=== PATIENT | male | born 1945 | race Caucasian/White ===

== ENCOUNTER → 2023-05-17 09:30 | Outpatient (REF) | payer OTHER, MEDICARE, SELFPAY ==
[2023-05-17 11:14] LABS: Hematocrit 27.9 % (39.0-52.0); Hemoglobin 9.4 g/dL (13.0-18.0); Mean Corp Hgb Conc. 33.7 g/dL (33.0-37.0); Mean Corpuscular Hgb 29.3 pg (27.0-31.0); Mean Corpuscular Volume 86.9 fL (80.0-94.0); Mean Platelet Volume 10.7 fL (7.4-10.4); Platelet Count 143 10^3/uL (130-400); Red Blood Cell Count 3.21 10^6/uL (4.70-6.10); Red Cell Dist. Width 13.5 % (11.5-14.5); White Blood Cell Count 4.1 10^3/uL (4.8-10.8)
[2023-05-17 12:24] LABS: ALT (SGPT) 19 U/L (0-50); AST (SGOT) 29 U/L (17-59); Albumin 3.9 g/dl (3.5-5.0); Alkaline Phosphatase 77 U/L (38-126); Blood Urea Nitrogen 19 mg/dl (9-20); Calcium 8.5 mg/dl (8.4-10.2); Carbon Dioxide 26 mmol/L (22-30); Chloride 101 mmol/L (98-107); Creatine Phosphokinase 63 U/L (55-170); Glomerular Filtration Rate > 60.0; Glucose 83 mg/dl (70-99); Potassium 3.8 mmol/L (3.5-5.1); Sodium 136 mmol/L (135-145); Total Bilirubin 0.6 mg/dl (0.2-1.3); Total Protein 5.8 g/dl (6.3-8.2)
== END ==
LOC: OLABWHC 09:30
PROVIDERS: ATTENDING PHYSICIAN Family Medicine
DX: D64.9 Anemia, unspecified (principal); B96.1 Klebsiella pneumoniae [K. pneumoniae] as the cause of diseases classified elsewhere; I10 Essential (primary) hypertension
CPT/HCPCS: 36415; 80053; 82550; 85027

== ENCOUNTER 2024-03-06 07:48 | Emergency (ER) | payer MEDICARE, OTHER, SELFPAY ==
[2024-03-06 07:51] VITALS: BP 182/107; BMI 24.5
[2024-03-06 07:53] VITALS: BP 182/107
[2024-03-06 08:00] VITALS: BP 169/106
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
[2024-03-06] MEDS: SUBUTEX 2 MG SL (08:37)
[2024-03-06 08:53] LABS: % Basophils 0.2 % (0-2); % Immature Granulocytes 0.4 % (0-0.5); % Lymphocytes 7.7 % (20.5-51.1); % Monocytes 6.2 % (1.7-9.3); % Neutrophils 84.5 % (42.2-75.2); Absolute Eosinophils 0.1 10^3/uL (0-0.7); Absolute Lymphocytes 0.4 10^3/uL (1.2-3.4); Absolute Monocytes 0.3 10^3/uL (0.1-0.6); Absolute Neutrophils 4.4 10^3/uL (1.4-6.5); Hematocrit 32.9 % (39.0-52.0); Hemoglobin 10.8 g/dL (13.0-18.0); Mean Corp Hgb Conc. 32.8 g/dL (33.0-37.0); Mean Corpuscular Hgb 28.6 pg (27.0-31.0); Nucleated Red Blood Cells % 0 % (-); Red Blood Cell Count 3.78 10^6/uL (4.70-6.10); Red Cell Dist. Width 15.9 % (11.5-14.5); White Blood Cell Count 5.2 10^3/uL (4.8-10.8)
[2024-03-06 08:55] LABS: Urine Albumin Negative (Neg - Trace); Urine Bilirubin Negative (Negative); Urine Character Clear (Clear); Urine Color Yellow; Urine Glucose Negative (Negative); Urine Ketone Negative (Negative); Urine Leukocyte Trace (Negative); Urine Nitrite Negative (Negative); Urine Occult Blood Trace (Negative); Urine Specific Gravity 1.015 (<1.030); Urine Urobilinogen Negative (Neg - 1+)
[2024-03-06 09:00] VITALS: BP 182/106
[2024-03-06 09:08] LABS: Urine Bacteria Moderate (Negative); Urine Urothelial Cell 0-2 /LPF (FEW)
[2024-03-06] MEDS: TORADOL 15 MG IV (09:10)
[2024-03-06 09:30] LABS: ALT (SGPT) 20 U/L (0-50); AST (SGOT) 32 U/L (17-59); Albumin 4.2 g/dl (3.5-5.0); Alkaline Phosphatase 74 U/L (38-126); Blood Urea Nitrogen 23 mg/dl (9-20); Carbon Dioxide 27 mmol/L (22-30); Chloride 100 mmol/L (98-107); Estimated Creatinine Clearance 72 ml/min; Glucose 105 mg/dl (70-99); Lipase 69 U/L (23-300); Potassium 4.2 mmol/L (3.5-5.1); Sodium 131 mmol/L (135-145); Total Bilirubin 1.6 mg/dl (0.2-1.3); Total Protein 6.6 g/dl (6.3-8.2); eGFR > 60.00
[2024-03-06 10:00] VITALS: BP 157/97
== END 2024-03-06 11:07 | disposition home or self-care (01) ==
LOC: EMR 07:48
PROVIDERS: EMERGENCY PHYSICIAN Emergency Medicine; FAMILY PHYSICIAN Family Medicine
DX: G89.29 Other chronic pain (principal); M54.9 Dorsalgia, unspecified; I48.91 Unspecified atrial fibrillation; I11.0 Hypertensive heart disease with heart failure; I50.9 Heart failure, unspecified; I25.10 Atherosclerotic heart disease of native coronary artery without angina pectoris; G47.30 Sleep apnea, unspecified; F41.8 Other specified anxiety disorders; E78.00 Pure hypercholesterolemia, unspecified; Z82.49 Family history of ischemic heart disease and other diseases of the circulatory system; Z87.440 Personal history of urinary (tract) infections; Z95.0 Presence of cardiac pacemaker; Z95.2 Presence of prosthetic heart valve; Z98.1 Arthrodesis status
CPT/HCPCS: 99284; 96374; 74176; 80053; 81003; 81015; 83690; 85025; 87077; 87086; 87186

== ENCOUNTER 2024-04-14 04:55 | Inpatient (IN) | payer MEDICARE, OTHER, SELFPAY ==
[2024-04-14] VITALS (13 sets, daily range): BP systolic 78–205; BP diastolic 50–123; BMI 23.7; BMI 22.5
[2024-04-14 00:56] LABS: % Basophils 0.1 % (0-2); % Immature Granulocytes 0.4 % (0-0.5); % Lymphocytes 8.6 % (20.5-51.1); % Monocytes 5.2 % (1.7-9.3); % Neutrophils 85.7 % (42.2-75.2); Absolute Lymphocytes 0.8 10^3/uL (1.2-3.4); Absolute Monocytes 0.5 10^3/uL (0.1-0.6); Absolute Neutrophils 7.9 10^3/uL (1.4-6.5); Hematocrit 35.3 % (39.0-52.0); Hemoglobin 12.5 g/dL (13.0-18.0); Mean Corp Hgb Conc. 35.4 g/dL (33.0-37.0); Mean Corpuscular Hgb 29.3 pg (27.0-31.0); Mean Corpuscular Volume 82.7 fL (80.0-94.0); Mean Platelet Volume 9.7 fL (7.4-10.4); Nucleated Red Blood Cells % 0 % (-); Platelet Count 116 10^3/uL (130-400); Red Blood Cell Count 4.27 10^6/uL (4.70-6.10); Red Cell Dist. Width 16.1 % (11.5-14.5); White Blood Cell Count 9.2 10^3/uL (4.8-10.8)
--- NOTE | 2024-04-14 01:06 | ED.GENMED ---
History of Present Illness
<THIEN Galvan - Last Filed: 04/14/24 05:05>
General
Chief Complaint: Chest Pain
Source: patient
Exam Limitations: none
Time Seen by Provider: 04/14/24 00:32
Travel History
Have you had any contact with someone who has COVID-19?: No
Do you have any symptoms of coronavirus? Fever > 100 degrees, chills, cough, shortness of breath, sore throat, loss of taste or smell, muscle aches, or headache?: No
History of Present Illness
History of Present Illness:
78 YO M with a PMH of two aortic valves replaced, HTN, and HLD presenting to the ED with complaints of left sided chest pain that started at 7 p.m. Pt reports he was lying in his bed when this occurred. He described the pain as sharp, lasting 10-15
seconds before subsiding. He states he was not doing any activities that may have caused this sudden chest pain to occur. Pt pointed to his pain as 2-3 inches below his left nipple. He rates his pain is now a 7-8/10. He states he has had ongoing
back and abdominal pain x 6 months. He was supposed to see a back doctor but his appointment got canceled. Pt mentions he was treated for a UTI about three weeks ago. He thinks the antibiotic used was Bactrim. Pt is still complaining of polyuria and
is not sure if he is experiencing burning with urination.
Denies calf pain, recent travel, or long drives
Denies SOB, N,V, and diarrhea
Denies tearing pain into his chest.
Denies hx of GERD. Denies spicy food this evening.
Past History
<THIEN Galvan - Last Filed: 04/14/24 05:05>
Past History
ED Past Medical History: Arrthythmia (Atrial flutter/fib), CAD, CHF, HTN, Hypercholesterolemia, Valvular disease, Psychiatric (Anxiety, Depression), Other (Rib fractures, Chronic back pain Anemia, Cellulitis, Left pleural effusion, osteomyelitis,
endocarditis, Sleep apnea, Parkinson, GI bleeding, UTI with retention, AAA, Montalvo) and Other (polyneuropathy, balance issues, Neuropathy, Sleep apnea, Gi bleeding. UTI with retention)
ED Past Surgical History: Cardiac (Aortic valve replaced (x 2), Pacemaker), Orthopedic (C spine fusion, Laminectomy) and Other (Hemorrhoidectomy)
Patient has exhibited threatening behavior?: No
PSI?: No
Social History
Tobacco: Non-smoker
Alcohol: None ( Beer)
Drug: None
Personal:
Living: assisted living ([facility])
Employment: Retired
Family History
Family History: Hypertension and CAD
Review of Systems
<Kaylin Elam [facility] - Last Filed: 04/14/24 05:05>
Review of Systems
Constitutional: Reports no symptoms
EENT: Reports no symptoms
Respiratory: Reports no symptoms
Cardiac: Reports chest pain (2-3 inches below Left Nipple)
ABD/GI: Reports abdominal pain
: Reports frequency
Musculoskeletal: Reports back pain
Skin: Reports no symptoms
Neurological: Reports no symptoms
Phy Exam
<Kaylin Elam [facility] - Last Filed: 04/14/24 05:05>
Physical Exam
Physical Exam:
Abdominal tenderness in RLQ and suprapubic area
Normal S1 and S2
Breath sounds are clear and equal B/L
No bruits heard on abdominal exam
General Physical Exam
General Presentation: mild distress
General age: appears stated age
General Habitus: normal
General Mental: alert
Cardiovascular Exam
Cardiovascular Exam: regular rate/rhythm
Pulmonary Exam
Pulmonary Exam: lungs clear and no respiratory distress
Neurological Exam
Neurological Exam: alert and oriented x3
Scores
<THIEN Galvan - Last Filed: 04/14/24 05:05>
Heart Score for Chest Pain Patients
STEMI patient?: Not applicable
Course
<THIEN Galvan - Last Filed: 04/14/24 05:05>
Orders/Labs/Results
Orders:
Orders
04/14/24 00:33
EKG [Electrocardiogram (*1)] Urgent
Reason for Study: Chest Pain
EKG- Treatment ONCE
04/14/24 00:35
CBC/With Diff [Complete Blood Count/With Diff] Urgent
CMP [Comprehensive Metabolic Panel] Urgent
Troponin I Urgent
04/14/24 01:26
Lorazepam [Ativan] 0.5 mg IV NOW STA
04/14/24 01:36
Urinalysis Reflex To Culture Urgent
Date Specimen was Collected: 04/14/24
Time Specimen was Collected: 01:23
04/14/24 01:41
CR Chest - 2 Views Urgent
Comment:
Reason For Exam: L cp
04/14/24 03:01
Troponin I Urgent
04/14/24 04:00
Metoprolol [Lopressor] 5 mg IV NOW STA
04/14/24 04:02
CT Chest Angio W/wo Iv Contras Urgent
Comment:
Reason For Exam: CP, widened mediastinum
04/14/24 04:38
Admit/Transfer Patient As Directed
Co-Sign Provider:
Level of Care: Inpatient admission
Assign to:: Telemetry
Physician / Group: htay
Diagnosis: CP, eleavted TPNI
Reason for Telemetry: Chest Pain syndromes
Date to Stop Telemetry: 04/16/24
Time to Stop Telemetry: 11:00
Reason for Hospitalization: CP, eleavted TPNI
Expected length of stay greater than two midnights?: Yes
ELOS- Estimated Length of Stay in days: 3
I certify the patient meets the requirements for IP care: Yes
04/14/24 04:41
Code Status As Directed
Resuscitation Status: Full Code
04/16/24 11:00
DC Protocol for Telemetry ONCE
Abnormal Lab Results
04/14/24 04/14/24
00:35 03:01
RBC 4.27 L 10^6/uL
(4.70-6.10)
Hgb 12.5 L g/dL
(13.0-18.0)
Hct 35.3 L %
(39.0-52.0)
RDW 16.1 H %
(11.5-14.5)
Plt Count 116 L 10^3/uL
(130-400)
Absolute Neuts (auto) 7.9 H 10^3/uL
(1.4-6.5)
Absolute Lymphs (auto) 0.8 L 10^3/uL
(1.2-3.4)
Neutrophils % 85.7 H %
(42.2-75.2)
Lymphocytes % 8.6 L %
(20.5-51.1)
Sodium 132 L mmol/L
(135-145)
Chloride 94 L mmol/L
(98-107)
Glucose 111 H mg/dl
(70-99)
Troponin I 0.038 H* ng/ml 0.050 H* D ng/ml
04/14/24 00:35
04/14/24 00:35
Vital Signs
Initial and Last Documented VS:
Initial Vital Signs
Temp Pulse Resp BP Pulse Ox
98.2 F 86 18 205/123 97
04/14/24 00:28 04/14/24 00:28 04/14/24 00:28 04/14/24 00:28 04/14/24 00:28
Last Documented Vital Signs
Temp Pulse Resp BP Pulse Ox
98.2 F 67 25 193/118 95
04/14/24 00:28 04/14/24 04:08 04/14/24 03:47 04/14/24 04:08 04/14/24 03:45
<Oh Butt, DO - Last Filed: 04/14/24 05:01>
Orders/Labs/Results
Orders:
Orders
04/14/24 00:33
EKG [Electrocardiogram (*1)] Urgent
Reason for Study: Chest Pain
EKG- Treatment ONCE
04/14/24 00:35
CBC/With Diff [Complete Blood Count/With Diff] Urgent
CMP [Comprehensive Metabolic Panel] Urgent
Troponin I Urgent
04/14/24 01:26
Lorazepam [Ativan] 0.5 mg IV NOW STA
04/14/24 01:36
Urinalysis Reflex To Culture Urgent
Date Specimen was Collected: 04/14/24
Time Specimen was Collected: 01:23
04/14/24 01:41
CR Chest - 2 Views Urgent
Comment:
Reason For Exam: L cp
04/14/24 03:01
Troponin I Urgent
04/14/24 04:00
Metoprolol [Lopressor] 5 mg IV NOW STA
04/14/24 04:02
CT Chest Angio W/wo Iv Contras Urgent
Comment:
Reason For Exam: CP, widened mediastinum
04/14/24 04:38
Admit/Transfer Patient As Directed
Co-Sign Provider:
Level of Care: Inpatient admission
Assign to:: Telemetry
Physician / Group: htay
Diagnosis: CP, eleavted TPNI
Reason for Telemetry: Chest Pain syndromes
Date to Stop Telemetry: 04/16/24
Time to Stop Telemetry: 11:00
Reason for Hospitalization: CP, eleavted TPNI
Expected length of stay greater than two midnights?: Yes
ELOS- Estimated Length of Stay in days: 3
I certify the patient meets the requirements for IP care: Yes
04/14/24 04:41
Code Status As Directed
Resuscitation Status: Full Code
04/16/24 11:00
DC Protocol for Telemetry ONCE
Abnormal Lab Results
04/14/24 04/14/24
00:35 03:01
RBC 4.27 L 10^6/uL
(4.70-6.10)
Hgb 12.5 L g/dL
(13.0-18.0)
Hct 35.3 L %
(39.0-52.0)
RDW 16.1 H %
(11.5-14.5)
Plt Count 116 L 10^3/uL
(130-400)
Absolute Neuts (auto) 7.9 H 10^3/uL
(1.4-6.5)
Absolute Lymphs (auto) 0.8 L 10^3/uL
(1.2-3.4)
Neutrophils % 85.7 H %
(42.2-75.2)
Lymphocytes % 8.6 L %
(20.5-51.1)
Sodium 132 L mmol/L
(135-145)
Chloride 94 L mmol/L
(98-107)
Glucose 111 H mg/dl
(70-99)
Troponin I 0.038 H* ng/ml 0.050 H* D ng/ml
04/14/24 00:35
04/14/24 00:35
Vital Signs
Initial and Last Documented VS:
Initial Vital Signs
Temp Pulse Resp BP Pulse Ox
98.2 F 86 18 205/123 97
04/14/24 00:28 04/14/24 00:28 04/14/24 00:28 04/14/24 00:28 04/14/24 00:28
Last Documented Vital Signs
Temp Pulse Resp BP Pulse Ox
98.2 F 67 25 193/118 95
04/14/24 00:28 04/14/24 04:08 04/14/24 03:47 04/14/24 04:08 04/14/24 03:45
<Kaylin Elam [facility] - Last Filed: 04/14/24 05:05>
MDM/Problems Addressed
Differential Diagnosis Includes:
Coronary artery disease: STEMI vs. NSTEMI, stable vs. unstable angina, UTI, pyelonephritis
MDM/Problems Addressed:
Left sided CP since 7 pm, ongoing abdominal pain x 6 months
Acute Exacerbation and/or Progression of Chronic Illness: HTN
<Oh Butt DO - Last Filed: 04/14/24 05:01>
MDM/Problems Addressed
MDM/Problems Addressed:
Acute chest pain, acute uncontrolled hypertension, elevated troponin, chronic back pain
<Kaylin Elam [facility] - Last Filed: 04/14/24 05:05>
*Critical Care Note
Total Time (30-74mins, 75-104mins- exclusive of procedures): Not Applicable
<Oh Butt DO - Last Filed: 04/14/24 05:01>
*Pulse Oximetry
Patient hypoxic: no
*EKG
Interpreted by ED Provider?: Yes
Interpretation: abnormal
Rhythm: av sequential
Ischemia: non-specific ST changes
*Brine Tank Operator Interpretation
Rate: normal
Interpretation: abnormal
Rhythm: av sequential
Data Reviewed
Review of Other/Old Records Reveals: Labs (Previous troponin results reviewed)
Source: patient
Prescriptions/Medications Considered But Not Given:
Consider nitroglycerin but symptoms have resolved
<Oh Butt DO - Last Filed: 04/14/24 05:01>
Patient Management
Discussion with other providers: Hospitalist
Escalation/DeEscalation of care consider admission/obs:
Brief somewhat atypical chest pain that has since resolved. However troponin did rise a bit. Is on Eliquis so do not suspect PE. Is a bit hypertensive. Treat with Lopressor and continue to monitor
ED Attending Note
<THIEN Galvan - Last Filed: 04/14/24 05:05>
-
Portions of this chart may have been created with voice recognition software.� Occasional wrong word or��sound alike� substitutions may have occurred due to the inherent limitations of voice recognition software.
<Oh Butt DO - Last Filed: 04/14/24 05:01>
ED Attending Note
Patient seen and examined by attending physician: Yes
I performed the substantive portion of visit, reviewed & personally made and approve the management plan that is documented in note by myself or BERNA.: Yes
ED Attending Note:
78-year-old male who presents with very brief episode of chest pain began around 7 AM. Pain is since resolved. He does report chronic back pain and lower abdominal discomfort that he is dealt with for some time. Patient states that his chest pain
has resolved. Patient is anticoagulated on Eliquis. He denies shortness of breath. The pain was sharp and was left lateral of his chest. Exam: Slight systolic murmur heard, no tenderness, no rash, lungs clear and equal bilaterally. Is
hypertensive. Assessment and plan: Check troponin, chest x-ray, trend vital signs
Discharge Plan
Departure
Patient Disposition: Admit
Date of Disposition: 04/14/24
Time of Disposition: 04:03
Admit to: Telemetry
Presentation/result/management discussed w/ accepting MD/DO: With Dr. Butt
Discharge Problem:
Chest pain, Elevated troponin, Uncontrolled hypertension, Ascending aortic aneurysm
Interventions
Interventions:
*Risk Screen - Suicide Last Done: 04/14/24 00:28
*General Assessment Last Done: 04/14/24 00:28
*Neglect/Abuse Screening Last Done: 04/14/24 00:28
ED- Fall Risk Assessment Last Done: 04/14/24 00:38
ED- Cardiac Assessment Last Done: 04/14/24 00:38
[2024-04-14 01:16] LABS: ALT (SGPT) 18 U/L (0-50); AST (SGOT) 26 U/L (17-59); Albumin 4.3 g/dl (3.5-5.0); Alkaline Phosphatase 90 U/L (38-126); Blood Urea Nitrogen 17 mg/dl (9-20); Calcium 9.2 mg/dl (8.4-10.2); Carbon Dioxide 30 mmol/L (22-30); Chloride 94 mmol/L (98-107); Estimated Creatinine Clearance 84 ml/min; Glucose 111 mg/dl (70-99); Sodium 132 mmol/L (135-145); Total Bilirubin 1.3 mg/dl (0.2-1.3); Total Protein 6.8 g/dl (6.3-8.2); eGFR > 60.00
--- NOTE | 2024-04-14 01:30 | EDRN ---
Patient asking for something to help calm him down, aware, all calles in reach will continue to monitor
[2024-04-14] MEDS: ATIVAN 0.5 MG IV (01:37)
[2024-04-14 01:39] LABS: Troponin I 0.038 ng/ml
[2024-04-14 01:44] LABS: Urine Albumin Negative (Neg - Trace); Urine Bilirubin Negative (Negative); Urine Character Clear (Clear); Urine Color Straw; Urine Glucose Negative (Negative); Urine Ketone Negative (Negative); Urine Leukocyte Negative (Negative); Urine Nitrite Negative (Negative); Urine Occult Blood Negative (Negative); Urine Urobilinogen Negative (Neg - 1+)
--- NOTE | 2024-04-14 02:32 | EDRN ---
Patient found standing next to bed urinating, reminded him to use call calles so he doesn't fall since we gave him Ativan, showed patient again how to use call calles
[2024-04-14] MEDS: LOPRESSOR 5 MG IV (04:08)
--- NOTE | 2024-04-14 04:32 | HPS.HSE ---
Family Physician
-
Family Physician: Black Artis
Chief Complaint
-
CP
History of Present Illness
HPI
78y M with PMH significant for chronic pain, hypertension, A-Fib and Chr HFpEF seen aER for evalaution of CP
Acute Lt sided CP [facility]
- onset around 7 pm last night while lying in bed
- sharp pain 01/13 on arrival to ER
- Received 4 baby ASA
Reports abdominal pain for last 3 days
PHx suggestive of chr abdominal pain
Recent Dx of UTI and treated with PO Bactrim
- POS polyuria
- uncertain about dysuria
ROS;
Denies SOB, N,V, and diarrhea
At ER
BP 205/123 --> 195/107 s/p IV Lopressor 5 mg , IV Ativan 0.5 mg
Medical History
Past Medical History
Past Medical History: Reports Other
Additional Past Medical History:
Paroxysmal atrial fibrillation and flutter
Chronic back pain, spinal stenosis, and degenerative disc disease with chronic opioid use with dependence
Essential hypertension
h/o Klebsiella pneumonia and coagulase-negative Staphylococcus infected hardware in L4-L5 (April 2023) treated with Chronic neuropathy
Gastroesophageal reflux disease
Chronic HFpEF
Benign prostatic hypertrophy
Hyperlipidemia
h/o permanent pacer
h/o aortic valve x 2
Obstructive sleep
Anxiety
Depression
HX C. difficile
Past Surgical History: Reports Other
Additional Past Surgical History:
History of pain pump infection with removal
Pacer and aortic valve replaced
Cervical spine fusion, laminectomy 2018, lumbar surgery 2022 with screws placed then removed 04/25/2023
Hemorrhoidectomy
Rhizotomy lower back
Cardiac cath 2006
Social History
Tobacco: Non-smoker
Alcohol: None
Drug: None
Living: With Family
Family History
Family History: CAD (mother and father )
Allergies / Home Medications
Allergies reflects when Allergies were last updated in [facility].
Home Medications with original date entered in [facility]
Allergy/Medication List:
Allergies
Allergy/AdvReac Type Severity Reaction Status Date / Time
amlodipine Allergy Swelling - Verified 04/14/24 00:32
1992
hydrochlorothiazide Allergy Hyponatremi Verified 04/14/24 00:32
a
tizanidine [From Zanaflex] Allergy took from Verified 04/14/24 00:32
patient
history
and
physical
from
surgeon
Home Medications
apixaban 5 mg tablet (Eliquis) 5 mg PO BID Blood clot prevention/tx 01/16/22
gabapentin 600 mg tablet 600 mg PO TID Neurological Condition 05/20/22
terazosin 2 mg capsule 2 mg PO HS BPH 05/20/22
carvedilol 6.25 mg tablet (Coreg) 6.25 mg PO BID Blood pressure 09/13/22
furosemide 20 mg tablet 10 mg PO DAILY Fluid retention/Swelling 09/13/22
trazodone 150 mg tablet 150 mg PO HS Depression 09/13/22
famotidine 20 mg tablet (Pepcid) 20 mg PO BID Gastrointestinal issue 02/17/23
pantoprazole 40 mg tablet,delayed release 40 mg PO DAILY Gastrointestinal issue 02/17/23
hydralazine 10 mg tablet 10 mg PO BID Blood Pressure 04/03/23
urea 15 gram oral powder packet 1 packet PO DAILY MEDICAL FOOD SIADH 04/03/23
vitamin B complex 1 cap PO QPM Supplement ##0 04/03/23
tamsulosin 0.4 mg capsule 0.4 mg PO BID #0 caps 04/07/23
acidophilus-sporogenes 35 million-25 million cell tablet (Acidophilus Ex Str (L. sporog)) 1 tab PO QPM Supplement 04/12/23
atorvastatin 20 mg tablet 20 mg PO HS High cholesterol 04/12/23
cholecalciferol (vitamin D3) 125 mcg (5,000 unit) tablet (Vitamin D3) 125 mcg PO DAILY Supplement 04/12/23
vitamin E 670 mg (1,000 unit) capsule 670 mg PO DAILY Supplement 04/12/23
buprenorphine 8 mg-naloxone 2 mg sublingual tablet 3 tab sublingual DAILY chronic pain syndrome/chronic opioid dependence 07/27/23
tizanidine 4 mg tablet 4 mg PO DAILY Muscle Spasms 07/27/23
acetaminophen 325 mg tablet 650 mg (2 x 325 mg) PO Q4HPRN PRN mild pain #0 tabs 07/29/23
tramadol 50 mg tablet 50 mg PO TID PRN Pain #21 tabs 08/01/23
levofloxacin 500 mg tablet 500 mg PO DAILY #5 tabs 03/09/24
Review of Systems
-
Constitutional: Reports No Symptoms
EENT: Reports No Symptoms
Respiratory: Reports No Symptoms
Cardiac: Reports Chest Pain; Denies Diaphoresis, Palpitations or Syncope
Abdomen/GI: Reports No Symptoms
: Reports No Symptoms
Musculoskeletal: Reports No Symptoms
Skin: Reports No Symptoms
Neurological: Reports No Symptoms
Endocrine: Reports No Symptoms
Hematologic/Lymphatic: Reports No Symptoms
Psych: Reports No Symptoms
Physical Exam
Vital Signs
Vital Signs
Temp Pulse Resp BP Pulse Ox
98.2 F 67 25 193/118 95
04/14/24 00:28 04/14/24 04:08 04/14/24 03:47 04/14/24 04:08 04/14/24 03:45
Physical Exam
General: Well Nourished, No Apparent Distress and Comfortable
HEENT: NormoCephalic, Anicteric and Moist mucous membranes
Respiratory: Clear; No Wheezes, Rales or Rhonchi
Cardiac: S1/S2 and Regular Rhythm; No JVD
Breast: Deferred by me
GI: Soft, Non Tender, Non Distended and Normal Bowel Sounds
Rectal: Deferred by Provider
Genito-urinary: Deferred by me
Musculoskeletal: No Edema
Skin: Warm and Dry
Neuro: AO x 3 and Nonfocal/grossly intact
Psych: Calm and Intact Judgment/Insight
Laboratory Results
-
04/14/24 00:35
04/14/24 00:35
Laboratory Results
Total Bilirubin 1.3 mg/dl (0.2-1.3) 04/14/24 00:35
AST 26 U/L (17-59) 04/14/24 00:35
ALT 18 U/L (0-50) 04/14/24 00:35
Alkaline Phosphatase 90 U/L (38-126) 04/14/24 00:35
Troponin I 0.050 ng/ml H* D 04/14/24 03:01
Data Reviewed
-
Medical Tests (Nuc Med, Echo, EKG etc): Report Reviewed by me
Lab Data: Labs Reviewed by me
Impression/Plan
-
Reviewed VS: afebrile BP 205/123 --> 195/107 RR 20s POx mid 90s on RA
Data
Hgb 12.5 - baseline mid 9s to hi 10s
Plt 116 - baseline low 100s
Na 132
Cl 94
Nl Cr eGFR > 60
TPNI: 0.038 --> 0.050
CXR pending
CTA chest w/wo contrast pending
EKG
AV dual-paced rhythm
ABNORMAL ECG
WHEN COMPARED WITH ECG OF 04-NOV-2023 16:21
VENT. RATE HAS DECREASED BY 16 BPM
01/05/23 TTE
LVEF 54
trace MR, marked LA dilatation
Redo #25 Inspiris bioprosthetic aortic valve with peak/mean gradient 17/10 mmHg, No AR
Last hospitalist admission: 07/28/23 - 07/29/23
P Dx: Right incarcerated inguinal hernia with intractable pain s/p open inguinal hernia repair 07/28/23
ASSESSMENT & PLAN
Pending Rx reconciliation
Acute Lt sided CP with trending up second TPNI : NIMI vs NSTEMI
HX HLD
- s/p 4 baby ASA
- Trend TPNI till peak and EKG
- on Eliquis
- cont. Carvedilol
- cont. Atorvastatin
- [facility] card consult
HTN urgency
HX essential HTN
- IV Hydralazine PRN
- escalde Coreg to 12.[address] of 6.25mg BID
- cont CORPORATE SECRETARY Meds (Pending Rx reconciliation)
HX Chr HFpEF
- cont. CORPORATE SECRETARY Coreg and Lasix
- daily wt.
Redo #25 Inspirit bioprosthetic aortic valve
- stable
HX A-fib/a flutter paroxysmal
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
- on Eliquis
- Patient follows with [facility]
Chronic thrombocytopenia ? related to AoV
- stable
Chronic back pain on chronic oral opiates/spinal stenosis, DDD
Chronic neuropathy
- cont. CORPORATE SECRETARY Gabapentin
Reports abdominal pain for last 3 days
PHx suggestive of chr abdominal pain
GERD/ HX GIB
- unremarkable LFTs
- cont Protonix
BPH
- cont terazosin 2 mg at bedtime, Flomax 0.4 mg twice daily
HX GILLES
Anxiety/depression
- on trazodone
Other PMH:
HX Klebsiella pneumonia and coagulase-negative staph aureus and infected hardware lumbar back L4-L5,April 2023 treated with removal of pain pump, daptomycin, Rocephin
HX C. difficile May 2023 treated with oral vancomycin
Frequent falls
COVID-19 infection
H emorrhoids
H. pylori
DVT Px: Eliquis
Code: Full
Obs TLM
--- NOTE | 2024-04-14 05:01 | EDRN ---
Patient stood to urinate, urinal emptied and back in bed resting.
--- NOTE | 2024-04-14 05:37 | EDRN ---
Patient stood to use urinal again then covered back up with blankets, waiting on bed at this time.
--- NOTE | 2024-04-14 06:09 | PTCARENOTE ---
Pt received from [facility] Pt oriented to room and call calles.
[2024-04-14 07:54] LABS: Troponin I 0.058 ng/ml
[2024-04-14] MEDS: NEURONTIN 600 MG PO ×3 (08:37→21:02)
[2024-04-14] MEDS: APRESOLINE 10 MG PO ×2 (08:37→20:21)
[2024-04-14] MEDS: COREG 12.5 MG PO ×2 (08:37→20:20)
[2024-04-14] MEDS: PROTONIX 40 MG PO (08:37)
[2024-04-14] MEDS: LASIX 10 MG PO (08:37)
[2024-04-14] MEDS: ZANAFLEX 4 MG PO (08:37)
[2024-04-14 09:54] LABS: Glycohemoglobin (HgbA1c) 5.5 % (4.0-5.6)
[2024-04-14 11:32] LABS: Hematocrit 35.3 % (39.0-52.0); Hemoglobin 12.6 g/dL (13.0-18.0); Mean Corp Hgb Conc. 35.7 g/dL (33.0-37.0); Mean Corpuscular Hgb 29.2 pg (27.0-31.0); Mean Corpuscular Volume 81.7 fL (80.0-94.0); Mean Platelet Volume 9.4 fL (7.4-10.4); Platelet Count 121 10^3/uL (130-400); Red Blood Cell Count 4.32 10^6/uL (4.70-6.10); Red Cell Dist. Width 16.3 % (11.5-14.5); White Blood Cell Count 7.2 10^3/uL (4.8-10.8)
[2024-04-14 11:43] LABS: APTT 32.7 Sec (23.4-35.0)
[2024-04-14 11:56] LABS: Troponin I 0.061 ng/ml
--- NOTE | 2024-04-14 12:36 | CON.CAR ---
Consultation
Consultation Request
Date/Time Consultation Requested: 04/14/24
Date/Time Consultation Performed: 04/14/24
Requesting Provider: David
Performing Provider: Lucinda
Reason for Consultation: chest pain
Medical History
-
Chief Complaint: chest pain
History of Present Illness:
78-year-old man with complex past medical history as below who presented to [facility] emergency department for evaluation of left-sided chest discomfort. It seems that he developed left-sided chest discomfort last evening which came on at rest and
prompted him to present to [facility] emergency department for further evaluation, was brought in by EMS. Also tells me he has had ongoing back and abdominal pain which seem like they are more chronic in nature. Of note his blood pressure was
significantly elevated on admission (205/123 mmHg). ECG showed paced rhythm. Initial troponin 0.038 and uptrending, most recently 0.061. With concern for aortic dissection he underwent CTA of the chest which showed a ascending thoracic aortic
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
At the time of my evaluation this morning he was resting in bed and chest pain-free however he was having significant back pain. It seems that this has been a chronic issue for him and has been on long-term opioids as well as had a prior pain pump
from what he tells me became infected in the past.
PAST MEDICAL HISTORY:
History of paroxysmal atrial fibrillation, now with persistent atrial flutter
Pacemaker implant with revision for presumed endocarditis in 09/2020
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
Non-obstructive CAD
Hypertension
Opioid dependence
Low back pain with lumbar laminectomy 08/2021
Cervical laminectomy 2018
Infected pain pump explanted in 2019
Chronic hyponatremia
Obstructive sleep apnea
Past Medical History
Past Medical History: Other (as above)
Past Surgical History: Other (as above)
Social History
Tobacco: Non-Smoker
Family History
Family History: Reviewed & Not Pertinent
Allergies / Home Medications
Allergy/AdvReac Type Severity Reaction Status Date / Time
amlodipine Allergy Swelling - Verified 04/14/24 00:32
1993
hydrochlorothiazide Allergy Hyponatremi Verified 04/14/24 00:32
a
tizanidine [From Zanaflex] Allergy took from Verified 04/14/24 00:32
patient
history
and
physical
from
surgeon
�Medication �Instructions �Recorded �Confirmed �Type
apixaban 5 mg tablet (Eliquis) 5 mg PO BID Blood clot 01/16/22 04/14/24 History
prevention/tx
gabapentin 600 mg tablet 600 mg PO TID Neurological 05/20/22 04/14/24 History
(Neurontin) Condition
terazosin 2 mg capsule 2 mg PO HS BPH 05/20/22 04/14/24 History
furosemide 20 mg tablet 10 mg PO DAILY Fluid 09/13/22 04/14/24 History
retention/Swelling
trazodone 150 mg tablet 150 mg PO HS Depression 09/13/22 04/14/24 History
famotidine 20 mg tablet (Pepcid) 20 mg PO BID Gastrointestinal issue 02/17/23 04/14/24 History
pantoprazole 40 mg tablet,delayed 40 mg PO DAILY Gastrointestinal 02/17/23 04/14/24 History
release (Protonix) issue
hydralazine 10 mg tablet 10 mg PO BID Blood Pressure 04/03/23 04/14/24 History
urea 15 gram oral powder packet 1 packet PO DAILY MEDICAL FOOD 04/03/23 04/14/24 History
SIADH
vitamin B complex 1 cap PO QPM Supplement ##0 04/03/23 04/14/24 History
atorvastatin 20 mg tablet (Lipitor) 20 mg PO HS High cholesterol 04/12/23 04/14/24 History
cholecalciferol (vitamin D3) 125 5,000 mcg PO DAILY Supplement 04/12/23 04/14/24 History
mcg (5,000 unit) tablet (Vitamin
D3)
buprenorphine 8 mg-naloxone 2 mg 3 tab sublingual DAILY chronic 07/27/23 04/14/24 History
sublingual tablet pain syndrome/chronic opioid
dependence
acetaminophen 325 mg tablet 650 mg PO Q4HPRN PRN mild pain 04/14/24 04/14/24 History
(Tylenol)
carvedilol 3.125 mg tablet (Coreg) 3.125 mg PO BID 04/14/24 04/14/24 History
polyethylene glycol 3350 17 17 g PO DAILY 04/14/24 04/14/24 History
gram/dose oral powder (Miralax)
tamsulosin 0.4 mg capsule 0.4 mg PO DAILY 04/14/24 04/14/24 History
vitamin E 400 unit tablet 400 unit PO HS 04/14/24 04/14/24 History
Review of Systems
-
History Source: Patient
All other systems: Negative unless noted
Physical Exam
Vital Signs
Temp Pulse Resp BP Pulse Ox
97.4 F 63 18 111/83 96
04/14/24 11:25 04/14/24 11:25 04/14/24 11:25 04/14/24 11:25 04/14/24 11:25
Lab Results
04/14/24 11:22
04/14/24 00:35
Troponin I 0.061 ng/ml H* 04/14/24 11:22
Physical Exam
General: Well Developed
HEENT: Normocephalic
Respiratory: Clear
Cardiac: S1/S2 and Regular Rhythm
GI: Soft
Musculoskeletal: No Edema
Skin: Warm and Dry
Neuro: Awake and Alert
Psych: Calm
Impression / Plan
-
Quality Control Engineering Technician: MARY Thomas
Assessment:
Chest pain
Troponin elevation
History of paroxysmal atrial fibrillation, now with persistent atrial flutter
Pacemaker implant with revision for presumed endocarditis in 09/2020
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
Non-obstructive CAD
Hypertension
Opioid dependence
Low back pain with lumbar laminectomy 08/2021
Cervical laminectomy 2018
Infected pain pump explanted in 2019
Chronic hyponatremia
Obstructive sleep apnea
Plan:
-Presenting following an episode of atypical chest discomfort
-Significantly hypertensive with systolic blood pressure over 200 and underwent CTA to rule out dissection
-ECG difficult to interpret given paced rhythm, but not overtly ischemic
-Low-level but uptrending troponin 0.038�0.050�0.058�0.061
-Suspect troponin elevation may be secondary to hypertensive urgency
-Monitor for recurrence of chest discomfort
-Continue to trend troponin to peak
-For now Eliquis on hold, maintain on heparin drip
-Treat with ASA, statin, BB
-Tentative plan for ischemic evaluation in a.m. If recurrence of chest pain or troponin continues to uptrend would favor invasive coronary angiography. However if troponin peaks I think that pharmacologic nuclear stress test would be reasonable to
further risk stratify him and in the absence of high risk stress test medical management could be continued.
Data Reviewed
-
EKG: Tracing Personally Visualized and interpreted
Radiology: Image Personally Visualized and interpreted
CT Scan: Report Reviewed by me
Medical Tests (Nuc Med, Echo etc): Report Reviewed by me
Labs: Labs Reviewed by me
Old Records: Reviewed
[2024-04-14] MEDS: HEPARIN 3900 UNITS IV (12:38)
[2024-04-14] MEDS: HEPARIN 25000 UNITS/250 ML IV (12:46)
--- NOTE | 2024-04-14 13:05 | PTCARENOTE ---
Patient sleeping most of day, patient states, ' I do not feel like eating. I have no appetite with all that is going on.' Patient is c/o back pain and he normally takes subutex TID for his chronic back pain. Patient has no c/o chest pain at present.
Physician made aware med list was updated. Pain meds given to patient. Call calles in reach, lunch order for patient in case he feels like eating.
--- NOTE | 2024-04-14 13:53 | W.PN.UPDATE ---
Update Note
Progress Note Update
Non-billable note (H&P entry at 4 30 AM)
resting comfortably
asking for his chronic Suboxone
Assessment:
Acute Lt sided CP with trending up second TPNI : NIMI vs NSTEMI
HX HLD
- s/p 4 baby ASA
- Trend TPNI till peak and follow EKG
- on Eliquis
- cont bb/statin
- [facility] card consulted; NPO p MN for stress vs cath pending troponin pattern
HTN urgency
HX essential HTN
- IV Hydralazine PRN
- increase Coreg to 12.5 mg BID
- cont CERTIFIED OPHTHALMIC ASSISTANT Meds (Pending Rx reconciliation)
HX Chr HFpEF
- cont. CERTIFIED OPHTHALMIC ASSISTANT Coreg and Lasix
- daily wt.
Redo #25 Inspirit bioprosthetic aortic valve
- stable
HX A-fib/a flutter paroxysmal
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
- on Eliquis; but now on IV Heparin pending ischemic eval
- Patient follows with [facility]
Chronic thrombocytopenia ? related to AoV
- stable
Chronic back pain on chronic oral opiates/spinal stenosis, DDD
Chronic neuropathy
- cont. CERTIFIED OPHTHALMIC ASSISTANT Gabapentin
Reports abdominal pain for last 3 days
PHx suggestive of chr abdominal pain
GERD/ HX GIB
- unremarkable LFTs
- cont Protonix/H2 aniceto
BPH
- cont terazosin 2 mg at bedtime, Flomax 0.4 mg twice daily
HX GILLES
Anxiety/depression
- on trazodone
Other PMH:
HX Klebsiella pneumonia and coagulase-negative staph aureus and infected hardware lumbar back L4-L5,April 2023 treated with removal of pain pump, daptomycin, Rocephin
HX C. difficile May 2023 treated with oral vancomycin
Frequent falls
COVID-19 infection
Hemorrhoids
H. pylori
DVT Px: Eliquis
Code: Full
--- NOTE | 2024-04-14 14:22 | CM ---
Patient seen bedside.
IA completed.
patient lives alone at [facility].
Independent prior to admission.
Has RW and cane/
Patient denies home care.
PCP: Dr Artis
Pharmacy: [facility]
Plan: home no needs anticipated.
[2024-04-14] MEDS: ASPIR LOW (ENTERIC COATED) 81 MG PO (14:52)
[2024-04-14] MEDS: SUBUTEX 2 MG SL ×2 (14:52→21:02)
[2024-04-14] MEDS: PEPCID 20 MG PO (20:15)
[2024-04-14] MEDS: LIPITOR 20 MG PO (21:03)
[2024-04-14] MEDS: DESYREL 150 MG PO (21:03)
[2024-04-14] MEDS: NSS 250 IV (23:37)
[2024-04-15] MEDS: MELATONIN 3 MG PO (00:58)
[2024-04-15 02:21] LABS: APTT 94.7 Sec (23.4-35.0)
--- NOTE | 2024-04-15 03:28 | PTCARENOTE ---
~2305 VS: BP 78/50, HR 69, O2 93% on RA, Resp Rate 14, Temp 97.7. Manual BP 74/62, HR 65, O2 95% on RA, Resp Rate 16. AAXO3. Pt denied SOB, difficulty breathing, and chest pain. Pt reported feeling 'a tad dizzy and slightly lightheaded.' HOB lowered
to the lowest position pt tolerated d/t hx of neck 'problems.' Notified PATRICIA Mancuso. New orders placed. Plan of care ongoing.
~00:20 Manual BP 112/78, HR 65, Resp Rate 16 and O2 94% on RA. AAXO3. Pt reports 'I'm feeling better.' Plan of care ongoing.
~0300 Pt reports dizziness and lightheadedness have resolved. Plan of care ongoing.
[2024-04-15 03:52] VITALS: BP 125/91
[2024-04-15 04:11] LABS: ALT (SGPT) 23 U/L (0-50); AST (SGOT) 31 U/L (17-59); Albumin 3.9 g/dl (3.5-5.0); Alkaline Phosphatase 68 U/L (38-126); Blood Urea Nitrogen 22 mg/dl (9-20); Calcium 8.6 mg/dl (8.4-10.2); Carbon Dioxide 29 mmol/L (22-30); Chloride 90 mmol/L (98-107); Estimated Creatinine Clearance 71 ml/min; Glucose 83 mg/dl (70-99); HDL Cholesterol 64 mg/dl; LDL Cholesterol, Calculated 39 mg/dl; Potassium 4.1 mmol/L (3.5-5.1); Sodium 126 mmol/L (135-145); Total Bilirubin 1.8 mg/dl (0.2-1.3); Total Cholesterol 114 mg/dl (50-199); Total Protein 6.2 g/dl (6.3-8.2); Triglyceride 57 mg/dl (10-149); Very Low Density Lipoprotein 11 mg/dl (0-30); eGFR > 60.00
[2024-04-15 04:21] LABS: Troponin I 0.031 ng/ml
[2024-04-15] MEDS: SUBUTEX 2 MG SL ×2 (05:27→14:33)
[2024-04-15 06:00] VITALS: BMI 22.5
[2024-04-15 07:00] VITALS: BP 119/82
[2024-04-15] MEDS: FLOMAX 0.400000000000000022 MG PO (08:41)
[2024-04-15] MEDS: PROTONIX 40 MG PO (08:41)
[2024-04-15] MEDS: ZANAFLEX 4 MG PO (08:41)
[2024-04-15] MEDS: NEURONTIN 600 MG PO ×2 (08:41→15:08)
[2024-04-15] MEDS: LASIX 10 MG PO (08:41)
[2024-04-15] MEDS: COREG 12.5 MG PO (08:41)
[2024-04-15] MEDS: ASPIR LOW (ENTERIC COATED) 81 MG PO (08:42)
[2024-04-15] MEDS: PEPCID 20 MG PO (08:42)
[2024-04-15] MEDS: APRESOLINE 10 MG PO (08:42)
[2024-04-15 08:54] LABS: Hematocrit 34.3 % (39.0-52.0); Mean Corpuscular Hgb 29.4 pg (27.0-31.0); Mean Corpuscular Volume 84.1 fL (80.0-94.0); Mean Platelet Volume 9.7 fL (7.4-10.4); Platelet Count 119 10^3/uL (130-400); Red Blood Cell Count 4.08 10^6/uL (4.70-6.10); White Blood Cell Count 5.6 10^3/uL (4.8-10.8)
[2024-04-15 08:58] LABS: APTT 98.3 Sec (23.4-35.0)
[2024-04-15] MEDS: LEXISCAN 0.400000000000000022 MG IV (12:08)
[2024-04-15] MEDS: AMINOPHYLLINE 75 MG IV (12:36)
[2024-04-15 14:42] VITALS: BMI 22.5
--- NOTE | 2024-04-15 14:58 | W.PN.HOSP.TC ---
Addendum entered and electronically signed by Cam Molina DO 04/15/24 16:21:
Repeat sodium noted, 128. Near his baseline. Resume urea 1 packet daily on discharge. Fluid restriction. BMP in 1 week.
Hypokalemia noted, oral replacement ordered.
Stable for discharge otherwise.
Original Note:
Today's Communication/Plan
-
BMP now
Possible discharge
Assessment / Plan
Assessment / Plan
Gen-AAOx3, NAD
HEENT-NC, AT, anicteric, clear oral mm
Neck-supple
CV-reg, no M, +S1/S2
Lungs-clear B/L
Abd-soft, NT, ND
Ext-no edema
Musculoskeletal-no cyanosis, clubbing
Skin-warm and dry
Neuro-grossly non-focal
Psych-calm, cooperative
Atypical chest pain -resolved. Stress test completed, no evidence of ischemia. Discussed with cardiology.
Acute nonischemic myocardial injury -possibly related to hypertensive urgency versus other causes. Troponin trended down.
Chronic pain syndrome/chronic opiate dependence -patient states all his pain has resolved with oral formulation of Suboxone. He takes Suboxone sublingual strips at home with little pain relief. Here in the hospital, he is on a similar dose but the
formulation is a tablet as opposed to a strip. He states his pain is much better controlled with tablets. Recommend outpatient follow-up with his pain specialist to change formulations.
Acute on chronic hyponatremia -fluid restriction advised. He is on chronic urea supplements at home. Baseline sodium usually runs 130, 126 this morning. Will check sodium now. Check labs.
Essential hypertension/hypertensive urgency -urgency resolved.
Hyperlipidemia -Lipitor.
Paroxysmal atrial fibrillation/flutter -Eliquis.
Chronic heart failure preserved EF
Chronic thrombocytopenia -counts are stable. Outpatient follow-up.
GERD
depression/anxiety
Full code
Dispo -anticipate discharge today if repeat sodium is improved. Outpatient follow-up. Discussed with patient's son on the phone.
-
Anticipated Discharge: Today
Subjective/Interval History
-
Date of Service: April 15, 2024
Patient seen and examined. No complaints. Pain is completely resolved.
Objective Data
-
Labs:
Laboratory Results
04/15/24 04/15/24 04/15/24
03:31 08:37 14:01
WBC 5.6
Hgb 12.0 L
Hct 34.3 L
Plt Count 119 L
APTT 98.3 H Cancelled
Sodium 126 L
Potassium 4.1
Chloride 90 L
Carbon Dioxide 29
BUN 22 H
Creatinine 0.8
Glucose 83
Calcium 8.6
Total Bilirubin 1.8 H
AST 31
ALT 23
Alkaline Phosphatase 68
04/15/24 04/15/24
14:40 14:54
WBC
Hgb
Hct
Plt Count
APTT Pending
Sodium Pending
Potassium Pending
Chloride Pending
Carbon Dioxide Pending
BUN Pending
Creatinine Pending
Glucose Pending
Calcium Pending
Total Bilirubin
AST
ALT
Alkaline Phosphatase
Vital Signs:
Vital Signs
Temp Pulse Resp BP Pulse Ox
98.3 F 64 16 119/82 97
04/15/24 07:00 04/15/24 08:42 04/15/24 07:00 04/15/24 08:42 04/15/24 07:00
I&O
04/14/24 04/15/24 04/16/24
06:59 06:59 06:59
Intake Total 480 / 480 0 / 0
Output Total 1600 / 1600 450 / 450 275 / 275
Balance -1600 / -1600 30 / 30 -275 / -275
Review of Systems
-
History Source: Patient
All other systems: Reviewed and negative
[2024-04-15 15:00] VITALS: BP 105/73
[2024-04-15 15:05] LABS: Urine Sodium 24 mmol/L (30-90)
[2024-04-15 15:16] LABS: Uric Acid 4.9 mg/dl (3.5-8.5)
--- NOTE | 2024-04-15 15:17 | CM ---
Addendum entered by TENZIN Cesar 04/15/24 17:24:
attempted to do IMM earlier but site where patient's IV had been was bleeding. WEnt back later and patient agreed to sign IMM but is staying to make sure he does not re bleed.
Addendum entered by TENZIN Cesar 04/15/24 16:55:
Per attending patient is being discharged home today.
Original Note:
Chart reviewed. Patient not stable for discharge. CM to follow to assist with needs at discharge.
[2024-04-15 15:20] LABS: Osmolality Urine 312 mOsm/kg (300-900)
[2024-04-15 15:26] LABS: APTT 76.7 Sec (23.4-35.0)
[2024-04-15 16:02] LABS: TSH 2.33 uIU/ml (0.47-4.68)
[2024-04-15 16:09] LABS: Blood Urea Nitrogen 24 mg/dl (9-20); Calcium 8.8 mg/dl (8.4-10.2); Carbon Dioxide 28 mmol/L (22-30); Chloride 89 mmol/L (98-107); Estimated Creatinine Clearance 63 ml/min; Glucose 111 mg/dl (70-99); Potassium 3.2 mmol/L (3.5-5.1); Sodium 128 mmol/L (135-145); eGFR > 60.00
--- NOTE | 2024-04-15 16:16 | W.PN.CARDCBS ---
Addendum entered and electronically signed by Yajaira Connolly DO 04/25/24 11:58:
Addendum to progress note. Patient with a history of paroxysmal atrial fibrillation and atrial flutter who is AV paced during hospitalization. Unable to categorize prior atrial flutter as typical or atypical.
Original Note:
Today's Communication / Plan
-
Stress test without definite evidence of scan ischemia. EF preserved.
Discontinue IV heparin drip and resume Eliquis anticoagulation
Outpatient cardiac follow-up to be arranged.
Impression / Plan
-
Lease Operator: MARY Thomas
Assessment:
Chest pain
Troponin elevation
History of paroxysmal atrial fibrillation, now with persistent atrial flutter
Pacemaker implant with revision for presumed endocarditis in 09/2020
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
Non-obstructive CAD
Hypertension
Opioid dependence
Low back pain with lumbar laminectomy 08/2021
Cervical laminectomy 2019
Infected pain pump explanted in 2019
Chronic hyponatremia
Obstructive sleep apnea
Plan:
-Presenting following an episode of atypical chest discomfort
-Significantly hypertensive with systolic blood pressure over 200 and underwent CTA to rule out dissection
-Low-level but uptrending troponin 0.038�0.050�0.058�0.061
-Suspect troponin elevation may be secondary to hypertensive urgency
-Lexiscan nuclear stress test without definite evidence of scan ischemia or scar complicated by inferior soft tissue attenuation. EF 56%.
-Would stop IV heparin drip and resume Eliquis
-Continue medical therapy for known coronary and vascular atherosclerosis
-LDL at goal on current therapy, 39 mg/dL
-TSH within normal limits.
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
-2D echocardiogram January 05, 2023 with moderate LVH and asymmetrical septal thickening with a EF 54%. Redo #25 Inspiris bioprosthetic aortic valve with peak/mean gradient 17/10 mmHg, no aortic regurgitation seen.
-Will repeat 2D echocardiogram as an outpatient
Persistent atrial flutter, asymptomatic
-Status post pacemaker
-Resume Eliquis anticoagulation
Chronic hyponatremia
-Monitor sodium on routine lab work
-Fluid restriction advised
-Consider outpatient nephrology consultation
Chronic thrombocytopenia with stable counts
-monitor closely on Eliquis
Chronic pain/chronic opiate dependence�management per hospitalist
Outpatient cardiac follow-up to be arranged
Progress Note - Lease Operator
Subjective
Date of Service: April 15, 2024
Patient seen and examined following stress test. Overall he is feeling well and denies any further chest pain or pressure. No shortness of breath.
Objective
Labs:
04/15/24 08:37
04/15/24 15:03
Labs
Hgb 12.0 g/dL (13.0-18.0) L 04/15/24 08:37
Hct 34.3 % (39.0-52.0) L 04/15/24 08:37
Plt Count 119 10^3/uL (130-400) L 04/15/24 08:37
APTT 76.7 Sec (23.4-35.0) H 04/15/24 15:03
Sodium 128 mmol/L (135-145) L 04/15/24 15:03
Potassium 3.2 mmol/L (3.5-5.1) L 04/15/24 15:03
BUN 24 mg/dl (9-20) H 04/15/24 15:03
Creatinine 0.9 mg/dL (0.7-1.3) 04/15/24 15:03
Glucose 111 mg/dl (70-99) H 04/15/24 15:03
Troponins
04/14/24 04/14/24 04/14/24
00:35 03:01 06:43
Troponin I 0.038 H* 0.050 H* D 0.058 H*
04/14/24 04/14/24 04/14/24
09:06 11:22 18:51
Troponin I Cancelled 0.061 H* 0.040 H* D
04/15/24
03:31
Troponin I 0.031
Vital Signs and I&O:
Vital Signs
Temp Pulse Resp BP Pulse Ox
97.8 F 67 16 105/73 98
04/15/24 15:00 04/15/24 15:00 04/15/24 15:00 04/15/24 15:00 04/15/24 15:00
Vital Signs
Temp Pulse Resp BP Pulse Ox
97.8 F 67 16 105/73 98
04/15/24 15:00 04/15/24 15:00 04/15/24 15:00 04/15/24 15:00 04/15/24 15:00
Intake & Output
04/13/24 04/14/24 04/15/24 04/16/24
06:59 06:59 06:59 06:59
Intake Total 480 / 480 0 / 0
Output Total 1600 / 1600 450 / 450 275 / 275
Balance -1600 / -1600 30 / 30 -275 / -275
Physical Exam
Physical Exam
General: No acute distress, AAOX3
Heart: Regular, positive S1/S2, 2/6 SM
Lungs: CTA b/l, negative wheezes/rales/rhonchi
Abd: Positive BS, NT/ND, neg rebound/rigidity/guarding
Ext: Negative cyanosis/clubbing/edema
Neuro: nonfocal
--- NOTE | 2024-04-15 16:20 | W.DS.TRANS ---
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
-
Discharge Instructions:
Discharge Diagnosis/Procedures Atypical chest pain, hyponatremia
Diet Low Cholesterol,Low Fat
Additional Diets 40 ounce fluid restriction daily
Activity As tolerated
Driving Restrictions As prior to admission
Bathing Restrictions None
Blood Work BMP in 1 week with your primary care doctor
Instructions:
Stand-Alone Forms:
Changes to Home Medications: Yes
Discharge Medications:
DC Medications w/original date entered in [facility]
apixaban 5 mg tablet (Eliquis) 5 mg PO BID Blood clot prevention/tx 01/16/22
gabapentin 600 mg tablet (Neurontin) 600 mg PO TID Neurological Condition 05/20/22
terazosin 2 mg capsule 2 mg PO HS BPH 05/20/22
furosemide 20 mg tablet 10 mg PO DAILY Fluid retention/Swelling 09/13/22
trazodone 150 mg tablet 150 mg PO HS Depression 09/13/22
famotidine 20 mg tablet (Pepcid) 20 mg PO BID Gastrointestinal issue 02/17/23
pantoprazole 40 mg tablet,delayed release (Protonix) 40 mg PO DAILY Gastrointestinal issue 02/17/23
hydralazine 10 mg tablet 10 mg PO BID Blood Pressure 04/03/23
urea 15 gram oral powder packet 1 packet PO DAILY MEDICAL FOOD SIADH 04/03/23
vitamin B complex 1 cap PO QPM Supplement ##0 04/03/23
atorvastatin 20 mg tablet (Lipitor) 20 mg PO HS High cholesterol 04/12/23
cholecalciferol (vitamin D3) 125 mcg (5,000 unit) tablet (Vitamin D3) 5,000 mcg PO DAILY Supplement 04/12/23
buprenorphine 8 mg-naloxone 2 mg sublingual tablet 1 tab sublingual TID chronic pain syndrome/chronic opioid dependence 07/27/23
acetaminophen 325 mg tablet (Tylenol) 650 mg PO Q4HPRN PRN mild pain 04/14/24
polyethylene glycol 3350 17 gram/dose oral powder (Miralax) 17 g PO DAILY 04/14/24
tamsulosin 0.4 mg capsule 0.4 mg PO DAILY 04/14/24
vitamin E 400 unit tablet 400 unit PO HS 04/14/24
carvedilol 12.5 mg tablet 12.5 mg PO BID #60 tabs 04/15/24
Home Medication Changes
Carvedilol dose increased to 12.5 mg twice daily.
Pending Results: No
--- NOTE | 2024-04-15 17:08 | VATNOTE ---
Addendum entered by Kirstin Horton RN 04/15/24 17:13:
clarification: site did eventually stop bleeding but then started to ooze slightly.
Original Note:
called at approx 1645 for advice on old IV site from 04/14 to stop from bleeding. Quik clot applied 2 separate times; along with ice and elevated arm. 25 min later now left AC site not bleeding; dean pressure bandage applied. Syd RN assisted.
blood oozing slightly. Pt wants to wait on discharge at this time. 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
[2024-04-15] MEDS: KCL 40 MEQ PO (17:13)
--- NOTE | 2024-04-16 10:58 | PN.CDI ---
CDI
- -
CDI:
Physician Documentation Request
Admit Date: 04/14/24 04:55
Dear Doctor Mohsen,
Please review the following and provide your response in the progress notes.
Clinical Indicators:
- 04/15 Cardiology 'Persistent atrial flutter, asymptomatic'
- 'Status post pacemaker'
- 04/14 EKG HR 60
- 04/15 EKG HR 61
If possible, please provide further specificity regarding atrial flutter, such as:
Typical Atrial Flutter - Type I: Classic or common atrial flutter, Rate is 240-340 beats/min. Usually responds to atrial pacing.
Atypical Atrial Flutter - Type II: Less common and more unstable. Rate is 340-440 beats/min. Less responsive to atrial pacing.
Other - please specify
Use of terms such as suspected, likely, concern for, or probable (associated with a specific diagnosis that is being evaluated, monitored, or treated as if it exists) are acceptable and can be coded in the inpatient setting, when documented at the
time of discharge.
Thank you,
Salomon Stanton RN
CDI Specialist
Please use your independent medical judgment in providing your response.
== END 2024-04-15 18:55 | disposition home or self-care (01) | DRG 305 ==
LOC: 4 WEST ACU 04:55
PROVIDERS: Internal Medicine; ADMITTING PHYSICIAN Internal Medicine; ATTENDING PHYSICIAN Hospitalist; CONSULT PHYSICIAN Internal Medicine Cardiovascular Disease; EMERGENCY PHYSICIAN Emergency Medicine; FAMILY PHYSICIAN Family Medicine
DX: I16.0 Hypertensive urgency (principal); I50.32 Chronic diastolic (congestive) heart failure; I5A Non-ischemic myocardial injury (non-traumatic); E87.1 Hypo-osmolality and hyponatremia; F11.20 Opioid dependence, uncomplicated; I71.21 Aneurysm of the ascending aorta, without rupture; Z95.3 Presence of xenogenic heart valve; F32.A Depression, unspecified; I11.0 Hypertensive heart disease with heart failure; G89.4 Chronic pain syndrome; G62.9 Polyneuropathy, unspecified; M48.00 Spinal stenosis, site unspecified; F41.9 Anxiety disorder, unspecified; G47.33 Obstructive sleep apnea (adult) (pediatric); E78.5 Hyperlipidemia, unspecified; N40.0 Benign prostatic hyperplasia without lower urinary tract symptoms; K21.9 Gastro-esophageal reflux disease without esophagitis; I25.10 Atherosclerotic heart disease of native coronary artery without angina pectoris; I48.0 Paroxysmal atrial fibrillation; I44.0 Atrioventricular block, first degree; R35.89 Other polyuria; R29.6 Repeated falls; Z79.01 Long term (current) use of anticoagulants; Z79.899 Other long term (current) drug therapy; Z86.16 Personal history of COVID-19; Z87.440 Personal history of urinary (tract) infections; Z87.39 Personal history of other diseases of the musculoskeletal system and connective tissue; Z87.19 Personal history of other diseases of the digestive system; Z86.79 Personal history of other diseases of the circulatory system; Z86.19 Personal history of other infectious and parasitic diseases; Z91.81 History of falling; Z95.0 Presence of cardiac pacemaker; Z98.1 Arthrodesis status; Z82.49 Family history of ischemic heart disease and other diseases of the circulatory system
CPT/HCPCS: 71046; 71275; 78452; 80048; 80053; 80061; 81003; 83036; 83935; 84300; 84443; 84484; 84550; 85025; 85027; 85730; 93005; 93017; 96374; 96375; 99285; A9500; J2785; Q9967

== ENCOUNTER 2024-04-17 07:30 | Emergency (ER) | payer MEDICARE, OTHER, SELFPAY ==
[2024-04-17 07:33] VITALS: BP 155/100
[2024-04-17 08:43] VITALS: BP 114/73
--- NOTE | 2024-04-17 08:48 | ED.MUSCINJ ---
HPI-Injury
General
Chief Complaint: Fall
Source: patient
Exam Limitations: none
Time Seen by Provider: 04/17/24 07:56
Nursing documentation reviewed up to this point in time: agreed with
Travel History
Have you had any contact with someone who has COVID-19?: No
Do you have any symptoms of coronavirus? Fever > 100 degrees, chills, cough, shortness of breath, sore throat, loss of taste or smell, muscle aches, or headache?: No
History of Present Illness-Injury
Initial Injury comments:
78-year-old male with extensive PMHX, on Eliquis, balance problems, history of chronic back pain under pain management with Dr. Nelsy Jane where he gets buprenorphine and typically takes buprenorphine and aspirin with good relief of his pain
presents stating 2 nights ago he fell in his bedroom striking his lower back on his bed frame and has had 'excruciating' pain in the low back since. He denies loss of control bowel or bladder. He denies numbness in the saddle area, he denies
weakness in his legs.
States he was up in middle of night, lost balance and fell, denies feeling dizzy, H/A, CP weakness prior to fall. He has hx chronic falls but hasn't fallen in 'a while.'
He states he saw a doctor at the [facility] and was ordered physical therapy, he had it for 1 day and it was too painful so he stopped. He states he rescheduled but he is not sure of the rescheduled date.
Past History
Past History
ED Past Medical History: Arrthythmia (Atrial flutter/fib), CAD, CHF, HTN, Hypercholesterolemia, Valvular disease, Psychiatric (Anxiety, Depression), Other (Rib fractures, Chronic back pain Anemia, Cellulitis, Left pleural effusion, osteomyelitis,
endocarditis, Sleep apnea, Parkinson, GI bleeding, UTI with retention, AAA, [place]), Other (polyneuropathy, balance issues, Neuropathy, Sleep apnea, Gi bleeding. UTI with retention) and Other (chronic back pain, pain management with Buprenorphine and
ASA)
ED Past Surgical History: Cardiac (Aortic valve replaced (x 2), Pacemaker), Orthopedic (C spine fusion, Laminectomy) and Other (Hemorrhoidectomy)
Patient has exhibited threatening behavior?: No
PSI?: No
Social History
Tobacco: Non-smoker
Alcohol: None ( Beer)
Drug: None
Personal:
Living: assisted living ([facility])
Employment: Retired
Family History
Family History: Hypertension and CAD
Review of Systems
Review of Systems
Allergies reviewed?: Yes
All Other Systems: ROS reviewed and negative except as documented in HPI and ROS
Constitutional: Denies fever
Respiratory: Denies trouble breathing
Cardiac: Denies chest pain or syncope
ABD/GI: Denies abdominal pain or nausea
: Denies dysuria, frequency, incontinence or difficulty voiding
Musculoskeletal: Reports back pain; Denies edema
Skin: Reports no symptoms
Neurological: Reports no symptoms
Phy Exam
Physical Exam
Physical Exam:
GENERAL: No acute distress. A&Ox3.
CONSTITUTIONAL: Afebrile.
EYES: Clear, conjunctivae normal
ENMT: moist mucus membranes, Pharynx nl
RESPIRATORY: Regular respirations, nonlabored, lungs clear.
CARDIOVASCULAR: Regular rate and rhythm, no murmurs, no rubs.
GI: Soft, nontender, non distended, no discoloration/ecchymosis, normal BS
MUSCULOSKELETAL: Tender to palpation lower T and L spine. No ecchymosis, swelling. Bilateral SLR to 45 degrees before too painful to go further. No edema. Well perfused.
SKIN: Warm, dry, pink
PSYCH: Depressed mood and affect. Well kept, interactive and appropriate
NEUROLOGIC: Awake, alert and oriented. No focal neurological deficits. Strength equal throughout.
Injury Course
Orders/Labs/Results
Orders:
Orders
04/17/24 08:18
CR Thoracic Spine 3 Views Urgent
Comment:
Reason For Exam: lower T spine pain after fall, hit on bedframe
04/17/24 08:19
Lumbar Spine Complete, 4 View [CR Lumbar Spine Comp Min 4 Vw*] Urgent
Comment:
Reason For Exam: pain after fall, hit on bedframe
04/17/24 10:39
Case Management Consult ONCE
Case Management Consult: Discharge Planning
Comment: New compression fx T2, will need rehab, lives at [facility] and he wonders if he can go there for rehab.
Morphine Sulfate 2 mg IV NOW STA
04/17/24 11:19
Complete Blood Count/With Diff Urgent
Comprehensive Metabolic Panel Urgent
04/17/24 12:05
0.9% Sodium Chloride 1000 ml [Nss] 1,000 ml IV BOLUS
Abnormal Lab Results
04/17/24
11:19
RBC 3.70 L 10^6/uL
(4.70-6.10)
Hgb 10.9 L g/dL
(13.0-18.0)
Hct 31.1 L %
(39.0-52.0)
RDW 16.3 H %
(11.5-14.5)
Plt Count 95 L D 10^3/uL
(130-400)
Absolute Lymphs (auto) 0.4 L 10^3/uL
(1.2-3.4)
Neutrophils % 85.4 H %
(42.2-75.2)
Lymphocytes % 6.9 L %
(20.5-51.1)
Sodium 128 L mmol/L
(135-145)
Chloride 92 L mmol/L
(98-107)
BUN 44 H mg/dl
(9-20)
Glucose 104 H mg/dl
(70-99)
Total Protein 6.0 L g/dl
(6.3-8.2)
04/17/24 11:19
04/17/24 11:19
MDM/Problems Addressed
Differential Diagnosis Includes:
Fracture/contusion T and L spine
Traumatic Bleeding on Eliquis
MDM/Problems Addressed:
78-year-old male with extensive PMHX, on Eliquis, balance problems, history of chronic back pain under pain management with Dr. Nelsy Jane where he gets buprenorphine and typically takes buprenorphine and aspirin with good relief of his pain
presents stating 2 nights ago he fell in his bedroom striking his lower back on his bed frame and has had 'excruciating' pain in the low back since. He denies loss of control bowel or bladder. He denies numbness in the saddle area, he denies
weakness in his legs.
States he was up in middle of night, lost balance and fell, denies feeling dizzy, H/A, CP weakness prior to fall. He has hx chronic falls but hasn't fallen in 'a while.'
He states he saw a doctor at the [facility] and was ordered physical therapy, he had it for 1 day and it was too painful so he stopped. He states he rescheduled but he is not sure of the rescheduled date.
No neurological deficits, no cauda equina
No indication of abdominal or spinal bleeding/hemorrhage
Radiology reported: Complicated examination with numbering of the spine. There is a transitional L1 vertebral body and transitional L5 vertebral body.
The right-sided pedicle screws and fusion in the lumbar spine is at L4-5.
There is new loss of height of the superior endplate of L2. Consistent with an acute nondisplaced fracture.
Chronic wedge compression of T7 and T8 similar to previous CT scan of the chest 3 days ago.
Plan: Pain medication, P/T consult, either back to [facility] for rehab or CM to place in rehab
12:00 P.M.
Started medical clearance in case needs placement but CM in and has spoken with [facility] staff and pt can get intensive out pt P/T O/T there. Rx written for P/T, O/T and sent with patient.
CBC: Hgb 10.9, consistent with his chronic anemia
CMP: Na 128 at his baseline, yesterday one of discharge diagnoses was acute on chronic hyponatremia and instructed to have BMP rechecked in one week. I will have him do that. Rx for BMP given. He states he can get the blood work at [facility]
He states he is supposed to take OTC UREA and that helps his sodium but he hasn't taken it in quite a while. He will start taking it.
BUN 44 IVFs ordered for dehydration.
1:10 p.m.
Pt OOB and ambulating well with his walker
Initially sent prescription for hydrocodone to his [facility] pharmacy, he requested that I send it to a pharmacy that is closer to him and I tried to do that but it would not go through. Patient given a written prescription for hydrocodone 5/325 #10
*Critical Care Note
Total Time (30-74mins, 75-104mins- exclusive of procedures): Not Applicable
ED Attending Note
-
Portions of this chart may have been created with voice recognition software.� Occasional wrong word or��sound alike� substitutions may have occurred due to the inherent limitations of voice recognition software.
Discharge Plan
Departure
Patient Disposition: Home (Routine Discharge)
Date of Disposition: 04/17/24
Time of Disposition: 13:15
Patient with high blood pressure during this ER visit?: No
Condition: Fair
Discharge Problem:
Closed wedge compression fracture of second thoracic vertebra, Hyponatremia, Acute dehydration
Instructions: Vertebral Compression Fracture (DC), Dehydration, Adult ED, Hyponatremia
Prescriptions:
New
hydrocodone-acetaminophen 5-325 mg tablet
1 tab PO Q8H PRN (Reason: Pain) Qty: 10 0RF
No Action
Eliquis 5 MG tablet
5 mg PO BID
Hold Instructions: Resume on 07/30/23. resume in the evening
gabapentin [Neurontin] 600 mg Tablet
600 mg PO TID
terazosin 2 mg Capsule
2 mg PO HS
trazodone 150 mg Tablet
150 mg PO HS
furosemide 20 mg tablet
10 mg PO DAILY
pantoprazole [Protonix] 40 MG tablet,delayed release (DR/EC)
40 mg PO DAILY
famotidine [Pepcid] 20 mg Tablet
20 mg PO BID
vitamin B complex Capsule
1 cap PO QPM Qty: 0
hydralazine 10 mg tablet
10 mg PO BID
urea 15 gram Powder In Packet
1 packet PO DAILY
cholecalciferol (vitamin D3) [Vitamin D3] 125 mcg (5,000 unit) Tablet
5,000 mcg PO DAILY
atorvastatin [Lipitor] 20 MG tablet
20 mg PO HS
buprenorphine-naloxone 8-2 mg tablet, sublingual
1 tab SUBLINGUAL TID
acetaminophen [Tylenol] 325 mg tablet
650 mg PO Q4HPRN PRN (Reason: mild pain)
tamsulosin 0.4 mg capsule
0.4 mg PO DAILY
vitamin E 400 unit Tablet
400 unit PO HS
polyethylene glycol 3350 [Miralax] 17 gram/dose Powder
17 g PO DAILY
carvedilol 12.5 mg Tablet
12.5 mg PO BID Qty: 60 0RF
Referrals:
Black Artis MD [Family Provider] - Follow up in 5-7 days
Activity Restrictions/Additional Instructions:
As we discussed, your sodium is low, have your blood work rechecked in 7 to 10 days. I gave you a prescription to get it done
Start taking your UREA again since it has helped your sodium in the past.
Tylenol 1000 mg up to 3 times a day for mild to moderate pain, I sent a prescription to [facility] for hydrocodone to use for worse pain
I gave you a prescription for Physical and Occupational Therapy, give it to [facility] staff.
Make appointment with your Spine and Pain doctor for sometime in the next 2-4 weeks
Interventions
Interventions:
*Risk Screen - Suicide Last Done: 04/17/24 07:39
*General Assessment Last Done: 04/17/24 08:55
*Neglect/Abuse Screening Last Done: 04/17/24 07:39
*ED COVID-19 Vaccine History Last Done: 04/17/24 07:35
*Nursing Disposition Last Done: 04/17/24 14:30
ED-Musculoskeletal Assessment Last Done: 04/17/24 08:57
ED- Neurological Assessment Last Done: 04/17/24 08:56
ED-Skin Assessment Last Done: 04/17/24 08:58
Discharge Date and Time
Discharge Date/Time: 04/17/24 14:33
Print Language: CYMRAES
[2024-04-17 08:55] VITALS: BMI 25.5
[2024-04-17 09:00] VITALS: BP 98/71
[2024-04-17 10:01] VITALS: BP 124/78
[2024-04-17 11:00] VITALS: BP 139/85
[2024-04-17] MEDS: MORPHINE SULFATE 2 MG IV (11:22)
[2024-04-17 11:28] LABS: % Basophils 0.2 % (0-2); % Eosinophils 0.5 % (0-6); % Immature Granulocytes 0.3 % (0-0.5); % Lymphocytes 6.9 % (20.5-51.1); % Monocytes 6.7 % (1.7-9.3); % Neutrophils 85.4 % (42.2-75.2); Absolute Lymphocytes 0.4 10^3/uL (1.2-3.4); Absolute Monocytes 0.4 10^3/uL (0.1-0.6); Absolute Neutrophils 5.3 10^3/uL (1.4-6.5); Hematocrit 31.1 % (39.0-52.0); Hemoglobin 10.9 g/dL (13.0-18.0); Mean Corpuscular Hgb 29.5 pg (27.0-31.0); Mean Corpuscular Volume 84.1 fL (80.0-94.0); Nucleated Red Blood Cells % 0 % (-); Red Cell Dist. Width 16.3 % (11.5-14.5); White Blood Cell Count 6.2 10^3/uL (4.8-10.8)
--- NOTE | 2024-04-17 11:30 | CM ---
CM following re: discharge planning.
CM consulted to assist pt with setting up PT and OT at home.
Reviewed pt's chart, met with pt.
Pt is a 78 year old male, arrived after he lost balance and fell, denies feeling dizzy, H/A, CP weakness prior to fall. He has hx chronic falls but hasn't fallen in 'a while.'
Pt reports he lives with spouse in an independent apartment at [facility], has 3 supportive sons. Pt was discharged home yesterday from and returned to ED today. Pt reports he ambulates with a walker at baseline, complains of pain and unable to
participate in therapy at a SNF. Pt was focused on getting pain medications and asked a few times to have them. RN and MD are aware of pt's request.
CM spoke to [facility] liaison Amanda and she offered outpatient PT/OT at their outpatient PT/OT department and pt just needs to have a script for outpatient PT/OT. MD is aware.
CM spoke to the pt about returning back to [facility] with outpatient PT/OT at [facility] outpatient PT/OT department, pt expressed his agreement. Pt stated he will call to [facility] transportation department to request w/c van to transport him back home.
D/C plan: [facility] at [facility] outpatient PT/OT department and family support. [facility] transportation department is working to transport pt home. Pt is arranging.
[2024-04-17 11:50] LABS: ALT (SGPT) 20 U/L (0-50); AST (SGOT) 25 U/L (17-59); Albumin 3.9 g/dl (3.5-5.0); Alkaline Phosphatase 79 U/L (38-126); Blood Urea Nitrogen 44 mg/dl (9-20); Calcium 8.7 mg/dl (8.4-10.2); Carbon Dioxide 30 mmol/L (22-30); Chloride 92 mmol/L (98-107); Estimated Creatinine Clearance 59 ml/min; Glucose 104 mg/dl (70-99); Potassium 4.7 mmol/L (3.5-5.1); Sodium 128 mmol/L (135-145); Total Bilirubin 1.2 mg/dl (0.2-1.3); eGFR > 60.00
[2024-04-17 12:01] LABS: Mean Platelet Volume 10.1 fL (7.4-10.4)
[2024-04-17 12:02] LABS: Platelet Count 95 10^3/uL (130-400)
[2024-04-17 14:03] VITALS: BP 165/66
== END 2024-04-17 14:33 | disposition home or self-care (01) ==
LOC: EMR 07:30
PROVIDERS: Registered Nurse; EMERGENCY PHYSICIAN Emergency Medicine; FAMILY PHYSICIAN Family Medicine
DX: S22.020A Wedge compression fracture of second thoracic vertebra, initial encounter for closed fracture (principal); E87.1 Hypo-osmolality and hyponatremia; E86.0 Dehydration; W22.03XA Walked into furniture, initial encounter; I48.91 Unspecified atrial fibrillation; I11.0 Hypertensive heart disease with heart failure; I50.9 Heart failure, unspecified; E78.00 Pure hypercholesterolemia, unspecified; I38 Endocarditis, valve unspecified; F41.8 Other specified anxiety disorders; J90 Pleural effusion, not elsewhere classified; D64.9 Anemia, unspecified; G47.30 Sleep apnea, unspecified; I25.10 Atherosclerotic heart disease of native coronary artery without angina pectoris; Z79.01 Long term (current) use of anticoagulants; Z82.49 Family history of ischemic heart disease and other diseases of the circulatory system; Z87.440 Personal history of urinary (tract) infections; Z95.0 Presence of cardiac pacemaker; Z95.2 Presence of prosthetic heart valve; Z98.1 Arthrodesis status
CPT/HCPCS: 99283; 96374; 96361; 72072; 72110; 80053; 85025

== ENCOUNTER 2024-06-16 19:38 | Emergency (ER) | payer MEDICARE, OTHER, SELFPAY ==
[2024-06-16 19:40] VITALS: BP 148/95
[2024-06-16 21:08] VITALS: BP 154/106; BMI 23.1
--- NOTE | 2024-06-16 21:22 | ED.GENMED ---
History of Present Illness
General
Chief Complaint: Back Pain
Source: patient
Exam Limitations: none
Time Seen by Provider: 06/16/24 20:59
History of Present Illness
History of Present Illness:
This is a 78 year old male that is brought in by ambulance with c/o back pain. States that he awoke today with increased pain. States that there has not been any falls or injury. States that he did not take anything for pain. States that he is no
longer on Subutex. States that he does have a headache. Denies any fever, chills, chest pain, abd pain, nausea, vomiting, diarrhea, dizziness, urinary burning.
Past History
Past History
ED Past Medical History: Arrthythmia (Atrial flutter/fib), CAD, CHF, HTN, Hypercholesterolemia, Valvular disease, Psychiatric (Anxiety, Depression), Other (Rib fractures, Chronic back pain, Anemia, Cellulitis, Left pleural effusion, osteomyelitis,
endocarditis, Sleep apnea, Parkinson, GI bleeding, UTI with retention, AAA, Montalvo), Other (polyneuropathy, balance issues, Neuropathy, tingling in arms and legs. ) and Other (chronic back pain, pain management with Buprenorphine and ASA)
ED Past Surgical History: Cardiac (Aortic valve replaced (x 2), Pacemaker), Orthopedic (C spine fusion, Laminectomy) and Other (Hemorrhoidectomy, cataracts)
Patient has exhibited threatening behavior?: No
PSI?: No
Social History
Tobacco: Non-smoker
Alcohol: Occasional ( Beer)
Drug: None
Personal:
Living: with family
Employment: Retired
Family History
Family History: Hypertension and CAD
Review of Systems
Review of Systems
All Other Systems: ROS reviewed and negative except as documented in HPI and ROS
Constitutional: Reports no symptoms; Denies fever or chills
EENT: Reports no symptoms
Respiratory: Reports no symptoms; Denies cough or trouble breathing
Cardiac: Reports no symptoms; Denies chest pain
ABD/GI: Reports no symptoms; Denies abdominal pain, nausea, vomiting or diarrhea
: Reports no symptoms; Denies dysuria, frequency or urgency
Musculoskeletal: Reports back pain
Skin: Reports no symptoms
Neurological: Reports headache; Denies dizzy
Psychiatric: Reports no symptoms
Phy Exam
General Physical Exam
General Presentation: mild distress
General age: appears stated age
General Skin: warm and dry
General Habitus: debilitated and elderly
General Mental: alert
General Hydration: appears well hydrated
ENT Exam
ENT Exam: TM's normal, pharynx normal and neck supple
Eye Exam
Eye Exam: EOMI
Cardiovascular Exam
Cardiovascular Exam: regular rate/rhythm, no edema and normal peripheral pulses
Pulmonary Exam
Pulmonary Exam: lungs clear, no respiratory distress, no rales, chest non tender, no crackles, no rhonchi, no wheezing and no cough
Gastrointestinal Exam
Gastrointestinal Exam: normal bowel sounds, non tender, soft, no organomegaly, no pulsatile mass and non distended
Musculoskeletal Exam
Musculoskeletal Exam: back pain (Low back pain, tender with palpation over spine and lateral to the spine. )
Skin Exam
Skin Exam: normal color, warm/dry, no rash and no petechia
Course
Orders/Labs/Results
Orders:
Orders
06/16/24 21:21
Acetaminophen 1000MG/100Ml [Ofirmev] 1,000 mg in 100 ml IV ONCE
Acetaminophen IV Indication:: ED Narcotic Naive Pt-ONCE
Ketorolac [Toradol] 30 mg IV NOW STA
06/16/24 21:24
Dexamethasone Sod Phosphate [Decadron] 20 mg IV NOW STA
06/16/24 22:04
Urinalysis Reflex To Culture Urgent
Date Specimen was Collected: 06/16/24
Time Specimen was Collected: 21:33
06/16/24 23:28
HYDROmorphone [Dilaudid] 1 mg .ROUTE .STK-MED ONE
06/16/24 23:31
HYDROmorphone [Dilaudid] 1 mg IV NOW STA
06/17/24 00:26
HYDROmorphone [Dilaudid] 1 mg IV NOW STA
Vital Signs
Initial and Last Documented VS:
Initial Vital Signs
Temp Pulse Resp BP Pulse Ox
97.7 F 62 18 148/95 97
06/16/24 19:40 06/16/24 19:40 06/16/24 19:40 06/16/24 19:40 06/16/24 19:40
Last Documented Vital Signs
Temp Pulse Resp BP Pulse Ox
97.7 F 60 16 164/104 95
06/16/24 19:40 06/17/24 00:00 06/17/24 00:00 06/17/24 00:00 06/17/24 00:00
MDM/Problems Addressed
Differential Diagnosis Includes:
Chronic back pain,
MDM/Problems Addressed:
This is a 78 year old male that comes in with c/o low back pain. States that his pain was bad this morning when he got up. States that he has not take anything for pain.
Will check urine and medicate for pain.
back into see patient. Patient states that he still is having pain. Explained to patient that this is a chronic problem and we are a narcotic responsible hospital. Patient needs to follow up with pain management or whoever was ordering him his
Subutex. Will give patient a prescription for Tramadol and discharge home.
Chronic conditions affecting care:
Chronic back pain
Acute Exacerbation and/or Progression of Chronic Illness:
Chronic back pain
*Pulse Oximetry
Patient hypoxic: no
*EKG
Interpreted by ED Provider?: NA
Rate: EKG- N/A
*Senior It Architect Interpretation
Rate: Senior It Architect- N/A
*Critical Care Note
Total Time (30-74mins, 75-104mins- exclusive of procedures): Not Applicable
ED Attending Note
-
Portions of this chart may have been created with voice recognition software.� Occasional wrong word or��sound alike� substitutions may have occurred due to the inherent limitations of voice recognition software.
Discharge Plan
Departure
Patient Disposition: Home (Routine Discharge)
Date of Disposition: 06/17/24
Time of Disposition: 00:29
Patient with high blood pressure during this ER visit?: Yes
Condition: Good
Covid-19: Not Applicable
Discharge Problem:
Chronic back pain
Instructions: Low Back Pain (DC), BLOOD PRESSURE
Prescriptions:
New
tramadol 50 mg tablet
50 mg PO Q8H PRN (Reason: Pain) Qty: 15 0RF
No Action
Eliquis 5 MG tablet
5 mg PO BID
gabapentin [Neurontin] 600 mg Tablet
600 mg PO TID
terazosin 2 mg Capsule
2 mg PO HS
trazodone 150 mg Tablet
150 mg PO HS
furosemide 20 mg tablet
10 mg PO DAILY
pantoprazole [Protonix] 40 MG tablet,delayed release (DR/EC)
40 mg PO DAILY
famotidine [Pepcid] 20 mg Tablet
20 mg PO BID
vitamin B complex Capsule
1 cap PO QPM Qty: 0
hydralazine 10 mg tablet
10 mg PO BID
urea 15 gram Powder In Packet
1 packet PO DAILY
cholecalciferol (vitamin D3) [Vitamin D3] 125 mcg (5,000 unit) Tablet
5,000 mcg PO DAILY
atorvastatin [Lipitor] 20 MG tablet
20 mg PO HS
buprenorphine-naloxone 8-2 mg tablet, sublingual
1 tab SUBLINGUAL TID
acetaminophen [Tylenol] 325 mg tablet
650 mg PO Q4HPRN PRN (Reason: mild pain)
tamsulosin 0.4 mg capsule
0.4 mg PO DAILY
vitamin E 400 unit Tablet
400 unit PO HS
polyethylene glycol 3350 [Miralax] 17 gram/dose Powder
17 g PO DAILY
carvedilol 12.5 mg Tablet
12.5 mg PO BID Qty: 60 0RF
hydrocodone-acetaminophen 5-325 mg tablet
1 tab PO Q8H PRN (Reason: Pain) Qty: 10 0RF
Referrals:
Black Artis MD [Family Provider] -
Activity Restrictions/Additional Instructions:
As discussed, your urine is negative for infection and this is our chronic back pain. Please follow up with Pain management and your family doctor. You have had a prescription for Tramadol sent to your pharmacy. You may use Lidoderm patches to the
low back which are over the counter. You have been given IV steroids here to help decrease any inflammation. IF YOU HAVE ANY OTHER CONCERNS PLEASE RETURN TO THE EMERGENCY ROOM.
Interventions
Interventions:
*Risk Screen - Suicide Last Done: 06/16/24 19:40
*General Assessment Last Done: 06/16/24 19:40
*Neglect/Abuse Screening Last Done: 06/16/24 19:40
ED- Fall Risk Assessment Last Done: 06/17/24 00:06
*ED COVID-19 Vaccine History Last Done: 06/16/24 21:09
ED-Musculoskeletal Assessment Last Done: 06/16/24 21:08
Discharge Date and Time
Print Language: [place]
[2024-06-16] MEDS: DECADRON 20 MG IV (21:49)
[2024-06-16] MEDS: TORADOL 30 MG IV (21:49)
[2024-06-16] MEDS: OFIRMEV 100 IV (21:50)
[2024-06-16 22:12] LABS: Urine Albumin Trace (Neg - Trace); Urine Bilirubin Negative (Negative); Urine Character Clear (Clear); Urine Color Yellow; Urine Glucose Negative (Negative); Urine Ketone Negative (Negative); Urine Leukocyte Negative (Negative); Urine Nitrite Negative (Negative); Urine Occult Blood Negative (Negative); Urine Urobilinogen 1+ (Neg - 1+)
[2024-06-16] MEDS: DILAUDID 1 MG IV (23:32)
[2024-06-17] VITALS: BP 164/104
[2024-06-17] MEDS: DILAUDID 1 MG IV (00:28)
[2024-06-17 01:04] VITALS: BP 144/90
== END 2024-06-17 01:05 | disposition home or self-care (01) ==
LOC: EMR 19:38
PROVIDERS: Clinical Nurse Specialist Family Health; EMERGENCY PHYSICIAN Emergency Medicine; FAMILY PHYSICIAN Family Medicine
DX: M54.50 Low back pain, unspecified (principal); R51.9 Headache, unspecified; G89.29 Other chronic pain; I25.10 Atherosclerotic heart disease of native coronary artery without angina pectoris; I11.0 Hypertensive heart disease with heart failure; I50.9 Heart failure, unspecified; E78.00 Pure hypercholesterolemia, unspecified; F32.A Depression, unspecified; F41.9 Anxiety disorder, unspecified; G47.30 Sleep apnea, unspecified; I48.91 Unspecified atrial fibrillation; I48.92 Unspecified atrial flutter; D64.9 Anemia, unspecified; I71.40 Abdominal aortic aneurysm, without rupture, unspecified; G62.9 Polyneuropathy, unspecified; Z95.2 Presence of prosthetic heart valve; Z95.0 Presence of cardiac pacemaker; M43.22 Fusion of spine, cervical region; Z87.440 Personal history of urinary (tract) infections; Z79.01 Long term (current) use of anticoagulants; Z88.8 Allergy status to other drugs, medicaments and biological substances
CPT/HCPCS: 99284; 96374; 96375 ×3; 96376; 51798; 81003

== ENCOUNTER 2024-06-19 14:38 | Inpatient (IN) | payer MEDICARE, OTHER, SELFPAY ==
[2024-06-19 09:36] VITALS: BP 138/90; BMI 22.1
--- NOTE | 2024-06-19 10:11 | ED.GENMED ---
History of Present Illness
General
Chief Complaint: Musculo-Skeletal Complaint
Source: patient and records
Time Seen by Provider: 06/19/24 09:55
History of Present Illness
History of Present Illness:
78yoM with a history of chronic back pain, atrial fibrillation, CHF, hypertension, hyperlipidemia presenting for evaluation of back pain. Patient reports having a fall 3-4 days ago and had x-rays done and was told that he fractured his coccyx. He
reports worsening pain over the past 2-3 days and was unable to sleep last night due to the pain. He is also having abdominal pain which he believes is radiating from his back. He has been taking Tylenol without improvement, last dose last night. He
denies any fevers, incontinence, difficulty urinating, saddle anesthesia.
Patient was seen in the ED on 06/16/24. At that time, there were no falls or trauma documented and no imaging was done. He was previously on Subutex but no longer takes this. PDMP reviewed. Last Subutex fill was for a 15 day supply on 05/13/24. He was
prescribed Tramadol at his last ED visit but has not filled the prescription. He was also referred to pain management but has not made an appointment because he 'did not have the time.'
Past History
Past History
ED Past Medical History: Arrthythmia (Atrial flutter/fib), CAD, CHF, HTN, Hypercholesterolemia, Valvular disease, Psychiatric (Anxiety, Depression), Other (Rib fractures, Chronic back pain, Anemia, Cellulitis, Left pleural effusion, osteomyelitis,
endocarditis, Sleep apnea, Parkinson, GI bleeding, UTI with retention, AAA, Montalvo), Other (polyneuropathy, balance issues, Neuropathy, tingling in arms and legs. ) and Other (chronic back pain, pain management with Buprenorphine and ASA)
ED Past Surgical History: Cardiac (Aortic valve replaced (x 2), Pacemaker), Orthopedic (C spine fusion, Laminectomy) and Other (Hemorrhoidectomy, cataracts)
Patient has exhibited threatening behavior?: No
PSI?: No
Social History
Tobacco: Non-smoker
Alcohol: Occasional ( Beer)
Drug: None
Personal:
Living: with family
Employment: Retired
Family History
Family History: Hypertension and CAD
Phy Exam
General Physical Exam
General Presentation: no apparent distress and other (Chronically ill appearing in no distress)
General Skin: warm and dry
General Habitus: elderly
General Mental: alert
Cardiovascular Exam
Cardiovascular Exam: regular rate/rhythm
Pulmonary Exam
Pulmonary Exam: lungs clear, no respiratory distress and no crackles
Gastrointestinal Exam
Gastrointestinal Exam: soft and non distended
Palpation: generalized: Mild tenderness
Stacy Coma Scale
Eye Opening: Spontaneous
Verbal Response: Oriented
Motor Response: Obeys Commands
GCS Total Score: 15
Musculoskeletal Exam
Musculoskeletal Exam: other (+Midline lumbar spine tenderness. No skin changes. )
Skin Exam
Skin Exam: normal color and warm/dry
Course
Orders/Labs/Results
Orders:
Orders
06/19/24 Breakfast
Cholesterol Lowering
At Your Request: Limited, [employer] Required
Does patient need a safe tray?: No
Fluid Restriction: 1200 mL/day (40 oz)
Cholesterol Lowering: Sodium, 2 Gram
06/19/24 10:09
Acetaminophen 1000MG/100Ml [Ofirmev] 1,000 mg in 100 ml IV ONCE
Acetaminophen IV Indication:: ED Narcotic History-ONCE
HYDROmorphone [Dilaudid] 1 mg IV NOW STA
06/19/24 10:10
CT Abd/pelvis W Iv Cont Urgent
Comment:
Reason For Exam: Generalized abd/back pain, recent coccyx fx
06/19/24 10:36
Complete Blood Count/With Diff Urgent
Comprehensive Metabolic Panel Urgent
Lipase Urgent
06/19/24 11:34
0.9% Sodium Chloride 500 ml [Nss] 500 ml IV BOLUS
Potassium Chloride [KCl] 20 meq PO NOW STA
06/19/24 12:30
Osmolality, Random Urine Urgent
Date Specimen was Collected: 06/19/24
Time Specimen was Collected: 12:25
Urine Sodium Urgent
Date Specimen was Collected: 06/19/24
Time Specimen was Collected: 12:25
06/19/24 14:05
Admit/Transfer Patient As Directed
Co-Sign Provider:
Level of Care: Inpatient admission
Assign to:: Telemetry
Physician / Group: jeanie
Diagnosis: hyponatremia
Reason for Telemetry: Arrhythmia
Date to Stop Telemetry: 06/22/24
Time to Stop Telemetry: 11:00
Reason for Hospitalization: hyponatremia
Expected length of stay greater than two midnights?: Yes
ELOS- Estimated Length of Stay in days: 3
I certify the patient meets the requirements for IP care: Yes
PRN Pain Medication Management As Directed
May give lesser potent ordered pain med per pt: Yes
preference::
Protocol:: Medication orders for pain may be administered in a
manner that supports deferring to patient preference
when the pt is:
- Requesting an ordered lesser potent pain medication.
Least to most potent pain medications are defined
as: acetaminophen < NSAID < tramadol < opioids
(morphine, oxycodone, hydromorphone).
- Requesting a lesser dose of the same medication IF
ORDERED.
- Requesting a less intrusive route of administration
if both routes are prescribed by the provider (PO <
IV).
06/19/24 14:07
Code Status As Directed
Resuscitation Status: Full Code
06/19/24 14:16
Acetaminophen [Tylenol] 1,000 mg PO NOW STA
06/19/24 14:16
EKG [Electrocardiogram (*1)] Stat
Reason for Study: Atrial Fibrillation
06/19/24 14:18
NEPHROLOGY CONSULT Routine
Consulting Provider: [place] V.
Was physician already notified: Yes
06/19/24 15:14
Bisacodyl [Dulcolax] 10 mg RECTAL [id number] PRN
Docusate W/Senna [Senokot-S] 1 tablet PO BIDPRN PRN
Lidocaine [Lidocaine 4% Patch] 1 patch TOPICAL DAILY
Apply Lidocaine patch(s) to:: mid lower back
Polyethylene Glycol Powder [Miralax] 17 grams PO DAILYPRN PRN
06/19/24 15:14
Activity As Directed
Activity Level: As Tolerated
Intake/ Output As Directed
Frequency: Per unit guidelines
Vital Signs As Directed
Frequency: Per unit guidelines
Weight As Directed
Frequency: Daily
06/19/24 16:00
Gabapentin [Neurontin] 100 mg PO TID
HydrALAZINE [Apresoline] 10 mg PO TID
06/19/24 18:00
Tamsulosin [Flomax] 0.4 mg PO QPM
06/19/24 20:00
Apixaban [Eliquis] 5 mg PO BID
Carvedilol [Coreg] 3.125 mg PO BID
Famotidine [Pepcid] 20 mg PO BID
06/19/24 22:00
Atorvastatin [Lipitor] 20 mg PO HS
Terazosin [Hytrin] 2 mg PO HS
Trazodone [Desyrel] 150 mg PO HS
06/20/24 06:00
Basic Metabolic Panel IN AM
Complete Blood Count/No Diff IN AM
Physical Therapy Consult [Pt Eval And Treat] IN AM
Activity Level: As Tolerated
06/20/24 08:00
Furosemide [Lasix] 10 mg PO DAILY
Ketorolac [Toradol] 10 mg PO DAILY
Polyethylene Glycol Powder [Miralax] 17 grams PO DAILY
Urea (Non-Form) [Ure-Na] 15 grams PO DAILY
06/21/24 06:00
Basic Metabolic Panel IN AM
Complete Blood Count/No Diff IN AM
06/22/24 06:00
Basic Metabolic Panel IN AM
Complete Blood Count/No Diff IN AM
06/22/24 11:00
DC Protocol for Telemetry ONCE
06/23/24 06:00
Basic Metabolic Panel IN AM
Complete Blood Count/No Diff IN AM
06/24/24 06:00
Basic Metabolic Panel IN AM
Complete Blood Count/No Diff IN AM
Abnormal Lab Results
06/19/24 06/19/24
10:36 12:30
RBC 4.22 L 10^6/uL
(4.70-6.10)
Hct 36.4 L %
(39.0-52.0)
MCH 32.0 H pg
(27.0-31.0)
MCHC 37.1 H g/dL
(33.0-37.0)
Abs Immat Gran (auto) 0.1 H 10^3/uL
(0-0.05)
Absolute Neuts (auto) 6.9 H 10^3/uL
(1.4-6.5)
Absolute Lymphs (auto) 0.4 L 10^3/uL
(1.2-3.4)
Immature Gran % 0.6 H %
(0-0.5)
Neutrophils % 86.4 H %
(42.2-75.2)
Lymphocytes % 5.5 L %
(20.5-51.1)
Sodium 123 L mmol/L
(135-145)
Potassium 3.3 L mmol/L
(3.5-5.1)
Chloride 88 L mmol/L
(98-107)
Creatinine 0.6 L mg/dL
(0.7-1.3)
Glucose 102 H mg/dl
(70-99)
Total Bilirubin 1.9 H mg/dl
(0.2-1.3)
Urine Osmolality 225 L mOsm/kg
(300-900)
06/19/24 10:36
06/19/24 10:36
Vital Signs
Initial and Last Documented VS:
Initial Vital Signs
Temp Pulse Resp BP Pulse Ox
97.8 F 62 16 138/90 96
06/19/24 09:36 06/19/24 09:36 06/19/24 09:36 06/19/24 09:36 06/19/24 09:36
Last Documented Vital Signs
Temp Pulse Resp BP Pulse Ox
97.6 F 75 18 139/99 100
06/19/24 15:18 06/19/24 15:18 06/19/24 15:18 06/19/24 16:01 06/19/24 15:18
MDM/Problems Addressed
Differential Diagnosis Includes:
78yoM here with acute on chronic low back pain. He reports having a fall a few days ago and was reportedly diagnosed with a coccyx fracture although there is no documentation of this in the chart. Also having generalized abd pain on exam. No red
flags including no fevers, saddle anesthesia, incontinence. He is afebrile and hemodynamically stable. Differential diagnosis includes but is not limited to: fracture, chronic back pain, intra-abdominal infection
Initial ED plan: Check abdominal labs and CT abdomen. Will give IV Dilaudid and Ofirmev for pain.
*Critical Care Note
Total Time (30-74mins, 75-104mins- exclusive of procedures): Not Applicable
Update Note
Update Note:
Labs reveal a sodium of 123. Per review of records, sodium tends to run around 128-131 on prior labs. Urine studies added as well as a 500 cc IV NS bolus. Potassium 3.[address] shows a mild partial L2 vertebral compression
fracture which is new since March. Given degree of hyponatremia, he was admitted for further management.
ED Attending Note
-
Portions of this chart may have been created with voice recognition software.� Occasional wrong word or��sound alike� substitutions may have occurred due to the inherent limitations of voice recognition software.
Discharge Plan
Departure
Patient Disposition: Admit
Date of Disposition: 06/19/24
Time of Disposition: 12:58
Presentation/result/management discussed w/ accepting MD/DO: Hospitalist
Discharge Problem:
Hyponatremia, Acute on chronic low back pain, Closed compression fracture of L2 vertebra
Interventions
Interventions:
*Risk Screen - Suicide Last Done: 06/19/24 09:36
*General Assessment Last Done: 06/19/24 09:36
*Neglect/Abuse Screening Last Done: 06/19/24 09:36
ED- Fall Risk Assessment Last Done: 06/19/24 09:36
*ED COVID-19 Vaccine History Last Done: 06/19/24 09:36
*Nursing Disposition Last Done: 06/19/24 15:04
ED-Musculoskeletal Assessment Last Done: 06/19/24 09:36
Discharge Date and Time
Discharge Date/Time: 06/19/24 15:05
[2024-06-19] MEDS: OFIRMEV 100 IV (10:37)
[2024-06-19] MEDS: DILAUDID 1 MG IV (10:37)
[2024-06-19 10:45] LABS: % Basophils 0.1 % (0-2); % Eosinophils 0.1 % (0-6); % Immature Granulocytes 0.6 % (0-0.5); % Lymphocytes 5.5 % (20.5-51.1); % Monocytes 7.3 % (1.7-9.3); % Neutrophils 86.4 % (42.2-75.2); Absolute Immature Granulocytes 0.1 10^3/uL (0-0.05); Absolute Lymphocytes 0.4 10^3/uL (1.2-3.4); Absolute Monocytes 0.6 10^3/uL (0.1-0.6); Absolute Neutrophils 6.9 10^3/uL (1.4-6.5); Hematocrit 36.4 % (39.0-52.0); Hemoglobin 13.5 g/dL (13.0-18.0); Mean Corp Hgb Conc. 37.1 g/dL (33.0-37.0); Mean Corpuscular Volume 86.3 fL (80.0-94.0); Mean Platelet Volume 8.8 fL (7.4-10.4); Nucleated Red Blood Cells % 0 % (-); Platelet Count 146 10^3/uL (130-400); Red Blood Cell Count 4.22 10^6/uL (4.70-6.10); Red Cell Dist. Width 14.1 % (11.5-14.5)
[2024-06-19 11:09] LABS: ALT (SGPT) 20 U/L (0-50); AST (SGOT) 29 U/L (17-59); Albumin 4.3 g/dl (3.5-5.0); Alkaline Phosphatase 81 U/L (38-126); Blood Urea Nitrogen 14 mg/dl (9-20); Calcium 8.9 mg/dl (8.4-10.2); Carbon Dioxide 27 mmol/L (22-30); Chloride 88 mmol/L (98-107); Estimated Creatinine Clearance 96 ml/min; Glucose 102 mg/dl (70-99); Lipase 119 U/L (23-300); Potassium 3.3 mmol/L (3.5-5.1); Sodium 123 mmol/L (135-145); Total Bilirubin 1.9 mg/dl (0.2-1.3); Total Protein 6.4 g/dl (6.3-8.2); eGFR > 60.00
[2024-06-19] MEDS: NSS 500 IV (11:57)
[2024-06-19] MEDS: KCL 20 MEQ PO (11:57)
[2024-06-19 12:00] VITALS: BP 132/78
--- NOTE | 2024-06-19 13:37 | HPS.HSE ---
Addendum entered and electronically signed by Maru Redd MD 06/19/24 14:33:
Pt seen and examined independently--Agree with MANAGER [employer]OTE[employer] note
GENERAL: chronically ill appearing male in no apparent distress (lying flat on his back on the stretcher)
HEENT: NC/AT--no O2
HEART: regular rate and rhythm, +S1, +S2
LUNGS : clear to auscultation bilaterally
ABDOM: soft, nontender, nondistended, + bowel sounds
EXT: no cyanosis, clubbing, or edema
NEUROLOGIC: grossly intact
Coccyx pain likely from recent fall/coccyx fracture--although cannot find x-rays to confirm that--History of chronic pain syndrome/chronic opioid dependence--On Subutex, never picked from pharmacy (he tells me he stopped taking it because it didn't
work)--CT shows mild partial L2 compression fracture (new from last CT BUT has had on lumbar spine x-ray from April 2024)--Received Dilaudid in ER, will not give further narcotics as this is not appropriate treatment for chronic pain)--continue
tyenol ATC, Lidocaine patch, gabapentin and Toradol--PT/OT consult
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
restriction, on urea--Received KCl 20 in ER--nephro consulted
Hyperlipidemia -Lipitor.
Paroxysmal atrial fibrillation/flutter -Eliquis, Coreg continued--obtain EKG
Chronic diastolic heart failure preserved EF--Furosemide 10 Mg continued--Fluid restriction continued--Strict I&O--Daily weight
Essential hypertension--Hydralazine continued with hold parameters
BPH--Flomax continue--Terazosin continued
GERD --PPI continued--depression/anxiety
Full code
Original Note:
Family Physician
-
Family Physician: Black Artis
Chief Complaint
-
lower back pain
History of Present Illness
78yoM with a history of chronic back pain, atrial fibrillation, CHF, hypertension, hyperlipidemia presenting for evaluation of back pain. Patient reports having a fall months ago, and he cracked his coccyx. He reports worsening pain over the past
2-3 days and was unable to sleep last night due to the pain. Patient stated his pain from mid lower back is radiating to his lower abdomen. Patient is taking Tylenol with no relief in his symptoms. Patient has not picked Subutex from his
pharmacy. Patient stated it does not help anyway. He denies any fevers, incontinence, difficulty urinating. Patient denied any chest pain or short of breath. Patient denied nausea vomiting diarrhea.
CT with mild partial L2 vertebral compression fracture. Patient was noted hyponatremic and hypokalemic in ER. Patient received normal saline and potassium in ER. Admitting for further management
Medical History
Past Medical History
Past Medical History: Reports Other
Additional Past Medical History:
paroxysmal atrial fibrillation and flutter
Chronic back pain, spinal stenosis, and degenerative disc disease with chronic opioid use with dependence
Essential hypertension
h/o Klebsiella pneumonia and coagulase-negative Staphylococcus infected hardware in L4-L5 (April 2023) treated with Chronic neuropathy
Gastroesophageal reflux disease
Chronic HFpEF
Benign prostatic hypertrophy
Hyperlipidemia
h/o permanent pacer
h/o aortic valve x 2
Obstructive sleep
Anxiety
Depression
HX C. difficile
Past Surgical History: Reports Other
Additional Past Surgical History:
History of pain pump infection with removal
Pacer and aortic valve replaced
Cervical spine fusion, laminectomy 2018, lumbar surgery 2022 with screws placed then removed 04/25/2023
Hemorrhoidectomy
Rhizotomy lower back
Cardiac cath 2006
Social History
Tobacco: Non-smoker
Alcohol: None
Drug: None
Personal:
Living: With Family
Family History
Family History: Not pertinent
Allergies / Home Medications
Allergies reflects when Allergies were last updated in [facility].
Home Medications with original date entered in [facility]
Allergy/Medication List:
Allergies
Allergy/AdvReac Type Severity Reaction Status Date / Time
amlodipine Allergy Swelling - Verified 04/17/24 07:38
1992
hydrochlorothiazide Allergy Hyponatremi Verified 04/17/24 07:38
a
tizanidine [From Zanaflex] Allergy took from Verified 04/17/24 07:38
patient
history
and
physical
from
surgeon
Home Medications
apixaban 5 mg tablet (Eliquis) 5 mg PO BID Blood clot prevention/tx 01/16/22
terazosin 2 mg capsule 2 mg PO HS BPH 05/20/22
furosemide 20 mg tablet 10 mg PO DAILY Fluid retention/Swelling 09/13/22
trazodone 150 mg tablet 150 mg PO HS Depression/sleep 09/13/22
famotidine 20 mg tablet (Pepcid) 20 mg PO BID Gastrointestinal issue 02/17/23
hydralazine 10 mg tablet 10 mg PO TID Blood Pressure 04/03/23
urea 15 gram oral powder packet 1 packet PO DAILY MEDICAL FOOD SIADH 04/03/23
vitamin B complex 1 cap PO QPM Supplement ##0 04/03/23
atorvastatin 20 mg tablet (Lipitor) 20 mg PO HS High cholesterol 04/12/23
cholecalciferol (vitamin D3) 125 mcg (5,000 unit) tablet (Vitamin D3) 5,000 mcg PO DAILY Supplement 04/12/23
polyethylene glycol 3350 17 gram/dose oral powder (Miralax) 17 g PO DAILY Constipation 04/14/24
tamsulosin 0.4 mg capsule 0.4 mg PO QPM Urinary Issue 04/14/24
carvedilol 12.5 mg tablet 3.125 mg PO BID 06/19/24
Review of Systems
-
Constitutional: Reports No Symptoms
EENT: Reports No Symptoms
Respiratory: Reports No Symptoms
Cardiac: Reports No Symptoms
Abdomen/GI: Reports Abdominal Pain
: Reports No Symptoms
Musculoskeletal: Reports Other (Back pain)
Skin: Reports No Symptoms
Neurological: Reports No Symptoms
Endocrine: Reports No Symptoms
Hematologic/Lymphatic: Reports No Symptoms
Psych: Reports No Symptoms
Physical Exam
Vital Signs
Vital Signs
Temp Pulse Resp BP Pulse Ox
97.8 F 62 16 138/90 96
06/19/24 09:36 06/19/24 09:36 06/19/24 09:36 06/19/24 09:36 06/19/24 09:36
Physical Exam
General: Well Developed, Well Nourished and No Apparent Distress
HEENT: NormoCephalic, Moist mucous membranes and Atraumatic
Respiratory: Clear
Cardiac: S1/S2 and Regular Rhythm; No Murmur or Rub
GI: Soft, Non Tender, Non Distended and Normal Bowel Sounds; No Organomegaly
Rectal: Deferred by Provider
Musculoskeletal: No Clubbing, No Cyanosis and No Edema
Skin: No Rash
Neuro: AO x 3 and Nonfocal/grossly intact
Psych: Calm
Laboratory Results
-
06/19/24 10:36
06/19/24 10:36
Laboratory Results
Total Bilirubin 1.9 mg/dl (0.2-1.3) H 06/19/24 10:36
AST 29 U/L (17-59) 06/19/24 10:36
ALT 20 U/L (0-50) 06/19/24 10:36
Alkaline Phosphatase 81 U/L (38-126) 06/19/24 10:36
Lipase 119 U/L (23-300) 06/19/24 10:36
Data Reviewed
-
CT Scan: Report Reviewed by me
Lab Data: Labs Reviewed by me
Impression/Plan
-
# Coccyx pain likely from recent fall/coccyx fracture
-History of chronic pain syndrome/chronic opioid dependence
-On Subutex, never picked from pharmacy
-CT shows mild partial L2 compression fracture
-Received Dilaudid in ER
-continue tyenol ATC, Lidocaine patch, gabapentin and Toradol
-PT/OT consult
# Acute on chronic hyponatremia/hypokalemia
-Sodium 128, K3.3
-Urine sodium and osmolality was sent from ER
-Received normal saline 5 mL in ER
-Fluid restriction, on urea
-Received KCl 20 in ER
-nephro consulted
#Hyperlipidemia -Lipitor.
#Paroxysmal atrial fibrillation/flutter -Eliquis, Coreg continued
-obtain EKG
#Chronic diastolic heart failure preserved EF
-Furosemide 10 Mg continued
-Fluid restriction continued
-Strict ONEYDA
-Daily weight
# Essential hypertension
-Hydralazine continued with hold parameters
# BPH
-Flomax continue
-Terazosin continued
#GERD
-PPI continued
depression/anxiety
Full code
[2024-06-19 14:00] VITALS: BP 134/74
[2024-06-19 14:05] LABS: Urine Sodium 35 mmol/L (30-90)
--- NOTE | 2024-06-19 14:37 | CM ---
Patient seen at bedside in ED. Patient being admitted to Dr. Redd service as INP. Patient states he lives at [place] [address] and that he does not have any VN services at this time. In the past per chart review he has had [facility]
and [facility], as well as wound vac and wound care clinic. Patient PCP is Dr. Artis and he uses the [facility] in [place]. Patient stated that he plans to return to his [place] [address]. CM will continue to follow for discharge
planning needs.
Plan; return to [facility] pending assessment/functional needs.
--- NOTE | 2024-06-19 14:46 | W.CON.NEPH ---
Consultation
-
Date/Time Consultation Requested: 06/19/2024 2:30 PM
Date/Time Consultation Performed: 06/19/2024 230
Requesting Provider: Dr. Redd
Performing Provider: Dr. Todd
Reason for Consultation: Hyponatremia
Medical History
-
Chief Complaint: Hyponatremia
History of Present Illness:
The patient is a 78-year-old male with a past medical history of hypertension maintained on hydralazine and carvedilol. He also has a history of chronic hyponatremia and is maintained on urea tablets as well as low-dose Lasix therapy. He does have
chronic opioid dependent back pain (on Subutex) and recently sustained a fall with a fractured coccyx which has precipitated extreme pain. On presentation to the emergency room with intractable back pain he was noted to have a mild partial L2
compression fracture. He was also noted to have acute on chronic hyponatremia with a sodium down to 123 off his baseline of 128. Nephrology was consulted for his hyponatremia.
Past Medical History
paroxysmal atrial fibrillation and flutter
Chronic back pain, spinal stenosis, and degenerative disc disease with chronic opioid use with dependence
Essential hypertension
h/o Klebsiella pneumonia and coagulase-negative Staphylococcus infected hardware in L4-L5 (April 2023) treated with Chronic neuropathy
Gastroesophageal reflux disease
Chronic HFpEF
Benign prostatic hypertrophy
Hyperlipidemia
h/o permanent pacer
h/o aortic valve x 2
Obstructive sleep
Anxiety
Depression
HX C. difficile
Chronic hyponatremia
Past Surgical History: Reports Other
Additional Past Surgical History:
History of pain pump infection with removal
Pacer and aortic valve replaced
Cervical spine fusion, laminectomy 2018, lumbar surgery 2022 with screws placed then removed 04/25/2023
Hemorrhoidectomy
Rhizotomy lower back
Cardiac cath 2006
Social History
Tobacco: Non-Smoker
Alcohol: None
Family History
no CKD
Allergies / Home Medications
Allergy/AdvReac Type Severity Reaction Status Date / Time
amlodipine Allergy Swelling - Verified 04/17/24 07:38
1992
hydrochlorothiazide Allergy Hyponatremi Verified 04/17/24 07:38
a
tizanidine [From Zanaflex] Allergy took from Verified 04/17/24 07:38
patient
history
and
physical
from
surgeon
�Medication �Instructions �Recorded �Confirmed �Type
apixaban 5 mg tablet (Eliquis) 5 mg PO BID Blood clot 01/16/22 06/19/24 History
prevention/tx
terazosin 2 mg capsule 2 mg PO HS BPH 05/20/22 06/19/24 History
furosemide 20 mg tablet 10 mg PO DAILY Fluid 09/13/22 06/19/24 History
retention/Swelling
trazodone 150 mg tablet 150 mg PO HS Depression/sleep 09/13/22 06/19/24 History
famotidine 20 mg tablet (Pepcid) 20 mg PO BID Gastrointestinal issue 02/17/23 06/19/24 History
hydralazine 10 mg tablet 10 mg PO TID Blood Pressure 04/03/23 06/19/24 History
urea 15 gram oral powder packet 1 packet PO DAILY MEDICAL FOOD 04/03/23 06/19/24 History
SIADH
vitamin B complex 1 cap PO QPM Supplement ##0 04/03/23 06/19/24 History
atorvastatin 20 mg tablet (Lipitor) 20 mg PO HS High cholesterol 04/12/23 06/19/24 History
cholecalciferol (vitamin D3) 125 5,000 mcg PO DAILY Supplement 04/12/23 06/19/24 History
mcg (5,000 unit) tablet (Vitamin
D3)
polyethylene glycol 3350 17 17 g PO DAILY Constipation 04/14/24 06/19/24 History
gram/dose oral powder (Miralax)
tamsulosin 0.4 mg capsule 0.4 mg PO QPM Urinary Issue 04/14/24 06/19/24 History
carvedilol 12.5 mg tablet 3.125 mg PO BID 06/19/24 06/19/24 History
Review of Systems
-
History Source: Patient
All other systems: Negative unless noted
Constitutional: Fatigue
EENT: No Symptoms
Respiratory: No Symptoms
Cardiac: No Symptoms
Abdomen/GI: No Symptoms
: Difficulty Voiding and Urgency
Musculoskeletal: Other (Severe lower back and sacral pain)
Skin: No Symptoms
Neurological: No Symptoms
Endocrine: No Symptoms
Hematologic/Lymphatic: No Symptoms
Physical Exam
Vital Signs
Vital Signs
Temp Pulse Resp BP Pulse Ox
97.8 F 65 16 134/74 96
06/19/24 09:36 06/19/24 14:00 06/19/24 14:00 06/19/24 14:00 06/19/24 14:00
Lab Results
06/19/24 10:36
06/19/24 10:36
WBC 8.0 10^3/uL (4.8-10.8) 06/19/24 10:36
RBC 4.22 10^6/uL (4.70-6.10) L 06/19/24 10:36
Hgb 13.5 g/dL (13.0-18.0) 06/19/24 10:36
Hct 36.4 % (39.0-52.0) L 06/19/24 10:36
Plt Count 146 10^3/uL (130-400) 06/19/24 10:36
Sodium 123 mmol/L (135-145) L 06/19/24 10:36
Potassium 3.3 mmol/L (3.5-5.1) L 06/19/24 10:36
Chloride 88 mmol/L (98-107) L 06/19/24 10:36
Carbon Dioxide 27 mmol/L (22-30) 06/19/24 10:36
BUN 14 mg/dl (9-20) 06/19/24 10:36
Creatinine 0.6 mg/dL (0.7-1.3) L 06/19/24 10:36
eGFR > 60.00 06/19/24 10:36
Glucose 102 mg/dl (70-99) H 06/19/24 10:36
Calcium 8.9 mg/dl (8.4-10.2) 06/19/24 10:36
Albumin 4.3 g/dl (3.5-5.0) 06/19/24 10:36
Physical Exam
General: AOx3, Nontoxic , NAD
HEENT: PERRL, EOMI, Anicteric, Conjunctivae Clear, Ear/Nose Intact, Hearing Normal, Oropharynx Clear/Moist, Dentition Intact, Facial Symmetry, Neck Supple, Neck: Trachea Midline, No JVD and No Thyromegaly, no Bruits
Respiratory: Clear to auscultation bilaterally with normal lung excursion
Cardiac: S1/S2 and Regular Rate/Rhythm
Breast: Deferred by me
Abdomen: Soft, Nontender, Nondistended, Normal Bowel Sounds and No Hepatosplenomegaly
Rectal: Deferred by Provider
Genito-urinary: No Costovertebral Tenderness, normal external genitalia
Extremities: No Clubbing, No Cyanosis and No Edema
Skin: No Rash or open lesions
Neuro: Nonfocal/Grossly Intact, CN II-XII (Intact) and Strength (Musculoskeletal exam 5 out of 5 both upper and lower extremities)
Hematologic/Lymphatic: No Cervical Lymphadenopathy, No Submandibular Lymphadenopathy and No Supraclavicular Lymphadenopathy
Psych: Mood/afflect pleasant, Insight/judgement good and Appropriate
Vascular: plus 1 pedal and radial pulses
Data Reviewed
-
CT Scan: Report Reviewed by me (no GI or urological obstructive processes)
Labs: Labs Reviewed by me (CBC BMP, urine osm)
Old Records: Reviewed (sodium 128 04/17/24)
Assessment/Plan
-
Impression:
Hyponatremia
History of diastolic congestive heart
History of chronic opioid dependent back pain
Status post fall with coccyx fracture/L2 compression fracture
Paroxysmal atrial fibrillation
Hypertension
GERD
Plan;
Hyponatremia
-Appears euvolemic despite history of diastolic congestive heart failure
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
-Would implement 40 ounce fluid restriction and maintain p.o. diuretic
-As patient does not appear to be hypervolemic I will provide 250 cc of hypertonic saline at 20cc/hr
-Will obtain urine osmolality
-If hyponatremia persist I will also consider implementing tolvaptan
[2024-06-19 15:18] VITALS: BP 139/99
[2024-06-19 15:33] LABS: Osmolality Urine 225 mOsm/kg (300-900)
[2024-06-19] MEDS: SODIUM CHLORIDE 3% 250 IV (15:56)
[2024-06-19] MEDS: LIDOCAINE 4% PATCH 1 PATCH TOPICAL (16:01)
[2024-06-19] MEDS: NEURONTIN 100 MG PO ×2 (16:01→21:40)
[2024-06-19] MEDS: APRESOLINE 10 MG PO (16:01)
[2024-06-19] MEDS: TYLENOL 1000 MG PO ×2 (16:01→21:42)
[2024-06-19] MEDS: FLOMAX 0.4 MG PO (17:14)
[2024-06-19 19:42] VITALS: BP 101/64
[2024-06-19] MEDS: DESYREL 150 MG PO (21:40)
[2024-06-19] MEDS: LIPITOR 20 MG PO (21:42)
[2024-06-19] MEDS: PEPCID 20 MG PO (21:45)
[2024-06-19] MEDS: ELIQUIS 5 MG PO (21:45)
[2024-06-19] MEDS: COREG 3.125 MG PO (21:46)
[2024-06-19] MEDS: HYTRIN 2 MG PO (23:12)
[2024-06-19 23:30] VITALS: BP 112/73
[2024-06-20] VITALS (7 sets, daily range): BP systolic 118–138; BP diastolic 80–90; BMI 22.3
[2024-06-20] MEDS: APRESOLINE PO (01:01)
[2024-06-20 06:27] LABS: Hemoglobin 12.7 g/dL (13.0-18.0); Mean Corp Hgb Conc. 36.3 g/dL (33.0-37.0); Mean Corpuscular Hgb 31.5 pg (27.0-31.0); Mean Corpuscular Volume 86.8 fL (80.0-94.0); Mean Platelet Volume 8.6 fL (7.4-10.4); Platelet Count 136 10^3/uL (130-400); Red Blood Cell Count 4.03 10^6/uL (4.70-6.10); Red Cell Dist. Width 14.4 % (11.5-14.5); White Blood Cell Count 4.3 10^3/uL (4.8-10.8)
[2024-06-20 07:17] LABS: Blood Urea Nitrogen 20 mg/dl (9-20); Carbon Dioxide 27 mmol/L (22-30); Chloride 92 mmol/L (98-107); Estimated Creatinine Clearance 72 ml/min; Glucose 88 mg/dl (70-99); Potassium 3.8 mmol/L (3.5-5.1); Sodium 125 mmol/L (135-145); eGFR > 60.00
[2024-06-20] MEDS: LIDOCAINE 4% PATCH 1 PATCH TOPICAL (08:01)
[2024-06-20] MEDS: MIRALAX 17 GRAMS PO (08:05)
[2024-06-20] MEDS: URE-NA 15 GRAMS PO (08:05)
[2024-06-20] MEDS: ELIQUIS 5 MG PO ×2 (08:06→20:18)
[2024-06-20] MEDS: LASIX 10 MG PO (08:06)
[2024-06-20] MEDS: TYLENOL 1000 MG PO (08:06)
[2024-06-20] MEDS: TORADOL 10 MG PO (08:06)
[2024-06-20] MEDS: COREG 3.125 MG PO ×2 (08:07→20:19)
[2024-06-20] MEDS: NEURONTIN 100 MG PO ×3 (08:08→22:56)
[2024-06-20] MEDS: PEPCID 20 MG PO ×2 (08:08→20:18)
[2024-06-20] MEDS: APRESOLINE 10 MG PO ×3 (08:56→22:56)
--- NOTE | 2024-06-20 11:00 | CM ---
Addendum entered by Flor Sanchez 06/20/24 13:52:
Per Maryana patient has a bed on monday at [facility]F at [facility] call report to [phone]/fax [phone]. CM will call to [facility] to confirm transfer.
Addendum entered by Flor Sanchez 06/20/24 13:41:
Spoke with patient son and confirmed plan is for [facility], per Maryana patient accepted awaiting confirmation about bed availability. Physician updated son via phone.
Addendum entered by Flor Sanchez 06/20/24 11:09:
VM left for patient son on cell phone requesting call back.
Original Note:
Patient seen at bedside with physician. Patient agreed to SNF referral at [facility] due to PT/OT assessment. Patient states that his son is caregiver for his while he is in the hospital. Per VN at [facility] patient is in hospital more than he is at
home and they have minimal involvement with him due to his frequent hospitalizations. CM updated admissions person covering for Maryana Patel at [phone] and will send referral via all [facility]. Maryana to confirm availability of bed. CM will call
to patient son Black and CM will continue to follow for discharge planning needs.
Plan; SNF
--- NOTE | 2024-06-20 11:24 | W.PN.HOSP.TC ---
Today's Communication/Plan
-
d/c Sat to SNF anticipated
Assessment / Plan
Assessment / Plan
pt is a 78 year old male
Coccyx pain likely from recent fall/coccyx fracture--although cannot find x-rays to confirm that--History of chronic pain syndrome/chronic opioid dependence--On Subutex, never picked from pharmacy (he tells me he stopped taking it because it didn't
work)--CT shows mild partial L2 compression fracture (new from last CT BUT has had on lumbar spine x-ray from April 2024)--Received Dilaudid in ER, will not give further narcotics as this is not appropriate treatment --continue tyenol ATC, Lidocaine
patch, gabapentin and Toradol--PT/OT consult rec SNF
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
restriction, on urea--Received KCl 20 in ER--apprec nephro, sodium 125
Hyperlipidemia -Lipitor.
Paroxysmal atrial fibrillation/flutter -Eliquis, Coreg continued--obtain EKG
Chronic diastolic heart failure preserved EF--Furosemide 10 Mg continued--Fluid restriction continued--Strict I&O--Daily weight
Essential hypertension--Hydralazine continued with hold parameters
BPH--Flomax continue--Terazosin continued
GERD --PPI continued--depression/anxiety
Full code
Anticipated Discharge: 24 - 48 hours
Subjective/Interval History
-
Date of Service: June 20, 2024
pt still c/o pain--not objecting to SNF
Objective Data
-
Labs:
Laboratory Results
06/20/24
06:11
WBC 4.3 L
Hgb 12.7 L
Hct 35.0 L
Plt Count 136
Sodium 125 L
Potassium 3.8
Chloride 92 L
Carbon Dioxide 27
BUN 20
Creatinine 0.8
Glucose 88
Calcium 9.0
Vital Signs:
max temp for 24 hours
06/20/24
03:21
Temp 97.5 F
Vital Signs
Temp Pulse Resp BP Pulse Ox
98.2 F 62 16 133/90 96
06/20/24 07:37 06/20/24 08:56 06/20/24 07:37 06/20/24 08:56 06/20/24 07:37
I&O
06/19/24 06/20/24 06/21/24
06:59 06:59 06:59
Intake Total 120 / 120
Balance 120 / 120
Review of Systems
-
All other systems: Reviewed and negative
Physical Exam
-
General: Well Developed, No Apparent Distress and Other (lost more weight than last time I remember him being)
HEENT: Normocephalic and Atraumatic
Respiratory: Clear to Auscultation; Negative Wheezes or Rhonchi
Cardiac: Regular Rhythm and S1/S2; Negative Murmur
GI: Soft, Nontender, Nondistended and Normal Bowel Sounds
Musculoskeletal: No Clubbing, No Cyanosis and No Edema
Neuro: Awake
[2024-06-20] MEDS: TYLENOL 650 MG PO ×3 (12:08→20:18)
--- NOTE | 2024-06-20 14:45 | W.PN.NEPH.PH ---
Today's Communication / Plan
-
Maintain fluid restriction
Maintain Lasix
Maintain urea
Will provide 7.5 mg Samsca x 1
Assessment/Plan
-
Impression:
Hyponatremia
History of diastolic congestive heart
History of chronic opioid dependent back pain
Status post fall with coccyx fracture/L2 compression fracture
Paroxysmal atrial fibrillation
Hypertension
GERD
Plan;
Hyponatremia
-Appears euvolemic despite history of diastolic congestive heart failure
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
-Would continue 40 ounce fluid restriction and maintain p.o. diuretic
-Status post 3% with sodium up to 125
-Will provide 7.5 mg of Samsca to promote free water loss in the setting of persistent hyponatremia
-
-
Date of Service: June 20, 2024
CC / HPI / ROS
-
Chief Complaint:
Hyponatremia
History of Present Illness:
Serum sodium rise from 1 23-1 following 3% administration
Hemodynamically stable
Review of Systems:
back pain
Nonoliguric no chest pain or shortness of breath
Labs
-
Labs:
WBC 4.3 10^3/uL (4.8-10.8) L 06/20/24 06:11
RBC 4.03 10^6/uL (4.70-6.10) L 06/20/24 06:11
Hgb 12.7 g/dL (13.0-18.0) L 06/20/24 06:11
Hct 35.0 % (39.0-52.0) L 06/20/24 06:11
Plt Count 136 10^3/uL (130-400) 06/20/24 06:11
Sodium 125 mmol/L (135-145) L 06/20/24 06:11
Potassium 3.8 mmol/L (3.5-5.1) 06/20/24 06:11
Chloride 92 mmol/L (98-107) L 06/20/24 06:11
Carbon Dioxide 27 mmol/L (22-30) 06/20/24 06:11
BUN 20 mg/dl (9-20) 06/20/24 06:11
Creatinine 0.8 mg/dL (0.7-1.3) 06/20/24 06:11
eGFR > 60.00 06/20/24 06:11
Glucose 88 mg/dl (70-99) 06/20/24 06:11
Calcium 9.0 mg/dl (8.4-10.2) 06/20/24 06:11
Albumin 4.3 g/dl (3.5-5.0) 06/19/24 10:36
Physical Exam
-
Vital Signs:
Vital Signs
Temp Pulse Resp BP Pulse Ox
98.1 F 71 16 138/84 96
06/20/24 11:29 06/20/24 11:29 06/20/24 11:29 06/20/24 11:29 06/20/24 11:29
Cardiovascular:: Regular rate and rhythm
Respiratory:: Bilateral: CTA
Lung Excursion:: Normal
Abdomen:: Nontender and Soft
Bowel Sounds:: Normal
Extremity Edema:: None: Bilateral:
Montalvo Catheter: No
[2024-06-20] MEDS: ULTRAM 25 MG PO (14:53)
[2024-06-20] MEDS: SAMSCA 7.5 MG PO (15:56)
[2024-06-20] MEDS: FLOMAX 0.4 MG PO (17:30)
[2024-06-20] MEDS: LIPITOR 20 MG PO (22:56)
[2024-06-20] MEDS: DESYREL 150 MG PO (22:56)
[2024-06-20] MEDS: HYTRIN 2 MG PO (22:56)
[2024-06-21] VITALS (7 sets, daily range): BP systolic 107–138; BP diastolic 67–92; BMI 22.6
[2024-06-21] MEDS: TYLENOL 650 MG PO ×5 (00:18→20:43)
[2024-06-21] MEDS: ULTRAM 25 MG PO ×3 (04:26→20:53)
[2024-06-21] MEDS: TYLENOL PO (05:18)
[2024-06-21 07:30] LABS: Hemoglobin 12.2 g/dL (13.0-18.0); Mean Corp Hgb Conc. 35.9 g/dL (33.0-37.0); Mean Corpuscular Hgb 31.4 pg (27.0-31.0); Mean Corpuscular Volume 87.4 fL (80.0-94.0); Mean Platelet Volume 9.1 fL (7.4-10.4); Platelet Count 164 10^3/uL (130-400); Red Blood Cell Count 3.89 10^6/uL (4.70-6.10); Red Cell Dist. Width 14.5 % (11.5-14.5); White Blood Cell Count 4.5 10^3/uL (4.8-10.8)
[2024-06-21 07:48] LABS: Blood Urea Nitrogen 33 mg/dl (9-20); Calcium 8.9 mg/dl (8.4-10.2); Carbon Dioxide 28 mmol/L (22-30); Chloride 92 mmol/L (98-107); Estimated Creatinine Clearance 57 ml/min; Glucose 98 mg/dl (70-99); Potassium 4.4 mmol/L (3.5-5.1); Sodium 125 mmol/L (135-145); eGFR > 60.00
[2024-06-21] MEDS: MIRALAX 17 GRAMS PO (08:41)
[2024-06-21] MEDS: LIDOCAINE 4% PATCH 1 PATCH TOPICAL (08:41)
[2024-06-21] MEDS: TORADOL 10 MG PO (08:41)
[2024-06-21] MEDS: URE-NA 15 GRAMS PO (08:41)
[2024-06-21] MEDS: PEPCID 20 MG PO ×2 (08:42→20:46)
[2024-06-21] MEDS: LASIX 10 MG PO (08:42)
[2024-06-21] MEDS: ELIQUIS 5 MG PO ×2 (08:42→20:45)
[2024-06-21] MEDS: COREG 3.125 MG PO ×2 (08:44→20:44)
[2024-06-21] MEDS: APRESOLINE 10 MG PO ×2 (08:44→16:03)
[2024-06-21] MEDS: NEURONTIN 100 MG PO ×3 (08:44→20:46)
--- NOTE | 2024-06-21 14:24 | W.PN.HOSP.TC ---
Today's Communication/Plan
-
anticipate d/c tomorrow to SNF
Assessment / Plan
Assessment / Plan
pt is a 78 year old male
Coccyx pain likely from recent fall/coccyx fracture--although cannot find x-rays to confirm that--History of chronic pain syndrome/chronic opioid dependence--On Subutex, never picked from pharmacy (he tells me he stopped taking it because it didn't
work)--CT shows mild partial L2 compression fracture (new from last CT BUT has had on lumbar spine x-ray from April 2024)--Received Dilaudid in ER, will not give further narcotics as this is not appropriate treatment --continue tyenol ATC, Lidocaine
patch, gabapentin and Toradol--PT/OT consult rec SNF
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
restriction, on urea--Received KCl 20 in ER--apprec nephro, sodium 125
Hyperlipidemia -Lipitor.
Paroxysmal atrial fibrillation/flutter -Eliquis, Coreg continued--obtain EKG
Chronic diastolic heart failure preserved EF--Furosemide 10 Mg continued--Fluid restriction continued--Strict I&O--Daily weight
Essential hypertension--Hydralazine continued with hold parameters
BPH--Flomax continue--Terazosin continued
GERD --PPI continued--depression/anxiety
Full code
Anticipated Discharge: Within 24 hours
Subjective/Interval History
-
Date of Service: June 21, 2024
pt without c/o
Objective Data
-
Labs:
Laboratory Results
06/21/24
06:52
WBC 4.5 L
Hgb 12.2 L
Hct 34.0 L
Plt Count 164 D
Sodium 125 L
Potassium 4.4
Chloride 92 L
Carbon Dioxide 28
BUN 33 H
Creatinine 1.0
Glucose 98
Calcium 8.9
Vital Signs:
max temp for 24 hours
06/20/24
23:20
Temp 98.2 F
Vital Signs
Temp Pulse Resp BP Pulse Ox
97.8 F 62 16 107/67 97
06/21/24 10:48 06/21/24 10:48 06/21/24 10:48 06/21/24 10:48 06/21/24 10:48
I&O
06/20/24 06/21/24 06/22/24
06:59 06:59 06:59
Intake Total 120 / 120 1140 / 1140
Output Total 300 / 300
Balance 120 / 120 840 / 840
Review of Systems
-
All other systems: Reviewed and negative
Physical Exam
-
General: Appears Chronically Ill
HEENT: Normocephalic and Atraumatic
Respiratory: Clear to Auscultation; Negative Wheezes or Rhonchi
Cardiac: Regular Rhythm and S1/S2; Negative Murmur
GI: Soft, Nontender, Nondistended and Normal Bowel Sounds
Musculoskeletal: No Clubbing, No Cyanosis and No Edema
--- NOTE | 2024-06-21 14:32 | CM ---
Patient seen at bedside with physician. Patient is for transfer tomorrow to [facility], accepted per Maryana;[phone]. Patient completed IMM and signed form is on the chart. Please call report to [phone]/fax [phone]. Ambulance transport
forms completed and on chart. CM will continue to follow for discharge planning needs.
Plan; transfer to [place] tomorrow
--- NOTE | 2024-06-21 14:50 | W.PN.NEPH.PH ---
Today's Communication / Plan
-
sasmca
Assessment/Plan
-
Impression:
Hyponatremia
History of diastolic congestive heart
History of chronic opioid dependent back pain
Status post fall with coccyx fracture/L2 compression fracture
Paroxysmal atrial fibrillation
Hypertension
GERD
Plan;
Hyponatremia
-Appears euvolemic despite history of diastolic congestive heart failure
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
-Would continue 40 ounce fluid restriction and maintain p.o. diuretic
Note he is on low dose NSAID chronically -reviewed to minimize the use
will increase sasmca dose today, resume urea at d/c
may need change lasix to 20mg daily at d/c
-
-
Date of Service: June 21, 2024
CC / HPI / ROS
-
Chief Complaint:
Hyponatremia
History of Present Illness:
Serum sodium not much change at 125 low dose sasmca 06/20
Hemodynamically stable
Review of Systems:
back pain
Nonoliguric no chest pain or shortness of breath
Labs
-
Labs:
WBC 4.5 10^3/uL (4.8-10.8) L 06/21/24 06:52
RBC 3.89 10^6/uL (4.70-6.10) L 06/21/24 06:52
Hgb 12.2 g/dL (13.0-18.0) L 06/21/24 06:52
Hct 34.0 % (39.0-52.0) L 06/21/24 06:52
Plt Count 164 10^3/uL (130-400) D 06/21/24 06:52
Sodium 125 mmol/L (135-145) L 06/21/24 06:52
Potassium 4.4 mmol/L (3.5-5.1) 06/21/24 06:52
Chloride 92 mmol/L (98-107) L 06/21/24 06:52
Carbon Dioxide 28 mmol/L (22-30) 06/21/24 06:52
BUN 33 mg/dl (9-20) H 06/21/24 06:52
Creatinine 1.0 mg/dL (0.7-1.3) 06/21/24 06:52
eGFR > 60.00 06/21/24 06:52
Glucose 98 mg/dl (70-99) 06/21/24 06:52
Calcium 8.9 mg/dl (8.4-10.2) 06/21/24 06:52
Albumin 4.3 g/dl (3.5-5.0) 06/19/24 10:36
Physical Exam
-
Vital Signs:
Vital Signs
Temp Pulse Resp BP Pulse Ox
97.8 F 62 16 107/67 97
06/21/24 10:48 06/21/24 10:48 06/21/24 10:48 06/21/24 10:48 06/21/24 10:48
Cardiovascular:: Regular rate and rhythm
Respiratory:: Bilateral: CTA
Lung Excursion:: Normal
Abdomen:: Nontender and Soft
Extremity Edema:: None: Bilateral:
Montalvo Catheter: No
[2024-06-21] MEDS: SAMSCA 30 MG PO (16:03)
[2024-06-21] MEDS: FLOMAX 0.4 MG PO (17:11)
[2024-06-21] MEDS: LIPITOR 20 MG PO (20:44)
[2024-06-21] MEDS: HYTRIN 2 MG PO (20:45)
[2024-06-21] MEDS: DESYREL 150 MG PO (20:46)
[2024-06-21] MEDS: APRESOLINE PO (23:00)
[2024-06-22] MEDS: TYLENOL PO (00:33)
[2024-06-22] MEDS: TYLENOL 650 MG PO ×4 (01:00→11:07)
[2024-06-22] MEDS: ULTRAM 25 MG PO ×2 (03:27→12:15)
[2024-06-22 03:30] VITALS: BP 140/77
[2024-06-22 06:00] VITALS: BMI 22.6
[2024-06-22 07:30] LABS: Hematocrit 34.5 % (39.0-52.0); Hemoglobin 11.9 g/dL (13.0-18.0); Mean Corp Hgb Conc. 34.5 g/dL (33.0-37.0); Mean Corpuscular Hgb 31.6 pg (27.0-31.0); Mean Corpuscular Volume 91.8 fL (80.0-94.0); Mean Platelet Volume 9.3 fL (7.4-10.4); Platelet Count 142 10^3/uL (130-400); Red Blood Cell Count 3.76 10^6/uL (4.70-6.10); Red Cell Dist. Width 14.4 % (11.5-14.5); White Blood Cell Count 5.5 10^3/uL (4.8-10.8)
[2024-06-22 07:32] VITALS: BP 134/91
[2024-06-22 07:54] LABS: Blood Urea Nitrogen 45 mg/dl (9-20); Carbon Dioxide 30 mmol/L (22-30); Chloride 90 mmol/L (98-107); Estimated Creatinine Clearance 48 ml/min; Glucose 83 mg/dl (70-99); Potassium 4.9 mmol/L (3.5-5.1); Sodium 128 mmol/L (135-145); eGFR > 60.00
[2024-06-22] MEDS: TORADOL 10 MG PO (08:11)
[2024-06-22] MEDS: APRESOLINE 10 MG PO (08:11)
[2024-06-22] MEDS: COREG 3.125 MG PO (08:12)
[2024-06-22] MEDS: NEURONTIN 100 MG PO (08:12)
[2024-06-22] MEDS: PEPCID 20 MG PO (08:12)
[2024-06-22] MEDS: LASIX 10 MG PO (08:13)
[2024-06-22] MEDS: ELIQUIS 5 MG PO (08:13)
[2024-06-22] MEDS: LIDOCAINE 4% PATCH 1 PATCH TOPICAL (08:14)
[2024-06-22] MEDS: MIRALAX 17 GRAMS PO (08:14)
[2024-06-22] MEDS: URE-NA 15 GRAMS PO (08:14)
--- NOTE | 2024-06-22 09:39 | W.PN.HOSP.TC ---
Today's Communication/Plan
-
d/c
Assessment / Plan
Assessment / Plan
pt is a 78 year old male
ok for d/c to SNF
Coccyx pain likely from recent fall/coccyx fracture--although cannot find x-rays to confirm that--History of chronic pain syndrome/chronic opioid dependence--On Subutex, never picked from pharmacy (he tells me he stopped taking it because it didn't
work)--CT shows mild partial L2 compression fracture (new from last CT BUT has had on lumbar spine x-ray from April 2024)--Received Dilaudid in ER, will not give further narcotics as this is not appropriate treatment --continue tyenol ATC, Lidocaine
patch, gabapentin and Toradol--PT/OT consult rec SNF
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
on urea--Received KCl 20 in ER--apprec nephro--s/p 3% NaCl and Samsca
Hyperlipidemia -Lipitor.
Paroxysmal atrial fibrillation/flutter -Eliquis, Coreg continued--obtain EKG
Chronic diastolic heart failure preserved EF--Furosemide 10 Mg continued--Fluid restriction continued--Strict I&O--Daily weight
Essential hypertension--Hydralazine continued with hold parameters
BPH--Flomax continue--Terazosin continued
GERD --PPI continued--depression/anxiety
Full code
Anticipated Discharge: Today
Subjective/Interval History
-
Date of Service: June 22, 2024
pt ok for d/c
Objective Data
-
Labs:
Laboratory Results
06/22/24
06:17
WBC 5.5
Hgb 11.9 L
Hct 34.5 L
Plt Count 142
Sodium 128 L
Potassium 4.9
Chloride 90 L
Carbon Dioxide 30
BUN 45 H
Creatinine 1.2
Glucose 83
Calcium 9.0
Vital Signs:
max temp for 24 hours
06/21/24
19:27
Temp 97.9 F
Vital Signs
Temp Pulse Resp BP Pulse Ox
97.5 F 61 16 134/91 97
06/22/24 07:32 06/22/24 08:13 06/22/24 07:32 06/22/24 08:13 06/22/24 08:25
I&O
06/21/24 06/22/24 06/23/24
06:59 06:59 06:59
Intake Total 1140 / 1140 1280 / 1280
Output Total 300 / 300 700 / 700
Balance 840 / 840 580 / 580
Review of Systems
-
All other systems: Reviewed and negative
Physical Exam
-
General: Appears Chronically Ill
HEENT: Normocephalic and Atraumatic
Respiratory: Clear to Auscultation; Negative Wheezes or Rhonchi
Cardiac: Regular Rhythm and S1/S2; Negative Murmur
GI: Soft, Nontender, Nondistended and Normal Bowel Sounds
Musculoskeletal: No Clubbing, No Cyanosis and No Edema
--- NOTE | 2024-06-22 09:43 | W.DCSUMMARY ---
Discharge Summary
Discharge Data
Date of Admission: 06/19/24
Date of Discharge: 06/22/24
-
Pending Results: No
Hospital Course
Primary care physician : Black Artis
Principal Discharge diagnosis : Exacerbation of chronic pain
Chronic Discharge diagnosis : Acute on chronic hyponatremia/hypokalemia, hyperlipidemia, paroxysmal atrial fibrillation/flutter, chronic diastolic congestive heart failure with preserved ejection fraction, essential hypertension, benign prostatic
hyperplasia, gastroesophageal reflux disease
Hospital Course : Patient is a 78-year-old male with a history of chronic back pain atrial fibrillation among other issues who reported having a fall months ago. He stated that he fractured his coccyx (I cannot find any x-rays to support this). He
reported worsening pain over the past 2 to 3 days and was unable to sleep due to the pain. Patient stated he has pain from his mid to lower back radiating to his lower abdomen and was taking Tylenol without relief. Patient was supposed to be on
Subutex from his pharmacy. He stated that he had not picked it up from his pharmacy because it does not help. CAT scan done in the emergency department showed a mild partial L2 vertebral compression fracture which was new since the March 2024 CAT
scan; however, looking back at lumbar x-rays done from April confirms the L2 compression fracture. Patient was also found to be hyponatremic more so than his baseline and was admitted.
Problem #1: Exacerbation chronic pain. Patient did not have any new findings of any new fractures. I spoke at length with the patient's son who stated that the patient has been addicted to pain medications for the better part of a decade and a
half. He has seen numerous pain specialists that have dismissed him from their practice due to the patient not cooperating with their guidance and recommendations. He does have a current painter and decorator (Dr. Beth Christensen). I did
attempt to call her but have not reached her for discussion. His son states that she has him on Subutex only. We have avoided narcotics during this hospitalization and placed him on [id number] Tylenol as well as a daily dose of Toradol,
lidocaine patches, gabapentin has been started, and Ultram has been provided. Patient did not do well with physical therapy and is being recommended for a short stay at the [facility] as he does live at [facility]. He is
agreeable and stable for discharge.
In addition, I did speak with the patient's son regarding the patient's confusion/mental decline. I believe he has the beginnings of dementia and should not be driving. His son states that any and all help that usually is set up for the patient
and his in their home setting that the patient usually cancels. Certainly, chronic narcotic medications do not help the situation. He may need formal neuropsychologic testing as an outpatient to confirm the diagnosis of suspected dementia.
Problem #2: All other medical issues. These include Acute on chronic hyponatremia/hypokalemia, hyperlipidemia, paroxysmal atrial fibrillation/flutter, chronic diastolic congestive heart failure with preserved ejection fraction, essential
hypertension, benign prostatic hyperplasia, gastroesophageal reflux disease. These medical issues were stable during his hospitalization. Medications were continued as able. In regards to the chronic hyponatremia, patient's baseline sodium is
128. He appeared here with 123. He was seen in consultation by nephrology. He was given 3% sodium chloride as well as Samsca. His sodium improved to 128 which was baseline. His hypokalemia was repleted.
Patient is stable for discharge to half-way facility at this time. If there are any questions regarding this dictation or her hospital stay, please do not hesitate to call. Our office number is [phone].
Discharge Plan
-
Patient Disposition: Retirement/SNF
Discharge Diagnosis/Procedures: Exacerbation of chronic pain, acute on chronic hyponatremia/hypokalemia, hyperlipidemia, paroxysmal atrial fibrillation/flutter, chronic diastolic congestive heart failure with preserved ejection fraction euvolemic,
essential hypertension, benign prostatic hyperplasia, gastroesophageal reflux disease, history of chronic narcotic dependence/abuse
Condition: Fair
Diet: As tolerated
Activity: As tolerated
Driving Restrictions: No driving
Bathing Restrictions: None
Referrals:
Black Artis MD [Family Provider] - in less than 1 week
Prescriptions:
New
acetaminophen 325 mg Tablet
650 mg PO Q4HWA Qty: 0 0RF
tramadol 50 mg Tablet
25 mg PO Q6HPRN PRN (Reason: severe pain) Qty: 7 0RF
gabapentin 100 mg Capsule
100 mg PO TID Qty: 0 0RF
lidocaine 4 % Adhesive Patch,Medicated
1 patch topical DAILY Qty: 0 0RF
Continued
Eliquis 5 MG tablet
5 mg PO BID
terazosin 2 mg Capsule
2 mg PO HS
trazodone 150 mg Tablet
150 mg PO HS
furosemide 20 mg tablet
10 mg PO DAILY
famotidine [Pepcid] 20 mg Tablet
20 mg PO BID
vitamin B complex Capsule
1 cap PO QPM Qty: 0
hydralazine 10 mg tablet
10 mg PO TID
urea 15 gram Powder In Packet
1 packet PO DAILY
cholecalciferol (vitamin D3) [Vitamin D3] 125 mcg (5,000 unit) Tablet
5,000 mcg PO DAILY
atorvastatin [Lipitor] 20 MG tablet
20 mg PO HS
tamsulosin 0.4 mg capsule
0.4 mg PO QPM
polyethylene glycol 3350 [Miralax] 17 gram/dose Powder
17 g PO DAILY
carvedilol 12.5 mg tablet
3.125 mg PO BID
Discharge Orders:
Discharge Patient (As Directed); Ordered 06/22/24
Ordered By: Maru Redd
Discharge Date and Time
Print Language: SAMOAN
--- NOTE | 2024-06-22 10:30 | CM ---
Addendum entered by Paulina Garsia 06/22/24 10:40:
Pt aware of transport time, 2PM to [facility]. Reports he will inform his of transport time.
Original Note:
Pt for discharge -today
Spoke with Maryana - [phone] - aware of transfer. Requesting med list be faxed to [phone]
Transport arranged for 2 PM
Facility aware of transport time
Plan - transfer to [facility]
R - [phone]
F - [phone]
[2024-06-22 11:21] VITALS: BP 108/76
[2024-06-22 14:12] VITALS: BP 120/78
== END 2024-06-22 15:26 | DRG 644 ==
LOC: 3 WEST ACU 14:38
PROVIDERS: Physician Assistant; Registered Nurse; ADMITTING PHYSICIAN Internal Medicine; CONSULT PHYSICIAN Specialist; EMERGENCY PHYSICIAN Emergency Medicine; FAMILY PHYSICIAN Family Medicine
DX: E22.2 Syndrome of inappropriate secretion of antidiuretic hormone (principal); F03.93 Unspecified dementia, unspecified severity, with mood disturbance; F11.20 Opioid dependence, uncomplicated; S32.020A Wedge compression fracture of second lumbar vertebra, initial encounter for closed fracture; I50.32 Chronic diastolic (congestive) heart failure; I48.92 Unspecified atrial flutter; S32.2XXA Fracture of coccyx, initial encounter for closed fracture; F03.94 Unspecified dementia, unspecified severity, with anxiety; I11.0 Hypertensive heart disease with heart failure; F32.A Depression, unspecified; I71.40 Abdominal aortic aneurysm, without rupture, unspecified; Z95.2 Presence of prosthetic heart valve; M53.3 Sacrococcygeal disorders, not elsewhere classified; E78.00 Pure hypercholesterolemia, unspecified; E87.6 Hypokalemia; G89.4 Chronic pain syndrome; G47.30 Sleep apnea, unspecified; G62.9 Polyneuropathy, unspecified; I48.0 Paroxysmal atrial fibrillation; I25.10 Atherosclerotic heart disease of native coronary artery without angina pectoris; K21.9 Gastro-esophageal reflux disease without esophagitis; N40.0 Benign prostatic hyperplasia without lower urinary tract symptoms; W19.XXXA Unspecified fall, initial encounter; Z79.01 Long term (current) use of anticoagulants; Z79.899 Other long term (current) drug therapy; Z87.19 Personal history of other diseases of the digestive system; Z86.79 Personal history of other diseases of the circulatory system; Z87.440 Personal history of urinary (tract) infections; Z87.01 Personal history of pneumonia (recurrent); Z98.1 Arthrodesis status
CPT/HCPCS: 74177; 80048; 80053; 81003; 83690; 83935; 84300; 85025; 85027; 96361; 96374; 96375; 97116; 97163; 99285; Q9967

== ENCOUNTER → 2024-06-24 11:13 | Outpatient (REF) | payer MEDICARE, OTHER, SELFPAY ==
[2024-06-24 11:56] LABS: % Basophils 0.2 % (0-2); % Eosinophils 1.9 % (0-6); % Immature Granulocytes 0.6 % (0-0.5); % Monocytes 7.6 % (1.7-9.3); % Neutrophils 70.7 % (42.2-75.2); Absolute Eosinophils 0.1 10^3/uL (0-0.7); Absolute Lymphocytes 0.9 10^3/uL (1.2-3.4); Absolute Monocytes 0.4 10^3/uL (0.1-0.6); Absolute Neutrophils 3.4 10^3/uL (1.4-6.5); Hematocrit 31.2 % (39.0-52.0); Hemoglobin 10.4 g/dL (13.0-18.0); Mean Corp Hgb Conc. 33.3 g/dL (33.0-37.0); Mean Corpuscular Hgb 30.8 pg (27.0-31.0); Mean Corpuscular Volume 92.3 fL (80.0-94.0); Mean Platelet Volume 9.2 fL (7.4-10.4); Nucleated Red Blood Cells % 0 % (-); Platelet Count 136 10^3/uL (130-400); Red Blood Cell Count 3.38 10^6/uL (4.70-6.10); Red Cell Dist. Width 14.9 % (11.5-14.5); White Blood Cell Count 4.9 10^3/uL (4.8-10.8)
[2024-06-24 12:12] LABS: ALT (SGPT) 14 U/L (0-50); AST (SGOT) 20 U/L (17-59); Albumin 3.4 g/dl (3.5-5.0); Alkaline Phosphatase 99 U/L (38-126); Blood Urea Nitrogen 37 mg/dl (9-20); Calcium 8.9 mg/dl (8.4-10.2); Carbon Dioxide 28 mmol/L (22-30); Chloride 96 mmol/L (98-107); Glucose 90 mg/dl (70-99); Potassium 4.9 mmol/L (3.5-5.1); Sodium 131 mmol/L (135-145); Total Bilirubin 0.7 mg/dl (0.2-1.3); Total Protein 5.2 g/dl (6.3-8.2); eGFR > 60.00
== END ==
LOC: OLABWHC 11:13
PROVIDERS: ATTENDING PHYSICIAN Family Medicine
DX: D64.9 Anemia, unspecified (principal); E87.6 Hypokalemia; E87.1 Hypo-osmolality and hyponatremia; N18.31 Chronic kidney disease, stage 3a
CPT/HCPCS: 80053; 85025

== ENCOUNTER → 2024-07-03 16:15 | Outpatient (REF) | payer MEDICARE, OTHER, SELFPAY ==
[2024-07-03 17:32] LABS: Hematocrit 32.3 % (39.0-52.0); Hemoglobin 11.1 g/dL (13.0-18.0); Mean Corp Hgb Conc. 34.4 g/dL (33.0-37.0); Mean Corpuscular Hgb 31.8 pg (27.0-31.0); Mean Corpuscular Volume 92.6 fL (80.0-94.0); Mean Platelet Volume 9.5 fL (7.4-10.4); Platelet Count 131 10^3/uL (130-400); Red Blood Cell Count 3.49 10^6/uL (4.70-6.10); Red Cell Dist. Width 15.6 % (11.5-14.5); White Blood Cell Count 4.4 10^3/uL (4.8-10.8)
[2024-07-03 17:40] LABS: Blood Urea Nitrogen 32 mg/dl (9-20); Carbon Dioxide 27 mmol/L (22-30); Chloride 100 mmol/L (98-107); Glucose 90 mg/dl (70-99); Potassium 4.2 mmol/L (3.5-5.1); Sodium 137 mmol/L (135-145); eGFR > 60.00
== END ==
LOC: OLABWHC 16:15
PROVIDERS: ATTENDING PHYSICIAN Family Medicine
DX: I50.32 Chronic diastolic (congestive) heart failure (principal); E87.1 Hypo-osmolality and hyponatremia
CPT/HCPCS: 36415; 80048; 85027

== ENCOUNTER → 2024-07-09 12:59 | Outpatient (REF) | payer OTHER, MEDICARE, SELFPAY ==
[2024-07-09 14:21] LABS: Blood Urea Nitrogen 25 mg/dl (9-20); Carbon Dioxide 28 mmol/L (22-30); Chloride 96 mmol/L (98-107); Glucose 87 mg/dl (70-99); Potassium 3.9 mmol/L (3.5-5.1); Sodium 132 mmol/L (135-145); eGFR > 60.00
== END ==
LOC: OLABWHC 12:59
PROVIDERS: ATTENDING PHYSICIAN Family Medicine
DX: E22.2 Syndrome of inappropriate secretion of antidiuretic hormone (principal); E87.1 Hypo-osmolality and hyponatremia; F11.20 Opioid dependence, uncomplicated
CPT/HCPCS: 36415; 80048

== ENCOUNTER → 2024-07-10 18:52 | Outpatient (REF) | payer OTHER, MEDICARE, SELFPAY ==
[2024-07-10 19:32] LABS: Urine Albumin Negative (Neg - Trace); Urine Bilirubin Negative (Negative); Urine Character Clear (Clear); Urine Color Yellow; Urine Glucose Negative (Negative); Urine Ketone Negative (Negative); Urine Leukocyte Negative (Negative); Urine Nitrite Negative (Negative); Urine Occult Blood Negative (Negative); Urine Specific Gravity 1.005 (<1.030); Urine Urobilinogen Negative (Neg - 1+)
== END ==
LOC: OLABWHC 18:52
PROVIDERS: ATTENDING PHYSICIAN Family Medicine
DX: N40.1 Benign prostatic hyperplasia with lower urinary tract symptoms (principal); R33.9 Retention of urine, unspecified
CPT/HCPCS: 81003; 87086

== ENCOUNTER → 2024-07-15 11:51 | Outpatient (REF) | payer OTHER, MEDICARE, SELFPAY ==
[2024-07-15 14:09] LABS: Blood Urea Nitrogen 27 mg/dl (9-20); Calcium 8.9 mg/dl (8.4-10.2); Carbon Dioxide 25 mmol/L (22-30); Chloride 94 mmol/L (98-107); Glucose 99 mg/dl (70-99); Potassium 4.4 mmol/L (3.5-5.1); Sodium 130 mmol/L (135-145); eGFR > 60.00
== END ==
LOC: OLABWHC 11:51
PROVIDERS: ATTENDING PHYSICIAN Family Medicine
DX: I50.32 Chronic diastolic (congestive) heart failure (principal); E87.1 Hypo-osmolality and hyponatremia
CPT/HCPCS: 36415; 80048

== ENCOUNTER → 2024-07-30 10:55 | Outpatient (REF) | payer OTHER, MEDICARE, SELFPAY ==
[2024-07-30 12:32] LABS: Hematocrit 28.9 % (39.0-52.0); Hemoglobin 9.9 g/dL (13.0-18.0); Mean Corp Hgb Conc. 34.3 g/dL (33.0-37.0); Mean Corpuscular Hgb 31.7 pg (27.0-31.0); Mean Corpuscular Volume 92.6 fL (80.0-94.0); Platelet Count 136 10^3/uL (130-400); Red Blood Cell Count 3.12 10^6/uL (4.70-6.10); Red Cell Dist. Width 13.6 % (11.5-14.5); White Blood Cell Count 5.5 10^3/uL (4.8-10.8)
[2024-07-30 13:42] LABS: Blood Urea Nitrogen 41 mg/dl (9-20); Calcium 8.6 mg/dl (8.4-10.2); Carbon Dioxide 30 mmol/L (22-30); Chloride 97 mmol/L (98-107); Glucose 89 mg/dl (70-99); Sodium 134 mmol/L (135-145); eGFR > 60.00
== END ==
LOC: OLABP 10:55
PROVIDERS: ATTENDING PHYSICIAN Family Medicine
DX: E87.1 Hypo-osmolality and hyponatremia (principal); I25.10 Atherosclerotic heart disease of native coronary artery without angina pectoris; E87.6 Hypokalemia; M47.816 Spondylosis without myelopathy or radiculopathy, lumbar region; I48.0 Paroxysmal atrial fibrillation; Z95.0 Presence of cardiac pacemaker; E78.5 Hyperlipidemia, unspecified; I10 Essential (primary) hypertension; I48.92 Unspecified atrial flutter; I13.0 Hypertensive heart and chronic kidney disease with heart failure and stage 1 through stage 4 chronic kidney disease, or unspecified chronic kidney disease; N18.31 Chronic kidney disease, stage 3a; I50.30 Unspecified diastolic (congestive) heart failure
CPT/HCPCS: 36415; 80048; 85027

== ENCOUNTER 2024-09-06 11:34 | Emergency (ER) | payer MEDICARE, OTHER, SELFPAY ==
[2024-09-06 11:40] VITALS: BP 108/78
--- NOTE | 2024-09-06 12:58 | ED.GENMED ---
History of Present Illness
General
Chief Complaint: Fall
Source: patient
Exam Limitations: none
Time Seen by Provider: 09/06/24 12:48
History of Present Illness
History of Present Illness:
See MDM
Past History
Past History
ED Past Medical History: Arrthythmia (Atrial flutter/fib), CAD, CHF, HTN, Hypercholesterolemia, Valvular disease, Psychiatric (Anxiety, Depression), Other (Rib fractures, Chronic back pain, Anemia, Cellulitis, Left pleural effusion, osteomyelitis,
endocarditis, Sleep apnea, Parkinson, GI bleeding, UTI with retention, AAA, Montalvo), Other (polyneuropathy, balance issues, Neuropathy, tingling in arms and legs. ) and Other (chronic back pain, pain management with Buprenorphine and ASA)
ED Past Surgical History: Cardiac (Aortic valve replaced (x 2), Pacemaker), Orthopedic (C spine fusion, Laminectomy) and Other (Hemorrhoidectomy, cataracts)
Patient has exhibited threatening behavior?: No
PSI?: No
Social History
Tobacco: Non-smoker
Alcohol: Occasional ( Beer)
Drug: None
Personal:
Living: with family
Employment: Retired
Family History
Family History: Hypertension and CAD
Phy Exam
Physical Exam
Physical Exam:
See MDM
Course
Orders/Labs/Results
Orders:
Orders
09/06/24 12:56
CT Head W/o Iv Contrast Urgent
Comment:
Reason For Exam: fall, head injury
Ketorolac [Toradol] 30 mg IM NOW STA
Shoulder, Left, Trauma CR [CR Shoulder, Trauma - Left] Urgent
Comment:
Reason For Exam: fall, left shoulder pain
Shoulder, Right, Trauma [CR Shoulder, Trauma - Right] Urgent
Comment:
Reason For Exam: fall, right shoulder pain
09/06/24 14:24
Elbow, 3 view, Left [CR Elbow - Left Min 3 Views ] Urgent
Comment:
Reason For Exam: fall, left elbow pain
09/06/24 14:37
Basic Metabolic Panel Urgent
Complete Blood Count/With Diff Urgent
09/06/24 15:16
0.9% Sodium Chloride 1000 ml [Nss] 1,000 ml IV BOLUS
Abnormal Lab Results
09/06/24
14:37
RBC 3.35 L 10^6/uL
(4.70-6.10)
Hgb 10.4 L g/dL
(13.0-18.0)
Hct 30.3 L %
(39.0-52.0)
Absolute Lymphs (auto) 1.1 L 10^3/uL
(1.2-3.4)
Absolute Monos (auto) 0.8 H 10^3/uL
(0.1-0.6)
Lymphocytes % 14.3 L %
(20.5-51.1)
Monocytes % 10.9 H %
(1.7-9.3)
Sodium 130 L mmol/L
(135-145)
Chloride 92 L mmol/L
(98-107)
BUN 28 H mg/dl
(9-20)
Creatinine 2.2 H mg/dL
(0.7-1.3)
09/06/24 14:37
09/06/24 14:37
Vital Signs
Initial and Last Documented VS:
Initial Vital Signs
Temp Pulse Resp BP Pulse Ox
98.2 F 75 16 108/78 95
09/06/24 11:40 09/06/24 11:40 09/06/24 11:40 09/06/24 11:40 09/06/24 11:40
Last Documented Vital Signs
Temp Pulse Resp BP Pulse Ox
98.2 F 75 16 108/78 95
09/06/24 11:40 09/06/24 11:40 09/06/24 11:40 09/06/24 11:40 09/06/24 11:40
MDM/Problems Addressed
Differential Diagnosis Includes:
HPI and MDM Narrative:
79-year-old male presenting for a slip and fall. Patient states he lost his balance yesterday and he fell backwards. He complains mostly of bilateral shoulder pain. He is unsure if he hit his head. He was recently started on Suboxone but he does
not believe this is a side effect of the medicine.
On exam, he is well-appearing nontoxic. He has old appearing abrasions to his face. Will obtain CT head. He has mild tenderness to palpation of bilateral anterior shoulders but he is moving both extremities without difficulty. They both are
neurovascularly intact. Will obtain bilateral shoulder x-ray
Physical exam
General: Well appearing and non-toxic
HEENT: protecting airway. Mild abrasion to face
Neck: supple
CV: No evidence of cyanosis
Resp: No accessory muscle use
Abd: Non-distended
Extremities: No deformities. Mild bilateral anterior shoulder without change in range of motion or muscle strength. Both extremities neurovascularly intact
Neuro: alert
Psych: Normal affect
Skin: Intact
Problems Addressed including Acute and Chronic Conditions affecting care:
1. Head injury
Acuity: acute
Prognosis: stable
Details: Will obtain CT head
2. Bilateral shoulder pain
Acuity: acute
Prognosis: stable
Details: Given the fall, will obtain x-rays.
3. Dehydration
Acuity: acute
Prognosis: stable
Details: Will give liter of IV fluids. Discussed having his creatinine rechecked next week by his PCP
4. [ ]
Acuity: acute
Prognosis: stable
Details:
5. [ ]
Acuity:
Prognosis:
Details:
Updates
We discussed elevated creatinine. Patient does appear dry and likely indicates prerenal. Will give IV fluids. Patient states he feels comfortable going home. Discussed having this rechecked by his PCP
Differential Diagnosis (but not limited to): Contusion, rotator cuff injury, fracture
Testing considered: CT neck but he denies neck pain
Drug therapy (if applicable): OTC meds, please see d/c instruction regarding Rx drugs
Amount and/or Complexity of Data Reviewed
Clinical info obtained from: Patient
External data reviewed: N/A
Labs I independently reviewed (but not limited to): Elevated creatinine
Radiology: The CT scan was personally and independently reviewed. In addition, official CT report reviewed.
X-ray independently reviewed: No fracture noted on bilateral shoulder x-rays
Pulse Ox: not hypoxic
EKG independently reviewed: N/A
Environmental Marketer: N/A
Critical Care: N/A
Risk of Complication:
Social Determinants of health: Good social support
Discussed with other providers: N/A
Escalation of Care includes Admit/Obs: After being observed in the Emergency Department, pt stable for discharge.
Occasional wrong word or 'sound a like' substitutions may have occurred due to the inherent limitations of voice recognition software. Read the chart carefully and recognize, using context, where substitutions have occurred.
*Critical Care Note
Total Time (30-74mins, 75-104mins- exclusive of procedures): Not Applicable
ED Attending Note
-
Portions of this chart may have been created with voice recognition software.� Occasional wrong word or��sound alike� substitutions may have occurred due to the inherent limitations of voice recognition software.
Discharge Plan
Departure
Patient Disposition: Home (Routine Discharge)
Date of Disposition: 09/06/24
Time of Disposition: 15:22
Patient with high blood pressure during this ER visit?: No
Discharge Problem:
Acute dehydration
Instructions: Dehydration, Adult ED
Prescriptions:
No Action
Eliquis 5 MG tablet
5 mg PO BID
terazosin 2 mg Capsule
2 mg PO HS
trazodone 150 mg Tablet
150 mg PO HS
furosemide 20 mg tablet
10 mg PO DAILY
famotidine [Pepcid] 20 mg Tablet
20 mg PO BID
vitamin B complex Capsule
1 cap PO QPM Qty: 0
hydralazine 10 mg tablet
10 mg PO TID
urea 15 gram Powder In Packet
1 packet PO DAILY
cholecalciferol (vitamin D3) [Vitamin D3] 125 mcg (5,000 unit) Tablet
5,000 mcg PO DAILY
atorvastatin [Lipitor] 20 MG tablet
20 mg PO HS
tamsulosin 0.4 mg capsule
0.4 mg PO QPM
polyethylene glycol 3350 [Miralax] 17 gram/dose Powder
17 g PO DAILY
carvedilol 12.5 mg tablet
3.125 mg PO BID
acetaminophen 325 mg Tablet
650 mg PO Q4HWA Qty: 0 0RF
tramadol 50 mg Tablet
25 mg PO Q6HPRN PRN (Reason: severe pain) Qty: 7 0RF
gabapentin 100 mg Capsule
100 mg PO TID Qty: 0 0RF
lidocaine 4 % Adhesive Patch,Medicated
1 patch topical DAILY Qty: 0 0RF
Referrals:
Black Artis MD [Family Provider] -
Activity Restrictions/Additional Instructions:
Please return for any worsening symptoms.
You may return at any time if you have further concerns.
Please follow up with your doctor at the first available appointment, preferably this week. Please have your kidney enzymes rechecked next week.
Thank you for choosing [facility].
Interventions
Interventions:
*Risk Screen - Suicide Last Done: 09/06/24 11:43
*Neglect/Abuse Screening Last Done: 09/06/24 11:43
*ED COVID-19 Vaccine History Last Done: 09/06/24 11:43
Discharge Date and Time
Print Language: CZECH
[2024-09-06] MEDS: TORADOL 30 MG IM (13:01)
[2024-09-06 14:51] LABS: % Basophils 0.4 % (0-2); % Eosinophils 1.7 % (0-6); % Immature Granulocytes 0.3 % (0-0.5); % Lymphocytes 14.3 % (20.5-51.1); % Monocytes 10.9 % (1.7-9.3); % Neutrophils 72.4 % (42.2-75.2); Absolute Eosinophils 0.1 10^3/uL (0-0.7); Absolute Lymphocytes 1.1 10^3/uL (1.2-3.4); Absolute Monocytes 0.8 10^3/uL (0.1-0.6); Absolute Neutrophils 5.5 10^3/uL (1.4-6.5); Hematocrit 30.3 % (39.0-52.0); Hemoglobin 10.4 g/dL (13.0-18.0); Mean Corp Hgb Conc. 34.3 g/dL (33.0-37.0); Mean Corpuscular Volume 90.4 fL (80.0-94.0); Mean Platelet Volume 9.6 fL (7.4-10.4); Nucleated Red Blood Cells % 0 % (-); Platelet Count 131 10^3/uL (130-400); Red Blood Cell Count 3.35 10^6/uL (4.70-6.10); Red Cell Dist. Width 13.5 % (11.5-14.5); White Blood Cell Count 7.5 10^3/uL (4.8-10.8)
[2024-09-06 15:12] LABS: Blood Urea Nitrogen 28 mg/dl (9-20); Calcium 8.8 mg/dl (8.4-10.2); Carbon Dioxide 27 mmol/L (22-30); Chloride 92 mmol/L (98-107); Glucose 94 mg/dl (70-99); Sodium 130 mmol/L (135-145); eGFR 29.91
[2024-09-06] MEDS: NSS 1000 IV (16:35)
[2024-09-06 17:29] VITALS: BP 110/68
== END 2024-09-06 18:30 | disposition home or self-care (01) ==
LOC: EMR 11:34
PROVIDERS: EMERGENCY PHYSICIAN Student in an Organized Health Care Education/Training Program; FAMILY PHYSICIAN Family Medicine
DX: S09.90XA Unspecified injury of head, initial encounter (principal); W19.XXXA Unspecified fall, initial encounter; E86.0 Dehydration; E78.00 Pure hypercholesterolemia, unspecified; I11.0 Hypertensive heart disease with heart failure; I50.9 Heart failure, unspecified; I25.10 Atherosclerotic heart disease of native coronary artery without angina pectoris; F41.8 Other specified anxiety disorders; G47.30 Sleep apnea, unspecified; I48.91 Unspecified atrial fibrillation; Z82.49 Family history of ischemic heart disease and other diseases of the circulatory system; Z87.440 Personal history of urinary (tract) infections; Z95.0 Presence of cardiac pacemaker; Z95.2 Presence of prosthetic heart valve; Z98.1 Arthrodesis status
CPT/HCPCS: 99284; 96372; 96360; 70450; 73030; 73080; 80048; 85025

== ENCOUNTER 2024-09-07 11:48 | Inpatient (IN) | payer MEDICARE, OTHER, SELFPAY ==
[2024-09-07] VITALS (28 sets, daily range): BP systolic 62–141; BP diastolic 39–94; BMI 26.7; BMI 27.2
--- NOTE | 2024-09-07 09:25 | ED.GENMED ---
History of Present Illness
General
Chief Complaint: Weakness
Source: patient, records and ambulance crew
Exam Limitations: none
Time Seen by Provider: 09/07/24 09:23
Nursing documentation reviewed up to this point in time: agreed with
History of Present Illness
History of Present Illness:
79-year-old male with a past medical history of hypertension, hyperlipidemia, atrial fibrillation on Eliquis, CHF, AAA, AF status post TAVR, BPH with urinary retention and Montalvo catheter who presents to the emergency room from [facility]
Living; presents for evaluation of generalized weakness. Patient was here yesterday after a slip and fall�he reports that for the past few days he has had generalized weakness yesterday culminated in slip and fall. He was seen in the ED and
evaluated after the fall, had CT head and basic labs diagnosed with dehydration was given fluids and discharged home. He says that this morning when he woke up he was too weak to even stand up and get out of bed, EMS called to bring him to the
hospital once again. He reports feeling generalized achiness. Denies any headache, neck pain. He has chronic low back pain no change. Denies any chest or abdominal pain. He reports mild shortness of breath and cough. Denies any significant
swelling in the legs. Denies any other complaints. He has been on antibiotic (cefuroxime) since 09/04 he says for possible UTI. Has been compliant without missed doses.
Past History
Past History
ED Past Medical History: Arrthythmia (Atrial flutter/fib), CAD, CHF, HTN, Hypercholesterolemia, Valvular disease, Psychiatric (Anxiety, Depression), Other (Rib fractures, Chronic back pain, Anemia, Cellulitis, Left pleural effusion, osteomyelitis,
endocarditis, Sleep apnea, Parkinson, GI bleeding, UTI with retention, AAA, Montalvo), Other (polyneuropathy, balance issues, Neuropathy, tingling in arms and legs. ) and Other (chronic back pain, pain management with Buprenorphine and ASA)
ED Past Surgical History: Cardiac (Aortic valve replaced (x 2), Pacemaker), Orthopedic (C spine fusion, Laminectomy) and Other (Hemorrhoidectomy, cataracts)
Patient has exhibited threatening behavior?: No
PSI?: No
Social History
Tobacco: Non-smoker
Alcohol: Occasional ( Beer)
Drug: None
Personal:
Living: with family
Employment: Retired
Family History
Family History: Hypertension and CAD
Review of Systems
Review of Systems
All Other Systems: ROS reviewed and negative except as documented in HPI and ROS
Constitutional: Reports fatigue; Denies fever or chills
EENT: Denies sore throat
Respiratory: Reports cough and trouble breathing
Cardiac: Denies chest pain or palpitations
ABD/GI: Denies abdominal pain, nausea, vomiting or diarrhea
: Denies flank pain
Musculoskeletal: Reports back pain (Chronic unchanged); Denies edema or neck pain
Neurological: Reports weakness (Generalized); Denies dizzy, headache or numbness
Phy Exam
Physical Exam
Physical Exam:
General: Awake, alert, oriented x3; no acute distress
Head: Normocephalic, old appearing facial abrasion
Eyes: Conjunctiva normal, sclera anicteric
Throat: Airway intact, handling secretions
Neck: Trachea midline, no cervical spine tenderness, dorsal scar from prior surgery
Lungs: Clear to auscultation bilaterally, no wheezing, rales, rhonchi; low normal pulse ox on room air, no tachypnea
Heart: Regular rate and rhythm, systolic murmur
Abd: Soft, non distended, nontender
Neuro: Generally weak but no focal deficits
Skin: Scattered old appearing abrasions and bruising on the extremities but no signs of acute trauma
Extremities: Trace edema on the ankles, no tenderness in the extremities, allows for passive range of motion in all large joints of the upper and lower extremities without pain, extremities warm and well-perfused
Scores
Heart Failure Risk
Heart Failure Risk Score: Not Applicable
Heart Score for Chest Pain Patients
STEMI patient?: Not applicable
Withdrawal Assessment of Alcohol
Withdrawal Assessment Completed?: Not applicable
Course
Orders/Labs/Results
Orders:
Orders
09/07/24 09:24
Electrocardiogram (*1) Urgent
Reason for Study: Fatigue / Weakness
EKG- Treatment ONCE
CR Chest Portable - 1 View Urgent
Comment:
Reason For Exam: weakness
Reason Study Needs to be Portable: Unable to Transport
09/07/24 09:25
Interrogate Pacemaker- Treatment ONCE
09/07/24 09:41
COVID-19 Antigen Urgent
Source: Nasal Swab
Complete Blood Count/With Diff Urgent
Comprehensive Metabolic Panel Urgent
Free T4 Urgent
NT-proBNP Urgent
TSH Reflex To Free T4 Urgent
Urinalysis Reflex To Culture Urgent
Date Specimen was Collected: 09/07/24
Time Specimen was Collected: 09:37
Comment: Montalvo Catheter
Urine Microscopic Reflex Cult Urgent
Influenza A+B Rapid Molecular Urgent
TAMIKO Source: Nasal Swab
Specimen Description:
Urine Culture Urgent
TAMIKO Source: U
Specimen Description:
Date Specimen was Collected: 09/07/24
Time Specimen was Collected: 09:37
09/07/24 10:17
Azithromycin 500 mg/250 ml [Zithromax Infusion] 500 mg in 250 ml IV NOW
CefTRIAXone [Rocephin] 1,000 mg IV NOW STA
09/07/24 10:25
0.9% Sodium Chloride 500 ml [Nss] 500 ml IV BOLUS
09/07/24 11:24
Admit/Transfer Patient As Directed
Co-Sign Provider:
Level of Care: Inpatient admission
Assign to:: Telemetry
Physician / Group: Jj Terry/Hospitalist
Diagnosis: Left lower lobe pna/uti, weakness
Reason for Telemetry: Pacer lead- non dependent
Date to Stop Telemetry: 09/09/24
Time to Stop Telemetry: 11:00
Reason for Hospitalization: Left lower lobe pna/uti, weakness
Expected length of stay greater than two midnights?: Yes
ELOS- Estimated Length of Stay in days: 3
I certify the patient meets the requirements for IP care: Yes
0.9% Sodium Chloride 1000 ml [Nss] 1,000 ml IV BOLUS
PRN Pain Medication Management As Directed
May give lesser potent ordered pain med per pt: Yes
preference::
Protocol:: Medication orders for pain may be administered in a
manner that supports deferring to patient preference
when the pt is:
- Requesting an ordered lesser potent pain medication.
Least to most potent pain medications are defined
as: acetaminophen < NSAID < tramadol < opioids
(morphine, oxycodone, hydromorphone).
- Requesting a lesser dose of the same medication IF
ORDERED.
- Requesting a less intrusive route of administration
if both routes are prescribed by the provider (PO <
IV).
09/07/24 11:27
Code Status As Directed
Resuscitation Status: Full Code
09/07/24 11:40
Lactate Level [Lactic Acid] Urgent
Blood Culture Q30M
TAMIKO Source: Blood/Venous
Specimen Description:
Blood Culture Q30M
TAMIKO Source: Blood/Venous
Specimen Description:
09/09/24 11:00
DC Protocol for Telemetry ONCE
Abnormal Lab Results
09/07/24 09/07/24
09:41 11:40
RBC 3.22 L 10^6/uL
(4.70-6.10)
Hgb 10.1 L g/dL
(13.0-18.0)
Hct 28.9 L %
(39.0-52.0)
MCH 31.4 H pg
(27.0-31.0)
Plt Count 113 L 10^3/uL
(130-400)
Absolute Lymphs (auto) 0.5 L 10^3/uL
(1.2-3.4)
Neutrophils % 79.0 H %
(42.2-75.2)
Lymphocytes % 9.3 L %
(20.5-51.1)
Sodium 130 L mmol/L
(135-145)
Chloride 94 L mmol/L
(98-107)
BUN 27 H mg/dl
(9-20)
Creatinine 1.6 H mg/dL
(0.7-1.3)
Glucose 102 H mg/dl
(70-99)
Lactic Acid < 0.5 L mmol/L
(0.7-2.0)
Total Bilirubin 2.2 H mg/dl
(0.2-1.3)
Total Protein 6.1 L g/dl
(6.3-8.2)
TSH (Reflex) 0.25 L uIU/ml
(0.47-4.68)
Ur Occult Blood Reflex 2+ A
(Negative)
Leukocyte Esterase Rfl 2+ A
(Negative)
Urine RBC 3-6 A /HPF
(0-2)
Urine WBC (Reflex) 60-70 A /HPF
(0-5)
Urine Bacteria (Reflex) Few A
(Negative)
09/07/24 09:41
09/07/24 09:41
Vital Signs
Initial and Last Documented VS:
Initial Vital Signs
Pulse Resp
74 23
09/07/24 09:21 09/07/24 09:21
Last Documented Vital Signs
Temp Pulse Resp BP Pulse Ox
36.9 C 60 14 98/62 99
09/07/24 12:00 09/07/24 12:30 09/07/24 12:30 09/07/24 12:30 09/07/24 12:30
MDM/Problems Addressed
Differential Diagnosis Includes:
Differential diagnosis for generalized weakness is wide and includes but is not limited to: Dehydration, deconditioning, infection including UTI/pneumonia/viral syndrome, polypharmacy, CHF, dysrhythmia, symptomatic anemia, electrolyte derangement,
thyroid dysfunction
MDM/Problems Addressed:
79-year-old male presents to the emergency room for evaluation of generalized weakness ongoing for the past few days. Thought to potentially be related to dehydration yesterday but after receiving IV fluids and returning home patient still feeling
very weak and so he returns today. Vitals and exam as above. Will place an IV check labs including a CBC and a CMP. Check thyroid studies. Check urinalysis, viral swabs. Will check chest x-ray. Check an EKG and interrogate device. Will send
proBNP. Will monitor very closely reassess after the above.
Spoke with [employer] rep after device interrogation: Last interrogated 04/15/2024. Battery and leads within expected parameters. Has had 39 episodes of atrial tachycardia since [facility] most recent 09/05/2024. 1 episode of NSVT 07/08/2024.
Labs reviewed: CBC shows stable anemia and mild thrombocytopenia, CMP shows HEVER with a creatinine of 1.6 it has improved since yesterday but still not at baseline. Mild hyponatremia with normal glucose. Chest x-ray reviewed by me shows left lower
lung haziness, concerning for pneumonia based on full picture. Will cover with antibiotics for community-acquired pneumonia. UA was also abnormal, will be covered for UTI as well as this could potentially be contributing. Very weak and difficulty
ambulating making him higher risk for outpatient treatment, low normal pulse ox here; CURB 65 score 2. Plan for admission for continued treatment. Case discussed with hospitalist.
UPDATE
After initial admission prior to transport upstairs patient become hypotensive as low as 60s over 30s. Heart rate normal. Patient lethargic but wakes to voice and oriented. Additional IV placed, added on lactate and blood cultures (unfortunately,
these will be drawn after his initial dose of antibiotics--initially normotensive with no SIRS criteria to suggest sepsis). Patient ordered for 30/kg bolus. After 1.5 L of IV fluid blood pressure improving to 90s over 60s, continue with full 30/kg
fluid bolus. Hospitalist updated.
Chronic conditions affecting care:
BPH with Montalvo catheter; A-fib on Eliquis
*Radiology
Radiology exam reviewed: preliminary read by ED provider and radiology read reviewed
*Pulse Oximetry
Patient hypoxic: no
*EKG
Interpreted by ED Provider?: Yes
Heart Rate: 61
Rate: normal
Rhythm: av sequential
*Critical Care Note
Total Time (30-74mins, 75-104mins- exclusive of procedures): Not Applicable
Data Reviewed
Review of Other/Old Records Reveals: Labs and Records
Source: patient, records and ambulance crew
Patient Management
Social determinants of health affecting care: Living situation (Lives independently)
Discussion with other providers: Hospitalist (Discussed with hospitalist)
Escalation/DeEscalation of care consider admission/obs:
Admission indicated
ED Attending Note
-
Portions of this chart may have been created with voice recognition software.� Occasional wrong word or��sound alike� substitutions may have occurred due to the inherent limitations of voice recognition software.
Discharge Plan
Departure
Patient Disposition: Admit
Date of Disposition: 09/07/24
Time of Disposition: 10:43
Admit to doctor: Jesse
Presentation/result/management discussed w/ accepting MD/DO: Hospitalist
Discharge Problem:
Pneumonia, HEVER (acute kidney injury), Generalized weakness, Thrombocytopenia
Interventions
Interventions:
*Risk Screen - Suicide Last Done: 09/07/24 09:33
*General Assessment Last Done: 09/07/24 09:37
*Neglect/Abuse Screening Last Done: 09/07/24 09:33
ED- Fall Risk Assessment Last Done: 09/07/24 09:33
*ED COVID-19 Vaccine History Last Done: 09/07/24 09:33
ED- Cardiac Assessment Last Done: 09/07/24 09:59
ED- Neurological Assessment Last Done: 09/07/24 09:59
ED- Pulmonary Assessment Last Done: 09/07/24 09:59
[2024-09-07 09:54] LABS: % Basophils 0.4 % (0-2); % Eosinophils 2.8 % (0-6); % Immature Granulocytes 0.4 % (0-0.5); % Lymphocytes 9.3 % (20.5-51.1); % Monocytes 8.1 % (1.7-9.3); Absolute Eosinophils 0.2 10^3/uL (0-0.7); Absolute Lymphocytes 0.5 10^3/uL (1.2-3.4); Absolute Monocytes 0.5 10^3/uL (0.1-0.6); Absolute Neutrophils 4.5 10^3/uL (1.4-6.5); Hematocrit 28.9 % (39.0-52.0); Hemoglobin 10.1 g/dL (13.0-18.0); Mean Corp Hgb Conc. 34.9 g/dL (33.0-37.0); Mean Corpuscular Hgb 31.4 pg (27.0-31.0); Mean Corpuscular Volume 89.8 fL (80.0-94.0); Mean Platelet Volume 8.9 fL (7.4-10.4); Nucleated Red Blood Cells % 0 % (-); Platelet Count 113 10^3/uL (130-400); Red Blood Cell Count 3.22 10^6/uL (4.70-6.10); Red Cell Dist. Width 13.2 % (11.5-14.5); White Blood Cell Count 5.7 10^3/uL (4.8-10.8)
[2024-09-07 10:07] LABS: ALT (SGPT) 21 U/L (0-50); AST (SGOT) 47 U/L (17-59); Albumin 4.1 g/dl (3.5-5.0); Alkaline Phosphatase 59 U/L (38-126); Blood Urea Nitrogen 27 mg/dl (9-20); Calcium 8.5 mg/dl (8.4-10.2); Carbon Dioxide 27 mmol/L (22-30); Chloride 94 mmol/L (98-107); Estimated Creatinine Clearance 36 ml/min; Glucose 102 mg/dl (70-99); Potassium 3.9 mmol/L (3.5-5.1); Sodium 130 mmol/L (135-145); Total Bilirubin 2.2 mg/dl (0.2-1.3); Total Protein 6.1 g/dl (6.3-8.2); eGFR 43.83
[2024-09-07 10:15] LABS: NT-proBNP 1020 pg/ml
[2024-09-07 10:16] LABS: Urine Albumin Trace (Neg - Trace); Urine Bilirubin Negative (Negative); Urine Character Clear (Clear); Urine Color Yellow; Urine Glucose Negative (Negative); Urine Ketone Negative (Negative); Urine Leukocyte 2+ (Negative); Urine Nitrite Negative (Negative); Urine Occult Blood 2+ (Negative); Urine Urobilinogen Negative (Neg - 1+)
[2024-09-07 10:28] LABS: COVID-19 Antigen Negative (Negative)
[2024-09-07] MEDS: NSS 500 IV (10:28)
[2024-09-07] MEDS: ROCEPHIN 1000 MG IV (10:28)
[2024-09-07] MEDS: ZITHROMAX INFUSION 250 IV (10:28)
[2024-09-07 10:47] LABS: Urine Bacteria Few (Negative); Urine Squamous Cell 0-2 /LPF (Few); Urine White Cell 60-70 /HPF (0-5)
[2024-09-07 10:49] LABS: TSH Reflex To Free T4 0.25 uIU/ml (0.47-4.68)
--- NOTE | 2024-09-07 11:15 | EDRN ---
Pt's Tele alarming. Pt's BP running 70/50's. Pt's A&O x 3. Pt denies pain. MD made aware. 1 Liter NSS started. BP changed to every 15 minutes. 2nd IV started in Left AC with liter infusing. Call calles within reach. Will continue to monitor.
[2024-09-07 11:19] LABS: Free T4 0.97 ng/dl (0.78-2.19)
[2024-09-07] MEDS: NSS 1000 IV ×2 (11:25→12:01)
--- NOTE | 2024-09-07 11:31 | HPS.HSE ---
Family Physician
-
Family Physician: Black Artis
Chief Complaint
-
weakness, fall
History of Present Illness
Patient is a 79-year-old male with past medical history of hypertension, paroxysmal A-fib on anticoagulation, GILLES not tolerant to CPAP, chronic pain, BPH, history of pacemaker placement, chronic diastolic congestive heart failure, thoracic aortic
aneurysm, history of bioprosthetic aortic valve replacement came to ER from [place] after patient was having problem ambulating/weakness. Patient was in the ER yesterday after falling backward. After trauma workup being negative patient was really
discharged back. Patient in the morning again felt too weak and was unable to get out of bed and called EMS. Patient was noted to be hypoxic in ER requiring oxygen support through nasal cannula.
During my visit patient is somnolent and not able to provide any detailed information although denied of having any ongoing shortness of breath/productive cough/chest pain/abdomen pain/nausea/vomiting/dysuria.
Medical History
Past Medical History
Past Medical History: Reports Other
Additional Past Medical History:
hypertension, paroxysmal A-fib on anticoagulation, GILLES not tolerant to CPAP, chronic pain, BPH, history of pacemaker placement, chronic diastolic congestive heart failure, thoracic aortic aneurysm, history of bioprosthetic aortic valve replacement
Past Surgical History: Reports Other
Social History
Tobacco: Non-smoker
Alcohol: None
Living: Other
Family History
Family History: Not pertinent
Allergies / Home Medications
Allergies reflects when Allergies were last updated in [facility].
Home Medications with original date entered in [facility]
Allergy/Medication List:
Allergies
Allergy/AdvReac Type Severity Reaction Status Date / Time
amlodipine Allergy Swelling - Verified 09/07/24 09:32
1993
hydrochlorothiazide Allergy Hyponatremi Verified 09/07/24 09:32
a
tizanidine [From Zanaflex] Allergy took from Verified 09/07/24 09:32
patient
history
and
physical
from
surgeon
Home Medications
apixaban 5 mg tablet (Eliquis) 5 mg PO BID Blood clot prevention/tx 01/16/22
furosemide 20 mg tablet 20 mg PO DAILY Fluid retention/Swelling 09/13/22
trazodone 150 mg tablet 150 mg PO HS Depression/sleep 09/13/22
famotidine 20 mg tablet (Pepcid) 20 mg PO BID Gastrointestinal issue 02/17/23
hydralazine 10 mg tablet 10 mg PO BID Blood Pressure 04/03/23
vitamin B complex 1 cap PO QPM Supplement ##0 04/03/23
atorvastatin 20 mg tablet (Lipitor) 20 mg PO HS High cholesterol 04/12/23
cholecalciferol (vitamin D3) 125 mcg (5,000 unit) tablet (Vitamin D3) 5,000 mcg PO DAILY Supplement 04/12/23
polyethylene glycol 3350 17 gram/dose oral powder (Miralax) 17 g PO DAILY Constipation 04/14/24
tamsulosin 0.4 mg capsule 0.4 mg PO HS Urinary Issue 04/14/24
acetaminophen 500 mg tablet 1,000 mg PO TID 09/07/24
buprenorphine 2 mg-naloxone 0.5 mg sublingual film (Suboxone) 1 film buccal TID 09/07/24
carvedilol 3.125 mg tablet (Coreg) 3.125 mg PO BID 09/07/24
cefuroxime axetil 250 mg tablet 250 mg PO BID 09/07/24
gabapentin 600 mg tablet 900 mg PO TID 09/07/24
lidocaine 4 %-menthol 1 % topical patch (Icy Hot Patch (lidocaine-menthol)) 1 patch topical DAILY 09/07/24
losartan 25 mg tablet 25 mg PO DAILY 09/07/24
magnesium hydroxide 400 mg/5 mL oral suspension (Milk of Magnesia) 400 mg PO DAILYPRN PRN if no bm on 4th day 09/07/24
oxycodone-acetaminophen 5 mg-325 mg tablet 1 tab PO Q4HPRN PRN severe pain 09/07/24
pantoprazole 40 mg tablet,delayed release (Protonix) 40 mg PO DAILY 09/07/24
tizanidine 2 mg tablet 2 mg PO Q8HPRN PRN muscle spasms 09/07/24
vitamin E 268 mg (400 unit) capsule 268 mg PO DAILY 09/07/24
Review of Systems
-
A 12 point ROS was completed and negative except as noted: Yes
Physical Exam
Vital Signs
Vital Signs
Temp Pulse Resp BP Pulse Ox
98.5 F 75 11 69/42 96
09/07/24 09:34 09/07/24 11:27 09/07/24 11:27 09/07/24 11:27 09/07/24 11:27
Physical Exam
General: No Apparent Distress
HEENT: Atraumatic and Oxygen (NC 2L)
Respiratory: Clear
Cardiac: S1/S2 and Regular Rhythm; No Murmur or Rub
GI: Soft, Non Tender, Non Distended and Normal Bowel Sounds; No Organomegaly
Musculoskeletal: No Cyanosis
Skin: No Rash
Neuro: Awake (somnolent and answer questions episodically) and Nonfocal/grossly intact
Laboratory Results
-
09/07/24 09:41
09/07/24 09:41
Laboratory Results
Total Bilirubin 2.2 mg/dl (0.2-1.3) H 09/07/24 09:41
AST 47 U/L (17-59) 09/07/24 09:41
ALT 21 U/L (0-50) 09/07/24 09:41
Alkaline Phosphatase 59 U/L (38-126) 09/07/24 09:41
Impression/Plan
-
1. UTI
SIRS - hypotension
-Patient came in for generalized weakness and having repeated falls
-Chest x-ray relatively clear and did not show any consolidation
-COVID-negative
-UA showing some pyuria and bacteriuria, urine culture collected in ER
-Patient hypotensive in ER requiring IV fluid boluses, starting on midodrine
-Maintain patient on empiric Rocephin and doxycycline
2. HEVER
h/o BPH
-Patient have volume depletion with creatinine elevated to 2.2
-trending down with IVF
-Avoid any nephrotoxic medication
-Bladder scan/straight cath protocol ordered
-Continue Flomax/finasteride
3. Essential HTN
-In light of hypotension in ER, hold all BP meds, will resume once appropriate
4. Generalized weakness
-Patient having recurrent falls last few days
-PT OT evaluation in the morning
-Patient somnolent, CT head without contrast to rule out any subdural hematoma, patient on eliquis and have increased bleed risk
5. Paroxysmal A-fib on anticoagulation
-Monitor on telemetry
-Beta-aniceto needs to be held due to hypotension
-Continue Eliquis therapy
6. Acute toxic metabolic encephalopathy
-Presumed, baseline unknown
-Check CT head as above
-Avoid sedating medication, will hold tizanidine/lower gabapentin dose. Continue trazodone at nighttime.
-already being treated for UTI
-check VBG once
GILLES not tolerant to CPAP
chronic pain
history of pacemaker placement
chronic diastolic congestive heart failure
thoracic aortic aneurysm
history of bioprosthetic aortic valve replacement
Full code
Eliquis
Total time spent : 79 mins
I personally saw and examined the patient.
I have reviewed all diagnostic interpretations and treatment plans as written.
Time includes patient management by me, time spent at the patients bedside, time to review lab and imaging results, discussing patient care, documentation in the medical record, and time spent with the family or caregiver and discussing care plan
with RN/Consultants.
[2024-09-07 12:08] LABS: Lactic Acid < 0.5 mmol/L (0.7-2.0)
[2024-09-07] MEDS: ProAmatine 10 MG PO ×2 (13:58→17:35)
--- NOTE | 2024-09-07 15:34 | PTCARENOTE ---
Received patient from ED via stretcher. Pt AAOX3. Pox: 97% 2L NC. A/V Paced on monitor and storage bin tender. Bed alarm on. Call calles within reach. Plan of care ongoing.
[2024-09-07] MEDS: FLOMAX 0.4 MG PO (17:35)
[2024-09-07] MEDS: NEURONTIN 300 MG PO (20:36)
[2024-09-07] MEDS: ELIQUIS 5 MG PO (20:36)
[2024-09-07] MEDS: LIPITOR 20 MG PO (20:38)
[2024-09-07] MEDS: DESYREL 150 MG PO (20:38)
[2024-09-07] MEDS: PERCOCET 5/325 1 TABLET PO (20:44)
[2024-09-08 02:55] VITALS: BP 137/78
[2024-09-08 05:36] VITALS: BMI 27.2
[2024-09-08 06:57] LABS: Hemoglobin 9.6 g/dL (13.0-18.0); Mean Corp Hgb Conc. 34.3 g/dL (33.0-37.0); Mean Corpuscular Hgb 31.1 pg (27.0-31.0); Mean Corpuscular Volume 90.6 fL (80.0-94.0); Platelet Count 110 10^3/uL (130-400); Red Blood Cell Count 3.09 10^6/uL (4.70-6.10); Red Cell Dist. Width 13.2 % (11.5-14.5); White Blood Cell Count 4.5 10^3/uL (4.8-10.8)
[2024-09-08] MEDS: PERCOCET 5/325 1 TABLET PO (07:12)
[2024-09-08 07:20] LABS: Blood Urea Nitrogen 15 mg/dl (9-20); Calcium 8.6 mg/dl (8.4-10.2); Carbon Dioxide 22 mmol/L (22-30); Chloride 105 mmol/L (98-107); Estimated Creatinine Clearance 63 ml/min; Glucose 99 mg/dl (70-99); Potassium 4.5 mmol/L (3.5-5.1); Sodium 136 mmol/L (135-145); eGFR > 60.00
[2024-09-08] MEDS: ELIQUIS 5 MG PO ×2 (07:40→19:53)
[2024-09-08] MEDS: VIBRAMYCIN 100 MG PO (07:40)
[2024-09-08] MEDS: PROTONIX 40 MG PO (07:40)
[2024-09-08] MEDS: NEURONTIN 300 MG PO ×2 (07:40→19:53)
[2024-09-08] MEDS: ProAmatine PO (07:50)
[2024-09-08 08:00] VITALS: BP 146/82
[2024-09-08] MEDS: TYLENOL 1000 MG PO ×2 (10:14→17:38)
[2024-09-08] MEDS: ROXICODONE 10 MG PO ×2 (10:14→15:39)
[2024-09-08] MEDS: ROCEPHIN 1000 MG IV (10:15)
[2024-09-08] MEDS: STERILE WATER FOR INJECTION 10 ML IV (10:15)
[2024-09-08] MEDS: COREG 3.125 MG PO ×2 (10:18→19:58)
[2024-09-08] MEDS: APRESOLINE 10 MG PO ×2 (10:18→19:53)
[2024-09-08 11:21] VITALS: BP 164/85; BP 169/93; PULSE 61; PULSE 63; O2SAT 96
--- NOTE | 2024-09-08 14:40 | W.PN.HOSP.TC ---
Today's Communication/Plan
-
see note
Assessment / Plan
Assessment / Plan
1. UTI
Hypotension - better
-Patient came in for generalized weakness and having repeated falls
-Chest x-ray relatively clear and did not show any consolidation
-COVID-negative
-UA showing some pyuria and bacteriuria, urine culture and blood cs report pending.
-Hypotension resolved with IVF/midodrine. Hold at this point.
-Maintain patient on empiric Rocephin and doxycycline
2. HEVER -resolved
h/o BPH
Chronic indwelling bautista catheter
-Patient have volume depletion with creatinine elevated to 2.2
-Creatinine normalized with IV fluid
-Avoid any nephrotoxic medication
-Maintain indwelling Bautista catheter
3. Essential HTN
-Resume Coreg and hydralazine
4. Generalized weakness
-Patient having recurrent falls last few days
-PT OT evaluation
5. Paroxysmal A-fib on anticoagulation
-Monitor on telemetry
-Continue Eliquis therapy
-resumed coreg today
6. Acute toxic metabolic encephalopathy - Improved
-Presumed, baseline unknown
-Patient somnolent in ER, CT head neg for any subdural bleed, at increased risk as on eliquis
-Avoid sedating medication, will hold tizanidine/lower gabapentin dose. Continue trazodone at nighttime.
-already being treated for UTI
7. Chronic back pain
-PDMP reviewed and patient was provided Percocet 5 mg and Suboxone patch
-Providing oxycodone 10 mg for moderate and 50 mg for severe pain. Quadramet evaluate for breakthrough pain
-have MRI L spine done in [facility]? records requested.
GILLES not tolerant to CPAP
chronic pain
history of pacemaker placement
chronic diastolic congestive heart failure
thoracic aortic aneurysm
history of bioprosthetic aortic valve replacement
Full code
Eliquis
PT evaluation and will require SNF rehab
Total time spent : 52 mins
Anticipated Discharge: > 48 hours
Subjective/Interval History
-
Date of Service: September 08, 2024
Remains on oxygen through nasal cannula
Afebrile
having significant back pain
Objective Data
-
Labs:
Laboratory Results
09/08/24
05:55
WBC 4.5 L
Hgb 9.6 L
Hct 28.0 L
Plt Count 110 L
Sodium 136
Potassium 4.5
Chloride 105
Carbon Dioxide 22
BUN 15
Creatinine 0.9
Glucose 99
Calcium 8.6
Vital Signs:
Vital Signs
Temp Pulse Resp BP Pulse Ox
98.1 F 76 16 138/76 96
09/08/24 08:00 09/08/24 10:18 09/08/24 08:00 09/08/24 10:18 09/08/24 13:00
I&O
09/07/24 09/08/24 09/09/24
07:59 06:59 06:59
Intake Total
Output Total
Balance
Review of Systems
-
Respiratory: Reports No Symptoms
Cardiac: Reports No Symptoms
Abdomen/GI: Reports No Symptoms
Physical Exam
-
General: Appears Chronically Ill
HEENT: Normocephalic and Atraumatic
Respiratory: Clear to Auscultation; Negative Wheezes or Rhonchi
Cardiac: Regular Rhythm and S1/S2; Negative Murmur
GI: Soft, Nontender, Nondistended and Normal Bowel Sounds
Musculoskeletal: No Edema
Neuro: Awake, Alert, Oriented and No Motor Deficits
[2024-09-08 15:30] VITALS: BP 171/94
--- NOTE | 2024-09-08 15:51 | CM ---
Addendum entered by Crys Hough 09/08/24 15:59:
Met with patient at bedside; initial assessment completed
Pharmacy verified: [facility] @ [id number], [place]
PLOF: independent with personal care; ambulated with [employer]; Drives
Explained that PT recommended SNF; patient was agreeable
Original Note:
Had difficulty ambulating, weakness, and inability to get out of bed; lives w/ spouse who has dementia @ [facility]
PT recommends SNF; referral sent to [facility] via [facility]
Chart reviewed: repeated falls; UTI; Hypotension; A-Fib; Anticipated Discharge: > 48 hours
Plan: Discharge to SNF pending bed availability
[2024-09-08 16:44] VITALS: BP 138/85
[2024-09-08] MEDS: FLOMAX 0.4 MG PO (17:38)
[2024-09-08] MEDS: DESYREL 150 MG PO (19:52)
[2024-09-08] MEDS: LIPITOR 20 MG PO (19:52)
[2024-09-08 23:35] VITALS: BP 136/74
[2024-09-09] MEDS: TYLENOL PO (03:19)
[2024-09-09 05:03] VITALS: BMI 26.6
[2024-09-09 07:00] VITALS: BP 180/94
[2024-09-09] MEDS: APRESOLINE 10 MG PO ×2 (07:52→19:50)
[2024-09-09] MEDS: ROXICODONE 10 MG PO ×3 (07:53→23:20)
[2024-09-09] MEDS: PROTONIX 40 MG PO (07:53)
[2024-09-09] MEDS: ELIQUIS 5 MG PO ×2 (07:53→19:50)
[2024-09-09] MEDS: NEURONTIN 300 MG PO ×2 (07:53→19:50)
[2024-09-09] MEDS: COREG 3.125 MG PO ×2 (07:53→19:49)
[2024-09-09] MEDS: LASIX 20 MG PO (07:53)
[2024-09-09 08:33] LABS: Hematocrit 29.9 % (39.0-52.0); Hemoglobin 10.1 g/dL (13.0-18.0); Mean Corp Hgb Conc. 33.8 g/dL (33.0-37.0); Mean Corpuscular Hgb 31.7 pg (27.0-31.0); Mean Corpuscular Volume 93.7 fL (80.0-94.0); Platelet Count 117 10^3/uL (130-400); Red Blood Cell Count 3.19 10^6/uL (4.70-6.10); Red Cell Dist. Width 13.2 % (11.5-14.5); White Blood Cell Count 5.1 10^3/uL (4.8-10.8)
--- NOTE | 2024-09-09 08:52 | W.PN.HOSP.TC ---
Addendum entered and electronically signed by Levi Wong MD 09/09/24 15:38:
Yes, UTI is related to/associated with/due to chronic indwelling Bautista catheter.
Hyponatremia
Thrombocytopenia
Original Note:
Today's Communication/Plan
-
IV antibiotics. X-ray lumbar spine.
Assessment / Plan
Assessment / Plan
Physical exam:
General: Acutely ill
HEENT: Normocephalic, Atraumatic and Moist Mucous Membranes
Respiratory: Clear to Auscultation; Negative Wheezes, Rales or Rhonchi
Cardiac: Regular Rhythm and S1/S2
GI: Soft, Nontender and Nondistended
Musculoskeletal: Tenderness in the lower back and decreased range of motion. No Clubbing, No Cyanosis and No Edema
Neuro: Awake, Alert and Oriented
Psych: Calm
A/P:
1. UTI
Enterococcus
Change antibiotics (Rocephin Doxy) to IV ampicillin
Blood cultures no growth
2. HEVER -resolved.
h/o BPH
Chronic indwelling bautista catheter
-Patient have volume depletion with creatinine elevated to 2.2
-Creatinine normalized with IV fluid
-Avoid any nephrotoxic medication
-Maintain indwelling Bautista catheter
3. Primary HTN, uncontrolled
-Resumed Coreg and hydralazine--> might need further adjustments will monitor over the next 24 hours
-Add IV hydralazine as needed
4. Generalized weakness.
-Patient having recurrent falls last few days
-PT OT evaluation
5. Paroxysmal A-fib on anticoagulation
-Monitor on telemetry
-Continue Eliquis therapy
-resumed coreg
6. Acute toxic metabolic encephalopathy - Improving but still somewhat off
-Presumed, baseline unknown
-CT head neg for any bleed
-Avoid sedating medication, will hold tizanidine/lower gabapentin dose. Continue trazodone at nighttime.
7. Chronic back pain
-PDMP reviewed and patient was provided Percocet 5 mg and Suboxone patch
-Providing oxycodone 10 mg for moderate and 50 mg for severe pain. Quadramet evaluate for breakthrough pain
-have MRI L spine done in [facility]? records requested.
-Add Lidoderm patch. X-ray of the lumbar spine today in the meantime.
8. Hypotension
Resolved
GILLES not tolerant to CPAP
chronic pain
history of pacemaker placement
chronic diastolic congestive heart failure
thoracic aortic aneurysm
history of bioprosthetic aortic valve replacement
Full code
Eliquis
Total time spent on today's encounter was 52 minutes which included time spent in counseling the patient/family regarding diagnosis and treatment plan as listed above, goals of care, and symptom management. Case was discussed with nursing staff,
specialists, and care coordinators/case management. All labs and imaging personally reviewed by me. Remainder the time spent in detailed review of previous records, lab data, imaging, and other medical provider documentation.
Anticipated Discharge: 24 - 48 hours
Subjective/Interval History
-
Date of Service: September 09, 2024
Patient complains of back pain, alert but mild confusion on and off. Afebrile
Objective Data
-
Labs:
Laboratory Results
09/09/24
06:11
WBC 5.1
Hgb 10.1 L
Hct 29.9 L
Plt Count 117 L
Sodium Pending
Potassium Pending
Chloride Pending
Carbon Dioxide Pending
BUN Pending
Creatinine Pending
Glucose Pending
Calcium Pending
Vital Signs:
Vital Signs
Temp Pulse Resp BP Pulse Ox
98.4 F 62 18 180/94 98
09/09/24 07:00 09/09/24 07:00 09/09/24 07:00 09/09/24 07:00 09/09/24 07:00
I&O
09/08/24 09/09/24 09/10/24
06:59 06:59 06:59
Intake Total 0 / 0
Output Total 1100 / 1100
Balance -1100 / -1100
[2024-09-09 08:54] LABS: Blood Urea Nitrogen 12 mg/dl (9-20); Calcium 8.9 mg/dl (8.4-10.2); Carbon Dioxide 28 mmol/L (22-30); Chloride 101 mmol/L (98-107); Estimated Creatinine Clearance 71 ml/min; Glucose 95 mg/dl (70-99); Potassium 4.2 mmol/L (3.5-5.1); Sodium 139 mmol/L (135-145); eGFR > 60.00
[2024-09-09] MEDS: DILAUDID 0.25 MG IV (09:22)
[2024-09-09] MEDS: STERILE WATER FOR INJECTION 10 ML IV (09:24)
[2024-09-09] MEDS: ROCEPHIN 1000 MG IV (09:24)
[2024-09-09] MEDS: TYLENOL 1000 MG PO ×2 (09:24→17:19)
[2024-09-09] MEDS: LIDOCAINE 4% PATCH 1 PATCH TOPICAL (11:55)
[2024-09-09] MEDS: AMPICILLIN 108 MG IV ×2 (11:56→17:19)
--- NOTE | 2024-09-09 14:41 | PN.CDI ---
CDI
- -
CDI:
Physician Documentation Request
Admit Date: 09/07/24 11:48
Dear Doctor Marvin,
Patient admitted with UTI.
09/09 PN, 'UTI.... Chronic indwelling Montalvo catheter.'
Please clarify the likely relationship between these conditions:
Yes, UTI is related to/associated with/due to chronic indwelling Montalvo catheter.
No, UTI is not related to/associated with/due to chronic indwelling Montalvo catheter but it is due to ___. (Please specify)
Unable to determine
Use of terms such as suspected, likely, concern for, or probable (associated with a specific diagnosis that is being evaluated, monitored, or treated as if it exists) are acceptable and can be coded in the inpatient setting, when documented at the
time of discharge.
Thank you,
Summer PASTRANA,RN,CCDS
CDI Specialist
Available via tiger text
Please use your independent medical judgment in providing your response.
[2024-09-09 14:53] VITALS: BP 171/95
--- NOTE | 2024-09-09 15:06 | CM ---
Pt seen bedside
Pt made aware that SNF is being recommended. Pt agreeable
Referral to [facility] was prev. submitted. Per [facility], she isn't sure if a bed will be available tomorrow
CM discussed w/ pt additional SNF options. Pt agreeable to [facility] as second option
SNF referral to [facility] completed in [facility], awaiting determination
Plan: SNF pending bed availability
--- NOTE | 2024-09-09 15:19 | PN.CDI ---
CDI
- -
CDI:
Physician Documentation Request
Admit Date: 09/07/24 11:48
Dear Doctor Marvin,
Patient admitted with UTI.
09/07 Na 130.
Patient received IV NSS boluses x 3.
Based on the above, please clarify in the progress notes, the appropriate diagnosis, if significant, that supports the above abnormalities and additional evaluation, monitoring and/or treatment rendered:
Hyponatremia
Insignificant abnormal lab finding
Other
Use of terms such as suspected, likely, concern for, or probable (associated with a specific diagnosis that is being evaluated, monitored, or treated as if it exists) are acceptable and can be coded in the inpatient setting, when documented at the
time of discharge.
Thank you,
Summer PASTRANA,RN,CCDS
CDI Specialist
Available via [place] text
Please use your independent medical judgment in providing your response.
--- NOTE | 2024-09-09 15:25 | PN.CDI ---
CDI
- -
CDI:
Physician Documentation Request
Admit Date: 09/07/24 11:48
Dear Doctor Marvin,
Patient admitted with UTI.
Platelet counts documented below:
Laboratory Tests
09/07/24 09/08/24 09/09/24
09:41 05:55 06:11
Plt Count 113 L 110 L 117 L
Based on the above, please clarify in the progress notes, the appropriate diagnosis, if significant, that supports the above abnormalities and additional evaluation, monitoring and/or treatment rendered:
Thrombocytopenia
Insignificant abnormal lab finding
Other
Use of terms such as suspected, likely, concern for, or probable (associated with a specific diagnosis that is being evaluated, monitored, or treated as if it exists) are acceptable and can be coded in the inpatient setting, when documented at the
time of discharge.
Thank you,
Summer PASTRANA,RN,CCDS
CDI Specialist
Available via [place] text
Please use your independent medical judgment in providing your response.
[2024-09-09] MEDS: FLOMAX 0.4 MG PO (17:19)
[2024-09-09 19:30] VITALS: BP 157/89
[2024-09-09] MEDS: DESYREL 150 MG PO (21:05)
[2024-09-09] MEDS: LIPITOR 20 MG PO (21:05)
[2024-09-09 23:43] VITALS: BP 152/92
[2024-09-10] MEDS: AMPICILLIN 108 MG IV ×4 (00:06→17:13)
[2024-09-10] MEDS: ROXICODONE 15 MG PO ×2 (00:08→19:50)
[2024-09-10] MEDS: TYLENOL 1000 MG PO ×3 (02:32→16:55)
[2024-09-10 03:31] VITALS: BP 165/93; BP 167/93; PULSE 61; PULSE 62
[2024-09-10 06:00] VITALS: BMI 25.9
[2024-09-10 07:43] VITALS: BP 173/98; BP 179/103; BP 181/104; PULSE 63; PULSE 68; PULSE 69
[2024-09-10 08:31] LABS: Hematocrit 28.2 % (39.0-52.0); Hemoglobin 9.8 g/dL (13.0-18.0); Mean Corp Hgb Conc. 34.8 g/dL (33.0-37.0); Mean Corpuscular Volume 92.2 fL (80.0-94.0); Mean Platelet Volume 9.9 fL (7.4-10.4); Platelet Count 118 10^3/uL (130-400); Red Blood Cell Count 3.06 10^6/uL (4.70-6.10); Red Cell Dist. Width 13.3 % (11.5-14.5)
[2024-09-10] MEDS: ROXICODONE 10 MG PO ×2 (08:31→17:35)
[2024-09-10] MEDS: COREG 3.125 MG PO ×2 (08:32→19:37)
[2024-09-10] MEDS: NEURONTIN 300 MG PO ×2 (08:32→19:38)
[2024-09-10] MEDS: LASIX 20 MG PO (08:32)
[2024-09-10] MEDS: PROTONIX 40 MG PO (08:32)
[2024-09-10] MEDS: APRESOLINE 10 MG PO ×2 (08:32→19:38)
[2024-09-10] MEDS: LIDOCAINE 4% PATCH 1 PATCH TOPICAL (08:33)
[2024-09-10] MEDS: ELIQUIS 5 MG PO ×2 (08:33→19:38)
--- NOTE | 2024-09-10 08:38 | W.PN.HOSP.TC ---
Today's Communication/Plan
-
IV antibiotics. Continue pain regimen.
Assessment / Plan
Assessment / Plan
Physical exam:
General: Acutely ill
HEENT: Normocephalic, Atraumatic and Moist Mucous Membranes
Respiratory: Clear to Auscultation; Negative Wheezes, Rales or Rhonchi
Cardiac: Regular Rhythm and S1/S2
GI: Soft, Nontender and Nondistended
Musculoskeletal: Tenderness in the lower back and decreased range of motion. No Clubbing, No Cyanosis and No Edema
Neuro: Awake, Alert and Oriented
Psych: Calm
A/P:
1. UTI
Enterococcus
Change antibiotics (Rocephin Doxy) to IV ampicillin since 09/09. Will switch to oral in a.m.
Blood cultures no growth
2. HEVER -resolved.
h/o BPH
Chronic indwelling bautista catheter
UTI is related to/associated with/due to chronic indwelling Bautista catheter.
-Patient have volume depletion with creatinine elevated to 2.2
-Creatinine normalized with IV fluid
-Avoid any nephrotoxic medication
-Maintain indwelling Bautista catheter
-PT OT eval--> plan to go to rehab
3. Primary HTN, uncontrolled
-Resumed Coreg and hydralazine--> might need further adjustments will monitor over the next 24 hours
-Add IV hydralazine as needed
4. Generalized weakness.
-Patient having recurrent falls last few days
-PT OT evaluation
5. Paroxysmal A-fib on anticoagulation
-Monitor on telemetry
-Continue Eliquis therapy
-resumed coreg
6. Acute toxic metabolic encephalopathy - Improving but still somewhat off
-Presumed, baseline unknown
-CT head neg for any bleed
-Avoid sedating medication, will hold tizanidine/lower gabapentin dose. Continue trazodone at nighttime.
7. Chronic back pain
-PDMP reviewed and patient was provided Percocet 5 mg and Suboxone patch
-Providing oxycodone 10 mg for moderate and 15 mg for severe pain. Quadramet evaluate for breakthrough pain
-have MRI L spine done in [facility]? records requested.
-Add Lidoderm patch. X-ray of the lumbar spine showed chronic compression fracture L1 and potential acute or subacute and chronic fractures of L2 L4.
-Continue pain regimen and discussed with patient if not improvement can consider kyphoplasty over the next couple of weeks as outpatient. Plan to go to rehab
8. Hypotension
Resolved
9. Hyponatremia
10. Thrombocytopenia
GILLES not tolerant to CPAP
chronic pain
history of pacemaker placement
chronic diastolic congestive heart failure
thoracic aortic aneurysm
history of bioprosthetic aortic valve replacement
Full code
Eliquis
Anticipated Discharge: Within 24 hours
Subjective/Interval History
-
Date of Service: September 10, 2024
Patient denies abdominal pain nausea or vomiting. Still complains of back pain.
Objective Data
-
Labs:
Laboratory Results
09/10/24
06:18
WBC 5.0
Hgb 9.8 L
Hct 28.2 L
Plt Count 118 L
Sodium Pending
Potassium Pending
Chloride Pending
Carbon Dioxide Pending
BUN Pending
Creatinine Pending
Glucose Pending
Calcium Pending
Vital Signs:
Vital Signs
Temp Pulse Resp BP Pulse Ox
98.1 F 63 17 173/98 95
09/10/24 07:43 09/10/24 07:43 09/10/24 07:43 09/10/24 07:43 09/10/24 07:43
I&O
09/09/24 09/10/24 09/11/24
06:59 06:59 06:59
Intake Total 0 / 0 2123
Output Total 1100 / 1100 950 / 950
Balance -1100 / -1100 1174 / 1174
[2024-09-10 09:05] LABS: Blood Urea Nitrogen 9 mg/dl (9-20); Calcium 8.6 mg/dl (8.4-10.2); Carbon Dioxide 28 mmol/L (22-30); Chloride 97 mmol/L (98-107); Estimated Creatinine Clearance 71 ml/min; Glucose 84 mg/dl (70-99); Potassium 3.6 mmol/L (3.5-5.1); Sodium 138 mmol/L (135-145); eGFR > 60.00
[2024-09-10 11:26] VITALS: BP 163/85
[2024-09-10 11:50] VITALS: BP 137/81; PULSE 60; O2SAT 97
[2024-09-10 15:17] VITALS: BP 162/99
--- NOTE | 2024-09-10 15:58 | CM ---
PT/OT cont. to recommend skilled rehab. ADC: 24-48 hours
Per [facility], no bed at this time
Per [facility], they may be able to offer pt bed tomorrow, however pt prev did not want facility due to distance from [facility]. If pt is agreeable to [facility], a bed can be offered.
CM to follow up w/ pt to ensure he is agreeable if [facility] can offer bed
[facility]
Report: [phone]

Plan: [facility]
[2024-09-10] MEDS: FLOMAX 0.4 MG PO (16:55)
[2024-09-10] MEDS: LIPITOR 20 MG PO (21:07)
[2024-09-10] MEDS: DESYREL 150 MG PO (21:07)
[2024-09-10 23:08] VITALS: BP 141/87; BP 142/84; BP 144/83; PULSE 61; PULSE 69; PULSE 72
[2024-09-11] MEDS: AMPICILLIN 108 MG IV ×2 (00:14→05:33)
[2024-09-11] MEDS: ROXICODONE 15 MG PO ×3 (00:25→15:17)
[2024-09-11] MEDS: TYLENOL 1000 MG PO ×3 (01:28→17:06)
[2024-09-11] MEDS: ROXICODONE 10 MG PO ×2 (03:32→20:10)
[2024-09-11 06:00] VITALS: BMI 25.7
[2024-09-11 06:51] LABS: % Basophils 0.4 % (0-2); % Eosinophils 2.9 % (0-6); % Immature Granulocytes 0.2 % (0-0.5); % Lymphocytes 21.1 % (20.5-51.1); % Monocytes 15.5 % (1.7-9.3); % Neutrophils 59.9 % (42.2-75.2); Absolute Eosinophils 0.1 10^3/uL (0-0.7); Absolute Monocytes 0.8 10^3/uL (0.1-0.6); Absolute Neutrophils 2.9 10^3/uL (1.4-6.5); Hematocrit 29.5 % (39.0-52.0); Hemoglobin 10.2 g/dL (13.0-18.0); Mean Corp Hgb Conc. 34.6 g/dL (33.0-37.0); Mean Corpuscular Hgb 31.8 pg (27.0-31.0); Mean Corpuscular Volume 91.9 fL (80.0-94.0); Mean Platelet Volume 9.6 fL (7.4-10.4); Nucleated Red Blood Cells % 0 % (-); Platelet Count 120 10^3/uL (130-400); Red Blood Cell Count 3.21 10^6/uL (4.70-6.10); Red Cell Dist. Width 13.2 % (11.5-14.5); White Blood Cell Count 4.8 10^3/uL (4.8-10.8)
[2024-09-11 07:21] LABS: Blood Urea Nitrogen 9 mg/dl (9-20); Calcium 8.6 mg/dl (8.4-10.2); Carbon Dioxide 31 mmol/L (22-30); Chloride 94 mmol/L (98-107); Estimated Creatinine Clearance 71 ml/min; Glucose 88 mg/dl (70-99); Potassium 3.5 mmol/L (3.5-5.1); Sodium 137 mmol/L (135-145); eGFR > 60.00
[2024-09-11 07:27] VITALS: BP 151/88
[2024-09-11] MEDS: NEURONTIN 300 MG PO ×2 (08:06→20:11)
[2024-09-11] MEDS: APRESOLINE 10 MG PO ×2 (08:06→20:10)
[2024-09-11] MEDS: PROTONIX 40 MG PO (08:06)
[2024-09-11] MEDS: LASIX 20 MG PO (08:06)
[2024-09-11] MEDS: LIDOCAINE 4% PATCH 1 PATCH TOPICAL (08:07)
[2024-09-11] MEDS: ELIQUIS 5 MG PO ×2 (08:07→20:10)
[2024-09-11] MEDS: COREG 3.125 MG PO ×2 (08:07→20:11)
--- NOTE | 2024-09-11 08:42 | W.PN.HOSP.TC ---
Today's Communication/Plan
-
Oral antibiotics. Pain control.
Assessment / Plan
Assessment / Plan
Physical exam:
General: Acutely ill
HEENT: Normocephalic, Atraumatic and Moist Mucous Membranes
Respiratory: Clear to Auscultation; Negative Wheezes, Rales or Rhonchi
Cardiac: Regular Rhythm and S1/S2
GI: Soft, Nontender and Nondistended
Musculoskeletal: Tenderness in the lower back and decreased range of motion. No Clubbing, No Cyanosis and No Edema
Neuro: Awake, Alert and Oriented
Psych: Calm
A/P:
1. UTI
Enterococcus
Change antibiotics (Rocephin Doxy) to IV ampicillin since 09/09. Will switch to oral today.
Blood cultures no growth
Plan to discharge to rehab in a.m.
2. HEVER -resolved.
h/o BPH
Chronic indwelling bautista catheter
UTI is related to/associated with/due to chronic indwelling Bautista catheter.
-Patient have volume depletion with creatinine elevated to 2.2
-Creatinine normalized with IV fluid
-Avoid any nephrotoxic medication
-Maintain indwelling Bautista catheter
-PT OT eval--> plan to go to rehab
3. Primary HTN, uncontrolled
-Resumed Coreg and hydralazine--> might need further adjustments will monitor over the next 24 hours
-Add IV hydralazine as needed
4. Generalized weakness.
-Patient having recurrent falls last few days
-PT OT evaluation
5. Paroxysmal A-fib on anticoagulation
-Monitor on telemetry
-Continue Eliquis therapy
-resumed coreg
6. Acute toxic metabolic encephalopathy - Improving but still somewhat off
-Presumed, baseline unknown
-CT head neg for any bleed
-Avoid sedating medication, will hold tizanidine/lower gabapentin dose. Continue trazodone at nighttime.
7. Chronic back pain
-PDMP reviewed and patient was provided Percocet 5 mg and Suboxone patch
-Providing oxycodone 10 mg for moderate and 15 mg for severe pain. Quadramet evaluate for breakthrough pain
-have MRI L spine done in [facility]? records requested.
-Add Lidoderm patch. X-ray of the lumbar spine showed chronic compression fracture L1 and potential acute or subacute and chronic fractures of L2 L4.
-Continue pain regimen and discussed with patient if not improvement can consider kyphoplasty over the next couple of weeks as outpatient. Plan to go to rehab
-Asked interventional radiology to comment if he would be a candidate for kyphoplasty and they will get back to me.
8. Hypotension
Resolved
9. Hyponatremia
10. Thrombocytopenia
GILLES not tolerant to CPAP
chronic pain
history of pacemaker placement
chronic diastolic congestive heart failure
thoracic aortic aneurysm
history of bioprosthetic aortic valve replacement
Full code
Eliquis
Anticipated Discharge: Within 24 hours
Subjective/Interval History
-
Date of Service: September 11, 2024
Patient back pain is improving. No fever
Objective Data
-
Labs:
Laboratory Results
09/11/24
06:22
WBC 4.8
Hgb 10.2 L
Hct 29.5 L
Plt Count 120 L
Sodium 137
Potassium 3.5
Chloride 94 L
Carbon Dioxide 31 H
BUN 9
Creatinine 0.8
Glucose 88
Calcium 8.6
Vital Signs:
Vital Signs
Temp Pulse Resp BP Pulse Ox
98.1 F 60 17 151/88 95
09/11/24 07:27 09/11/24 07:27 09/11/24 07:27 09/11/24 07:27 09/11/24 07:27
I&O
09/10/24 09/11/2424
06:59 06:59 06:59
Intake Total 2124 / 2124 936 / 936
Output Total 950 / 950 3350 / 3350
Balance 1174 / 1174 -2414 / -2414
[2024-09-11] MEDS: ZOFRAN 4 MG IV (09:27)
[2024-09-11] MEDS: AMOXIL 500 MG PO ×3 (11:11→23:18)
[2024-09-11 13:03] VITALS: BP 141/87; BP 142/84; BP 144/83; PULSE 61; PULSE 69; PULSE 72
[2024-09-11 13:21] VITALS: BP 120/84
--- NOTE | 2024-09-11 14:07 | CM ---
Pt seen bedside. OT rec. short time skilled rehab, though he has improved per PT.
Per pt he would prefer [facility] as he lives at the facility. He stated [facility] is too far for him and his family.
Per [facility], they will have a bed tomorrow. Prefer 12pm transport time if possible
Hospitalist agreeable to d/c tomorrow
CM spoke w/ pt son, Angel re plan for d/c to SNF tomorrow. CM discussed transport as pt does not qualify for ambulance transport. Per Angel, plan for WC van, agreeable to the out of pocket cost. Angel will text his brother to see if he will be able to
transport as he, himself, is currently in [place] but to still plan for WC van.
[facility]
Report:[phone]

Plan: [facility] via WC van if family unable to transport
[2024-09-11 15:05] VITALS: BP 106/62
[2024-09-11] MEDS: FLOMAX 0.4 MG PO (17:06)
[2024-09-11] MEDS: DESYREL 150 MG PO (21:29)
[2024-09-11] MEDS: LIPITOR 20 MG PO (21:30)
[2024-09-11 23:45] VITALS: BP 111/64; BP 111/68; BP 127/61; PULSE 61; PULSE 66
[2024-09-12] MEDS: TYLENOL PO (03:03)
[2024-09-12 05:41] VITALS: BMI 25.9
[2024-09-12 07:19] VITALS: BP 106/61
[2024-09-12] MEDS: TYLENOL 1000 MG PO (07:43)
[2024-09-12] MEDS: LIDOCAINE 4% PATCH 1 PATCH TOPICAL (07:44)
[2024-09-12] MEDS: NEURONTIN 300 MG PO (07:45)
[2024-09-12] MEDS: PROTONIX 40 MG PO (07:46)
[2024-09-12] MEDS: APRESOLINE PO (07:46)
[2024-09-12] MEDS: ELIQUIS 5 MG PO (07:46)
[2024-09-12] MEDS: LASIX 20 MG PO (07:46)
[2024-09-12] MEDS: AMOXIL 500 MG PO ×2 (07:46→15:31)
[2024-09-12] MEDS: COREG 3.125 MG PO (07:46)
--- NOTE | 2024-09-12 08:31 | W.PN.UPDATE ---
Update Note
Progress Note Update
- IR asked to comment regarding potential vertebral augmentation/kyphoplasty
- Lumbar spine xrays from 09/09/24 shows diffuse demineralization with multiple mild age indeterminate compression fractures. There are fractures of L1, L2, and L4. L1 fracture does appear to be new compared to prior study from 06/19/24.
- Patient has had a prior outside lumbar MRI? If this imaging cannot be made available, would recommend repeat MRI if possible to assess for acuity of these fractures and if any intervention would be of benefit.
--- NOTE | 2024-09-12 09:37 | W.PN.HOSP.TC ---
Today's Communication/Plan
-
Discharge planning
Assessment / Plan
Assessment / Plan
Physical exam:
General: Acutely ill
HEENT: Normocephalic, Atraumatic and Moist Mucous Membranes
Respiratory: Clear to Auscultation; Negative Wheezes, Rales or Rhonchi
Cardiac: Regular Rhythm and S1/S2
GI: Soft, Nontender and Nondistended
Musculoskeletal: Tenderness in the lower back and decreased range of motion. No Clubbing, No Cyanosis and No Edema
Neuro: Awake, Alert and Oriented
Psych: Calm
A/P:
1. UTI
Enterococcus
Change antibiotics (Rocephin Doxy) to IV ampicillin since 09/09. Will switch to oral today.
Blood cultures no growth
Plan to discharge today
Discussed about the possibility of MRI of the lumbar spine for identification if need kyphoplasty but patient had an MRI and he said they were not able to define if acute or not and also he thinks that the pain medications are working this time.
Will defer lumbar MRI for outpatient or if he worsens over the next few weeks. He is comfortable going to rehab at this point
2. HEVER -resolved.
h/o BPH
Chronic indwelling bautista catheter
UTI is related to/associated with/due to chronic indwelling Bautista catheter.
-Patient have volume depletion with creatinine elevated to 2.2
-Creatinine normalized with IV fluid
-Avoid any nephrotoxic medication
-Maintain indwelling Bautista catheter
-PT OT eval--> plan to go to rehab
3. Primary HTN, uncontrolled
-Resumed Coreg and hydralazine--> might need further adjustments will monitor over the next 24 hours
-Add IV hydralazine as needed
4. Generalized weakness.
-Patient having recurrent falls last few days
-PT OT evaluation
5. Paroxysmal A-fib on anticoagulation
-Monitor on telemetry
-Continue Eliquis therapy
-resumed coreg
6. Acute toxic metabolic encephalopathy - Improving but still somewhat off
-Presumed, baseline unknown
-CT head neg for any bleed
-Avoid sedating medication, will hold tizanidine/lower gabapentin dose. Continue trazodone at nighttime.
7. Chronic back pain
-PDMP reviewed and patient was provided Percocet 5 mg and Suboxone patch
-Providing oxycodone 10 mg for moderate and 15 mg for severe pain. Quadramet evaluate for breakthrough pain
-have MRI L spine done in [facility]? records requested.
-Add Lidoderm patch. X-ray of the lumbar spine showed chronic compression fracture L1 and potential acute or subacute and chronic fractures of L2 L4.
-Continue pain regimen and discussed with patient if not improvement can consider kyphoplasty over the next couple of weeks as outpatient. Plan to go to rehab
-Asked interventional radiology to comment if he would be a candidate for kyphoplasty and they will get back to me.
8. Hypotension
Resolved
9. Hyponatremia
10. Thrombocytopenia
GILLES not tolerant to CPAP
chronic pain
history of pacemaker placement
chronic diastolic congestive heart failure
thoracic aortic aneurysm
history of bioprosthetic aortic valve replacement
Full code
Eliquis
Anticipated Discharge: Today
Subjective/Interval History
-
Date of Service: September 12, 2024
No new complaint
Objective Data
-
Vital Signs:
Vital Signs
Temp Pulse Resp BP Pulse Ox
98.3 F 61 17 106/61 97
09/12/24 07:19 09/12/24 07:19 09/12/24 07:19 09/12/24 07:19 09/12/24 07:19
I&O
09/11/24 09/12/24 09/13/24
06:59 06:59 06:59
Intake Total 936 / 936 740 / 740
Output Total 3350 / 3350 1650 / 1650
Balance -2414 / -2414 -910 / -910
--- NOTE | 2024-09-12 11:32 | W.DCSUMMARY ---
Discharge Summary
Discharge Data
Date of Admission: 09/07/24
Date of Discharge: 09/12/24
-
Pending Results: No
Hospital Course
Patient 79 years old male history of hypertension, paroxysmal A-fib, BPH, CHF, bioprosthetic aortic valve, came into the hospital with presentation of UTI. He was given IV antibiotics and IV fluids. Urine culture positive for Enterococcus. He was
treated appropriately with IV and then subsequently switched to oral antibiotics. Patient renal function improved with IV fluids. Patient back pain was able to be controlled with pain medications. We discussed with IR for the possibility of
kyphoplasty but then they would need to see a repeat MRI of the lumbar spine and at the moment patient pain appears to be stable and no need to repeat MRI. There is still possibility that this could be reevaluated as outpatient if he fails to
improve on current pain regimen and rehab. Otherwise, patient is hemodynamically stable and afebrile. He is going to be discharged to skilled facility today.
Discharge duration: 36 minutes
Discharge Plan
-
Patient Disposition: Senior Living/SNF
Discharge Diagnosis/Procedures: Urinary tract infection. Back pain.
Diet: Low Cholesterol
Activity: As tolerated
Blood Work: Please PCP to order CBC, BMP within 1 week
Referrals:
Black Artis MD [Family Provider] - in less than 1 week
Prescriptions:
New
amoxicillin 500 mg Capsule
500 mg PO Q8H 5 Days Qty: 15 0RF
oxycodone 15 mg Tablet
15 mg PO Q4HPRN PRN (Reason: sev pain) Qty: 2 0RF
oxycodone 10 mg Tablet
10 mg PO Q4HPRN PRN (Reason: mod pain) Qty: 2 0RF
Continued
Eliquis 5 MG tablet
5 mg PO BID
trazodone 150 mg Tablet
150 mg PO HS
furosemide 20 mg tablet
20 mg PO DAILY
famotidine [Pepcid] 20 mg Tablet
20 mg PO BID
vitamin B complex Capsule
1 cap PO QPM Qty: 0
hydralazine 10 mg tablet
10 mg PO BID
cholecalciferol (vitamin D3) [Vitamin D3] 125 mcg (5,000 unit) Tablet
5,000 mcg PO DAILY
atorvastatin [Lipitor] 20 MG tablet
20 mg PO HS
tamsulosin 0.4 mg capsule
0.4 mg PO HS
polyethylene glycol 3350 [Miralax] 17 gram/dose Powder
17 g PO DAILY
gabapentin 600 mg Tablet
900 mg PO TID
acetaminophen 500 mg Tablet
1,000 mg PO TID
magnesium hydroxide [Milk of Magnesia] 400 mg/5 mL Suspension
400 mg PO DAILYPRN PRN (Reason: if no bm on 4th day)
pantoprazole [Protonix] 40 mg Tablet,Delayed Release (Dr/Ec)
40 mg PO DAILY
losartan 25 mg Tablet
25 mg PO DAILY
lidocaine-menthol [Icy Hot Patch (lido-menthol)] 4-1 % Adhesive Patch,Medicated
1 patch TOPICAL DAILY
Rx Instructions:
Lower Back
tizanidine 2 mg Tablet
2 mg PO Q8HPRN PRN (Reason: muscle spasms)
carvedilol [Coreg] 3.125 mg Tablet
3.125 mg PO BID
vitamin E 268 mg (400 unit) Capsule
268 mg PO DAILY
Discontinued
cefuroxime axetil 250 mg Tablet
250 mg PO BID
Rx Instructions:
Current UTI take from 09/04/24-09/13/24
oxycodone-acetaminophen 5-325 mg Tablet
1 tab PO Q4HPRN PRN (Reason: severe pain)
buprenorphine-naloxone [Suboxone] 2-0.5 mg Film
1 film BUCCAL TID
Discharge Orders:
Discharge Patient (As Directed); Ordered 09/12/24
Ordered By: Levi Wong
Discharge Date and Time
Discharge Date/Time: 09/12/24 16:39
Print Language: VINCENTIAN
[2024-09-12] MEDS: ROXICODONE 10 MG PO (12:23)
--- NOTE | 2024-09-12 13:21 | CM ---
D/c today to [facility]. [facility] confirmed bed available today
Hospitalist agreeable to d/c today
CM spoke w/ pt son confirming transport method. Son agreeable to WC van and out of pocket cost. Acute Care number provided
section crews activities clerk arranged WC van w/ 4 pm transport time.
Pt and son updated
IMM reviewed, pt given copy. Copy placed into chart
[facility]
Report:[phone]

Plan: [facility] via WC van
[2024-09-12 15:29] VITALS: BP 124/76
[2024-09-12 15:30] VITALS: BP 124/76; BP 143/81; BP 143/82; PULSE 69; PULSE 73
== END 2024-09-12 16:39 | DRG 698 ==
LOC: 4 WEST ACU 11:48
PROVIDERS: ADMITTING PHYSICIAN Hospitalist; ATTENDING PHYSICIAN Hospitalist; EMERGENCY PHYSICIAN Emergency Medicine; FAMILY PHYSICIAN Family Medicine
DX: T83.518A Infection and inflammatory reaction due to other urinary catheter, initial encounter (principal); G92.8 Other toxic encephalopathy; N17.9 Acute kidney failure, unspecified; N39.0 Urinary tract infection, site not specified; I50.32 Chronic diastolic (congestive) heart failure; M48.56XA Collapsed vertebra, not elsewhere classified, lumbar region, initial encounter for fracture; I11.0 Hypertensive heart disease with heart failure; I48.0 Paroxysmal atrial fibrillation; G47.33 Obstructive sleep apnea (adult) (pediatric); G89.29 Other chronic pain; R29.6 Repeated falls; B95.2 Enterococcus as the cause of diseases classified elsewhere; I95.9 Hypotension, unspecified; D69.6 Thrombocytopenia, unspecified; D64.9 Anemia, unspecified; E78.00 Pure hypercholesterolemia, unspecified; F32.A Depression, unspecified; F41.9 Anxiety disorder, unspecified; I25.10 Atherosclerotic heart disease of native coronary artery without angina pectoris; I71.20 Thoracic aortic aneurysm, without rupture, unspecified; N40.1 Benign prostatic hyperplasia with lower urinary tract symptoms; R33.8 Other retention of urine; Y73.2 Prosthetic and other implants, materials and accessory gastroenterology and urology devices associated with adverse incidents; Z11.52 Encounter for screening for COVID-19; Z98.1 Arthrodesis status; Z95.3 Presence of xenogenic heart valve; Z95.0 Presence of cardiac pacemaker; Z79.01 Long term (current) use of anticoagulants; Z88.8 Allergy status to other drugs, medicaments and biological substances; R09.02 Hypoxemia
CPT/HCPCS: 70450; 71045; 72110; 73030; 73080; 80048; 80053; 81003; 81015; 83605; 83880; 84439; 84443; 85025; 85027; 87040; 87070; 87077; 87086; 87186; 87502; 87811; 93005; 93288; 96361; 96365; 96375; 97116; 97163; 97167; 97535; 99285

== ENCOUNTER → 2024-09-16 09:34 | Outpatient (REF) | payer OTHER, SELFPAY ==
[2024-09-16 12:32] LABS: Hematocrit 32.5 % (39.0-52.0); Hemoglobin 10.7 g/dL (13.0-18.0); Mean Corp Hgb Conc. 32.9 g/dL (33.0-37.0); Mean Corpuscular Hgb 31.1 pg (27.0-31.0); Mean Corpuscular Volume 94.5 fL (80.0-94.0); Mean Platelet Volume 9.7 fL (7.4-10.4); Platelet Count 167 10^3/uL (130-400); Red Blood Cell Count 3.44 10^6/uL (4.70-6.10); Red Cell Dist. Width 13.6 % (11.5-14.5); White Blood Cell Count 4.7 10^3/uL (4.8-10.8)
[2024-09-16 12:35] LABS: ALT (SGPT) 19 U/L (0-50); AST (SGOT) 33 U/L (17-59); Albumin 4.8 g/dl (3.5-5.0); Alkaline Phosphatase 88 U/L (38-126); Blood Urea Nitrogen 14 mg/dl (9-20); Calcium 9.6 mg/dl (8.4-10.2); Carbon Dioxide 29 mmol/L (22-30); Chloride 94 mmol/L (98-107); Glucose 99 mg/dl (70-99); Potassium 4.3 mmol/L (3.5-5.1); Sodium 136 mmol/L (135-145); Total Bilirubin 1.3 mg/dl (0.2-1.3); Total Protein 6.9 g/dl (6.3-8.2); eGFR > 60.00
== END ==
LOC: OLABWHC 09:34
PROVIDERS: ATTENDING PHYSICIAN Internal Medicine
DX: I50.32 Chronic diastolic (congestive) heart failure (principal); N39.0 Urinary tract infection, site not specified; J18.9 Pneumonia, unspecified organism
CPT/HCPCS: 36415; 80053; 83735; 85027

== ENCOUNTER → 2024-10-08 09:00 | Outpatient (REF) | payer MEDICARE, OTHER, SELFPAY ==
[2024-10-09 15:14] LABS: Urine Albumin Trace (Neg - Trace); Urine Bilirubin Negative (Negative); Urine Character Clear (Clear); Urine Color Yellow; Urine Glucose Negative (Negative); Urine Ketone Negative (Negative); Urine Leukocyte 1+ (Negative); Urine Nitrite Negative (Negative); Urine Occult Blood 1+ (Negative); Urine Urobilinogen Negative (Neg - 1+)
[2024-10-09 15:25] LABS: Urine Bacteria Many (Negative); Urine Red Blood Cell 16-20 /HPF (0-2)
== END ==
LOC: OLABWPC 09:00
DX: R30.0 Dysuria (principal); I50.32 Chronic diastolic (congestive) heart failure; I10 Essential (primary) hypertension
CPT/HCPCS: 81003; 81015; 87086

== ENCOUNTER → 2024-10-09 10:50 | Outpatient (REF) | payer MEDICARE, OTHER, SELFPAY ==
[2024-10-09 12:29] LABS: % Basophils 0.4 % (0-2); % Eosinophils 3.6 % (0-6); % Immature Granulocytes 0.2 % (0-0.5); % Lymphocytes 19.5 % (20.5-51.1); % Monocytes 11.6 % (1.7-9.3); % Neutrophils 64.7 % (42.2-75.2); Absolute Eosinophils 0.2 10^3/uL (0-0.7); Absolute Lymphocytes 0.9 10^3/uL (1.2-3.4); Absolute Monocytes 0.6 10^3/uL (0.1-0.6); Absolute Neutrophils 3.1 10^3/uL (1.4-6.5); Hematocrit 32.3 % (39.0-52.0); Hemoglobin 10.4 g/dL (13.0-18.0); Mean Corp Hgb Conc. 32.2 g/dL (33.0-37.0); Mean Corpuscular Hgb 31.4 pg (27.0-31.0); Mean Corpuscular Volume 97.6 fL (80.0-94.0); Mean Platelet Volume 10.2 fL (7.4-10.4); Nucleated Red Blood Cells % 0 % (-); Platelet Count 124 10^3/uL (130-400); Red Blood Cell Count 3.31 10^6/uL (4.70-6.10); Red Cell Dist. Width 13.2 % (11.5-14.5); White Blood Cell Count 4.7 10^3/uL (4.8-10.8)
[2024-10-09 12:42] LABS: Blood Urea Nitrogen 26 mg/dl (9-20); Carbon Dioxide 32 mmol/L (22-30); Chloride 96 mmol/L (98-107); Glucose 94 mg/dl (70-99); Potassium 4.7 mmol/L (3.5-5.1); Sodium 138 mmol/L (135-145); eGFR > 60.00
== END ==
LOC: OLABWPC 10:50
DX: R30.0 Dysuria (principal); I50.32 Chronic diastolic (congestive) heart failure; I10 Essential (primary) hypertension
CPT/HCPCS: 36415; 80048; 85025

== ENCOUNTER → 2024-11-08 12:27 | Outpatient (REF) | payer MEDICARE, OTHER, SELFPAY | LOC: OLABWPC 12:27 | PROVIDERS: ATTENDING PHYSICIAN Family Medicine | DX: N18.31 Chronic kidney disease, stage 3a (principal); D64.9 Anemia, unspecified | CPT/HCPCS: 36415 ==

== ENCOUNTER → 2024-11-11 12:29 | Outpatient (REF) | payer MEDICARE, OTHER, SELFPAY ==
[2024-11-11 13:00] LABS: Blood Urea Nitrogen 14 mg/dl (9-20); Carbon Dioxide 28 mmol/L (22-30); Chloride 93 mmol/L (98-107); Glucose 91 mg/dl (70-99); Sodium 129 mmol/L (135-145); eGFR > 60.00
== END ==
LOC: OLABWPC 12:29
DX: I10 Essential (primary) hypertension (principal); N18.30 Chronic kidney disease, stage 3 unspecified
CPT/HCPCS: 36415; 80048

== ENCOUNTER 2024-11-29 12:57 | Emergency (ER) | payer MEDICARE, OTHER, SELFPAY ==
[2024-11-29 13:04] VITALS: BP 168/102
[2024-11-29 13:45] LABS: % Basophils 0.5 % (0-2); % Eosinophils 2.1 % (0-6); % Immature Granulocytes 0.3 % (0-0.5); % Lymphocytes 18.7 % (20.5-51.1); % Monocytes 9.7 % (1.7-9.3); % Neutrophils 68.7 % (42.2-75.2); Absolute Eosinophils 0.1 10^3/uL (0-0.7); Absolute Lymphocytes 0.7 10^3/uL (1.2-3.4); Absolute Monocytes 0.4 10^3/uL (0.1-0.6); Absolute Neutrophils 2.6 10^3/uL (1.4-6.5); Hemoglobin 11.3 g/dL (13.0-18.0); Mean Corp Hgb Conc. 33.2 g/dL (33.0-37.0); Mean Corpuscular Hgb 30.1 pg (27.0-31.0); Mean Corpuscular Volume 90.4 fL (80.0-94.0); Mean Platelet Volume 9.5 fL (7.4-10.4); Nucleated Red Blood Cells % 0 % (-); Platelet Count 120 10^3/uL (130-400); Red Blood Cell Count 3.76 10^6/uL (4.70-6.10); Red Cell Dist. Width 13.7 % (11.5-14.5); White Blood Cell Count 3.8 10^3/uL (4.8-10.8)
[2024-11-29 14:01] LABS: ALT (SGPT) 16 U/L (0-50); AST (SGOT) 27 U/L (17-59); Alkaline Phosphatase 69 U/L (38-126); Blood Urea Nitrogen 11 mg/dl (9-20); Calcium 9.2 mg/dl (8.4-10.2); Carbon Dioxide 32 mmol/L (22-30); Chloride 93 mmol/L (98-107); Glucose 119 mg/dl (70-99); Lipase 202 U/L (23-300); Potassium 4.3 mmol/L (3.5-5.1); Sodium 133 mmol/L (135-145); Total Bilirubin 1.5 mg/dl (0.2-1.3); Total Protein 7.2 g/dl (6.3-8.2); eGFR > 60.00
--- NOTE | 2024-11-29 16:06 | ED.GENMED ---
History of Present Illness
General
Chief Complaint: Abdominal Pain
Time Seen by Provider: 11/29/24 16:09
History of Present Illness
History of Present Illness:
79-year-old male with chronic back pain on chronic opioids, hypertension, CKD, hyperlipidemia, A-fib on anticoagulation presenting for lower abdominal discomfort. Patient reports symptoms for the past 2 weeks. Notes that his urine has been very
dark in color. He saw the urologist 2 days ago, urine was tested, however was told that he did not have a urine infection. Denies any changes in stool. Denies any vomiting. Denies fever. Denies chest pain or difficulty breathing. Notes that
his pain has been controlled with his, which she takes at home. Denies burning with urination or difficulty passing his urine. Denies additional acute medical complaint
Past History
Past History
ED Past Medical History: Arrthythmia (Atrial flutter/fib), CAD, CHF, HTN, Hypercholesterolemia, Valvular disease, Psychiatric (Anxiety, Depression), Other (Rib fractures, Chronic back pain, Anemia, Cellulitis, Left pleural effusion, osteomyelitis,
endocarditis, Sleep apnea, Parkinson, GI bleeding, UTI with retention, AAA, [place]), Other (polyneuropathy, balance issues, Neuropathy, tingling in arms and legs. ) and Other (chronic back pain, pain management with Buprenorphine and ASA)
ED Past Surgical History: Cardiac (Aortic valve replaced (x 2), Pacemaker), Orthopedic (C spine fusion, Laminectomy) and Other (Hemorrhoidectomy, cataracts)
Patient has exhibited threatening behavior?: No
PSI?: No
Social History
Tobacco: Non-smoker
Alcohol: Occasional ( Beer)
Drug: None
Personal:
Living: with family
Employment: Retired
Family History
Family History: Hypertension and CAD
Phy Exam
Physical Exam
Physical Exam:
General: Well-appearing, no clinical signs of dehydration, nontoxic and in no acute distress
HEENT: protecting airway
Neck: appears supple
CV: Normal heart rate, regular rhythm
Resp: No accessory muscle use, no increased work of breathing, lungs clear to auscultation bilaterally
Abd: Soft and non-distended, tenderness overlying the suprapubic region of the abdomen, left and right lower quadrant without rebound or guarding.
Extremities: No deformities, no swelling
Neuro: alert, no focal neurologic deficit
: deferred
Rectal: deferred
Psych: Normal affect
Skin: Intact
Course
Orders/Labs/Results
Orders:
Orders
11/29/24 13:30
Complete Blood Count/With Diff Urgent
Comprehensive Metabolic Panel Urgent
Lipase Urgent
11/29/24 16:51
CT Abd/pelvis W Iv Cont Urgent
Comment:
Reason For Exam: lower abdominal pain x 2 weeks, dark urine
11/29/24 17:18
Urinalysis Reflex To Culture Urgent
Date Specimen was Collected: 11/29/24
Time Specimen was Collected: 13:07
Urine Microscopic Reflex Cult Urgent
Urine Culture Urgent
TAMIKO Source: U
Specimen Description:
Date Specimen was Collected: 11/29/24
Time Specimen was Collected: 13:07
11/29/24 18:10
Morphine Sulfate 4 mg IV NOW STA
11/29/24 20:04
HYDROmorphone [Dilaudid] 1 mg IV NOW STA
Nitrofurantoin Monohydrate [Macrobid] 100 mg PO NOW ONE
11/29/24 20:05
Nitrofurantoin Monohydrate [Macrobid] 100 mg PO NOW STA
Abnormal Lab Results
11/29/24 11/29/24
13:30 17:18
WBC 3.8 L 10^3/uL
(4.8-10.8)
RBC 3.76 L 10^6/uL
(4.70-6.10)
Hgb 11.3 L g/dL
(13.0-18.0)
Hct 34.0 L %
(39.0-52.0)
Plt Count 120 L 10^3/uL
(130-400)
Absolute Lymphs (auto) 0.7 L 10^3/uL
(1.2-3.4)
Lymphocytes % 18.7 L %
(20.5-51.1)
Monocytes % 9.7 H %
(1.7-9.3)
Sodium 133 L mmol/L
(135-145)
Chloride 93 L mmol/L
(98-107)
Carbon Dioxide 32 H mmol/L
(22-30)
Glucose 119 H mg/dl
(70-99)
Total Bilirubin 1.5 H mg/dl
(0.2-1.3)
Urine Nitrite (Reflex) Positive A
(Negative)
Urine Bilirubin 1+ A
(Negative)
Urine RBC 7-10 A /HPF
(0-2)
Urine Bacteria (Reflex) Few A
(Negative)
11/29/24 13:30
11/29/24 13:30
Vital Signs
Initial and Last Documented VS:
Initial Vital Signs
Temp Pulse Resp BP Pulse Ox
98.1 F 89 18 168/102 93
11/29/24 13:04 11/29/24 13:04 11/29/24 13:04 11/29/24 13:04 11/29/24 13:04
Last Documented Vital Signs
Temp Pulse Resp BP Pulse Ox
98.1 F 89 18 165/98 95
11/29/24 13:04 11/29/24 13:04 11/29/24 13:04 11/29/24 17:14 11/29/24 19:49
MDM/Problems Addressed
MDM/Problems Addressed:
79-year-old male with history of A-fib on anticoagulation, hypertension, chronic pain on opioids, CKD presenting to the emergency department for lower abdominal pain and dark urine. Vital signs on arrival are significant for hypertension.
On exam patient is resting comfortably, no acute distress or discomfort. Patient with generalized tenderness to lower abdomen. Urine is at bedside, very dark in color. Given location of pain and appearance of urine, suspected cystitis. Will plan
for laboratory analysis, urinalysis, CT imaging.
20:00 -urine does show elements of infection with positive nitrates. CT shows thickened bladder wall. At this time again feel patient symptoms are consistent with cystitis. On review of prior urine cultures, sensitive to Macrobid, otherwise IV
antibiotics. For this reason we will start patient on Macrobid. Urine culture sent. Patient otherwise remains hemodynamically stable,, however is due for his blood pressure medications. Feel stable for discharge with trial of outpatient therapy,
however explained that if symptoms are worsening or increased pain with fever, he should return to the hospital. Patient verbalized understanding
*Critical Care Note
Total Time (30-74mins, 75-104mins- exclusive of procedures): Not Applicable
ED Attending Note
-
Portions of this chart may have been created with voice recognition software.� Occasional wrong word or��sound alike� substitutions may have occurred due to the inherent limitations of voice recognition software.
Discharge Plan
Departure
Prescriptions:
No Action
Eliquis 5 MG tablet
5 mg PO BID
trazodone 150 mg Tablet
150 mg PO HS
furosemide 20 mg tablet
20 mg PO DAILY
famotidine [Pepcid] 20 mg Tablet
20 mg PO BID
vitamin B complex Capsule
1 cap PO QPM Qty: 0
hydralazine 10 mg tablet
10 mg PO BID
cholecalciferol (vitamin D3) [Vitamin D3] 125 mcg (5,000 unit) Tablet
5,000 mcg PO DAILY
atorvastatin [Lipitor] 20 MG tablet
20 mg PO HS
tamsulosin 0.4 mg capsule
0.4 mg PO HS
polyethylene glycol 3350 [Miralax] 17 gram/dose Powder
17 g PO DAILY
gabapentin 600 mg Tablet
900 mg PO TID
acetaminophen 500 mg Tablet
1,000 mg PO TID
magnesium hydroxide [Milk of Magnesia] 400 mg/5 mL Suspension
400 mg PO DAILYPRN PRN (Reason: if no bm on 4th day)
pantoprazole [Protonix] 40 mg Tablet,Delayed Release (Dr/Ec)
40 mg PO DAILY
losartan 25 mg Tablet
25 mg PO DAILY
lidocaine-menthol [Icy Hot Patch (lido-menthol)] 4-1 % Adhesive Patch,Medicated
1 patch TOPICAL DAILY
Rx Instructions:
Lower Back
tizanidine 2 mg Tablet
2 mg PO Q8HPRN PRN (Reason: muscle spasms)
carvedilol [Coreg] 3.125 mg Tablet
3.125 mg PO BID
vitamin E 268 mg (400 unit) Capsule
268 mg PO DAILY
amoxicillin 500 mg Capsule
500 mg PO Q8H 5 Days Qty: 15 0RF
oxycodone 15 mg Tablet
15 mg PO Q4HPRN PRN (Reason: sev pain) Qty: 2 0RF
oxycodone 10 mg Tablet
10 mg PO Q4HPRN PRN (Reason: mod pain) Qty: 2 0RF
Referrals:
Black Artis MD [Family Provider] -
Interventions
Interventions:
*Risk Screen - Suicide Last Done: 11/29/24 13:04
*General Assessment Last Done: 11/29/24 13:04
*Neglect/Abuse Screening Last Done: 11/29/24 13:04
ED- Fall Risk Assessment Last Done: 11/29/24 19:49
*ED COVID-19 Vaccine History Last Done: 11/29/24 17:16
ED-Rxxwjt-Juwesmhtwa Assessment Last Done: 11/29/24 19:49
Discharge Date and Time
Print Language: ROMANSH
[2024-11-29 17:14] VITALS: BP 165/98
[2024-11-29 17:16] VITALS: BMI 25.9
[2024-11-29 17:32] LABS: Urine Albumin Trace (Neg - Trace); Urine Bilirubin 1+ (Negative); Urine Character Clear (Clear); Urine Color Yellow; Urine Glucose Negative (Negative); Urine Ketone Negative (Negative); Urine Leukocyte Negative (Negative); Urine Nitrite Positive (Negative); Urine Occult Blood Negative (Negative); Urine Urobilinogen 1+ (Neg - 1+)
[2024-11-29 17:40] LABS: Urine Squamous Cell 0-2 /LPF (Few)
[2024-11-29 17:41] LABS: Urine Bacteria Few (Negative); Urine White Cell 0-2 /HPF (0-5)
[2024-11-29] MEDS: MORPHINE SULFATE 4 MG IV (18:30)
[2024-11-29 19:45] VITALS: BP 199/127
[2024-11-29 20:00] VITALS: BP 177/101
[2024-11-29] MEDS: MACROBID 100 MG PO ×2 (20:14→20:15)
== END 2024-11-29 20:46 | disposition home or self-care (01) ==
LOC: EMR 12:57
PROVIDERS: Emergency Medicine; EMERGENCY PHYSICIAN Student in an Organized Health Care Education/Training Program; FAMILY PHYSICIAN Family Medicine
DX: R10.30 Lower abdominal pain, unspecified (principal); I13.0 Hypertensive heart and chronic kidney disease with heart failure and stage 1 through stage 4 chronic kidney disease, or unspecified chronic kidney disease; I50.9 Heart failure, unspecified; N18.9 Chronic kidney disease, unspecified; E78.00 Pure hypercholesterolemia, unspecified; I48.91 Unspecified atrial fibrillation; I25.10 Atherosclerotic heart disease of native coronary artery without angina pectoris; G47.30 Sleep apnea, unspecified; F41.8 Other specified anxiety disorders; Z79.01 Long term (current) use of anticoagulants; Z79.891 Long term (current) use of opiate analgesic; Z82.49 Family history of ischemic heart disease and other diseases of the circulatory system; Z87.440 Personal history of urinary (tract) infections; Z95.0 Presence of cardiac pacemaker; Z95.2 Presence of prosthetic heart valve; Z98.1 Arthrodesis status
CPT/HCPCS: 99284; 96374; 74177; 80053; 81003; 81015; 83690; 85025; 87086; Q9967

== ENCOUNTER 2024-12-25 22:39 | Inpatient (IN) | payer MEDICARE, OTHER, SELFPAY ==
[2024-12-25] VITALS (14 sets, daily range): BP systolic 159–211; BP diastolic 95–116; BMI 28.1; BMI 25.4
[2024-12-25 13:20] LABS: % Basophils 0.5 % (0-2); % Eosinophils 2.4 % (0-6); % Immature Granulocytes 0.3 % (0-0.5); % Lymphocytes 15.9 % (20.5-51.1); % Monocytes 10.5 % (1.7-9.3); % Neutrophils 70.4 % (42.2-75.2); Absolute Eosinophils 0.1 10^3/uL (0-0.7); Absolute Lymphocytes 0.6 10^3/uL (1.2-3.4); Absolute Monocytes 0.4 10^3/uL (0.1-0.6); Absolute Neutrophils 2.6 10^3/uL (1.4-6.5); Hematocrit 34.4 % (39.0-52.0); Hemoglobin 11.4 g/dL (13.0-18.0); Mean Corp Hgb Conc. 33.1 g/dL (33.0-37.0); Mean Corpuscular Hgb 30.5 pg (27.0-31.0); Mean Platelet Volume 9.1 fL (7.4-10.4); Nucleated Red Blood Cells % 0 % (-); Platelet Count 107 10^3/uL (130-400); Red Blood Cell Count 3.74 10^6/uL (4.70-6.10); Red Cell Dist. Width 14.5 % (11.5-14.5); White Blood Cell Count 3.7 10^3/uL (4.8-10.8)
[2024-12-25 13:36] LABS: ALT (SGPT) 15 U/L (0-50); AST (SGOT) 23 U/L (17-59); Albumin 4.6 g/dl (3.5-5.0); Alkaline Phosphatase 78 U/L (38-126); Blood Urea Nitrogen 12 mg/dl (9-20); Calcium 8.9 mg/dl (8.4-10.2); Carbon Dioxide 30 mmol/L (22-30); Chloride 92 mmol/L (98-107); Glucose 129 mg/dl (70-99); Potassium 4.2 mmol/L (3.5-5.1); Sodium 130 mmol/L (135-145); Total Bilirubin 1.6 mg/dl (0.2-1.3); eGFR > 60.00
--- NOTE | 2024-12-25 15:19 | ED.GENMED ---
History of Present Illness
General
Chief Complaint: Blood Pressure Problem
Source: patient
Exam Limitations: none
Time Seen by Provider: 12/25/24 15:06
Nursing documentation reviewed up to this point in time: agreed with
History of Present Illness
History of Present Illness:
Patient presents to ED secondary to persistent dull left-sided headache along with elevated blood pressure (systolic blood pressure greater than 220) over the past 4 days. Denies blurred vision. Denies dizziness. Denies nausea or vomiting.
Denies loss of sensation or weakness. Denies chest pain. Denies shortness of breath. Denies difficulty with ambulation. Patient unsure of what he takes for blood pressure, as he has not seen his primary care physician for quite some time.
Denies recent illness. Denies recent change in medications or diet.
Past History
Past History
ED Past Medical History: Arrthythmia (Atrial flutter/fib), CAD, CHF, HTN, Hypercholesterolemia, Valvular disease, Psychiatric (Anxiety, Depression), Other (Rib fractures, Chronic back pain, Anemia, Cellulitis, Left pleural effusion, osteomyelitis,
endocarditis, Sleep apnea, Parkinson, GI bleeding, UTI with retention, AAA, [place]), Other (polyneuropathy, balance issues, Neuropathy, tingling in arms and legs. ) and Other (chronic back pain, pain management with Buprenorphine and ASA)
ED Past Surgical History: Cardiac (Aortic valve replaced (x 2), Pacemaker), Orthopedic (C spine fusion, Laminectomy) and Other (Hemorrhoidectomy, cataracts)
Patient has exhibited threatening behavior?: No
PSI?: No
Social History
Tobacco: Non-smoker
Alcohol: Occasional ( Beer)
Drug: None
Personal:
Living: with family
Employment: Retired
Family History
Family History: Hypertension and CAD
Review of Systems
Review of Systems
Allergies reviewed?: Yes
All Other Systems: ROS reviewed and negative except as documented in HPI and ROS
Constitutional: Reports no symptoms; Denies fever
EENT: Reports no symptoms
Respiratory: Reports no symptoms; Denies trouble breathing
Cardiac: Reports no symptoms; Denies chest pain
ABD/GI: Reports no symptoms
Musculoskeletal: Reports no symptoms
Skin: Reports no symptoms
Neurological: Reports headache; Denies dizzy or weakness
Phy Exam
Physical Exam
Physical Exam:
Physical Exam
General: no apparent distress, not acutely ill. afebrile.
Head: nc/at. eomi
Neck: supple. normal range of motion.
Heart: s1/s2 regular rate and rhythm, systolic ejection murmur
Lungs: no acute respiratory distress. clear bilaterally
Abdomen: normal bowel sounds. not tender.
Neuro: alert and oriented x 3. no focal neurological deficits. normal speech. steady gait
Skin: no rash
Psychiatric: well kept. interactive and cooperative
Extremities: no edema. no calf tenderness.
Course
Orders/Labs/Results
Orders:
Orders
12/25/24 13:06
CMP [Comprehensive Metabolic Panel] Urgent
Complete Blood Count/With Diff Urgent
12/25/24 Dinner
Cholesterol Lowering
At Your Request: Full Participation
Fluid Restriction: 1500 mL/day (50 oz)
Cholesterol Lowering: Sodium, 2 Gram
12/25/24 15:17
Acetaminophen [Tylenol] 650 mg PO NOW STA
12/25/24 15:18
CT Head W/o Iv Contrast Urgent
Comment:
Reason For Exam: headache with hypertension
12/25/24 17:37
Clonidine [Catapres] 0.2 mg PO NOW STA
12/25/24 17:39
0.9% Sodium Chloride 500 ml [Nss] 500 ml IV BOLUS
Diphenhydramine [Benadryl] 12.5 mg IV NOW STA
Ketorolac [Toradol] 15 mg IV NOW STA
Metoclopramide [Reglan] 10 mg IV NOW STA
12/25/24 19:02
HydrALAZINE [Apresoline] 10 mg IV NOW STA
12/25/24 20:21
Influenza A+B Rapid Molecular Urgent
TAMIKO Source: Nasal Swab
Specimen Description:
12/25/24 20:56
Morphine Sulfate 2 mg IV NOW STA
12/25/24 21:53
Diphenhydramine [Benadryl] 12.5 mg IV NOW STA
Ketorolac [Toradol] 15 mg IV NOW STA
Metoclopramide [Reglan] 10 mg IV NOW STA
12/25/24 21:54
COVID-19 Antigen Routine
Source: Nasal Swab
12/25/24 22:03
Admit/Transfer Patient As Directed
Co-Sign Provider:
Level of Care: Inpatient admission
Assign to:: Telemetry
Physician / Group: Gabriel Hernandez
Diagnosis: uncontrolled hypertension, intractable headache
Reason for Telemetry: Arrhythmia
Date to Stop Telemetry: 12/28/24
Time to Stop Telemetry: 11:00
Reason for Hospitalization: uncontrolled hypertension, intractable headache
Expected length of stay greater than two midnights?: Yes
ELOS- Estimated Length of Stay in days: 3
I certify the patient meets the requirements for IP care: Yes
PRN Pain Medication Management As Directed
May give lesser potent ordered pain med per pt: Yes
preference::
Protocol:: Medication orders for pain may be administered in a
manner that supports deferring to patient preference
when the pt is:
- Requesting an ordered lesser potent pain medication.
Least to most potent pain medications are defined
as: acetaminophen < NSAID < tramadol < opioids
(morphine, oxycodone, hydromorphone).
- Requesting a lesser dose of the same medication IF
ORDERED.
- Requesting a less intrusive route of administration
if both routes are prescribed by the provider (PO <
IV).
12/25/24 22:07
Code Status As Directed
Resuscitation Status: Full Code
12/25/24 23:40
Acetaminophen [Tylenol] 650 mg PO Q4HPRN PRN
Labetalol HCl [Trandate] 10 mg IV Q6HPRN PRN
Ondansetron HCl [Zofran] 4 mg PO Q8HPRN PRN
Oxycodone/Acetaminophen [Percocet 5/325] 3 tablet PO Q6HPRN PRN
12/25/24 23:40
Consult Notification Routine
Specialty to Notify: Neurology
Date consulting provider notified: 12/26/24
Time consulting provider notified: 07:45
Notified:: Provider
Comment: GUILLE MORAES
NEUROLOGY CONSULT Routine
Consulting Provider: Guille Moraes
Was physician already notified: No
Reason for consult: intractable headache
Activity As Directed
Activity Level: Out of Bed-Early Mobility
Vital Signs As Directed
Frequency: Per unit guidelines
Weight As Directed
Frequency: Once
12/26/24 05:45
Basic Metabolic Panel IN AM
Complete Blood Count/No Diff IN AM
12/26/24 08:00
Apixaban [Eliquis] 5 mg PO BID
Carvedilol [Coreg] 3.125 mg PO BID
Cholecalciferol (Vitamin D3) [VITAMIN D3 (cholecalciferol)] 125 mcg PO DAILY
Duloxetine Delayed Release [Cymbalta Delayed Release] 30 mg PO DAILY
Famotidine [Pepcid] 20 mg PO BID
Ferrous Sulfate [Feosol] 325 mg PO DAILY
Furosemide [Lasix] 20 mg PO DAILY
Gabapentin [Neurontin] 600 mg PO TID
Losartan [Cozaar] 25 mg PO DAILY
Pantoprazole [Protonix] 40 mg PO DAILY
Polyethylene Glycol Powder [Miralax] 17 grams PO DAILY
Vitamin B Complex with C [B COMPLEX w/VITAMIN C] 1 caplet PO DAILY
Vitamin E 400 units PO DAILY
12/26/24 22:00
Atorvastatin [Lipitor] 20 mg PO HS
Tamsulosin [Flomax] 0.4 mg PO HS
Terazosin [Hytrin] 2 mg PO HS
Trazodone [Desyrel] 150 mg PO HS
12/28/24 11:00
DC Protocol for Telemetry ONCE
Abnormal Lab Results
12/25/24
13:06
WBC 3.7 L 10^3/uL
(4.8-10.8)
RBC 3.74 L 10^6/uL
(4.70-6.10)
Hgb 11.4 L g/dL
(13.0-18.0)
Hct 34.4 L %
(39.0-52.0)
Plt Count 107 L 10^3/uL
(130-400)
Absolute Lymphs (auto) 0.6 L 10^3/uL
(1.2-3.4)
Lymphocytes % 15.9 L %
(20.5-51.1)
Monocytes % 10.5 H %
(1.7-9.3)
Sodium 130 L mmol/L
(135-145)
Chloride 92 L mmol/L
(98-107)
Glucose 129 H mg/dl
(70-99)
Total Bilirubin 1.6 H mg/dl
(0.2-1.3)
12/25/24 13:06
12/25/24 13:06
Vital Signs
Initial and Last Documented VS:
Initial Vital Signs
Pulse Resp BP Pulse Ox
79 18 159/101 94
12/25/24 12:57 12/25/24 12:57 12/25/24 12:57 12/25/24 12:57
Last Documented Vital Signs
Temp Pulse Resp BP Pulse Ox
97.4 F 96 16 136/88 95
12/30/24 15:08 12/30/24 15:08 12/30/24 15:08 12/30/24 15:08 12/30/24 15:08
MDM/Problems Addressed
MDM/Problems Addressed:
CT head: NAD.
Unfortunately, patient with continual headache despite treatment, along with elevated blood pressure, which may be contributory. As such, patient will be admitted for further evaluation and treatment.
*Critical Care Note
Total Time (30-74mins, 75-104mins- exclusive of procedures): Not Applicable
ED Attending Note
-
Portions of this chart may have been created with voice recognition software.� Occasional wrong word or��sound alike� substitutions may have occurred due to the inherent limitations of voice recognition software.
Discharge Plan
Departure
Patient Disposition: Admit
Date of Disposition: 12/25/24
Time of Disposition: 20:29
Admit to: Telemetry
Presentation/result/management discussed w/ accepting MD/DO: Hospitalist
Patient with high blood pressure during this ER visit?: Yes
Condition: Good
Discharge Problem:
Hypertension, Intractable headache
Interventions
Interventions:
*Risk Screen - Suicide Last Done: 12/25/24 12:57
*General Assessment Last Done: 12/25/24 15:24
*Neglect/Abuse Screening Last Done: 12/25/24 15:24
*ED COVID-19 Vaccine History Last Done: 12/25/24 15:24
*Nursing Disposition Last Done: 12/25/24 23:30
ED- Cardiac Assessment Last Done: 12/25/24 15:37
ED- Neurological Assessment Last Done: 12/25/24 15:36
ED- Pulmonary Assessment Last Done: 12/25/24 15:36
Discharge Date and Time
Discharge Date/Time: 12/25/24 23:30
[2024-12-25] MEDS: TYLENOL 650 MG PO (15:27)
[2024-12-25] MEDS: NSS 500 IV (17:51)
[2024-12-25] MEDS: BENADRYL 12.5 MG IV ×2 (17:53→22:19)
[2024-12-25] MEDS: REGLAN 10 MG IV ×2 (17:54→22:22)
[2024-12-25] MEDS: TORADOL 15 MG IV ×2 (17:55→22:24)
[2024-12-25] MEDS: APRESOLINE 10 MG IV (19:12)
[2024-12-25] MEDS: MORPHINE SULFATE 2 MG IV (21:12)
--- NOTE | 2024-12-25 21:22 | HPS.HSE ---
Family Physician
-
Family Physician: Black Artis
Chief Complaint
-
headache/uncontrolled hypertension
History of Present Illness
Patient is a 79-year-old male with past medical history significant for paroxysmal atrial fibrillation and flutter, Chronic back pain, spinal stenosis, and degenerative disc disease with chronic opioid use with dependence, essential hypertension,
gastroesophageal reflux disease, chronic HFpEF, benign prostatic hypertrophy, hyperlipidemia, obstructive sleep, anxiety and depression who presented to [facility] for evaluation of headache and uncontrolled hypertension. Patient reports
that approximately 3-4 days ago he started with elevated blood pressure and headache around the same time, unsure which came first. Patient denies any vision changes, dizziness, shortness of breath, or chest pain. Patient reports that his blood
pressure has been 'all over the place' for years but is generally controlled most of the time on current regimen.
Medical History
Past Medical History
Past Medical History: Reports Other
Additional Past Medical History:
paroxysmal atrial fibrillation and flutter
Chronic back pain, spinal stenosis, and degenerative disc disease with chronic opioid use with dependence
Essential hypertension
h/o Klebsiella pneumonia and coagulase-negative Staphylococcus infected hardware in L4-L5 (April 2023) treated with Chronic neuropathy
Gastroesophageal reflux disease
Chronic HFpEF
Benign prostatic hypertrophy
Hyperlipidemia
h/o permanent pacer
h/o aortic valve x 2
Obstructive sleep
Anxiety
Depression
HX C. difficile
Past Surgical History: Reports Other
Additional Past Surgical History:
History of pain pump infection with removal
Pacer and aortic valve replaced
Cervical spine fusion, laminectomy 2018, lumbar surgery 2022 with screws placed then removed 04/25/2023
Hemorrhoidectomy
Rhizotomy lower back
Cardiac cath 2006
Social History
Tobacco: Non-smoker
Alcohol: Occasional
Drug: None
Personal:
Living: With Family
Employment: Retired
Family History
Family History: Not pertinent
Allergies / Home Medications
Allergies reflects when Allergies were last updated in [facility].
Home Medications with original date entered in [facility]
Allergy/Medication List:
Allergies
Allergy/AdvReac Type Severity Reaction Status Date / Time
amiodarone Allergy Unknown Verified 12/25/24 13:02
amlodipine Allergy Swelling - Verified 12/25/24 13:02
1993
benzyl alcohol Allergy Unknown Verified 12/25/24 13:02
clindamycin Allergy Unknown Verified 12/25/24 13:02
hydrochlorothiazide Allergy Hyponatremi Verified 12/25/24 13:02
a
meloxicam Allergy Unknown Verified 12/25/24 13:02
polysorbate 80 Allergy Unknown Verified 12/25/24 13:02
sulfamethoxazole Allergy Unknown Verified 12/25/24 13:02
[From Bactrim]
tizanidine [From Zanaflex] Allergy took from Verified 12/25/24 13:02
patient
history
and
physical
from
surgeon
trimethoprim [From Bactrim] Allergy Unknown Verified 12/25/24 13:02
Home Medications
apixaban 5 mg tablet (Eliquis) 5 mg PO BID Blood clot prevention/tx 01/16/22
furosemide 20 mg tablet 20 mg PO DAILY Fluid retention/Swelling 09/13/22
trazodone 150 mg tablet 150 mg PO HS Depression/sleep 09/13/22
famotidine 20 mg tablet (Pepcid) 20 mg PO BID Gastrointestinal issue 02/17/23
hydralazine 10 mg tablet 10 mg PO TID Blood Pressure 04/03/23
vitamin B complex 1 cap PO DAILY Supplement ##0 04/03/23
atorvastatin 20 mg tablet (Lipitor) 20 mg PO HS High cholesterol 04/12/23
cholecalciferol (vitamin D3) 125 mcg (5,000 unit) tablet (Vitamin D3) 125 mcg PO DAILY Supplement 04/12/23
polyethylene glycol 3350 17 gram/dose oral powder (Miralax) 17 g PO DAILY Constipation 04/14/24
tamsulosin 0.4 mg capsule 0.4 mg PO HS Urinary Issue 04/14/24
acetaminophen 500 mg tablet 1,000 mg PO [id number] PRN fever 09/07/24
carvedilol 3.125 mg tablet (Coreg) 3.125 mg PO BID Blood Pressure 09/07/24
gabapentin 600 mg tablet 600 mg PO TID Pain 09/07/24
losartan 25 mg tablet 25 mg PO DAILY Blood Pressure 09/07/24
pantoprazole 40 mg tablet,delayed release (Protonix) 40 mg PO DAILY GERD 09/07/24
vitamin E 268 mg (400 unit) capsule 268 mg PO DAILY Supplement 09/07/24
bismuth subsalicylate 262 mg/15 mL oral suspension (Kaopectate (bismuth subsalicylate)) 524 mg PO DAILYPRN PRN diarrhea 12/25/24
duloxetine 30 mg capsule,delayed release (Cymbalta) 30 mg PO DAILY 12/25/24
ferrous sulfate 325 mg (65 mg iron) tablet 325 mg PO DAILY 12/25/24
ondansetron HCl 4 mg tablet 4 mg PO Q8HPRN PRN nausea 12/25/24
oxycodone-acetaminophen 5 mg-325 mg tablet 3 tab PO Q6HPRN PRN severe pain 12/25/24
terazosin 2 mg capsule 2 mg PO HS 12/25/24
Review of Systems
-
History Source: Patient
Constitutional: Reports No Symptoms
EENT: Reports No Symptoms
Respiratory: Reports No Symptoms
Cardiac: Reports No Symptoms
Abdomen/GI: Reports No Symptoms
: Reports No Symptoms
Musculoskeletal: Reports No Symptoms
Skin: Reports No Symptoms
Neurological: Reports Headache
Endocrine: Reports No Symptoms
Hematologic/Lymphatic: Reports No Symptoms
Psych: Reports No Symptoms
Physical Exam
Vital Signs
Vital Signs
Pulse Resp BP Pulse Ox
61 9 185/98 97
12/25/24 19:30 12/25/24 19:30 12/25/24 20:18 12/25/24 20:30
Physical Exam
General: Well Developed, Well Nourished, No Apparent Distress, Conversant and Pain (headache 7/10)
HEENT: NormoCephalic, Moist mucous membranes, Atraumatic, [place] Conjunctivae, Nose Appears Normal and Ears Appear Normal
Respiratory: Clear and Non Labored Respirations
Cardiac: S1/S2 and Regular Rhythm; No Murmur, Rub or Gallop
Breast: Deferred by me
GI: Soft, Non Tender, Non Distended and Normal Bowel Sounds; No Organomegaly
Rectal: Deferred by Provider
Genito-urinary: Deferred by me
Musculoskeletal: No Clubbing, No Cyanosis and No Edema
Skin: Warm and IV/Catheter Site; No Rash
Neuro: Awake, Alert, AO x 3, Nonfocal/grossly intact and No Sensory Deficits
Psych: Calm and Intact Judgment/Insight
Laboratory Results
-
12/25/24 13:06
12/25/24 13:06
Laboratory Results
Total Bilirubin 1.6 mg/dl (0.2-1.3) H 12/25/24 13:06
AST 23 U/L (17-59) 12/25/24 13:06
ALT 15 U/L (0-50) 12/25/24 13:06
Alkaline Phosphatase 78 U/L (38-126) 12/25/24 13:06
Data Reviewed
-
CT Scan: Report Reviewed by me (Head: No evidence of acute intracranial abnormality.)
Lab Data: Labs Reviewed by me
Impression/Plan
-
IMPRESSION/PLAN:
#headache
#hypertension urgency
Head CT: No evidence of acute intracranial abnormality
HT urgency is due to MANSFIELD rather than other way around
- admit to telemetry
- Consult Neurology
- PRN labetalol
- supportive care
#paroxysmal atrial fibrillation and flutter
s/p permanent pacer
- continue Eliquis and carvedilol
#Essential hypertension
- continue carvedilol, hydralazine, losartan
#Gastroesophageal reflux disease
- continue famotidine and omeprazole
#Chronic HFpEF
- continue carvedilol, and furosemide
- daily weights
#Benign prostatic hypertrophy
- continue tamsulosin and terazosin
#Hyperlipidemia
- continue atorvastatin
#Anxiety
#Depression
- continue Cymbalta and trazodone
#Chronic back pain, spinal stenosis, and degenerative disc disease with chronic opioid use with dependence
- continue gabapentin, PRN Percocet
#Obstructive sleep
#h/o Klebsiella pneumonia and coagulase-negative Staphylococcus infected hardware in L4-L5 (April 2023) treated with Chronic neuropathy
#HX C. difficile
Code status: full code
DVT prophylaxis: Eliquis
--- NOTE | 2024-12-25 21:59 | W.PN.UPDATE ---
Update Note
Progress Note Update
This note serves as an addendum to the H&P by foreign food specialty cook BERNA Melanie Miranda
HPI
79 years old male history of hypertension, Prx AF, BPH, CHF, bioprosthetic aortic valve seen a ER
- pw persistent dull left-sided headache along
- uncontrol BP with elevated BP (systolic blood pressure greater than 220) over the past 4 days.
- Patient unsure of what he takes for blood pressure, as he has not seen his primary care physician for quite some time.
ROS
Denies blurred vision. Denies dizziness. Denies nausea or vomiting. Denies loss of sensation or weakness.
Denies chest pain. Denies shortness of breath.
Denies difficulty with ambulation.
Denies recent illness.
Denies recent change in medications or diet.
At ER
Received Clonidine 0.2mg, IV Hydralazine 10mg, IV Toradol 15, IV Reglan 10, IV Benadryl 12.5
PHX: see above
Vital Signs
Pulse Resp BP Pulse Ox
61 9 185/112 98
12/25/24 19:30 12/25/24 19:30 12/25/24 21:16 12/25/24 20:32
PE
Very pleasant man
Gen: non toxic
HEENT:anicteric
Neck:supple
Lungs: CTA
Cor:RRR S1 S2
Abdomen: soft benign
NUTRITION EDUCATOR:NFND
MS: no edema
Psych:appropriate
Laboratory Tests
11/29/24 12/25/24
13:30 13:06
WBC 3.8 L 3.7 L
Hgb 11.3 L 11.4 L
Plt Count 120 L 107 L
Sodium 133 L 130 L
Carbon Dioxide 32 H 30
Creatinine 0.7
eGFR > 60.00 > 60.00
HCT
No evidence of acute intracranial abnormality.
Last hospitalist admission:
Date of Admission: 09/07/24 - Date of Discharge: 09/12/24
Discharge Diagnosis/Procedures: Urinary tract infection. Back pain.
ASSESSMENT & PLAN
Intractable MANSFIELD
- NEG HCT
- s/p Clonidine 0.2mg, IV Hydralazine 10mg,
- repeat IV Toradol 15, IV Reglan 10, IV Benadryl 12.5
- Neurologist consult
Uncontrol HTN / HT urgency is due to MANSFIELD rather than other way around
- cont. SENIOR QUALITY ANALYST Anti HTN Meds ( Losartan, Frusemide , Carvedilol )
- Hold PO Hydralazine for now
- add IV Labetalol PRN for q6h
HX Prx AF
- cont. SENIOR QUALITY ANALYST Eliquis
- cont. Carvedilol
HLD
- cont. Atorvastatin
Depression
- Stable
- Cymbalta, Trazodone
HX Chr back paqin
- Gabapentin
BPH
- cont. Tamulosin
DVT Px: SENIOR QUALITY ANALYST Eliquis
Full code
IP TLM
[2024-12-25 22:26] LABS: COVID-19 Antigen Negative (Negative)
[2024-12-26] VITALS (8 sets, daily range): BP systolic 98–180; BP diastolic 57–111; BMI 25.4; BMI 25.2
[2024-12-26] MEDS: TYLENOL 650 MG PO (00:30)
[2024-12-26] MEDS: TRANDATE 10 MG IV ×4 (00:31→19:48)
[2024-12-26] MEDS: ROXICODONE 15 MG PO ×4 (01:40→22:27)
--- NOTE | 2024-12-26 02:45 | PTCARENOTE ---
Pt admitted to [facility] from ED. Pt AAOx3. Placed on spooler. Pt afebrile. Hypertensive. PRN labetalol given. Lungs clear, pt on room air. Standby assist x 1 with rolling walker. Pt oriented to room. Call calles within reach and pt
ringing appropriately. Bed in lowest position.
[2024-12-26 06:41] LABS: Hematocrit 36.6 % (39.0-52.0); Mean Corp Hgb Conc. 32.8 g/dL (33.0-37.0); Mean Corpuscular Hgb 30.2 pg (27.0-31.0); Mean Platelet Volume 9.3 fL (7.4-10.4); Platelet Count 119 10^3/uL (130-400); Red Blood Cell Count 3.98 10^6/uL (4.70-6.10); Red Cell Dist. Width 14.1 % (11.5-14.5)
[2024-12-26 06:47] LABS: Blood Urea Nitrogen 12 mg/dl (9-20); Calcium 9.2 mg/dl (8.4-10.2); Carbon Dioxide 26 mmol/L (22-30); Chloride 96 mmol/L (98-107); Estimated Creatinine Clearance 81 ml/min; Glucose 100 mg/dl (70-99); Sodium 132 mmol/L (135-145); eGFR > 60.00
--- NOTE | 2024-12-26 07:40 | CON.NEURO ---
Consultation
Order
Date of Consultation: 12/26/24
Requesting Provider: Melanie Miranda CRNP
Reason for Consult: Intractable headache
Neurology Consultation Note.
HPI: This is an 72-year-old man who presented to [facility] on 12/25/2024 with headache. Neurology consultation was requested for evaluation and management of headache. According to the patient he developed gradual in onset left
frontal headache that started 4 days ago. The headache intensified on the second day, reaching its peak intensity and lasting for 3 days. The patient describes it as a pounding sensation, rating it initially as severe but now improved to a 4/10. He
denies associated fever, head trauma, photophobia, phonophobia, or changes in vision, strength or sensation, sick contacts. The patient's blood pressure was noted to be elevated during this episode. He denies any recent changes in medication
regimen.
ER VS: 159/101-211/116, 80, afebrile
EKG: Pending
PDMP:Oxycodone-Acetaminophen 5-325 90 tablets filled in on 11/20/2024, 11/29/2024, 72 tablets filled in on 12/11/2024, 6 tablets filled in on 12/19/2024, 60 tablets filled in on 12/20/2024
Labs: Glucose�129, sodium�130, T. bili�1.6, WBCs�3.7, absolute lymphocyte count�0.6, platelets�107, influenza A/B, SARS-CoV-2�negative
CT head wo contrast�moderate leukomalacia, minimal patchy mucosal thickening of the ethmoid sinuses. There is a 1 cm polyp or mucous retention cyst within the left posterior sphenoid sinuses.
MAR: Clonidine 0.2mg, IV Hydralazine 10mg, IV Toradol 15, IV Reglan 10, IV Benadryl 12.5
PMH: PA A-fib, chronic pain syndrome, chronic wedge compression of T8 and T7, h/o cervical;/lumbar spinal stenosis, HTN, DLP, HFpEF, BPH, GILLES, GERD, JONAS,
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
FH: not contributory
All: Amiodarone, amlodipine, penicillin, benzyl alcohol, clindamycin, HCTZ, meloxicam, sulfas, tizanidine,
ROS: Constitutional: Negative. Negative for chills, fever and unexpected weight change.
HENT: Negative for ear pain, hearing loss, tinnitus and trouble swallowing.
Eyes: Negative. Negative for photophobia, pain and visual disturbance.
Respiratory: Negative for cough, choking and shortness of breath.
Cardiovascular: Negative for chest pain, palpitations and leg swelling.
Gastrointestinal: Negative for abdominal pain and vomiting.
Endocrine: Negative. Negative for cold intolerance.
Genitourinary: Negative for dysuria, flank pain and urgency.
Musculoskeletal: Positive for chronic back pain
Skin: Negative for rash.
Allergic/Immunologic: Negative. Negative for immunocompromised state.
Neurological: Positive for headache
Psychiatric/Behavioral: Negative for behavioral problems, confusion and hallucinations.
General: Well developed. In no acute distress.
Cardio: Regular rate and rhythm without murmur. Extremities are without cyanosis or edema.
Neuro:
Mental Status: Alert, oriented to person, place, and date. Normal attention and recall. Good fund of knowledge. Follows complex requests across the midline. Comprehension, naming, and repetition intact.
Cranial Nerves: Pupils are equally round and reactive to light. EOMs full. Visual biggs full to confrontation. No ptosis. No nystagmus. V1-V3 intact to light touch and pinprick bilaterally, symmetric. Face symmetric. Mildly impaired hearing
AU. The palate elevated well. SCMs and traps 5/5. Tongue midline. No dysarthria.
Motor: Normal bulk and tone. No pronator or arm drift. Strength 5/5 throughout. No clonus.
Reflexes: 2+ throughout the upper extremities and trace knees. Plantar responses flexor bilaterally.
Sensory: normal vibration at the ankles
Coordination: No dysmetria or tremor.
Gait: deferred
Assessment and Plan:
I. New onset of left frontal headache
II. Chronic pain syndrome
III. Ambulatory dysfunction
-Fall precautions
-Please check ESR, CRP, HIV, urine tox
-CTA head/neck-to rule out dissection/thrombosis
-Continue gabapentin 600 mg PO TID and Duloxetine 30 mg capsule
-Will follow
I personally reviewed all radiology and labs along with past medical records pertinent to current medical problems. Total time spent in patient care is 60 minutes.
Thank you for allowing us to participate in the care of this patient. We will continue to follow. Please do not hesitate to contact us with any questions or concerns.
Subjective/Objective
Subjective Data
Date of Service: December 26, 2024
Objective Data
Vital Signs
Temp Pulse Resp BP Pulse Ox
36.5 C 64 16 180/99 95
12/26/24 07:39 12/26/24 07:39 12/26/24 07:39 12/26/24 07:39 12/26/24 07:39
Lab Results
12/26/24 05:45
12/26/24 05:45
Sodium 132 mmol/L (135-145) L 12/26/24 05:45
Potassium 4.0 mmol/L (3.5-5.1) 12/26/24 05:45
BUN 12 mg/dl (9-20) 12/26/24 05:45
Glucose 100 mg/dl (70-99) H 12/26/24 05:45
Calcium 9.2 mg/dl (8.4-10.2) 12/26/24 05:45
Patient Allergies
amiodarone Allergy (Verified 12/25/24 13:02)
Unknown
amlodipine Allergy (Verified 12/25/24 13:02)
Swelling - 1993
benzyl alcohol Allergy (Verified 12/25/24 13:02)
Unknown
clindamycin Allergy (Verified 12/25/24 13:02)
Unknown
hydrochlorothiazide Allergy (Verified 12/25/24 13:02)
Hyponatremia
meloxicam Allergy (Verified 12/25/24 13:02)
Unknown
polysorbate 80 Allergy (Verified 12/25/24 13:02)
Unknown
sulfamethoxazole [From Bactrim] Allergy (Verified 12/25/24 13:02)
Unknown
tizanidine [From Zanaflex] Allergy (Verified 12/25/24 13:02)
took from patient history and physical from surgeon
trimethoprim [From Bactrim] Allergy (Verified 12/25/24 13:02)
Unknown
Medications
-
Active Medications
Generic Name Dose Route Start Last Admin
Trade Name Freq PRN Reason Stop Dose Admin
Acetaminophen 650 mg 12/25/24 23:40 12/26/24 00:30
Acetaminophen 325 Mg Tablet PO 01/22/25 23:39 650 mg
Q4HPRN PRN Administration
mild pain/MANSFIELD/temp> 100.4F
Apixaban 5 mg 12/26/24 08:00
Apixaban (Eliquis) 5 Mg Tablet PO 01/23/25 07:59
BID LORNA
Atorvastatin Calcium 20 mg 12/26/24 22:00
Atorvastatin (Lipitor) 20 Mg Tablet PO 01/23/25 21:59
HS LORNA
Carvedilol 3.125 mg 12/26/24 08:00
Carvedilol 3.125 Mg Tablet PO 01/23/25 07:59
BID LORNA
Cholecalciferol 125 mcg 12/26/24 08:00
Cholecalciferol (Vitamin D3) 125 Mcg Tablet (5,000 Units) PO 01/23/25 07:59
DAILY LORNA
Duloxetine HCl 30 mg 12/26/24 08:00
Duloxetine Delayed Release 30 Mg Capsule PO 01/23/25 07:59
DAILY LORNA
Famotidine 20 mg 12/26/24 08:00
Famotidine 20 Mg Tablet PO 01/23/25 07:59
BID LORNA
Ferrous Sulfate 325 mg 12/26/24 08:00
Ferrous Sulfate 325 Mg Tablet PO 01/23/25 07:59
DAILY LORNA
Furosemide 20 mg 12/26/24 08:00
Furosemide 20 Mg Tablet PO 01/23/25 07:59
DAILY LORNA
Gabapentin 600 mg 12/26/24 08:00
Gabapentin 300 Mg Capsule PO 01/23/25 07:59
TID LORNA
Labetalol HCl 10 mg 12/26/24 00:30 12/26/24 06:28
Labetalol Hcl 5 Mg/1 Ml (20 Mg/4 Ml) Injection IV 01/22/25 23:39 10 mg
Q6HPRN PRN Administration
SBP>160 and/or DBP>100
Losartan Potassium 25 mg 12/26/24 08:00
Losartan 25 Mg Tablet PO 01/23/25 07:59
DAILY LORNA
Ondansetron HCl 4 mg 12/25/24 23:40
Ondansetron 4 Mg Tablet PO 01/22/25 23:39
Q8HPRN PRN
nausea
Oxycodone HCl 15 mg 12/26/24 00:58 12/26/24 01:40
Oxycodone 15 Mg Regular Release Tablet PO 01/09/25 00:57 15 mg
Q6HPRN PRN Administration
severe pain
Pantoprazole Sodium 40 mg 12/26/24 08:00
Pantoprazole 40 Mg Delayed Release Tablet PO 01/23/25 07:59
DAILY LORNA
Polyethylene Glycol 17 grams 12/26/24 08:00
Polyethylene Glycol Powder 17 Grams Packet PO 01/23/25 07:59
DAILY LORNA
Sodium Chloride 0 flush 12/25/24 23:00
Sodium Chloride 0.9% (Flush) Syringe IV 01/22/25 22:59
PER PROTOCOL LORNA
Tamsulosin HCl 0.4 mg 12/26/24 22:00
Tamsulosin 0.4 Mg Capsule PO 01/23/25 21:59
HS LORNA
Terazosin HCl 2 mg 12/26/24 22:00
Terazosin 1 Mg Capsule PO 01/23/25 21:59
HS LORNA
Trazodone HCl 150 mg 12/26/24 22:00
Trazodone 150 Mg Tablet PO 01/23/25 21:59
HS LORNA
Vitamin B Complex/Vitamin C 1 caplet 12/26/24 08:00
Vitamin B Complex With Vitamin C Caplet PO 01/23/25 07:59
DAILY LORNA
Vitamin E 400 units 12/26/24 08:00
Vitamin E 400 International Units Capsule (180 Mg) PO 01/23/25 07:59
DAILY LORNA
Home Medications
�Medication �Instructions �Recorded
apixaban 5 mg tablet (Eliquis) 5 mg PO BID Blood clot 01/16/22
prevention/tx
furosemide 20 mg tablet 20 mg PO DAILY Fluid 09/13/22
retention/Swelling
trazodone 150 mg tablet 150 mg PO HS Depression/sleep 09/13/22
famotidine 20 mg tablet (Pepcid) 20 mg PO BID Gastrointestinal issue 02/17/23
hydralazine 10 mg tablet 10 mg PO TID Blood Pressure 04/03/23
vitamin B complex 1 cap PO DAILY Supplement ##0 04/03/23
atorvastatin 20 mg tablet (Lipitor) 20 mg PO HS High cholesterol 04/12/23
cholecalciferol (vitamin D3) 125 125 mcg PO DAILY Supplement 04/12/23
mcg (5,000 unit) tablet (Vitamin
D3)
polyethylene glycol 3350 17 17 g PO DAILY Constipation 04/14/24
gram/dose oral powder (Miralax)
tamsulosin 0.4 mg capsule 0.4 mg PO HS Urinary Issue 04/14/24
acetaminophen 500 mg tablet 1,000 mg PO [id number] PRN fever 09/07/24
carvedilol 3.125 mg tablet (Coreg) 3.125 mg PO BID Blood Pressure 09/07/24
gabapentin 600 mg tablet 600 mg PO TID Pain 09/07/24
losartan 25 mg tablet 25 mg PO DAILY Blood Pressure 09/07/24
pantoprazole 40 mg tablet,delayed 40 mg PO DAILY GERD 09/07/24
release (Protonix)
vitamin E 268 mg (400 unit) capsule 268 mg PO DAILY Supplement 09/07/24
bismuth subsalicylate 262 mg/15 mL 524 mg PO DAILYPRN PRN diarrhea 12/25/24
oral suspension (Kaopectate
(bismuth subsalicylate))
duloxetine 30 mg capsule,delayed 30 mg PO DAILY 12/25/24
release (Cymbalta)
ferrous sulfate 325 mg (65 mg 325 mg PO DAILY 12/25/24
iron) tablet
ondansetron HCl 4 mg tablet 4 mg PO Q8HPRN PRN nausea 12/25/24
oxycodone-acetaminophen 5 mg-325 3 tab PO Q6HPRN PRN severe pain 12/25/24
mg tablet
terazosin 2 mg capsule 2 mg PO HS 12/25/24
Vital Signs and Labs
-
Vital Signs and Labs:
Vital Signs
Temp Pulse Resp BP Pulse Ox
36.5 C 64 16 180/99 95
12/26/24 07:39 12/26/24 07:52 12/26/24 07:39 12/26/24 07:52 12/26/24 07:39
Lab Results
12/26/24 05:45
12/26/24 05:45
Sodium 132 mmol/L (135-145) L 12/26/24 05:45
Potassium 4.0 mmol/L (3.5-5.1) 12/26/24 05:45
BUN 12 mg/dl (9-20) 12/26/24 05:45
Glucose 100 mg/dl (70-99) H 12/26/24 05:45
Calcium 9.2 mg/dl (8.4-10.2) 12/26/24 05:45
Medications
-
Medications:
Generic Name Dose Route Start Last Admin
Trade Name Freq PRN Reason Stop Dose Admin
Acetaminophen 650 mg 12/25/24 23:40 12/26/24 00:30
Acetaminophen 325 Mg Tablet PO 01/22/25 23:39 650 mg
Q4HPRN PRN Administration
mild pain/MANSFIELD/temp> 100.4F
Apixaban 5 mg 12/26/24 08:00 12/26/24 07:51
Apixaban (Eliquis) 5 Mg Tablet PO 01/23/25 07:59 5 mg
BID LORNA Administration
Atorvastatin Calcium 20 mg 12/26/24 22:00
Atorvastatin (Lipitor) 20 Mg Tablet PO 01/23/25 21:59
HS LORNA
Carvedilol 3.125 mg 12/26/24 08:00 12/26/24 07:52
Carvedilol 3.125 Mg Tablet PO 01/23/25 07:59 3.125 mg
BID LORNA Administration
Cholecalciferol 125 mcg 12/26/24 08:00 12/26/24 07:52
Cholecalciferol (Vitamin D3) 125 Mcg Tablet (5,000 Units) PO 01/23/25 07:59 125 mcg
DAILY LORNA Administration
Duloxetine HCl 30 mg 12/26/24 08:00 12/26/24 07:51
Duloxetine Delayed Release 30 Mg Capsule PO 01/23/25 07:59 30 mg
DAILY LORNA Administration
Famotidine 20 mg 12/26/24 08:00 12/26/24 07:52
Famotidine 20 Mg Tablet PO 01/23/25 07:59 20 mg
BID LORNA Administration
Ferrous Sulfate 325 mg 12/26/24 08:00 12/26/24 07:52
Ferrous Sulfate 325 Mg Tablet PO 01/23/25 07:59 325 mg
DAILY LORNA Administration
Furosemide 20 mg 12/26/24 08:00 12/26/24 07:52
Furosemide 20 Mg Tablet PO 01/23/25 07:59 20 mg
DAILY LORNA Administration
Gabapentin 600 mg 12/26/24 08:00 12/26/24 07:51
Gabapentin 300 Mg Capsule PO 01/23/25 07:59 600 mg
TID LORNA Administration
Labetalol HCl 10 mg 12/26/24 00:30 12/26/24 06:28
Labetalol Hcl 5 Mg/1 Ml (20 Mg/4 Ml) Injection IV 01/22/25 23:39 10 mg
Q6HPRN PRN Administration
SBP>160 and/or DBP>100
Losartan Potassium 25 mg 12/26/24 08:00 12/26/24 07:52
Losartan 25 Mg Tablet PO 01/23/25 07:59 25 mg
DAILY LORNA Administration
Ondansetron HCl 4 mg 12/25/24 23:40
Ondansetron 4 Mg Tablet PO 01/22/25 23:39
Q8HPRN PRN
nausea
Oxycodone HCl 15 mg 12/26/24 00:58 12/26/24 07:53
Oxycodone 15 Mg Regular Release Tablet PO 01/09/25 00:57 15 mg
Q6HPRN PRN Administration
severe pain
Pantoprazole Sodium 40 mg 12/26/24 08:00 12/26/24 07:51
Pantoprazole 40 Mg Delayed Release Tablet PO 01/23/25 07:59 40 mg
DAILY LORNA Administration
Polyethylene Glycol 17 grams 12/26/24 08:00 12/26/24 07:53
Polyethylene Glycol Powder 17 Grams Packet PO 01/23/25 07:59 17 grams
DAILY LORNA Administration
Sodium Chloride 0 flush 12/25/24 23:00
Sodium Chloride 0.9% (Flush) Syringe IV 01/22/25 22:59
PER PROTOCOL LORNA
Tamsulosin HCl 0.4 mg 12/26/24 22:00
Tamsulosin 0.4 Mg Capsule PO 01/23/25 21:59
HS LORNA
Terazosin HCl 2 mg 12/26/24 22:00
Terazosin 1 Mg Capsule PO 01/23/25 21:59
HS LORNA
Trazodone HCl 150 mg 12/26/24 22:00
Trazodone 150 Mg Tablet PO 01/23/25 21:59
HS LORNA
Vitamin B Complex/Vitamin C 1 caplet 12/26/24 08:00 12/26/24 07:52
Vitamin B Complex With Vitamin C Caplet PO 01/23/25 07:59 1 caplet
DAILY LORNA Administration
Vitamin E 400 units 12/26/24 08:00 12/26/24 07:52
Vitamin E 400 International Units Capsule (180 Mg) PO 01/23/25 07:59 400 units
DAILY LORNA Administration
Home Medications
-
Home Medications
apixaban 5 mg tablet (Eliquis) 5 mg PO BID Blood clot prevention/tx 01/16/22
furosemide 20 mg tablet 20 mg PO DAILY Fluid retention/Swelling 09/13/22
trazodone 150 mg tablet 150 mg PO HS Depression/sleep 09/13/22
famotidine 20 mg tablet (Pepcid) 20 mg PO BID Gastrointestinal issue 02/17/23
hydralazine 10 mg tablet 10 mg PO TID Blood Pressure 04/03/23
vitamin B complex 1 cap PO DAILY Supplement ##0 04/03/23
atorvastatin 20 mg tablet (Lipitor) 20 mg PO HS High cholesterol 04/12/23
cholecalciferol (vitamin D3) 125 mcg (5,000 unit) tablet (Vitamin D3) 125 mcg PO DAILY Supplement 06/07/23
polyethylene glycol 3350 17 gram/dose oral powder (Miralax) 17 g PO DAILY Constipation 04/14/24
tamsulosin 0.4 mg capsule 0.4 mg PO HS Urinary Issue 04/14/24
acetaminophen 500 mg tablet 1,000 mg PO [id number] PRN fever 09/07/24
carvedilol 3.125 mg tablet (Coreg) 3.125 mg PO BID Blood Pressure 09/07/24
gabapentin 600 mg tablet 600 mg PO TID Pain 09/07/24
losartan 25 mg tablet 25 mg PO DAILY Blood Pressure 09/07/24
pantoprazole 40 mg tablet,delayed release (Protonix) 40 mg PO DAILY GERD 09/07/24
vitamin E 268 mg (400 unit) capsule 268 mg PO DAILY Supplement 09/07/24
bismuth subsalicylate 262 mg/15 mL oral suspension (Kaopectate (bismuth subsalicylate)) 524 mg PO DAILYPRN PRN diarrhea 12/25/24
duloxetine 30 mg capsule,delayed release (Cymbalta) 30 mg PO DAILY 12/25/24
ferrous sulfate 325 mg (65 mg iron) tablet 325 mg PO DAILY 12/25/24
ondansetron HCl 4 mg tablet 4 mg PO Q8HPRN PRN nausea 12/25/24
oxycodone-acetaminophen 5 mg-325 mg tablet 3 tab PO Q6HPRN PRN severe pain 12/25/24
terazosin 2 mg capsule 2 mg PO HS 12/25/24
[2024-12-26] MEDS: PROTONIX 40 MG PO (07:51)
[2024-12-26] MEDS: ELIQUIS 5 MG PO ×2 (07:51→19:47)
[2024-12-26] MEDS: CYMBALTA DELAYED RELEASE 30 MG PO (07:51)
[2024-12-26] MEDS: NEURONTIN 600 MG PO ×3 (07:51→22:27)
[2024-12-26] MEDS: COREG 3.125 MG PO ×2 (07:52→19:47)
[2024-12-26] MEDS: VITAMIN D3 (cholecalciferol) 125 MCG PO (07:52)
[2024-12-26] MEDS: FEOSOL 325 MG PO (07:52)
[2024-12-26] MEDS: COZAAR 25 MG PO ×2 (07:52→14:55)
[2024-12-26] MEDS: B COMPLEX w/VITAMIN C 1 CAPLET PO (07:52)
[2024-12-26] MEDS: VITAMIN E 400 UNITS PO (07:52)
[2024-12-26] MEDS: LASIX 20 MG PO (07:52)
[2024-12-26] MEDS: PEPCID 20 MG PO ×2 (07:52→19:47)
[2024-12-26] MEDS: MIRALAX 17 GRAMS PO (07:53)
[2024-12-26 08:55] LABS: Erythrocyte Sed Rate 3 mm/hour (0-20)
[2024-12-26 10:16] LABS: C-Reactive Protein < 5.00 mg/L (0.0-10.00)
[2024-12-26 10:46] LABS: TSH Reflex To Free T4 0.64 uIU/ml (0.47-4.68)
[2024-12-26 10:48] LABS: Amphetamines Negative (Negative); Barbiturates Negative (Negative); Benzodiazepines Negative (Negative); Buprenorphine Negative (Negative); Cocaine Negative (Negative); Marijuana Negative (Negative); Methadone Negative (Negative); Methamphetamines Negative (Negative); Opiates Positive (Negative); Phencyclidine Negative (Negative); Tricyclic Antidepressants Negative (Negative)
[2024-12-26 11:21] LABS: Fentanyl, Urine Negative (Negative)
--- NOTE | 2024-12-26 14:12 | W.PN.HOSP.TC ---
Today's Communication/Plan
-
Increase the dose of losartan.
Follow CTA report
Continue with symptomatic treatments for headache.
DC planning
Assessment / Plan
Assessment / Plan
#headache
Primary versus hypertension related
CT of the head shows no evidence of acute stroke or bleeding.
Appreciate neurology input-they are requesting a CTA head and neck to rule out any thrombosis or dissection.
Improved headache so far.
#hypertension urgency
#Essential hypertension
Head CT: No evidence of acute intracranial abnormality
No evidence of congestive failure. Creatinine is 0.7.
He is on Coreg, Lasix, low-dose hydralazine, low-dose losartan
DC Coreg and Lasix in the setting of heart failure. Unclear why he is at a low dose of losartan with normal kidney function. Do not know why he is on hydralazine as there is no compelling indication for its use. Increase the dose of losartan.
#paroxysmal atrial fibrillation and flutter
s/p permanent pacer
- continue Eliquis and carvedilol
#Gastroesophageal reflux disease
- continue famotidine and omeprazole
#Chronic HFpEF
-Compensated
- continue carvedilol, and furosemide
- daily weights
#Benign prostatic hypertrophy
- continue tamsulosin and terazosin
#Hyperlipidemia
- continue atorvastatin
#Anxiety
#Depression
- continue Cymbalta and trazodone
#Chronic back pain, spinal stenosis, and degenerative disc disease with chronic opioid use with dependence
- continue gabapentin, PRN Percocet
#Obstructive sleep
#h/o Klebsiella pneumonia and coagulase-negative Staphylococcus infected hardware in L4-L5 (April 2023) treated with Chronic neuropathy
#HX C. difficile
Code status: full code
DVT prophylaxis: Eliquis
Anticipated Discharge: Within 24 hours
Subjective/Interval History
-
Date of Service: December 26, 2024
Feeling improved with a headache now 2 out of 10 compared to 10 out of 10. It is in the left frontal area.
No associated photophobia or phonophobia. No nausea vomiting.
No new symptoms.
Objective Data
-
Labs:
Laboratory Results
12/26/24
05:45
WBC 4.0 L
Hgb 12.0 L
Hct 36.6 L
Plt Count 119 L
Sodium 132 L
Potassium 4.0
Chloride 96 L
Carbon Dioxide 26
BUN 12
Creatinine 0.7
Glucose 100 H
Calcium 9.2
Vital Signs:
Vital Signs
Temp Pulse Resp BP Pulse Ox
98 F 75 16 152/95 93
12/26/24 11:21 12/26/24 13:42 12/26/24 11:21 12/26/24 13:42 12/26/24 11:21
I&O
12/25/24 12/26/24 12/27/24
06:59 06:59 06:59
Intake Total 240 / 240
Balance 240 / 240
Review of Systems
-
Constitutional: Denies Fever
Respiratory: Denies Trouble Breathing
Cardiac: Denies Chest Pain
Abdomen/GI: Denies Abdominal Pain, Nausea or Vomiting
Neuro: Denies Dizzy
Physical Exam
-
General: No Apparent Distress
HEENT: Moist Mucous Membranes
Respiratory: Clear to Auscultation
Cardiac: Regular Rhythm and S1/S2; Negative JVD
Musculoskeletal: No Edema
Neuro: AO x 3 and No Motor Deficits
Psych: Calm; Negative Confused
Data Reviewed
-
Labs: Labs Reviewed by me
[2024-12-26 16:26] LABS: Lyme Antibody Screen, EIA Negative (Negative)
[2024-12-26] MEDS: HYTRIN 2 MG PO (22:27)
[2024-12-26] MEDS: LIPITOR 20 MG PO (22:28)
[2024-12-26] MEDS: DESYREL 150 MG PO (22:28)
[2024-12-26] MEDS: FLOMAX 0.4 MG PO (22:28)
[2024-12-27] VITALS (8 sets, daily range): BP systolic 87–161; BP diastolic 53–94; PULSE 75–79; BMI 25.2
--- NOTE | 2024-12-27 08:00 | W.PN.NEURO.1 ---
Today's Communication / Plan
-
.
Subjective/Objective
Subjective Data
Date of Service: December 27, 2024
Neurology follow-up note
24-hour events. Fever 38.8C
Mr. Carpio endorses 3 episodes of diarrhea. His headache has resolved. No change in vision, strength and sensation.
Labs: WBCs�4.0, sodium�132, glucose�100, Lyme-neg, CRP, ESR, TSH�normal
CTA head and neck�no evidence of dissection or thrombosis.
PMH: PA A-fib, chronic pain syndrome, chronic wedge compression of T8 and T7, h/o cervical;/lumbar spinal stenosis, HTN, DLP, HFpEF, BPH, GILLES, GERD, JONAS,
PSH: intrathecal pain pump(removed), C4-C6, L4-5 fusion, bioprosthetic AVR, PPM (MRI compatible), hemorrhoidectomy, [employer]
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
FH: not contributory
All: Amiodarone, amlodipine, penicillin, benzyl alcohol, clindamycin, HCTZ, meloxicam, sulfas, tizanidine,
ROS: Constitutional: Negative. Negative for chills, fever and unexpected weight change.
HENT: Negative for ear pain, hearing loss, tinnitus and trouble swallowing.
Eyes: Negative. Negative for photophobia, pain and visual disturbance.
Respiratory: Negative for cough, choking and shortness of breath.
Cardiovascular: Negative for chest pain, palpitations and leg swelling.
Gastrointestinal: Negative for abdominal pain and vomiting.
Endocrine: Negative. Negative for cold intolerance.
Genitourinary: Negative for dysuria, flank pain and urgency.
Musculoskeletal: Positive for chronic back pain
Skin: Negative for rash.
Allergic/Immunologic: Negative. Negative for immunocompromised state.
Neurological: Positive for headache
Psychiatric/Behavioral: Negative for behavioral problems, confusion and hallucinations.
General: Well developed. In no acute distress.
Cardio: Regular rate and rhythm without murmur. Extremities are without cyanosis or edema.
Neuro:
Mental Status: Alert, oriented to person, place, and date. Good fund of knowledge. Follows complex requests across the midline. Comprehension, naming, and repetition intact.
Cranial Nerves: Pupils are equally round and reactive to light. EOMs full. Visual biggs full to confrontation. No ptosis. No nystagmus. V1-V3 intact to light touch and pinprick bilaterally, symmetric. Face symmetric. Mildly impaired hearing
AU. The palate elevated well. SCMs and traps 5/5. Tongue midline. No dysarthria.
Motor: Normal bulk and tone. No pronator or arm drift. Strength 5/5 throughout. No clonus.
Reflexes: 2+ throughout the upper extremities and trace knees. Plantar responses flexor bilaterally.
Sensory: normal vibration at the ankles
Coordination: No dysmetria or tremor.
Gait: deferred
Assessment and Plan:
I. Transient headache in settings of fever/diarrhea. No evidence of cranial nerve dysfunction, encephalopathy.
II. Chronic pain syndrome
III. Ambulatory dysfunction
-Continue clinical monitoring
-Continue gabapentin 600 mg PO TID and Duloxetine 30 mg capsule
-Please recall neurology services any questions or concerns
I personally reviewed all radiology and labs along with past medical records pertinent to current medical problems. Total time spent in patient care is 36 minutes.
Thank you for allowing us to participate in the care of this patient. Please do not hesitate to contact us with any questions or concerns.
Objective Data
Vital Signs
Temp Pulse Resp BP Pulse Ox
38.8 C H 90 16 147/79 93
12/27/24 07:43 12/27/24 07:43 12/27/24 07:43 12/27/24 07:43 12/27/24 07:43
Lab Results
12/26/24 05:45
12/26/24 05:45
Sodium 132 mmol/L (135-145) L 12/26/24 05:45
Potassium 4.0 mmol/L (3.5-5.1) 12/26/24 05:45
BUN 12 mg/dl (9-20) 12/26/24 05:45
Glucose 100 mg/dl (70-99) H 12/26/24 05:45
Calcium 9.2 mg/dl (8.4-10.2) 12/26/24 05:45
Ur Buprenorphine Negative (Negative) 12/26/24 10:27
Patient Allergies
amiodarone Allergy (Verified 12/25/24 13:02)
Unknown
amlodipine Allergy (Verified 12/25/24 13:02)
Swelling - 1993
benzyl alcohol Allergy (Verified 12/25/24 13:02)
Unknown
clindamycin Allergy (Verified 12/25/24 13:02)
Unknown
hydrochlorothiazide Allergy (Verified 12/25/24 13:02)
Hyponatremia
meloxicam Allergy (Verified 12/25/24 13:02)
Unknown
polysorbate 80 Allergy (Verified 12/25/24 13:02)
Unknown
sulfamethoxazole [From Bactrim] Allergy (Verified 12/25/24 13:02)
Unknown
tizanidine [From Zanaflex] Allergy (Verified 12/25/24 13:02)
took from patient history and physical from surgeon
trimethoprim [From Bactrim] Allergy (Verified 12/25/24 13:02)
Unknown
Vital Signs and Labs
-
Vital Signs and Labs:
Vital Signs
Temp Pulse Resp BP Pulse Ox
38.8 C H 90 16 147/79 93
12/27/24 07:43 12/27/24 07:43 12/27/24 07:43 12/27/24 07:43 12/27/24 07:43
Lab Results
12/26/24 05:45
12/26/24 05:45
Sodium 132 mmol/L (135-145) L 12/26/24 05:45
Potassium 4.0 mmol/L (3.5-5.1) 12/26/24 05:45
BUN 12 mg/dl (9-20) 12/26/24 05:45
Glucose 100 mg/dl (70-99) H 12/26/24 05:45
Calcium 9.2 mg/dl (8.4-10.2) 12/26/24 05:45
Ur Buprenorphine Negative (Negative) 12/26/24 10:27
Medications
-
Medications:
Generic Name Dose Route Start Last Admin
Trade Name Freq PRN Reason Stop Dose Admin
Acetaminophen 650 mg 12/25/24 23:40 12/26/24 00:30
Acetaminophen 325 Mg Tablet PO 01/22/25 23:39 650 mg
Q4HPRN PRN Administration
mild pain/[place]/temp> 100.4F
Apixaban 5 mg 12/26/24 08:00 12/26/24 19:47
Apixaban (Eliquis) 5 Mg Tablet PO 01/23/25 07:59 5 mg
BID LORNA Administration
Atorvastatin Calcium 20 mg 12/26/24 22:00 12/26/24 22:28
Atorvastatin (Lipitor) 20 Mg Tablet PO 01/23/25 21:59 20 mg
HS LORNA Administration
Carvedilol 3.125 mg 12/26/24 08:00 12/26/24 19:47
Carvedilol 3.125 Mg Tablet PO 01/23/25 07:59 3.125 mg
BID LORNA Administration
Cholecalciferol 125 mcg 12/26/24 08:00 12/26/24 07:52
Cholecalciferol (Vitamin D3) 125 Mcg Tablet (5,000 Units) PO 01/23/25 07:59 125 mcg
DAILY LORNA Administration
Duloxetine HCl 30 mg 12/26/24 08:00 12/26/24 07:51
Duloxetine Delayed Release 30 Mg Capsule PO 01/23/25 07:59 30 mg
DAILY LORNA Administration
Famotidine 20 mg 12/26/24 08:00 12/26/24 19:47
Famotidine 20 Mg Tablet PO 01/23/25 07:59 20 mg
BID LORNA Administration
Ferrous Sulfate 325 mg 12/26/24 08:00 12/26/24 07:52
Ferrous Sulfate 325 Mg Tablet PO 01/23/25 07:59 325 mg
DAILY LORNA Administration
Furosemide 20 mg 12/26/24 08:00 12/26/24 07:52
Furosemide 20 Mg Tablet PO 01/23/25 07:59 20 mg
DAILY LORNA Administration
Gabapentin 600 mg 12/26/24 08:00 12/26/24 22:27
Gabapentin 300 Mg Capsule PO 01/23/25 07:59 600 mg
TID LORNA Administration
Labetalol HCl 10 mg 12/26/24 00:30 12/26/24 19:48
Labetalol Hcl 5 Mg/1 Ml (20 Mg/4 Ml) Injection IV 01/22/25 23:39 10 mg
Q6HPRN PRN Administration
SBP>160 and/or DBP>100
Losartan Potassium 50 mg 12/27/24 08:00
Losartan 50 Mg Tablet PO 01/24/25 07:59
DAILY LORNA
Ondansetron HCl 4 mg 12/25/24 23:40
Ondansetron 4 Mg Tablet PO 01/22/25 23:39
Q8HPRN PRN
nausea
Oxycodone HCl 15 mg 12/26/24 00:58 12/26/24 22:27
Oxycodone 15 Mg Regular Release Tablet PO 01/09/25 00:57 15 mg
Q6HPRN PRN Administration
severe pain
Pantoprazole Sodium 40 mg 12/26/24 08:00 12/26/24 07:51
Pantoprazole 40 Mg Delayed Release Tablet PO 01/23/25 07:59 40 mg
DAILY LORNA Administration
Polyethylene Glycol 17 grams 12/26/24 08:00 12/26/24 07:53
Polyethylene Glycol Powder 17 Grams Packet PO 01/23/25 07:59 17 grams
DAILY LORNA Administration
Sodium Chloride 0 flush 12/25/24 23:00
Sodium Chloride 0.9% (Flush) Syringe IV 01/22/25 22:59
PER PROTOCOL LORNA
Tamsulosin HCl 0.4 mg 12/26/24 22:00 12/26/24 22:28
Tamsulosin 0.4 Mg Capsule PO 01/23/25 21:59 0.4 mg
HS LORNA Administration
Terazosin HCl 2 mg 12/26/24 22:00 12/26/24 22:27
Terazosin 1 Mg Capsule PO 01/23/25 21:59 2 mg
HS LORNA Administration
Trazodone HCl 150 mg 12/26/24 22:00 12/26/24 22:28
Trazodone 150 Mg Tablet PO 01/23/25 21:59 150 mg
HS LORNA Administration
Vitamin B Complex/Vitamin C 1 caplet 12/26/24 08:00 12/26/24 07:52
Vitamin B Complex With Vitamin C Caplet PO 01/23/25 07:59 1 caplet
DAILY LORNA Administration
Vitamin E 400 units 12/26/24 08:00 12/26/24 07:52
Vitamin E 400 International Units Capsule (180 Mg) PO 01/23/25 07:59 400 units
DAILY LORNA Administration
Home Medications
-
Home Medications
apixaban 5 mg tablet (Eliquis) 5 mg PO BID Blood clot prevention/tx 01/16/22
furosemide 20 mg tablet 20 mg PO DAILY Fluid retention/Swelling 09/13/22
trazodone 150 mg tablet 150 mg PO HS Depression/sleep 09/13/22
famotidine 20 mg tablet (Pepcid) 20 mg PO BID Gastrointestinal issue 02/17/23
hydralazine 10 mg tablet 10 mg PO TID Blood Pressure 04/03/23
vitamin B complex 1 cap PO DAILY Supplement ##0 04/03/23
atorvastatin 20 mg tablet (Lipitor) 20 mg PO HS High cholesterol 04/12/23
cholecalciferol (vitamin D3) 125 mcg (5,000 unit) tablet (Vitamin D3) 125 mcg PO DAILY Supplement 04/12/23
polyethylene glycol 3350 17 gram/dose oral powder (Miralax) 17 g PO DAILY Constipation 04/14/24
tamsulosin 0.4 mg capsule 0.4 mg PO HS Urinary Issue 04/14/24
acetaminophen 500 mg tablet 1,000 mg PO [id number] PRN fever 09/07/24
carvedilol 3.125 mg tablet (Coreg) 3.125 mg PO BID Blood Pressure 09/07/24
gabapentin 600 mg tablet 600 mg PO TID Pain 09/07/24
losartan 25 mg tablet 25 mg PO DAILY Blood Pressure 09/07/24
pantoprazole 40 mg tablet,delayed release (Protonix) 40 mg PO DAILY GERD 09/07/24
vitamin E 268 mg (400 unit) capsule 268 mg PO DAILY Supplement 09/07/24
bismuth subsalicylate 262 mg/15 mL oral suspension (Kaopectate (bismuth subsalicylate)) 524 mg PO DAILYPRN PRN diarrhea 12/25/24
duloxetine 30 mg capsule,delayed release (Cymbalta) 30 mg PO DAILY 12/25/24
ferrous sulfate 325 mg (65 mg iron) tablet 325 mg PO DAILY 12/25/24
ondansetron HCl 4 mg tablet 4 mg PO Q8HPRN PRN nausea 12/25/24
oxycodone-acetaminophen 5 mg-325 mg tablet 3 tab PO Q6HPRN PRN severe pain 12/25/24
terazosin 2 mg capsule 2 mg PO HS 12/25/24
--- NOTE | 2024-12-27 08:28 | CM ---
Late note. Patient seen 12/26/24. Patient lives in independent apartment at [place]. Patient PCP is Dr. Artis and he uses the [facility] on [address], [place]. Patient has a walker and a cane at home. Patient sons help and Patient
was uncertain about personal care/assisted living services. CM will call to [facility] to confirm status and supports available. CM will continue to follow for discharge planning needs.
Plan; home with VN vs personal care at [place] vs SNF pending medical treatment plan
[2024-12-27 08:44] LABS: Magnesium 2.1 mg/dl (1.6-2.3)
[2024-12-27] MEDS: ELIQUIS 5 MG PO ×2 (09:22→19:58)
[2024-12-27] MEDS: TYLENOL 650 MG PO ×2 (09:22→23:29)
[2024-12-27] MEDS: NEURONTIN 600 MG PO ×3 (09:22→22:10)
[2024-12-27] MEDS: PEPCID 20 MG PO ×2 (09:23→19:58)
[2024-12-27] MEDS: PROTONIX 40 MG PO (09:23)
[2024-12-27] MEDS: B COMPLEX w/VITAMIN C 1 CAPLET PO (09:23)
[2024-12-27] MEDS: CYMBALTA DELAYED RELEASE 30 MG PO (09:23)
[2024-12-27] MEDS: FEOSOL 325 MG PO (09:23)
[2024-12-27] MEDS: VITAMIN E 400 UNITS PO (09:23)
[2024-12-27] MEDS: VITAMIN D3 (cholecalciferol) 125 MCG PO (09:23)
[2024-12-27] MEDS: COREG 3.125 MG PO ×2 (09:24→19:57)
[2024-12-27] MEDS: COZAAR 50 MG PO (09:24)
[2024-12-27] MEDS: LASIX 20 MG PO (09:24)
[2024-12-27] MEDS: MIRALAX PO (09:24)
[2024-12-27] MEDS: ROXICODONE 15 MG PO (09:25)
--- NOTE | 2024-12-27 10:19 | PN.CDI ---
CDI
- -
CDI:
Physician Documentation Request
Admit Date: 12/25/24 22:39
Dear Doctor Zeeshan,
Please review the following and provide your response in the progress notes.
Clinical Indicators:
Pt admitted with headache and hypertensive urgency.
Laboratory Tests
12/25/24 12/26/24
13:06 05:45
Sodium 130 L 132 L
Based on the above, could you clarify in the progress notes, the appropriate diagnosis, if significant, that supports the above lab abnormalities and additional evaluation, monitoring and/or treatment rendered:
Hyponatremia
Insignificant abnormal lab results
Other
Use of terms such as suspected, likely, concern for, or probable (associated with a specific diagnosis that is being evaluated, monitored, or treated as if it exists) are acceptable and can be coded in the inpatient setting, when documented at the
time of discharge.
Thank you,
Elida Mark RN, BSN
CDI Specialist
[place] text
Please use your independent medical judgment in providing your response.
--- NOTE | 2024-12-27 10:29 | PN.CDI ---
CDI
- -
CDI:
Physician Documentation Request
Admit Date: 12/25/24 22:39
Dear Doctor Zeeshan,
Please review the following and provide your response in the progress notes.
Clinical Indicators:
Pt admitted with headache and hypertensive urgency.
Laboratory Tests
12/25/24 12/26/24
13:06 05:45
WBC 3.7 L 4.0 L
Hgb 11.4 L 12.0 L
Plt Count 107 L 119 L
Based on the above, could you clarify in the progress notes, the appropriate diagnosis, if significant, that supports the above lab abnormalities and additional evaluation, monitoring and/or treatment rendered.
Pancytopenia
Insignificant abnormal lab values
Other
Use of terms such as suspected, likely, concern for, or probable (associated with a specific diagnosis that is being evaluated, monitored, or treated as if it exists) are acceptable and can be coded in the inpatient setting, when documented at the
time of discharge.
Thank you,
lEida Mark RN, BSN
CDI Specialist
[place] Text
Please use your independent medical judgment in providing your response.
[2024-12-27 14:01] LABS: HIV Combo Negative (Negative)
--- NOTE | 2024-12-27 14:11 | CM ---
Patient seen at bedside. Patient states that he lives in personal care. CM called to [facility] and left for Liaison at [facility] to confirm prior level of care. Per physician not medically appropriate today for discharge. CM will continue to follow for
discharge planning needs.
Plan; home with VN to personal care vs SNF; watch for PT/OT assessment needs.
--- NOTE | 2024-12-27 14:22 | W.PN.HOSP.TC ---
Today's Communication/Plan
-
See above
Assessment / Plan
Assessment / Plan
#headache
Primary versus hypertension related
CT of the head shows no evidence of acute stroke or bleeding.
Appreciate neurology input-they are requesting a CTA head and neck no dissection or significant stenosis
Resolved
#hypertension urgency
#Essential hypertension
Head CT: No evidence of acute intracranial abnormality
No evidence of congestive failure. Creatinine is 0.7.
He is on Coreg, Lasix, low-dose hydralazine, low-dose losartan
cw Coreg and Lasix in the setting of heart failure. Unclear why he is at a low dose of losartan with normal kidney function. Do not know why he is on hydralazine as there is no compelling indication for its use. Increased the dose of losartan.
Blood pressure much under control with Coreg, Lasix and losartan. Not requiring hydralazine. Unclear poor control while on 4 medication but requiring only 3 medication here.
Patient states he lives in an assisted living facility and his medications are premade and they are administered by the nursing staff at this facility.
#Febrile illness with diarrhea and abdo pain
He is on Miralax -hold
Check c diff and wbc in stool
Check CT A/P due to tenderness
Check Flu and Covid
#paroxysmal atrial fibrillation and flutter
s/p permanent pacer
- continue Eliquis and carvedilol
#Gastroesophageal reflux disease
- continue famotidine and omeprazole
#Chronic HFpEF
-Compensated
- continue carvedilol, and furosemide
- daily weights
#Benign prostatic hypertrophy
- continue tamsulosin and terazosin
#Hyperlipidemia
- continue atorvastatin
#Anxiety
#Depression
- continue Cymbalta and trazodone
#Chronic back pain, spinal stenosis, and degenerative disc disease with chronic opioid use with dependence
- continue gabapentin, PRN Percocet
#Obstructive sleep
#h/o Klebsiella pneumonia and coagulase-negative Staphylococcus infected hardware in L4-L5 (April 2023) treated with Chronic neuropathy
#HX C. difficile
Code status: full code
DVT prophylaxis: Eliquis
Anticipated Discharge: 24 - 48 hours
Subjective/Interval History
-
Date of Service: December 27, 2024
Headache is resolved.
Patient now complains of loose stools. He had 4 loose stool so far. And he was incontinent of them. Nonspecific discomfort in abdomen. Feels bit nauseous but no vomiting.
He is now starting to have fever. Denies any chronic inflammatory bowel disease or chronic diarrhea.
Denies use of any antibiotics.
Objective Data
-
Vital Signs:
Vital Signs
Temp Pulse Resp BP Pulse Ox
98.5 F 75 16 99/60 93
12/27/24 11:16 12/27/24 11:16 12/27/24 11:16 12/27/24 11:16 12/27/24 11:16
I&O
12/26/24 12/27/24 12/28/24
06:59 06:59 06:59
Intake Total 240 / 240 1200 / 1200
Balance 240 / 240 1200 / 1200
Review of Systems
-
Constitutional: Reports Fever; Denies Chills
EENT: Denies Sore Throat
Respiratory: Denies Cough or Trouble Breathing
Cardiac: Denies Chest Pain
Neuro: Denies Dizzy or Headache
Physical Exam
-
General: No Apparent Distress
HEENT: Moist Mucous Membranes
Respiratory: Clear to Auscultation
Cardiac: Regular Rhythm and S1/S2
GI: Soft, Nondistended, Normal Bowel Sounds and Tender (Left side of abdomen and epigastric area . No rebound or guarding)
Neuro: AO x 3
Psych: Calm
Data Reviewed
-
Labs: Labs Reviewed by me
[2024-12-27] MEDS: OMNIPAQUE 50 ML PO (14:53)
[2024-12-27 15:31] LABS: Hematocrit 36.1 % (39.0-52.0); Hemoglobin 12.1 g/dL (13.0-18.0); Mean Corp Hgb Conc. 33.5 g/dL (33.0-37.0); Mean Corpuscular Hgb 30.7 pg (27.0-31.0); Mean Corpuscular Volume 91.6 fL (80.0-94.0); Mean Platelet Volume 9.5 fL (7.4-10.4); Platelet Count 140 10^3/uL (130-400); Red Blood Cell Count 3.94 10^6/uL (4.70-6.10); Red Cell Dist. Width 14.6 % (11.5-14.5); White Blood Cell Count 12.3 10^3/uL (4.8-10.8)
[2024-12-27 15:40] LABS: COVID-19 Antigen Negative (Negative)
[2024-12-27] MEDS: FLOMAX 0.4 MG PO (22:10)
[2024-12-27] MEDS: LIPITOR 20 MG PO (22:10)
[2024-12-27] MEDS: HYTRIN 2 MG PO (22:10)
[2024-12-27] MEDS: DESYREL 150 MG PO (22:10)
--- NOTE | 2024-12-27 23:09 | W.PN.UPDATE ---
Update Note
Progress Note Update
Received a TT from Dr Byers. He reviewed Ct abd from today, which showed : SEVERE ACUTE INFECTIOUS PANCOLITIS (greatest in the ascending colon) which appears new from 11/29/2024.
Asked to start pt on ceftriaxone 1gm iv and flagyl 500mg iv tid
obtain stool studies
[2024-12-27] MEDS: ROCEPHIN 1000 MG IV (23:29)
[2024-12-27] MEDS: STERILE WATER FOR INJECTION 10 ML IV (23:29)
[2024-12-27] MEDS: FLAGYL 500 MG 100 IV (23:29)
[2024-12-28 03:41] VITALS: BP 92/56
[2024-12-28 06:00] VITALS: BMI 25.3
[2024-12-28] MEDS: ROXICODONE 15 MG PO ×2 (06:31→12:23)
[2024-12-28 07:00] VITALS: BP 109/63
[2024-12-28 08:15] LABS: Blood Urea Nitrogen 27 mg/dl (9-20); Calcium 8.7 mg/dl (8.4-10.2); Carbon Dioxide 24 mmol/L (22-30); Chloride 92 mmol/L (98-107); Estimated Creatinine Clearance 41 ml/min; Glucose 93 mg/dl (70-99); Potassium 3.2 mmol/L (3.5-5.1); Sodium 128 mmol/L (135-145); eGFR 51.45
[2024-12-28] MEDS: PROTONIX 40 MG PO (08:23)
[2024-12-28] MEDS: FLAGYL 500 MG 100 IV (08:23)
[2024-12-28] MEDS: ELIQUIS 5 MG PO ×2 (08:24→21:06)
[2024-12-28] MEDS: COZAAR 50 MG PO (08:24)
[2024-12-28] MEDS: LASIX 20 MG PO (08:24)
[2024-12-28] MEDS: B COMPLEX w/VITAMIN C 1 CAPLET PO (08:24)
[2024-12-28] MEDS: VITAMIN E 400 UNITS PO (08:24)
[2024-12-28] MEDS: VITAMIN D3 (cholecalciferol) 125 MCG PO (08:24)
[2024-12-28] MEDS: FEOSOL 325 MG PO (08:24)
[2024-12-28] MEDS: PEPCID 20 MG PO (08:24)
[2024-12-28] MEDS: NEURONTIN 600 MG PO (08:24)
[2024-12-28] MEDS: CYMBALTA DELAYED RELEASE 30 MG PO (08:24)
[2024-12-28] MEDS: COREG 3.125 MG PO ×2 (08:24→21:06)
[2024-12-28] MEDS: MIRALAX PO (08:25)
[2024-12-28 11:00] VITALS: BP 108/71
[2024-12-28] MEDS: FIRVANQ 250 MG PO ×3 (13:09→23:26)
[2024-12-28 15:00] VITALS: BP 118/57
[2024-12-28] MEDS: D5/0.45%NSS with KCL 10 MEQ 1000 IV (15:29)
[2024-12-28] MEDS: NEURONTIN 300 MG PO ×2 (15:30→21:05)
[2024-12-28] MEDS: KCL 40 MEQ PO (15:30)
--- NOTE | 2024-12-28 15:53 | W.PN.HOSP.TC ---
Today's Communication/Plan
-
see plan above
Assessment / Plan
Assessment / Plan
#headache
Primary versus hypertension related
CT of the head shows no evidence of acute stroke or bleeding.
Appreciate neurology input-they are requesting a CTA head and neck no dissection or significant stenosis
Resolved
#hypertension urgency
#Essential hypertension
Head CT: No evidence of acute intracranial abnormality
No evidence of congestive failure. Creatinine is 0.7.
He is on Coreg, Lasix, low-dose hydralazine, low-dose losartan
cw Coreg and Lasix in the setting of heart failure. Unclear why he is at a low dose of losartan with normal kidney function. Do not know why he is on hydralazine as there is no compelling indication for its use. Increased the dose of losartan.
Blood pressure much under control with Coreg, Lasix and losartan. Not requiring hydralazine. Unclear poor control while on 4 medication but requiring only 3 medication here.
Patient states he lives in an assisted living facility and his medications are premade and they are administered by the nursing staff at this facility.
#Febrile illness with diarrhea and abdo pain
#Pancolitis
#C. difficile positivity
Clinical scenario is concerning for C. difficile acute infection. He had a prior history of that. He was recently on antibiotics during hospital stay.
He is on Miralax -hold
Start on vancomycin.
#Acute kidney injury
Suspicion is prerenal with GI losses. Hold ARB and Lasix. Start on IV fluids. Follow creatinine closely.
#paroxysmal atrial fibrillation and flutter
s/p permanent pacer
- continue Eliquis and carvedilol
#Gastroesophageal reflux disease
- continue famotidine and omeprazole
#Chronic HFpEF
-Compensated
- continue carvedilol, and furosemide
- daily weights
#Benign prostatic hypertrophy
- continue tamsulosin and terazosin
#Hyperlipidemia
- continue atorvastatin
#Anxiety
#Depression
- continue Cymbalta and trazodone
#Chronic back pain, spinal stenosis, and degenerative disc disease with chronic opioid use with dependence
- continue gabapentin, PRN Percocet
#Obstructive sleep
#h/o Klebsiella pneumonia and coagulase-negative Staphylococcus infected hardware in L4-L5 (April 2023) treated with Chronic neuropathy
#HX C. difficile
Code status: full code
DVT prophylaxis: Eliquis
Left a msg to son on his voice mail
Total time spent on today's encounter was 52 minutes which included time spent in counseling the patient/family regarding diagnosis and treatment plan as listed above, goals of care, and symptom management. Case was discussed with nursing staff,
specialists, and care coordinators/case management. All labs and imaging personally reviewed by me. Remainder the time spent in detailed review of previous records, lab data, imaging, and other medical provider documentation.
Anticipated Discharge: > 48 hours
Subjective/Interval History
-
Date of Service: December 28, 2024
Had 2 loose stool. Still having abdominal pain mild to moderate. No nausea vomiting. No fever chills.
Remembers having a C. difficile infection in the past and not sure when.
He says [address] at [facility] had some abdominal issue had antibiotics. He is not sure on details.
Resolved headache.
Objective Data
-
Labs:
Laboratory Results
12/28/24
06:37
Sodium 128 L
Potassium 3.2 L
Chloride 92 L
Carbon Dioxide 24
BUN 27 H
Creatinine 1.4 H
Glucose 93
Calcium 8.7
Vital Signs:
Vital Signs
Temp Pulse Resp BP Pulse Ox
97.6 F 79 17 108/71 97
12/28/24 11:00 12/28/24 11:00 12/28/24 11:00 12/28/24 11:00 12/28/24 11:00
I&O
12/27/24 12/28/24 12/29/24
06:59 06:59 06:59
Intake Total 1200 / 1200 1300 / 1300
Balance 1200 / 1200 1300 / 1300
Physical Exam
-
General: Comfortable
Respiratory: Non Labored Respirations; Negative Accessory Resp Muscle Use
Cardiac: Regular Rhythm and S1/S2
GI: Soft, Nondistended, Normal Bowel Sounds and Tender (In all 4 quadrants but no rebound guarding rigidity)
Neuro: AO x 3
Data Reviewed
-
CT Scan: Report Reviewed by me (CT of the abdomen pelvis)
Labs: Labs Reviewed by me
[2024-12-28 21:04] VITALS: BP 110/60
[2024-12-28] MEDS: FLOMAX 0.4 MG PO (21:05)
[2024-12-28] MEDS: LIPITOR 20 MG PO (21:06)
[2024-12-28] MEDS: DESYREL 150 MG PO (21:07)
[2024-12-28] MEDS: HYTRIN 2 MG PO (21:09)
[2024-12-29] MEDS: STERILE WATER FOR INJECTION IV
[2024-12-29] MEDS: D5/0.45%NSS with KCL 10 MEQ 1000 IV (04:15)
[2024-12-29] MEDS: FIRVANQ 250 MG PO ×4 (05:00→23:53)
[2024-12-29 05:24] LABS: Hematocrit 32.5 % (39.0-52.0); Hemoglobin 11.4 g/dL (13.0-18.0); Mean Corp Hgb Conc. 35.1 g/dL (33.0-37.0); Mean Corpuscular Volume 88.3 fL (80.0-94.0); Mean Platelet Volume 10.1 fL (7.4-10.4); Platelet Count 113 10^3/uL (130-400); Red Blood Cell Count 3.68 10^6/uL (4.70-6.10); Red Cell Dist. Width 14.1 % (11.5-14.5); White Blood Cell Count 10.7 10^3/uL (4.8-10.8)
[2024-12-29 05:51] LABS: Blood Urea Nitrogen 34 mg/dl (9-20); Calcium 8.3 mg/dl (8.4-10.2); Carbon Dioxide 22 mmol/L (22-30); Chloride 93 mmol/L (98-107); Estimated Creatinine Clearance 24 ml/min; Glucose 115 mg/dl (70-99); Potassium 4.2 mmol/L (3.5-5.1); Sodium 126 mmol/L (135-145); eGFR 26.94
[2024-12-29 07:00] VITALS: BP 131/78
[2024-12-29] MEDS: VITAMIN D3 (cholecalciferol) 125 MCG PO (08:37)
[2024-12-29] MEDS: FEOSOL 325 MG PO (08:37)
[2024-12-29] MEDS: COREG 3.125 MG PO ×2 (08:38→20:50)
[2024-12-29] MEDS: B COMPLEX w/VITAMIN C 1 CAPLET PO (08:38)
[2024-12-29] MEDS: PROTONIX 40 MG PO (08:38)
[2024-12-29] MEDS: VITAMIN E 400 UNITS PO (08:38)
[2024-12-29] MEDS: ELIQUIS 5 MG PO ×2 (08:38→20:50)
[2024-12-29] MEDS: NEURONTIN 300 MG PO ×3 (08:38→21:42)
[2024-12-29] MEDS: MIRALAX PO (08:38)
[2024-12-29] MEDS: CYMBALTA DELAYED RELEASE 30 MG PO (08:38)
[2024-12-29] MEDS: PEPCID 20 MG PO (08:38)
[2024-12-29] MEDS: ROXICODONE 15 MG PO ×2 (08:45→18:08)
[2024-12-29] MEDS: NSS 1000 IV ×2 (13:31→23:04)
[2024-12-29 13:44] LABS: Osmolality Urine 304 mOsm/kg (300-900)
--- NOTE | 2024-12-29 13:55 | W.CON.NEPH ---
Consultation
-
Date/Time Consultation Requested: 12/29/2024 12 PM
Date/Time Consultation Performed: 12/29/2024 2 PM
Requesting Provider: Dr. Byers
Performing Provider: Dr. Leyva
Reason for Consultation: HEVER
Medical History
-
Chief Complaint: Hyponatremia
History of Present Illness:
This is a 79-year-old gentleman who has significant hypertension on a multidrug regimen who follows with Dr. More in the office on an as needed basis. Typically his blood pressures have been well-controlled. He currently resides in assisted
living. He does have chronic hyponatremia and is treated with Lasix therapy. He had previously been on urea tablets as well though seems that this has been discontinued. He was sent to the emergency room because of significant left-sided headache
and was found to be significantly hypertensive. His hypertensive urgency was treated with antihypertensive medications with improvement. His headache has since resolved. However, he then developed abdominal pain and imaging study disclosed
pancolitis and he is C. difficile positive. He is creatinine, at baseline of 0.9 at the time of admission has now risen up to 2.4 representing acute kidney injury. His chronic hyponatremia has worsened as well.
Past Medical History
paroxysmal atrial fibrillation and flutter
Chronic back pain, spinal stenosis, and degenerative disc disease with chronic opioid use with dependence
Essential hypertension
h/o Klebsiella pneumonia and coagulase-negative Staphylococcus infected hardware in L4-L5 (April 2023) treated with Chronic neuropathy
Gastroesophageal reflux disease
Chronic HFpEF
Benign prostatic hypertrophy
Hyperlipidemia
h/o permanent pacer
h/o aortic valve x 2
Obstructive sleep
Anxiety
Depression
HX C. difficile
Chronic hyponatremia
History of pain pump infection with removal
Pacer and aortic valve replaced
Cervical spine fusion, laminectomy 2018, lumbar surgery 2022 with screws placed then removed 04/25/2023
Hemorrhoidectomy
Rhizotomy lower back
Cardiac cath 2006
Social History
Tobacco: Non-Smoker
Alcohol: None
Family History
no CKD
Allergies / Home Medications
Allergy/AdvReac Type Severity Reaction Status Date / Time
amiodarone Allergy Unknown Verified 12/25/24 13:02
amlodipine Allergy Swelling - Verified 12/25/24 13:02
1993
benzyl alcohol Allergy Unknown Verified 12/25/24 13:02
clindamycin Allergy Unknown Verified 12/25/24 13:02
hydrochlorothiazide Allergy Hyponatremi Verified 12/25/24 13:02
a
meloxicam Allergy Unknown Verified 12/25/24 13:02
polysorbate 80 Allergy Unknown Verified 12/25/24 13:02
sulfamethoxazole Allergy Unknown Verified 12/25/24 13:02
[From Bactrim]
tizanidine [From Zanaflex] Allergy took from Verified 12/25/24 13:02
patient
history
and
physical
from
surgeon
trimethoprim [From Bactrim] Allergy Unknown Verified 12/25/24 13:02
�Medication �Instructions �Recorded �Confirmed �Type
apixaban 5 mg tablet (Eliquis) 5 mg PO BID Blood clot 01/16/22 12/25/24 History
prevention/tx
furosemide 20 mg tablet 20 mg PO DAILY Fluid 09/13/22 12/25/24 History
retention/Swelling
trazodone 150 mg tablet 150 mg PO HS Depression/sleep 09/13/22 12/25/24 History
famotidine 20 mg tablet (Pepcid) 20 mg PO BID Gastrointestinal issue 02/17/23 12/25/24 History
hydralazine 10 mg tablet 10 mg PO TID Blood Pressure 04/03/23 12/25/24 History
vitamin B complex 1 cap PO DAILY Supplement ##0 04/03/23 12/25/24 History
atorvastatin 20 mg tablet (Lipitor) 20 mg PO HS High cholesterol 04/12/23 12/25/24 History
cholecalciferol (vitamin D3) 125 125 mcg PO DAILY Supplement 04/12/23 12/25/24 History
mcg (5,000 unit) tablet (Vitamin
D3)
polyethylene glycol 3350 17 17 g PO DAILY Constipation 04/14/24 12/25/24 History
gram/dose oral powder (Miralax)
tamsulosin 0.4 mg capsule 0.4 mg PO HS Urinary Issue 04/14/24 12/25/24 History
acetaminophen 500 mg tablet 1,000 mg PO [id number] PRN fever 09/07/24 12/25/24 History
carvedilol 3.125 mg tablet (Coreg) 3.125 mg PO BID Blood Pressure 09/07/24 12/25/24 History
gabapentin 600 mg tablet 600 mg PO TID Pain 09/07/24 12/25/24 History
losartan 25 mg tablet 25 mg PO DAILY Blood Pressure 09/07/24 12/25/24 History
pantoprazole 40 mg tablet,delayed 40 mg PO DAILY GERD 09/07/24 12/25/24 History
release (Protonix)
vitamin E 268 mg (400 unit) capsule 268 mg PO DAILY Supplement 09/07/24 12/25/24 History
bismuth subsalicylate 262 mg/15 mL 524 mg PO DAILYPRN PRN diarrhea 12/25/24 12/25/24 History
oral suspension (Kaopectate
(bismuth subsalicylate))
duloxetine 30 mg capsule,delayed 30 mg PO DAILY Mental 12/25/24 12/25/24 History
release (Cymbalta) Health/Anxiety
ferrous sulfate 325 mg (65 mg 325 mg PO DAILY Supplement 12/25/24 12/25/24 History
iron) tablet
ondansetron HCl 4 mg tablet 4 mg PO Q8HPRN PRN nausea 12/25/24 12/25/24 History
oxycodone-acetaminophen 5 mg-325 3 tab PO Q6HPRN PRN severe pain 12/25/24 12/25/24 History
mg tablet
terazosin 2 mg capsule 2 mg PO HS 12/25/24 12/25/24 History
Review of Systems
-
No shortness of breath. No chest pain. No headache.
Previously he had intermittent catheterized his bladder though he says that he was able to stop this 2 weeks ago.
All other systems: Negative unless noted
Physical Exam
Vital Signs
Vital Signs
Temp Pulse Resp BP Pulse Ox
98.3 F 63 17 131/78 96
12/29/24 07:00 12/29/24 07:00 12/29/24 07:00 12/29/24 07:00 12/29/24 07:00
Lab Results
WBC 10.7 10^3/uL (4.8-10.8) 12/29/24 04:38
RBC 3.68 10^6/uL (4.70-6.10) L 12/29/24 04:38
Hgb 11.4 g/dL (13.0-18.0) L 12/29/24 04:38
Hct 32.5 % (39.0-52.0) L 12/29/24 04:38
Plt Count 113 10^3/uL (130-400) L 12/29/24 04:38
Sodium 126 mmol/L (135-145) L 12/29/24 04:38
Potassium 4.2 mmol/L (3.5-5.1) D 12/29/24 04:38
Chloride 93 mmol/L (98-107) L 12/29/24 04:38
Carbon Dioxide 22 mmol/L (22-30) 12/29/24 04:38
BUN 34 mg/dl (9-20) H 12/29/24 04:38
Creatinine 2.4 mg/dL (0.7-1.3) H 12/29/24 04:38
eGFR 26.94 12/29/24 04:38
Glucose 115 mg/dl (70-99) H 12/29/24 04:38
Calcium 8.3 mg/dl (8.4-10.2) L 12/29/24 04:38
Albumin 4.6 g/dl (3.5-5.0) 12/25/24 13:06
Laboratory Tests
11/29/24
13:30
Sodium 133 L
Carbon Dioxide [address] 0[address] abdomen pelvis on 12/27/2024
IMPRESSION:
1. SEVERE ACUTE INFECTIOUS PANCOLITIS (greatest in the ascending colon) which appears new from 11/29/2024.
2. Cholelithiasis.
3. Mild intrahepatic biliary dilatation.
4. Fusiform infrarenal abdominal aortic aneurysm (2.4 cm diameter).
5. Previous TURP.
6. Chronic multilevel vertebral body endplate insufficiency fractures in the lumbar spine.
7. Previous right posterior instrumentation at L4/L5.
CTA neck 12/26/2024
IMPRESSION:
No acute intracranial hemorrhage. Stable appearing chronic microvascular white matter ischemic change. No mass effect.
Cervical carotid calcified plaque formation, as described, right greater than left. Right ICA proximal estimated luminal diameter reduction of 50%. No hemodynamically significant stenosis on the left. No cervical carotid dissection or occlusion,
bilaterally.
No right vertebral artery luminal enhancement, consistent with occlusion. There appears to be reconstitution of the right distal cervical vertebral artery approximately 1.5 cm proximal to the intradural segment..
Scattered mild to moderate stenoses are demonstrated involving the right intradural vertebral artery.
No [place] of [place] region aneurysm or stenosis.
No cerebral artery significant plaque, stenosis, thrombus, or occlusion.
Physical Exam
Patient is awake alert oriented and in no distress. Mood and affect were pleasant, insight and judgment were good. Pupils are equal round and reactive to light, extraocular movements are intact, sclera were anicteric. Hearing was normal, ears and
nose are intact. Oropharynx was clear. Neck was supple with trachea midline and no thyromegaly. Heart was regular rate and rhythm without rubs. Lower extremities without edema. Lungs were clear to auscultation bilaterally and with normal
excursion. Abdomen was soft, nontender, with normal active bowel sounds, and no hepatosplenomegaly. Skin was without rash and with normal turgor.
Data Reviewed
-
CT Scan: Report Reviewed by me
Labs: Labs Reviewed by me
Old Records: Reviewed
Assessment/Plan
-
Impression:
Hyponatremia acute on chronic
diastolic congestive heart compensated
History of chronic opioid dependent back pain
Paroxysmal atrial fibrillation
Hypertension urgency
GERD
HEVER
C. difficile pancolitis
Plan;
HEVER is likely in the setting of pancolitis with hypertensive urgency as well as contrast exposure and ARB usage. ARB's will be discontinued currently
IV fluids will continue with increased rate given the pancolitis
Check urine studies, follow BMP
Hypertonic saline may be used if needed for hyponatremia
I discussed with the patient his acute kidney injury in the potential for dialysis
Holding Lasix
[2024-12-29 14:02] LABS: Urine Sodium < 5 mmol/L (30-90)
[2024-12-29 15:00] VITALS: BP 93/54
--- NOTE | 2024-12-29 15:01 | W.PN.HOSP.TC ---
Addendum entered and electronically signed by Romaine Byers MD 01/08/25 16:37:
Mild pancytopenia noted -was improving ;intermittent low cell counts number noted in past as well.
Original Note:
Today's Communication/Plan
-
Continue p.o. vancomycin
Continue with IV fluid support
Check bladder scan.
Continue to hold ARB and Lasix
Follow creatinine closely
Assessment / Plan
Assessment / Plan
#headache
Primary versus hypertension related
CT of the head shows no evidence of acute stroke or bleeding.
Appreciate neurology input-they are requesting a CTA head and neck no dissection or significant stenosis
Resolved
#hypertension urgency
#Essential hypertension
Head CT: No evidence of acute intracranial abnormality
No evidence of congestive failure. Creatinine was 0.7.
He is on Coreg, Lasix, low-dose hydralazine, low-dose losartan
cw Coreg and Lasix in the setting of heart failure. Unclear why he is at a low dose of losartan with normal kidney function. Do not know why he is on hydralazine as there is no compelling indication for its use. Increased the dose of losartan.
Blood pressure much under control with Coreg, Lasix and losartan. Not requiring hydralazine. Unclear poor control while on 4 medication but requiring only 3 medication here.
Patient states he lives in an assisted living facility and his medications are premade and they are administered by the nursing staff at this facility.
With HEVER now , ARB and Lasix kept on hold. CW BB with parameters
#Febrile illness with diarrhea and abdo pain
#Pancolitis
#C. difficile positivity
Clinical scenario is concerning for C. difficile acute infection. He had a prior history of that. He was recently on antibiotics during hospital stay.
He is on Miralax -hold
cw vancomycin.
#Acute kidney injury
Woresning Cr.
Suspect now possibly combination of GI losses, IV contrast, medication. Continue with IV fluids. Consult nephrology. Check bladder scan to rule out any asymptomatic retention.
Urine sodium less than 5 suggestive of more prerenal state. Continue with IV fluids
#paroxysmal atrial fibrillation and flutter
s/p permanent pacer
- continue Eliquis and carvedilol
#Gastroesophageal reflux disease
- continue famotidine and omeprazole
#Chronic HFpEF
-Compensated
- continue carvedilol; hold furosemide
- daily weights
#Benign prostatic hypertrophy
- continue tamsulosin and terazosin
#Hyperlipidemia
- continue atorvastatin
#Anxiety
#Depression
- continue Cymbalta and trazodone
#Chronic back pain, spinal stenosis, and degenerative disc disease with chronic opioid use with dependence
- continue gabapentin, PRN Percocet
#Obstructive sleep
#h/o Klebsiella pneumonia and coagulase-negative Staphylococcus infected hardware in L4-L5 (April 2023) treated with Chronic neuropathy
#HX C. difficile
Code status: full code
DVT prophylaxis: Eliquis
Left a msg to son on his voice mail 12/28
DW Renal
Total time spent on today's encounter was 52 minutes which included time spent in counseling the patient/family regarding diagnosis and treatment plan as listed above, goals of care, and symptom management. Case was discussed with nursing staff,
specialists, and care coordinators/case management. All labs and imaging personally reviewed by me. Remainder the time spent in detailed review of previous records, lab data, imaging, and other medical provider documentation.
Anticipated Discharge: > 48 hours
Subjective/Interval History
-
Date of Service: December 29, 2024
Patient tolerating diet without nausea or vomiting. Still with some abdominal discomfort. He thinks he had 1 bowel movement today. No fever chills.
Denying any urinary retention symptoms.
Objective Data
-
Labs:
Laboratory Results
12/29/24
04:38
WBC 10.7
Hgb 11.4 L
Hct 32.5 L
Plt Count 113 L
Sodium 126 L
Potassium 4.2 D
Chloride 93 L
Carbon Dioxide 22
BUN 34 H
Creatinine 2.4 H
Glucose 115 H
Calcium 8.3 L
Vital Signs:
Vital Signs
Temp Pulse Resp BP Pulse Ox
98.3 F 63 17 131/78 96
12/29/24 07:00 12/29/24 07:00 12/29/24 07:00 12/29/24 07:00 12/29/24 07:00
I&O
12/28/24 12/29/24 12/30/24
06:59 06:59 06:59
Intake Total 1300 / 1300 1500 / 1500
Balance 1300 / 1300 1500 / 1500
Review of Systems
-
Respiratory: Denies Trouble Breathing
Cardiac: Denies Chest Pain
Neuro: Denies Dizzy
Physical Exam
-
General: No Apparent Distress
Respiratory: Non Labored Respirations; Negative Accessory Resp Muscle Use
Cardiac: Regular Rhythm and S1/S2; Negative Tachycardic
GI: Soft, Nondistended, Normal Bowel Sounds and Tender (in all quadrants but no rebound or guarding.)
Neuro: AO x 3
Psych: Calm
Data Reviewed
-
Labs: Labs Reviewed by me
[2024-12-29 19:45] VITALS: BP 125/79
[2024-12-29 19:48] LABS: Glucose - Point of Care 99 mg/dl (70-99)
--- NOTE | 2024-12-29 19:51 | PTCARENOTE ---
At approx 1930, PCT heard crash by patient's room and patient found on floor (on soiled utility bin). Fall was unwitnessed. Pt denied hitting head and denied pain. Pt states he was ambulating with IV pole to go to the bathroom and pole moved
unexpectedly, causing fall. Pt assisted to toilet and back in bed with bed alarm in place. Pt re-oriented to use of call calles and ringing for assistance with ambulation to and from bathroom. Pt verbalizes understanding. SMOKEHOUSE WORKER made aware. Blood
sugar 99, BP 125/79 HR 84. Per report from previous RN, pt steady on feet and ambulating without issues to/from bathroom. Pt reported to also be using call calles appropriately and ringing/alerting staff when he is OOB and ambulating back to bed
from bathroom. Pt did not use call calles prior to fall.
--- NOTE | 2024-12-29 20:37 | PTCARENOTE ---
Pt used call calles appropriately and remained in bed until staff in room. Pt reported he had to urinate. Pt reminded that he was just recently in the bathroom. He replied by saying 'I don't know.' Pt does remember recent fall. Pt assisted to
bathroom with use of walker. Pt with difficulty urinating. Pt assisted back to bed. Bladder scan > 429. Pt was straight cath with 500 mL urine out.
[2024-12-29] MEDS: LIPITOR 20 MG PO (21:42)
[2024-12-29] MEDS: DESYREL 150 MG PO (21:42)
[2024-12-29] MEDS: FLOMAX 0.4 MG PO (21:42)
[2024-12-29] MEDS: HYTRIN 2 MG PO (21:42)
[2024-12-29 23:50] VITALS: BP 108/66
[2024-12-30] MEDS: STERILE WATER FOR INJECTION IV (00:21)
[2024-12-30 02:25] LABS: Glucose - Point of Care 104 mg/dl (70-99)
[2024-12-30 02:29] VITALS: BP 117/75
--- NOTE | 2024-12-30 02:47 | W.PN.UPDATE ---
Update Note
Progress Note Update
Patient noted with 2 falls tonight while attempting to ambulate to bathroom (which he had done previously without a problem) First time he was ambulating with Iv pole which was new for him so there is the possibility he tripped on it. Denied hitting
head and returned to bed at 1930. The second fall occurred after bed alarm went off as he was climbing oob but was tangled in blankets falling to his left side. abrasion noted on left knee and left side of head. He is taking Eliquis so will send for
CT head. Nursing reports he appears weaker now than few days ago and is making no attempts to use call calles for assist.
[2024-12-30 03:44] LABS: Urine Albumin 1+ (Neg - Trace); Urine Bilirubin Negative (Negative); Urine Character Clear (Clear); Urine Color Yellow; Urine Glucose Negative (Negative); Urine Ketone Negative (Negative); Urine Leukocyte Negative (Negative); Urine Nitrite Negative (Negative); Urine Occult Blood Negative (Negative); Urine Urobilinogen Negative (Neg - 1+)
--- NOTE | 2024-12-30 03:44 | FALL ---
Description of Fall: Pt rolled off bed. Appeared to have been tangled on blanket while attempting to sit up.
Injuries Noted: Left head abrasion. L knee abrasion.
Action Taken: VS (temp 97.3, HR 74, RR 18, BP 117/75, Sa02 95% on room air). Accucheck 104. PROJECT DESIGNER made aware. 4 side rails, non-violent restraint order. Bed alarm remains in place. Stat Head CT. Urine culture collected via straight cath. L knee
abrasion cleaned with saline and foam in place.
Name of Provider Notified: PATRICIA Ureña
At approx 0220, bed alarm activated and PCT immediately in room. Pt remained in bed but was attempting to get OOB to use bathroom. While PCT was deactivating bed alarm, pt appeared to have been tangled in blanket and rolled off bed onto left side.
Pt did report hitting head at this time on floor/base of IV pole. PCT and this RN assisted patient off floor and onto bed. Pt at that time remained oriented but weak. Pt reporting pain to L side of head. Abrasion noted to L side of head where
pain is reported. Abrasion noted to L knee (cleaned with saline and foam in place at this time). PROJECT DESIGNER Beth Mancuso made aware and immediately at bedside to assess patient. Stat head CT order due to patient hitting head and pt currently on eliquis.
Pt transported to and from CT scan, x2 Assist, via bed without issues. 4 side rail, non-violent restraint order in place. Bed alarm in place. Call calles within reach and pt re-educated to high fall risk and use of call calles. Pt verbalized
understanding. Overhead light remain on at this time. Pt also noted to have difficulty with urinating. Had previously bladder scan and straight cath patient at 8pm. Pt again requiring bladder scan and straight cath at 0240. Urine sent.
[2024-12-30 04:14] LABS: Urine Bacteria Few (Negative); Urine Red Blood Cell 0-2 /HPF (0-2)
[2024-12-30 06:00] VITALS: BMI 26.3
[2024-12-30] MEDS: FIRVANQ 250 MG PO ×3 (06:07→18:14)
[2024-12-30 06:30] LABS: Hemoglobin 10.3 g/dL (13.0-18.0); Mean Corp Hgb Conc. 34.3 g/dL (33.0-37.0); Mean Corpuscular Hgb 30.6 pg (27.0-31.0); Mean Platelet Volume 9.8 fL (7.4-10.4); Platelet Count 110 10^3/uL (130-400); Red Blood Cell Count 3.37 10^6/uL (4.70-6.10)
[2024-12-30 06:47] LABS: Blood Urea Nitrogen 26 mg/dl (9-20); Calcium 8.5 mg/dl (8.4-10.2); Carbon Dioxide 21 mmol/L (22-30); Chloride 99 mmol/L (98-107); Estimated Creatinine Clearance 27 ml/min; Glucose 96 mg/dl (70-99); Potassium 3.4 mmol/L (3.5-5.1); Sodium 128 mmol/L (135-145); eGFR 31.63
[2024-12-30] MEDS: PROTONIX 40 MG PO (08:01)
[2024-12-30] MEDS: CYMBALTA DELAYED RELEASE 30 MG PO (08:02)
[2024-12-30] MEDS: FEOSOL 325 MG PO (08:02)
[2024-12-30] MEDS: ELIQUIS 5 MG PO ×2 (08:02→20:18)
[2024-12-30] MEDS: ROXICODONE 15 MG PO ×2 (08:02→16:13)
[2024-12-30] MEDS: VITAMIN D3 (cholecalciferol) 125 MCG PO (08:02)
[2024-12-30] MEDS: VITAMIN E 400 UNITS PO (08:02)
[2024-12-30] MEDS: PEPCID 20 MG PO (08:02)
[2024-12-30] MEDS: B COMPLEX w/VITAMIN C 1 CAPLET PO (08:02)
[2024-12-30] MEDS: COREG 3.125 MG PO ×2 (08:02→20:17)
[2024-12-30] MEDS: NEURONTIN 300 MG PO ×3 (08:02→21:01)
[2024-12-30] MEDS: MIRALAX PO (08:03)
[2024-12-30] MEDS: DESENEX/MITRAZOL/ZEASORB 1 APPLIC TOPICAL ×2 (08:04→20:18)
[2024-12-30 08:06] VITALS: BP 118/71
[2024-12-30] MEDS: NSS 1000 IV ×2 (09:05→18:14)
--- NOTE | 2024-12-30 10:49 | W.PN.NEPH.PH ---
Today's Communication / Plan
-
IVFS
Assessment/Plan
-
Impression:
Hyponatremia acute on chronic
diastolic congestive heart compensated
History of chronic opioid dependent back pain
Paroxysmal atrial fibrillation
Hypertension urgency
GERD
HEVER
C. difficile pancolitis
Plan;
HEVER is likely in the setting of pancolitis with hypertensive urgency as well as contrast exposure and ARB usage. ARB's will be discontinued currently
Creatinine down to 2.1
IV fluids will continue with increased rate given the pancolitis
Checked urine studies, follow BMP
Hyponatremia improving with serum sodium up to 128
Previously discussed with the patient his acute kidney injury in the potential for dialysis
Holding Lasix
-
-
Date of Service: December 30, 2024
CC / HPI / ROS
-
Chief Complaint:
Hypertension urgency
Acute kidney injury
Hyponatremia
History of Present Illness:
Hemodynamically low side
Multiple falls last evening
Creatinine improved to 2.1
Sodium improved to 128
Review of Systems:
resting comfortably
no fevers
Labs
-
Labs:
WBC 8.0 10^3/uL (4.8-10.8) 12/30/24 05:49
RBC 3.37 10^6/uL (4.70-6.10) L 12/30/24 05:49
Hgb 10.3 g/dL (13.0-18.0) L 12/30/24 05:49
Hct 30.0 % (39.0-52.0) L 12/30/24 05:49
Plt Count 110 10^3/uL (130-400) L 12/30/24 05:49
Sodium 128 mmol/L (135-145) L 12/30/24 05:49
Potassium 3.4 mmol/L (3.5-5.1) L 12/30/24 05:49
Chloride 99 mmol/L (98-107) 12/30/24 05:49
Carbon Dioxide 21 mmol/L (22-30) L 12/30/24 05:49
BUN 26 mg/dl (9-20) H 12/30/24 05:49
Creatinine 2.1 mg/dL (0.7-1.3) H 12/30/24 05:49
eGFR 31.63 12/30/24 05:49
Glucose 96 mg/dl (70-99) 12/30/24 05:49
Calcium 8.5 mg/dl (8.4-10.2) 12/30/24 05:49
Albumin 4.6 g/dl (3.5-5.0) 12/25/24 13:06
Physical Exam
-
Vital Signs:
Vital Signs
Temp Pulse Resp BP Pulse Ox
98.5 F 60 18 118/71 97
12/30/24 08:06 12/30/24 08:06 12/30/24 08:06 12/30/24 08:06 12/30/24 08:06
Cardiovascular:: Regular rate and rhythm
Respiratory:: Bilateral: CTA
Lung Excursion:: Normal
Abdomen:: Nontender and Soft
Extremity Edema:: None: Bilateral:
Montalvo Catheter: No
--- NOTE | 2024-12-30 13:29 | W.PN.HOSP.TC ---
Today's Communication/Plan
-
IV fluids.
Monitor sodium level.
Replete potassium
Oral vancomycin
Assessment / Plan
Assessment / Plan
Impression:
Acute on chronic hyponatremia.
Acute kidney injury
C. difficile colitis.
Hypertensive urgency
Other conditions:
Paroxysmal atrial fibrillation.
GERD
Chronic pain/back pain with opiate dependency
Plan:
Acute on chronic hyponatremia
Acute kidney injury secondary to dehydration in the settings of C. difficile colitis as well as exposure to ARB
Urine sodium overall consistent with prerenal causes
Continue IV fluids and follow sodium level.
Hypokalemia, replete
Hold ARB
#headache
Primary versus hypertension related
CT of the head shows no evidence of acute stroke or bleeding.
Appreciate neurology input-they are requesting a CTA head and neck no dissection or significant stenosis
Resolved
#hypertension urgency
#Essential hypertension
Head CT: No evidence of acute intracranial abnormality
No evidence of congestive failure.
Continue Coreg,
Continue Hytrin
Cozaar had been discontinued
#Febrile illness with diarrhea and abdo pain
#Pancolitis
#C. difficile positivity
Clinical scenario is concerning for C. difficile acute infection. He had a prior history of that. He was recently on antibiotics during hospital stay.
He is on Miralax -hold
cw vancomycin.
#paroxysmal atrial fibrillation and flutter
s/p permanent pacer
- continue Eliquis and carvedilol
#Gastroesophageal reflux disease
- continue famotidine and omeprazole
#Chronic HFpEF
-Compensated
- continue carvedilol; hold furosemide
- daily weights
#Benign prostatic hypertrophy
- continue tamsulosin and terazosin
#Hyperlipidemia
- continue atorvastatin
#Anxiety
#Depression
- continue Cymbalta and trazodone
#Chronic back pain, spinal stenosis, and degenerative disc disease with chronic opioid use with dependence
- continue gabapentin, PRN Percocet
#Obstructive sleep apnea
#h/o Klebsiella pneumonia and coagulase-negative Staphylococcus infected hardware in L4-L5 (April 2023) treated with Chronic neuropathy
#HX C. difficile
Code status: full code
DVT prophylaxis: Eliquis
Anticipated Discharge: 24 - 48 hours
Subjective/Interval History
-
Date of Service: December 30, 2024
Objective Data
-
Labs:
Laboratory Results
12/30/24
05:49
WBC 8.0
Hgb 10.3 L
Hct 30.0 L
Plt Count 110 L
Sodium 128 L
Potassium 3.4 L
Chloride 99
Carbon Dioxide 21 L
BUN 26 H
Creatinine 2.1 H
Glucose 96
Calcium 8.5
Vital Signs:
Vital Signs
Temp Pulse Resp BP Pulse Ox
98.5 F 60 18 118/71 97
12/30/24 08:06 12/30/24 08:06 12/30/24 08:06 12/30/24 08:06 12/30/24 08:06
I&O
12/29/24 12/30/24 12/31/24
06:59 06:59 06:59
Intake Total 1500 / 1500 1320 / 1320
Output Total 900 / 900 250 / 250
Balance 1500 / 1500 420 / 420 -250 / -250
Physical Exam
-
General: No Apparent Distress
Respiratory: Non Labored Respirations; Negative Accessory Resp Muscle Use
Cardiac: Regular Rhythm and S1/S2; Negative Tachycardic
GI: Soft, Nondistended, Normal Bowel Sounds and Tender (in all quadrants but no rebound or guarding.)
Neuro: AO x 3
Psych: Calm
[2024-12-30 15:08] VITALS: BP 136/88
[2024-12-30] MEDS: FLOMAX 0.4 MG PO (21:01)
[2024-12-30] MEDS: DESYREL 150 MG PO (21:01)
[2024-12-30] MEDS: LIPITOR 20 MG PO (21:01)
[2024-12-30] MEDS: HYTRIN 2 MG PO (21:01)
[2024-12-30 23:15] VITALS: BP 124/72
[2024-12-31] MEDS: FIRVANQ 250 MG PO ×5 (00:31→23:08)
[2024-12-31] MEDS: STERILE WATER FOR INJECTION IV (00:39)
[2024-12-31] MEDS: NSS 1000 IV ×2 (04:23→15:07)
[2024-12-31 06:00] VITALS: BMI 26.6
[2024-12-31 07:10] LABS: Blood Urea Nitrogen 18 mg/dl (9-20); Calcium 8.5 mg/dl (8.4-10.2); Carbon Dioxide 21 mmol/L (22-30); Chloride 105 mmol/L (98-107); Estimated Creatinine Clearance 38 ml/min; Glucose 84 mg/dl (70-99); Potassium 3.8 mmol/L (3.5-5.1); Sodium 134 mmol/L (135-145); eGFR 47.36
[2024-12-31 07:29] VITALS: BP 141/75
--- NOTE | 2024-12-31 08:14 | PN.CDI ---
CDI
- -
CDI:
Physician Documentation Request
Admit Date: 12/25/24 22:39
Dear Doctor Marilee,
Please review the following and provide your response in the progress notes.
Clinical Indicators:
12/25 Pt admitted for headache and hypertensive urgency.
12/27 Progress Note: 'Febrile illness with diarrhea and abdo pain'
12/30 Progress Note; 'C. difficile positivity..Clinical scenario is concerning for C. difficile acute infection. He had a prior history of that. He was recently on antibiotics during hospital stay.
Selected Entries
12/27/24
07:43 12/27/24
23:20
Temp 101.8 F H 101 F H
Laboratory Tests
12/25/24 12/26/24 12/27/24
13:06 05:45 15:14
WBC 3.7 L 4.0 L 12.3 H
Please clarify which of the following most accurately describes the status of the patient's infection:
Sepsis, evolved during admission
- Systemic manifestations of infection, with 2 or more SIRS criteria which include:
- Fever >100.4 degrees F or hypothermia < 96.8 degrees F
- Leukocytosis - WBC > 12,000 or leukopenia - WBC < 4,000 or > 10% bands
- Tachycardia > 90 beats per minute
- Tachypnea - RR > 20 breaths per minute or PaCO2 , 32mmHg
Source: [employer] Manual 2013
Sepsis, POA
C. Difficile only, Without Systemic Illness
Other
Use of terms such as suspected, likely, concern for, or probable (associated with a specific diagnosis that is being evaluated, monitored, or treated as if it exists) are acceptable and can be coded in the inpatient setting, when documented at the
time of discharge.
Thank you,
Elida Mark RN, BSN
CDI Specialist
[facility]
Please use your independent medical judgment in providing your response.
[2024-12-31] MEDS: CYMBALTA DELAYED RELEASE 30 MG PO (08:32)
[2024-12-31] MEDS: VITAMIN D3 (cholecalciferol) 125 MCG PO (08:33)
[2024-12-31] MEDS: PEPCID 20 MG PO (08:33)
[2024-12-31] MEDS: PROTONIX 40 MG PO (08:33)
[2024-12-31] MEDS: NEURONTIN 300 MG PO ×3 (08:33→21:36)
[2024-12-31] MEDS: ELIQUIS 5 MG PO ×2 (08:33→20:57)
[2024-12-31] MEDS: B COMPLEX w/VITAMIN C 1 CAPLET PO (08:33)
[2024-12-31] MEDS: FEOSOL 325 MG PO (08:33)
[2024-12-31] MEDS: COREG 3.125 MG PO ×2 (08:33→20:58)
[2024-12-31] MEDS: VITAMIN E 400 UNITS PO (08:33)
[2024-12-31] MEDS: MIRALAX PO (08:34)
[2024-12-31] MEDS: DESENEX/MITRAZOL/ZEASORB 1 APPLIC TOPICAL ×2 (08:34→20:58)
--- NOTE | 2024-12-31 08:35 | PN.CDI ---
CDI
- -
CDI:
Physician Documentation Request
Admit Date: 12/25/24 22:39
Dear Doctor Marilee,
Please review the following and provide your response in the progress notes.
Clinical Indicators:
12/25 Pt admitted for headache and hypertensive urgency.
12/27 Progress Note: 'Febrile illness with diarrhea and abdo pain'
12/30 Progress Note; 'C. difficile positivity..Clinical scenario is concerning for C. difficile acute infection. He had a prior history of that. He was recently on antibiotics during hospital stay.
Selected Entries
12/27/24
07:43 12/27/24
23:20
Temp 101.8 F H 101 F H
Laboratory Tests
12/25/24 12/26/24 12/27/24
13:06 05:45 15:14
WBC 3.7 L 4.0 L 12.3 H
Please clarify which of the following most accurately describes the status of the patient's infection:
Sepsis, evolved during admission
- Systemic manifestations of infection, with 2 or more SIRS criteria which include:
- Fever >100.4 degrees F or hypothermia < 96.8 degrees F
- Leukocytosis - WBC > 12,000 or leukopenia - WBC < 4,000 or > 10% bands
- Tachycardia > 90 beats per minute
- Tachypnea - RR > 20 breaths per minute or PaCO2 , 32mmHg
Source: Merck Manual 2013
Sepsis, POA
Pancolitis due to C. Difficile only
Other
Use of terms such as suspected, likely, concern for, or probable (associated with a specific diagnosis that is being evaluated, monitored, or treated as if it exists) are acceptable and can be coded in the inpatient setting, when documented at the
time of discharge.
Thank you,
Elida Mark RN, BSN
CDI Specialist
[place] [facility]
Please use your independent medical judgment in providing your response.
[2024-12-31] MEDS: ROXICODONE 15 MG PO ×3 (08:38→21:46)
[2024-12-31] MEDS: TYLENOL 650 MG PO (11:59)
[2024-12-31 12:51] VITALS: BP 141/88; BP 150/89; PULSE 75; PULSE 79
--- NOTE | 2024-12-31 12:59 | W.PN.NEPH.PH ---
Today's Communication / Plan
-
Maintain IV fluids
Hyponatremia and acute kidney injury improved
Assessment/Plan
-
Impression:
Hyponatremia acute on chronic
diastolic congestive heart compensated
History of chronic opioid dependent back pain
Paroxysmal atrial fibrillation
Hypertension urgency
GERD
HEVER
C. difficile pancolitis
Plan;
HEVER is likely in the setting of pancolitis with hypertensive urgency as well as contrast exposure and ARB usage. ARB's will be discontinued currently
Creatinine down to 1.5
IV fluids will continue given the pancolitis
Checked urine studies, follow BMP
Hyponatremia improving with serum sodium up to 134
Holding Lasix
-
-
Date of Service: December 31, 2024
CC / HPI / ROS
-
Chief Complaint:
Hypertension urgency
Acute kidney injury
Hyponatremia
History of Present Illness:
Hemodynamically low side
Multiple falls last evening
Creatinine improved to 1.5
Sodium improved to 134
Review of Systems:
resting comfortably
no fevers
weight up a little
uop not recorded
Labs
-
Labs:
WBC 8.0 10^3/uL (4.8-10.8) 12/30/24 05:49
RBC 3.37 10^6/uL (4.70-6.10) L 12/30/24 05:49
Hgb 10.3 g/dL (13.0-18.0) L 12/30/24 05:49
Hct 30.0 % (39.0-52.0) L 12/30/24 05:49
Plt Count 110 10^3/uL (130-400) L 12/30/24 05:49
Sodium 134 mmol/L (135-145) L 12/31/24 06:14
Potassium 3.8 mmol/L (3.5-5.1) 12/31/24 06:14
Chloride 105 mmol/L (98-107) 12/31/24 06:14
Carbon Dioxide 21 mmol/L (22-30) L 12/31/24 06:14
BUN 18 mg/dl (9-20) 12/31/24 06:14
Creatinine 1.5 mg/dL (0.7-1.3) H 12/31/24 06:14
eGFR 47.36 12/31/24 06:14
Glucose 84 mg/dl (70-99) 12/31/24 06:14
Calcium 8.5 mg/dl (8.4-10.2) 12/31/24 06:14
Albumin 4.6 g/dl (3.5-5.0) 12/25/24 13:06
Physical Exam
-
Vital Signs:
Vital Signs
Temp Pulse Resp BP Pulse Ox
98.7 F 63 16 141/75 94
12/31/24 07:29 12/31/24 08:33 12/31/24 07:29 12/31/24 08:33 12/31/24 09:00
Cardiovascular:: Regular rate and rhythm
Respiratory:: Bilateral: CTA
Lung Excursion:: Normal
Abdomen:: Nontender and Soft
Extremity Edema:: None: Bilateral:
M[place]vo Catheter: No
[2024-12-31 15:05] VITALS: BP 155/89
--- NOTE | 2024-12-31 16:23 | CM ---
Patient progressing well in PT. Indication is for home. Will update attending.
Plan: Case management will continue to follow and assist with discharge planning. Home when cleared.
--- NOTE | 2024-12-31 16:44 | W.PN.HOSP.TC ---
Today's Communication/Plan
-
IV fluids.
Monitor BMP
Hold Lasix and ARB
Oral vancomycin.
Discharge planning
Assessment / Plan
Assessment / Plan
Impression:
Acute on chronic hyponatremia.
Acute kidney injury
C. difficile colitis.
Hypertensive urgency
Other conditions:
Paroxysmal atrial fibrillation.
GERD
Chronic pain/back pain with opiate dependency
Plan:
Acute on chronic hyponatremia
Acute kidney injury secondary to dehydration in the settings of C. difficile colitis as well as exposure to ARB
Urine sodium overall consistent with prerenal causes
Sodium improved with volume expansion and currently 134
Creatinine trending down 2.1�1.5
Continue IV fluids and follow sodium level.
Hypokalemia, replete
Hold ARB
Hold Lasix
#Pancolitis with no evidence of sepsis
C. difficile positive
Improving on vancomycin. Plan is to complete 2 weeks of therapy.
#headache
Primary versus hypertension related
CT of the head shows no evidence of acute stroke or bleeding.
Appreciate neurology input-they are requesting a CTA head and neck no dissection or significant stenosis
Resolved
#hypertension urgency
#Essential hypertension
Head CT: No evidence of acute intracranial abnormality
No evidence of congestive failure.
Continue Coreg,
Continue Hytrin
Cozaar had been discontinued
#paroxysmal atrial fibrillation and flutter
s/p permanent pacer
- continue Eliquis and carvedilol
#Gastroesophageal reflux disease
- continue famotidine and omeprazole
#Chronic HFpEF
-Compensated
- continue carvedilol; hold furosemide
- daily weights
#Benign prostatic hypertrophy
- continue tamsulosin and terazosin
#Hyperlipidemia
- continue atorvastatin
#Anxiety
#Depression
- continue Cymbalta and trazodone
#Chronic back pain, spinal stenosis, and degenerative disc disease with chronic opioid use with dependence
- continue gabapentin, PRN Percocet
#Obstructive sleep apnea
#h/o Klebsiella pneumonia and coagulase-negative Staphylococcus infected hardware in L4-L5 (April 2023) treated with Chronic neuropathy
#HX C. difficile
Code status: full code
DVT prophylaxis: Eliquis
Anticipated Discharge: 24 - 48 hours
Subjective/Interval History
-
Date of Service: December 31, 2024
Objective Data
-
Labs:
Laboratory Results
12/31/24
06:14
Sodium 134 L
Potassium 3.8
Chloride 105
Carbon Dioxide 21 L
BUN 18
Creatinine 1.5 H
Glucose 84
Calcium 8.5
Vital Signs:
Vital Signs
Temp Pulse Resp BP Pulse Ox
98.6 F 64 16 155/89 95
12/31/24 15:05 12/31/24 15:05 12/31/24 15:05 12/31/24 15:05 12/31/24 15:05
I&O
12/30/24 12/31/24 01/01/25
06:59 06:59 06:59
Intake Total 1320 / 1320 600 / 600 1440 / 1440
Output Total 900 / 900 250 / 250
Balance 420 / 420 350 / 350 1440 / 1440
Physical Exam
-
General: No Apparent Distress
Respiratory: Non Labored Respirations; Negative Accessory Resp Muscle Use
Cardiac: Regular Rhythm and S1/S2; Negative Tachycardic
GI: Soft, Nondistended, Normal Bowel Sounds and Tender (in all quadrants but no rebound or guarding.)
Neuro: AO x 3
Psych: Calm
[2024-12-31] MEDS: HYTRIN 2 MG PO (21:35)
[2024-12-31] MEDS: LIPITOR 20 MG PO (21:36)
[2024-12-31] MEDS: FLOMAX 0.4 MG PO (21:36)
[2024-12-31] MEDS: TYLENOL PO (21:36)
[2024-12-31] MEDS: DESYREL 150 MG PO (21:39)
[2024-12-31 23:25] VITALS: BP 123/65
[2025-01-01] MEDS: STERILE WATER FOR INJECTION IV (00:23)
[2025-01-01] MEDS: FIRVANQ 250 MG PO ×4 (05:18→23:03)
[2025-01-01] MEDS: ROXICODONE 15 MG PO ×3 (05:28→20:58)
[2025-01-01 06:00] VITALS: BMI 27.2
[2025-01-01 07:03] LABS: Blood Urea Nitrogen 15 mg/dl (9-20); Calcium 8.5 mg/dl (8.4-10.2); Carbon Dioxide 22 mmol/L (22-30); Chloride 105 mmol/L (98-107); Estimated Creatinine Clearance 52 ml/min; Glucose 111 mg/dl (70-99); Potassium 3.8 mmol/L (3.5-5.1); Sodium 134 mmol/L (135-145); eGFR > 60.00
[2025-01-01 07:29] VITALS: BP 166/107
[2025-01-01] MEDS: VITAMIN D3 (cholecalciferol) 125 MCG PO (08:30)
[2025-01-01] MEDS: NEURONTIN 300 MG PO ×3 (08:30→22:25)
[2025-01-01] MEDS: ELIQUIS 5 MG PO ×2 (08:30→20:51)
[2025-01-01] MEDS: PROTONIX 40 MG PO (08:30)
[2025-01-01] MEDS: COREG 3.125 MG PO ×2 (08:30→20:52)
[2025-01-01] MEDS: B COMPLEX w/VITAMIN C 1 CAPLET PO (08:30)
[2025-01-01] MEDS: VITAMIN E 400 UNITS PO (08:31)
[2025-01-01] MEDS: PEPCID 20 MG PO (08:31)
[2025-01-01] MEDS: DESENEX/MITRAZOL/ZEASORB 1 APPLIC TOPICAL ×2 (08:31→20:46)
[2025-01-01] MEDS: CYMBALTA DELAYED RELEASE 30 MG PO (08:31)
[2025-01-01] MEDS: MIRALAX PO (08:32)
[2025-01-01] MEDS: FEOSOL 325 MG PO (08:32)
--- NOTE | 2025-01-01 10:58 | W.PN.NEPH.PH ---
Today's Communication / Plan
-
follow BMP
Assessment/Plan
-
Impression:
Hyponatremia acute on chronic
diastolic congestive heart compensated
History of chronic opioid dependent back pain
Paroxysmal atrial fibrillation
Hypertension urgency
GERD
HEVER
C. difficile pancolitis
Plan;
HEVER is likely in the setting of pancolitis with hypertensive urgency as well as contrast exposure and ARB usage. ARB's will be discontinued currently
follow BMP
no IVF today unless po intake poor
holding lasix still
abx per primary team
-
-
Date of Service: January 01, 2025
CC / HPI / ROS
-
Chief Complaint:
Hypertension urgency
Acute kidney injury
Hyponatremia
History of Present Illness:
Hemodynamically labile, hypertense this morning
Creatinine improved to 1.1
Sodium improved to 134 stable
Review of Systems:
resting comfortably
no fevers
uop not recorded
Labs
-
Labs:
WBC 8.0 10^3/uL (4.8-10.8) 12/30/24 05:49
RBC 3.37 10^6/uL (4.70-6.10) L 12/30/24 05:49
Hgb 10.3 g/dL (13.0-18.0) L 12/30/24 05:49
Hct 30.0 % (39.0-52.0) L 12/30/24 05:49
Plt Count 110 10^3/uL (130-400) L 12/30/24 05:49
Sodium 134 mmol/L (135-145) L 01/01/25 06:03
Potassium 3.8 mmol/L (3.5-5.1) 01/01/25 06:03
Chloride 105 mmol/L (98-107) 01/01/25 06:03
Carbon Dioxide 22 mmol/L (22-30) 01/01/25 06:03
BUN 15 mg/dl (9-20) 01/01/25 06:03
Creatinine 1.1 mg/dL (0.7-1.3) 01/01/25 06:03
eGFR > 60.00 01/01/25 06:03
Glucose 111 mg/dl (70-99) H 01/01/25 06:03
Calcium 8.5 mg/dl (8.4-10.2) 01/01/25 06:03
Albumin 4.6 g/dl (3.5-5.0) 12/25/24 13:06
Physical Exam
-
Vital Signs:
Vital Signs
Temp Pulse Resp BP Pulse Ox
97.2 F 64 16 166/107 95
01/01/25 07:29 01/01/25 08:30 01/01/25 07:29 01/01/25 08:30 01/01/25 07:29
Cardiovascular:: Regular rate and rhythm
Respiratory:: Bilateral: Coarse
Lung Excursion:: Normal
Abdomen:: Nontender and Soft
Bowel Sounds:: Normal
Extremity Edema:: None: Bilateral:
[2025-01-01 11:30] VITALS: BP 147/88
--- NOTE | 2025-01-01 15:05 | W.DS.TRANS ---
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
-
Discharge Instructions:
Discharge Diagnosis/Procedures C. difficile colitis.
Acute kidney injury
Hyponatremia
Diet Regular
Blood Work BMP in one week
Instructions:
Stand-Alone Forms:
Changes to Home Medications: Yes
Discharge Medications:
DC Medications w/original date entered in [facility]
apixaban 5 mg tablet (Eliquis) 5 mg PO BID Blood clot prevention/tx 01/16/22
furosemide 20 mg tablet 20 mg PO DAILY Fluid retention/Swelling 09/13/22
trazodone 150 mg tablet 150 mg PO HS Depression/sleep 09/13/22
famotidine 20 mg tablet (Pepcid) 20 mg PO BID Gastrointestinal issue 02/17/23
hydralazine 10 mg tablet 10 mg PO TID Blood Pressure 04/03/23
vitamin B complex 1 cap PO DAILY Supplement ##0 04/03/23
atorvastatin 20 mg tablet (Lipitor) 20 mg PO HS High cholesterol 04/12/23
cholecalciferol (vitamin D3) 125 mcg (5,000 unit) tablet (Vitamin D3) 125 mcg PO DAILY Supplement 04/12/23
polyethylene glycol 3350 17 gram/dose oral powder (Miralax) 17 g PO DAILY Constipation 04/14/24
tamsulosin 0.4 mg capsule 0.4 mg PO HS Urinary Issue 04/14/24
acetaminophen 500 mg tablet 1,000 mg PO [id number] PRN fever 09/07/24
carvedilol 3.125 mg tablet (Coreg) 3.125 mg PO BID Blood Pressure 09/07/24
gabapentin 600 mg tablet 600 mg PO TID Pain 09/07/24
losartan 25 mg tablet 25 mg PO DAILY Blood Pressure 09/07/24
pantoprazole 40 mg tablet,delayed release (Protonix) 40 mg PO DAILY GERD 09/07/24
vitamin E 268 mg (400 unit) capsule 268 mg PO DAILY Supplement 09/07/24
bismuth subsalicylate 262 mg/15 mL oral suspension (Kaopectate (bismuth subsalicylate)) 524 mg PO DAILYPRN PRN diarrhea 12/25/24
duloxetine 30 mg capsule,delayed release (Cymbalta) 30 mg PO DAILY Mental Health/Anxiety 12/25/24
ferrous sulfate 325 mg (65 mg iron) tablet 325 mg PO DAILY Supplement 12/25/24
ondansetron HCl 4 mg tablet 4 mg PO Q8HPRN PRN nausea 12/25/24
oxycodone-acetaminophen 5 mg-325 mg tablet 3 tab PO Q6HPRN PRN severe pain 12/25/24
terazosin 2 mg capsule 2 mg PO HS Urinary Issue/BP 12/25/24
vancomycin 50 mg/mL oral solution 250 mg (5 mL) PO Q6 #300 mL 01/01/25
Home Medication Changes
Vancomycin to complete total of 2 weeks of treatment for C. difficile colitis
Pending Results: No
[2025-01-01 15:21] VITALS: BP 155/89
--- NOTE | 2025-01-01 17:03 | CM ---
Spoke with RN, patient cleared for discharge. Placed a call to [facility] and spoke with Emilia, who stated that patient needs to be two days clear of loose stools. Per RN he had one this morning. Emilia stated to call
[phone] to speak with supervisor joiners prior to returning to review functional status.
Plan: Case management will continue to follow and assist with discharge planning. Back to [place] either personal care or SNF when facility will accept him back.
[2025-01-01] MEDS: HYTRIN 2 MG PO (22:24)
[2025-01-01] MEDS: FLOMAX 0.4 MG PO (22:24)
[2025-01-01] MEDS: DESYREL 150 MG PO (22:24)
[2025-01-01] MEDS: LIPITOR 20 MG PO (22:25)
[2025-01-01 23:00] VITALS: BP 152/97
[2025-01-02] MEDS: STERILE WATER FOR INJECTION IV (00:21)
[2025-01-02 06:00] VITALS: BMI 26.8
[2025-01-02] MEDS: FIRVANQ 250 MG PO ×2 (06:26→12:14)
[2025-01-02 06:54] LABS: Hematocrit 29.9 % (39.0-52.0); Mean Corp Hgb Conc. 33.4 g/dL (33.0-37.0); Mean Corpuscular Hgb 30.1 pg (27.0-31.0); Mean Corpuscular Volume 90.1 fL (80.0-94.0); Mean Platelet Volume 9.5 fL (7.4-10.4); Platelet Count 157 10^3/uL (130-400); Red Blood Cell Count 3.32 10^6/uL (4.70-6.10); Red Cell Dist. Width 14.4 % (11.5-14.5); White Blood Cell Count 4.8 10^3/uL (4.8-10.8)
[2025-01-02 07:20] LABS: Blood Urea Nitrogen 8 mg/dl (9-20); Calcium 8.8 mg/dl (8.4-10.2); Carbon Dioxide 25 mmol/L (22-30); Chloride 102 mmol/L (98-107); Estimated Creatinine Clearance 63 ml/min; Glucose 97 mg/dl (70-99); Potassium 3.7 mmol/L (3.5-5.1); Sodium 134 mmol/L (135-145); eGFR > 60.00
[2025-01-02] MEDS: COREG 3.125 MG PO (07:40)
[2025-01-02] MEDS: NEURONTIN 300 MG PO ×2 (07:40→15:32)
[2025-01-02] MEDS: B COMPLEX w/VITAMIN C 1 CAPLET PO (07:40)
[2025-01-02] MEDS: PEPCID 20 MG PO (07:40)
[2025-01-02] MEDS: PROTONIX 40 MG PO (07:40)
[2025-01-02] MEDS: VITAMIN D3 (cholecalciferol) 125 MCG PO (07:40)
[2025-01-02] MEDS: FEOSOL 325 MG PO (07:40)
[2025-01-02] MEDS: CYMBALTA DELAYED RELEASE 30 MG PO (07:40)
[2025-01-02] MEDS: VITAMIN E 400 UNITS PO (07:40)
[2025-01-02] MEDS: DESENEX/MITRAZOL/ZEASORB 1 APPLIC TOPICAL (07:41)
[2025-01-02] MEDS: ELIQUIS 5 MG PO (07:41)
[2025-01-02] MEDS: MIRALAX PO (07:44)
[2025-01-02 07:58] VITALS: BP 182/102
--- NOTE | 2025-01-02 08:22 | PN.CDI ---
CDI
- -
CDI:
Physician Documentation Request
Admit Date: 12/25/24 22:39
Dear Doctor Marilee,
Please review the following and provide your response in the progress notes.
Clinical Indicators:
12/25 Pt admitted for headache and hypertensive urgency.
12/27 Progress Note: 'Febrile illness with diarrhea and abdo pain'
12/28 Progress Note; 'C. difficile positivity..Clinical scenario is concerning for C. difficile acute infection. He had a prior history of that. He was recently on antibiotics during hospital stay.
01/01 Discharge Summary: ' acute on chronic hyponatremia, acute kidney injury secondary to dehydration in the setting of prerenal losses with C diff colitis.'
Please clarify the following:
Clostridium diff colitis was present on admission
Clostridium diff colitis was not present on admission
Other
Use of terms such as suspected, likely, concern for, or probable (associated with a specific diagnosis that is being evaluated, monitored, or treated as if it exists) are acceptable and can be coded in the inpatient setting, when documented at the
time of discharge.
Thank you,
Elida Mark RN, BSN
CDI Specialist
[place] [facility]
Please use your independent medical judgment in providing your response.
[2025-01-02] MEDS: ROXICODONE 15 MG PO (10:08)
--- NOTE | 2025-01-02 11:21 | W.PN.NEPH.PH ---
Today's Communication / Plan
-
dc
Assessment/Plan
-
Impression:
Hyponatremia acute on chronic
diastolic congestive heart compensated
History of chronic opioid dependent back pain
Paroxysmal atrial fibrillation
Hypertension urgency
GERD
HEVER
C. difficile pancolitis
Plan;
for d/c
restart OP meds (hydralazine / losartan)
abx per primary team
-
-
Date of Service: January 02, 2025
CC / HPI / ROS
-
Chief Complaint:
Hypertension urgency
Acute kidney injury
Hyponatremia
History of Present Illness:
BP high
Creatinine improved to 0.9
Sodium improved to 134 stable
Review of Systems:
resting comfortably
no fevers
Labs
-
Labs:
WBC 4.8 10^3/uL (4.8-10.8) 01/02/25 06:23
RBC 3.32 10^6/uL (4.70-6.10) L 01/02/25 06:23
Hgb 10.0 g/dL (13.0-18.0) L 01/02/25 06:23
Hct 29.9 % (39.0-52.0) L 01/02/25 06:23
Plt Count 157 10^3/uL (130-400) D 01/02/25 06:23
Sodium 134 mmol/L (135-145) L 01/02/25 06:23
Potassium 3.7 mmol/L (3.5-5.1) 01/02/25 06:23
Chloride 102 mmol/L (98-107) 01/02/25 06:23
Carbon Dioxide 25 mmol/L (22-30) 01/02/25 06:23
BUN 8 mg/dl (9-20) L 01/02/25 06:23
Creatinine 0.9 mg/dL (0.7-1.3) 01/02/25 06:23
eGFR > 60.00 01/02/25 06:23
Glucose 97 mg/dl (70-99) 01/02/25 06:23
Calcium 8.8 mg/dl (8.4-10.2) 01/02/25 06:23
Albumin 4.6 g/dl (3.5-5.0) 12/25/24 13:06
Physical Exam
-
Vital Signs:
Vital Signs
Temp Pulse Resp BP Pulse Ox
98.3 F 61 17 182/102 98
01/02/25 07:58 01/02/25 07:58 01/02/25 07:58 01/02/25 07:58 01/02/25 07:58
Cardiovascular:: Regular rate and rhythm
Respiratory:: Bilateral: CTA
Lung Excursion:: Normal
Abdomen:: Nontender and Soft
Bowel Sounds:: Normal
Extremity Edema:: None: Bilateral:
--- NOTE | 2025-01-02 14:18 | CM ---
Spoke with attending who stated that patient is medically stable and can go back to [facility] today. Placed a call to [facility] and spoke with an RN named, Rosa. Reviewed functional status and she was in agreement that it appears
patient is near baseline level of functioning and can come right back to his apartment. She stated that RN should call [phone] for report and RN should obtain fax# when giving report as she is unsure as to which fax the RN will need clinical
sent.
Placed a call to patient's son, Angel who stated that he is in agreement with discharge. Reviewed IMM. Now on chart. He stated that he would prefer w/c van and was provided with the number to call, to arrange for transportation. He
stated that he would do that now.
Attending updated patient who is in agreement with d/c as well.
Plan: Case management will continue to follow and assist with discharge planning. Back to [facility].
[2025-01-02 15:29] VITALS: BP 165/97
[2025-01-02] MEDS: APRESOLINE 10 MG PO (15:32)
--- NOTE | 2025-01-02 16:59 | W.PN.HOSP.TC ---
Today's Communication/Plan
-
Discharge
Assessment / Plan
Assessment / Plan
Impression:
Acute on chronic hyponatremia.
Acute kidney injury
C. difficile colitis.
Hypertensive urgency
Other conditions:
Paroxysmal atrial fibrillation.
GERD
Chronic pain/back pain with opiate dependency
Plan:
Acute on chronic hyponatremia
Acute kidney injury secondary to dehydration in the settings of C. difficile colitis as well as exposure to ARB
Urine sodium overall consistent with prerenal causes
Sodium improved with volume expansion and currently 134
Creatinine trending down 2.1�1.5
Continue IV fluids and follow sodium level.
Hypokalemia, replete
Hold ARB
Hold Lasix
#Pancolitis with no evidence of sepsis
C. difficile positive
Improving on vancomycin. Plan is to complete 2 weeks of therapy.
#headache
Primary versus hypertension related
CT of the head shows no evidence of acute stroke or bleeding.
Appreciate neurology input-they are requesting a CTA head and neck no dissection or significant stenosis
Resolved
#hypertension urgency
#Essential hypertension
Head CT: No evidence of acute intracranial abnormality
No evidence of congestive failure.
Continue Coreg,
Continue Hytrin
Cozaar had been discontinued
#paroxysmal atrial fibrillation and flutter
s/p permanent pacer
- continue Eliquis and carvedilol
#Gastroesophageal reflux disease
- continue famotidine and omeprazole
#Chronic HFpEF
-Compensated
- continue carvedilol; hold furosemide
- daily weights
#Benign prostatic hypertrophy
- continue tamsulosin and terazosin
#Hyperlipidemia
- continue atorvastatin
#Anxiety
#Depression
- continue Cymbalta and trazodone
#Chronic back pain, spinal stenosis, and degenerative disc disease with chronic opioid use with dependence
- continue gabapentin, PRN Percocet
#Obstructive sleep apnea
#h/o Klebsiella pneumonia and coagulase-negative Staphylococcus infected hardware in L4-L5 (April 2023) treated with Chronic neuropathy
#HX C. difficile
Code status: full code
DVT prophylaxis: Eliquis
Anticipated Discharge: Today
Subjective/Interval History
-
Date of Service: January 02, 2025
Objective Data
-
Labs:
Laboratory Results
01/02/25
06:23
WBC 4.8
Hgb 10.0 L
Hct 29.9 L
Plt Count 157 D
Sodium 134 L
Potassium 3.7
Chloride 102
Carbon Dioxide 25
BUN 8 L
Creatinine 0.9
Glucose 97
Calcium 8.8
Vital Signs:
Vital Signs
Temp Pulse Resp BP Pulse Ox
98.1 F 62 16 165/97 96
01/02/25 15:29 01/02/25 15:29 01/02/25 15:29 01/02/25 15:29 01/02/25 15:29
I&O
01/01/25 01/02/25 01/03/25
06:59 06:59 06:59
Intake Total 2880 / 2880 600 / 600
Output Total 275 / 275
Balance 2605 / 2605 600 / 600
Physical Exam
-
General: No Apparent Distress
Respiratory: Non Labored Respirations; Negative Accessory Resp Muscle Use
Cardiac: Regular Rhythm and S1/S2; Negative Tachycardic
GI: Soft, Nondistended, Normal Bowel Sounds and Tender (in all quadrants but no rebound or guarding.)
Neuro: AO x 3
Psych: Calm
== END 2025-01-02 16:36 | disposition home or self-care (01) | DRG 372 ==
LOC: 3 WEST ACU 22:39
PROVIDERS: Emergency Medicine; Internal Medicine; Nurse Practitioner Family; Registered Nurse; Specialist; ADMITTING PHYSICIAN Internal Medicine; ATTENDING PHYSICIAN Internal Medicine; CONSULT PHYSICIAN Psychiatry & Neurology Neurology; CONSULT PHYSICIAN Specialist; EMERGENCY PHYSICIAN Emergency Medicine; FAMILY PHYSICIAN Family Medicine
DX: A04.71 Enterocolitis due to Clostridium difficile, recurrent (principal); E87.1 Hypo-osmolality and hyponatremia; F11.20 Opioid dependence, uncomplicated; I50.32 Chronic diastolic (congestive) heart failure; N17.9 Acute kidney failure, unspecified; I48.92 Unspecified atrial flutter; M84.48XA Pathological fracture, other site, initial encounter for fracture; G44.89 Other headache syndrome; I16.0 Hypertensive urgency; E87.6 Hypokalemia; I11.0 Hypertensive heart disease with heart failure; I25.10 Atherosclerotic heart disease of native coronary artery without angina pectoris; I48.0 Paroxysmal atrial fibrillation; K21.9 Gastro-esophageal reflux disease without esophagitis; E78.00 Pure hypercholesterolemia, unspecified; G89.4 Chronic pain syndrome; G47.30 Sleep apnea, unspecified; N40.0 Benign prostatic hyperplasia without lower urinary tract symptoms; E86.0 Dehydration; F41.9 Anxiety disorder, unspecified; F32.A Depression, unspecified; S80.212A Abrasion, left knee, initial encounter; S00.81XA Abrasion of other part of head, initial encounter; W01.0XXA Fall on same level from slipping, tripping and stumbling without subsequent striking against object, initial encounter; Y92.230 Patient room in hospital as the place of occurrence of the external cause; D64.9 Anemia, unspecified; Z79.01 Long term (current) use of anticoagulants; Z11.52 Encounter for screening for COVID-19; Z95.3 Presence of xenogenic heart valve; Z98.1 Arthrodesis status; Z95.0 Presence of cardiac pacemaker; Z88.2 Allergy status to sulfonamides; Z88.1 Allergy status to other antibiotic agents; Z79.899 Other long term (current) drug therapy
CPT/HCPCS: 70450; 70496; 70498; 74177; 80048; 80053; 80306; 80307; 81003; 81015; 82962; 83735; 83935; 84300; 84443; 85025; 85027; 85652; 86140; 86618; 87045; 87046; 87070; 87324; 87389; 87427; 87449; 87502; 87811; 89055; 96361; 96374; 96375; 97161; 97530; 99285; J3480; Q9967

== ENCOUNTER → 2025-01-09 10:10 | Outpatient (REF) | payer MEDICARE, OTHER, SELFPAY ==
[2025-01-09 11:52] LABS: Blood Urea Nitrogen 11 mg/dl (9-20); Calcium 9.1 mg/dl (8.4-10.2); Carbon Dioxide 30 mmol/L (22-30); Chloride 95 mmol/L (98-107); Glucose 96 mg/dl (70-99); Potassium 4.5 mmol/L (3.5-5.1); Sodium 132 mmol/L (135-145); eGFR > 60.00
== END ==
LOC: OLABWPC 10:10
PROVIDERS: ATTENDING PHYSICIAN Internal Medicine
DX: D64.9 Anemia, unspecified (principal); I10 Essential (primary) hypertension; N18.31 Chronic kidney disease, stage 3a
CPT/HCPCS: 36415; 80048

== ENCOUNTER → 2025-01-27 12:14 | Outpatient (REF) | payer MEDICARE, OTHER, SELFPAY ==
[2025-01-27 13:38] LABS: ALT (SGPT) 12 U/L (0-50); AST (SGOT) 21 U/L (17-59); Albumin 4.5 g/dl (3.5-5.0); Alkaline Phosphatase 93 U/L (38-126); Direct Bilirubin 0.3 mg/dl (0.0-0.4); Total Bilirubin 0.9 mg/dl (0.2-1.3); Total Protein 6.5 g/dl (6.3-8.2)
== END ==
LOC: OLABWPC 12:14
PROVIDERS: ATTENDING PHYSICIAN Internal Medicine
DX: N18.31 Chronic kidney disease, stage 3a (principal); F11.20 Opioid dependence, uncomplicated
CPT/HCPCS: 36415; 80076

== ENCOUNTER 2025-02-02 06:32 | Inpatient (IN) | payer MEDICARE, OTHER, SELFPAY ==
[2025-02-02] VITALS (18 sets, daily range): BP systolic 98–168; BP diastolic 56–107; PULSE 71–88; BMI 24.6
[2025-02-02 01:45] LABS: % Basophils 0.3 % (0-2); % Eosinophils 0.1 % (0-6); % Immature Granulocytes 0.3 % (0-0.5); % Lymphocytes 6.5 % (20.5-51.1); % Monocytes 9.8 % (1.7-9.3); Absolute Lymphocytes 0.6 10^3/uL (1.2-3.4); Absolute Neutrophils 8.2 10^3/uL (1.4-6.5); Hemoglobin 11.4 g/dL (13.0-18.0); Mean Corp Hgb Conc. 34.5 g/dL (33.0-37.0); Mean Corpuscular Hgb 30.9 pg (27.0-31.0); Mean Corpuscular Volume 89.4 fL (80.0-94.0); Mean Platelet Volume 8.6 fL (7.4-10.4); Nucleated Red Blood Cells % 0 % (-); Platelet Count 127 10^3/uL (130-400); Red Blood Cell Count 3.69 10^6/uL (4.70-6.10); Red Cell Dist. Width 13.9 % (11.5-14.5); White Blood Cell Count 9.9 10^3/uL (4.8-10.8)
[2025-02-02 01:59] LABS: ALT (SGPT) 11 U/L (0-50); AST (SGOT) 18 U/L (17-59); Alkaline Phosphatase 68 U/L (38-126); Blood Urea Nitrogen 14 mg/dl (9-20); Calcium 9.2 mg/dl (8.4-10.2); Carbon Dioxide 29 mmol/L (22-30); Chloride 96 mmol/L (98-107); Glucose 101 mg/dl (70-99); Potassium 3.4 mmol/L (3.5-5.1); Sodium 132 mmol/L (135-145); Total Bilirubin 1.4 mg/dl (0.2-1.3); Total Protein 6.3 g/dl (6.3-8.2); eGFR > 60.00
--- NOTE | 2025-02-02 05:02 | ED.GENMED ---
History of Present Illness
General
Chief Complaint: Rectal Bleeding
Source: patient and ambulance crew
Exam Limitations: none
Time Seen by Provider: 02/02/25 04:07
Nursing documentation reviewed up to this point in time: agreed with
History of Present Illness
History of Present Illness:
Pleasant 79-year-old male presents the emergency department with dark tarry stools. He lives at [facility] in the [facility]. For the last 24 hours he has noted that he has been passing these stools. He states that he
intermittently has bright red blood but for the most part it is dark and tarry. He states that typically he is able to ambulate around but he has been feeling very weak and unable to walk. Patient does have acute on chronic back pain. He denies
any urinary symptoms. Reports no fever, chills, chest pain, or shortness of breath. Patient is on Eliquis.
Past History
Past History
ED Past Medical History: Arrthythmia (Atrial flutter/fib), CAD, CHF, HTN, Hypercholesterolemia, Valvular disease, Psychiatric (Anxiety, Depression), Other (Rib fractures, Chronic back pain, Anemia, Cellulitis, Left pleural effusion, osteomyelitis,
endocarditis, Sleep apnea, Parkinson, GI bleeding, UTI with retention, AAA, [place]), Other (polyneuropathy, balance issues, Neuropathy, tingling in arms and legs. ) and Other (chronic back pain, pain management with Buprenorphine and ASA)
ED Past Surgical History: Cardiac (Aortic valve replaced (x 2), Pacemaker), Orthopedic (C spine fusion, Laminectomy) and Other (Hemorrhoidectomy, cataracts)
Patient has exhibited threatening behavior?: No
PSI?: No
Social History
Tobacco: Non-smoker
Alcohol: Occasional ( Beer)
Drug: None
Personal:
Living: with family
Employment: Retired
Family History
Family History: Hypertension and CAD
Review of Systems
Review of Systems
Allergies reviewed?: Yes
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
All Other Systems: ROS reviewed and negative except as documented in HPI and ROS
Constitutional: Reports fatigue and sleep disturbance
EENT: Reports no symptoms
Respiratory: Reports no symptoms
Cardiac: Reports no symptoms
ABD/GI: Reports bloody stools and black stools
: Reports no symptoms
Musculoskeletal: Reports no symptoms
Skin: Reports no symptoms
Neurological: Reports no symptoms
Endocrine: Reports no symptoms
Hematologic/Lymphatic: Reports no symptoms
Psychiatric: Reports no symptoms
Phy Exam
General Physical Exam
General Presentation: well appearing and mild distress
General age: appears stated age
General Skin: warm
General Habitus: normal
General Mental: alert
General Hydration: appears well hydrated
Cardiovascular Exam
Cardiovascular Exam: irregularly irregular
Gastrointestinal Exam
Gastrointestinal Exam: normal bowel sounds and non tender
Stool: black
Guaiac Status: positive
Musculoskeletal Exam
Musculoskeletal Exam: neuro vasc intact
Skin Exam
Skin Exam: warm/dry, no rash and pallor
Course
Orders/Labs/Results
Orders:
Orders
02/02/25 01:30
CMP [Comprehensive Metabolic Panel] Urgent
Complete Blood Count/With Diff Urgent
Abnormal Lab Results
02/02/25
01:30
RBC 3.69 L 10^6/uL
(4.70-6.10)
Hgb 11.4 L g/dL
(13.0-18.0)
Hct 33.0 L %
(39.0-52.0)
Plt Count 127 L 10^3/uL
(130-400)
Absolute Neuts (auto) 8.2 H 10^3/uL
(1.4-6.5)
Absolute Lymphs (auto) 0.6 L 10^3/uL
(1.2-3.4)
Absolute Monos (auto) 1.0 H 10^3/uL
(0.1-0.6)
Neutrophils % 83.0 H %
(42.2-75.2)
Lymphocytes % 6.5 L %
(20.5-51.1)
Monocytes % 9.8 H %
(1.7-9.3)
Sodium 132 L mmol/L
(135-145)
Potassium 3.4 L mmol/L
(3.5-5.1)
Chloride 96 L mmol/L
(98-107)
Glucose 101 H mg/dl
(70-99)
Total Bilirubin 1.4 H mg/dl
(0.2-1.3)
02/02/25 01:30
02/02/25 01:30
Vital Signs
Initial and Last Documented VS:
Initial Vital Signs
Temp Pulse Resp BP Pulse Ox
97.2 F 82 24 108/78 95
02/02/25 01:17 02/02/25 01:17 02/02/25 01:17 02/02/25 01:17 02/02/25 01:17
Last Documented Vital Signs
Temp Pulse Resp BP Pulse Ox
97.2 F 67 15 104/66 95
02/02/25 01:17 02/02/25 04:45 02/02/25 04:45 02/02/25 04:00 02/02/25 04:45
*Critical Care Note
Total Time (30-74mins, 75-104mins- exclusive of procedures): Not Applicable
ED Attending Note
-
Portions of this chart may have been created with voice recognition software.� Occasional wrong word or��sound alike� substitutions may have occurred due to the inherent limitations of voice recognition software.
Discharge Plan
Departure
Patient Disposition: Admit
Date of Disposition: 02/02/25
Time of Disposition: 05:05
Presentation/result/management discussed w/ accepting MD/DO: Hospitalist
Discharge Problem:
Acute GI bleeding, Weakness, Ambulatory dysfunction
Prescriptions:
No Action
Eliquis 5 MG tablet
5 mg PO BID
trazodone 150 mg Tablet
150 mg PO HS
furosemide 20 mg tablet
20 mg PO DAILY
famotidine [Pepcid] 20 mg Tablet
20 mg PO BID
vitamin B complex Capsule
1 cap PO DAILY Qty: 0
hydralazine 10 mg tablet
10 mg PO TID
cholecalciferol (vitamin D3) [Vitamin D3] 125 mcg (5,000 unit) Tablet
125 mcg PO DAILY
atorvastatin [Lipitor] 20 MG tablet
20 mg PO HS
tamsulosin 0.4 mg capsule
0.4 mg PO HS
polyethylene glycol 3350 [Miralax] 17 gram/dose Powder
17 g PO DAILY
gabapentin 600 mg Tablet
600 mg PO TID
acetaminophen 500 mg Tablet
1,000 mg PO [id number] PRN (Reason: fever)
pantoprazole [Protonix] 40 mg Tablet,Delayed Release (Dr/Ec)
40 mg PO DAILY
losartan 25 mg Tablet
25 mg PO DAILY
carvedilol [Coreg] 3.125 mg Tablet
3.125 mg PO BID
vitamin E 268 mg (400 unit) Capsule
268 mg PO DAILY
ondansetron HCl 4 mg Tablet
4 mg PO Q8HPRN PRN (Reason: nausea)
oxycodone-acetaminophen 5-325 mg Tablet
3 tab PO Q6HPRN PRN (Reason: severe pain)
terazosin 2 mg Capsule
2 mg PO HS
ferrous sulfate 325 mg (65 mg iron) Tablet
325 mg PO DAILY
bismuth subsalicylate [Kaopectate (bismuth subsalicy)] 262 mg/15 mL Suspension
524 mg PO DAILYPRN PRN (Reason: diarrhea)
duloxetine [Cymbalta] 30 mg Capsule,Delayed Release(Dr/Ec)
30 mg PO DAILY
vancomycin 50 mg/mL Recon Soln
250 mg PO Q6 Qty: 300 0RF
Referrals:
UNKNOWN,NO INTERVIEW [Family Provider] -
Interventions
Interventions:
*Risk Screen - Suicide Last Done: 02/02/25 01:17
*General Assessment Last Done: 02/02/25 02:38
*Neglect/Abuse Screening Last Done: 02/02/25 01:17
*ED- Fall Risk Assessment Last Done: 02/02/25 02:38
*ED COVID-19 Vaccine History Last Done: 02/02/25 02:38
BZ-Xjbooy-Zrauwmxlgf Assessment Last Done: 02/02/25 02:38
ED- Cardiac Assessment Last Done: 02/02/25 02:38
ED- Pulmonary Assessment Last Done: 02/02/25 02:38
Discharge Date and Time
Print Language: KYRGYZ
[2025-02-02] MEDS: PROTONIX IV 80 MG IV (05:21)
[2025-02-02] MEDS: PROTONIX 100 IV (05:21)
--- NOTE | 2025-02-02 05:46 | HPS.HSE ---
Family Physician
-
Family Physician: NO INTERVIEW UNKNOWN
Chief Complaint
-
Rectal bleeding
History of Present Illness
This is a 79-year-old male with past medical history significant for paroxysmal atrial fibrillation on anticoagulation with Eliquis, hypertension, HEVER on CKD, GERD, BPH and hyperlipidemia presenting to the emergency department with 1 day of dark
starry stools.
Patient comes from [facility], he apparently had black tarry stools over the last 24 hours. He is unable to ambulate where he is not able to do so. Upon transfer was very shaky. He also complains of lower back and abdominal pain. He is
unable to give much further history.
He was admitted at the end of December with hypertension and C. difficile pancolitis. Treated with oral vancomycin. No other medication changes. Current medication list includes apixaban. She is also a list that includes Celebrex but is unclear
that patient is still taking any NSAIDs.
He has had previous colonoscopies but not recently.
Here in the emergency department he was afebrile, his blood pressure was 100/66 with a pulse of 70 and was satting 95% on room air. Hemoglobin was 11.4, platelet count was 127. Electrolytes BUN and creatinine were unremarkable for him.
Medical History
Past Medical History
Past Medical History: Reports Other
Additional Past Medical History:
paroxysmal atrial fibrillation and flutter
Chronic back pain, spinal stenosis, and degenerative disc disease with chronic opioid use with dependence
Essential hypertension
h/o Klebsiella pneumonia and coagulase-negative Staphylococcus infected hardware in L4-L5 (April 2023) treated with Chronic neuropathy
Gastroesophageal reflux disease
Chronic HFpEF
Benign prostatic hypertrophy
Hyperlipidemia
h/o permanent pacer
h/o aortic valve x 2
Obstructive sleep
Anxiety
Depression
HX C. difficile
Past Surgical History: Reports Other
Additional Past Surgical History:
History of pain pump infection with removal
Pacer and aortic valve replaced
Cervical spine fusion, laminectomy 2018, lumbar surgery 2022 with screws placed then removed 04/25/2023
Hemorrhoidectomy
Rhizotomy lower back
Cardiac cath 2006
Social History
Tobacco: Non-smoker
Alcohol: Occasional
Drug: None
Personal:
Living: With Family
Employment: Retired
Family History
Family History: Not pertinent
Allergies / Home Medications
Allergies reflects when Allergies were last updated in [employer].
Home Medications with original date entered in [employer]
Allergy/Medication List:
Allergies
Allergy/AdvReac Type Severity Reaction Status Date / Time
amiodarone Allergy Unknown Verified 02/02/25 01:21
amlodipine Allergy Swelling - Verified 02/02/25 01:21
1992
benzyl alcohol Allergy Unknown Verified 02/02/25 01:21
clindamycin Allergy Unknown Verified 02/02/25 01:21
hydrochlorothiazide Allergy Hyponatremi Verified 02/02/25 01:21
a
meloxicam Allergy Unknown Verified 02/02/25 01:21
polysorbate 80 Allergy Unknown Verified 02/02/25 01:21
sulfamethoxazole Allergy Unknown Verified 02/02/25 01:21
[From Bactrim]
tizanidine [From Zanaflex] Allergy took from Verified 02/02/25 01:21
patient
history
and
physical
from
surgeon
trimethoprim [From Bactrim] Allergy Unknown Verified 02/02/25 01:21
Home Medications
apixaban 5 mg tablet (Eliquis) 5 mg PO BID Blood clot prevention/tx 01/16/22
furosemide 20 mg tablet 20 mg PO DAILY Fluid retention/Swelling 09/13/22
trazodone 150 mg tablet 150 mg PO HS Depression/sleep 09/13/22
famotidine 20 mg tablet (Pepcid) 20 mg PO BID Gastrointestinal issue 02/17/23
hydralazine 10 mg tablet 10 mg PO TID Blood Pressure 04/03/23
vitamin B complex 1 cap PO DAILY Supplement ##0 04/03/23
atorvastatin 20 mg tablet (Lipitor) 20 mg PO HS High cholesterol 04/12/23
cholecalciferol (vitamin D3) 125 mcg (5,000 unit) tablet (Vitamin D3) 125 mcg PO DAILY Supplement 04/12/23
polyethylene glycol 3350 17 gram/dose oral powder (Miralax) 17 g PO DAILY Constipation 04/14/24
tamsulosin 0.4 mg capsule 0.4 mg PO HS Urinary Issue 04/14/24
acetaminophen 500 mg tablet 1,000 mg PO [id number] PRN fever 09/07/24
carvedilol 3.125 mg tablet (Coreg) 3.125 mg PO BID Blood Pressure 09/07/24
gabapentin 600 mg tablet 600 mg PO TID Pain 09/07/24
losartan 25 mg tablet 25 mg PO DAILY Blood Pressure 09/07/24
pantoprazole 40 mg tablet,delayed release (Protonix) 40 mg PO DAILY GERD 09/07/24
vitamin E 268 mg (400 unit) capsule 268 mg PO DAILY Supplement 09/07/24
bismuth subsalicylate 262 mg/15 mL oral suspension (Kaopectate (bismuth subsalicylate)) 524 mg PO DAILYPRN PRN diarrhea 12/25/24
duloxetine 30 mg capsule,delayed release (Cymbalta) 30 mg PO DAILY Mental Health/Anxiety 12/25/24
ferrous sulfate 325 mg (65 mg iron) tablet 325 mg PO DAILY Supplement 12/25/24
terazosin 2 mg capsule 2 mg PO HS Urinary Issue/BP 12/25/24
Review of Systems
-
History Source: Patient and Transfer Record
Constitutional: Reports No Symptoms
EENT: Reports No Symptoms
Respiratory: Reports No Symptoms
Cardiac: Reports No Symptoms
Abdomen/GI: Reports Black Stools
: Reports No Symptoms
Musculoskeletal: Reports No Symptoms
Skin: Reports No Symptoms
Neurological: Reports No Symptoms
Endocrine: Reports No Symptoms
Hematologic/Lymphatic: Reports No Symptoms
Psych: Reports No Symptoms
Physical Exam
Vital Signs
Vital Signs
Temp Pulse Resp BP Pulse Ox
97.2 F 67 15 104/66 95
02/02/25 01:17 02/02/25 04:45 02/02/25 04:45 02/02/25 04:00 02/02/25 04:45
Physical Exam
General: Pain
HEENT: NormoCephalic, Anicteric, Atraumatic, PERRLA and No Ptosis; No Oxygen
Respiratory: Clear
Cardiac: S1/S2 and Regular Rhythm
Breast: Deferred by me
GI: Soft, Non Tender, Non Distended and Normal Bowel Sounds
Rectal: Hem Negative
Genito-urinary: Deferred by me
Musculoskeletal: No Clubbing, No Cyanosis and No Edema
Skin: Warm
Neuro: Nonfocal/grossly intact and Other (arousable, oriented to person and place)
Hematologic/Lymphatic: No Lymphadenopathy
Psych: Calm
Laboratory Results
-
02/02/25 01:30
02/02/25 01:30
Laboratory Results
Total Bilirubin 1.4 mg/dl (0.2-1.3) H 02/02/25 01:30
AST 18 U/L (17-59) 02/02/25 01:30
ALT 11 U/L (0-50) 02/02/25 01:30
Alkaline Phosphatase 68 U/L (38-126) 02/02/25 01:30
Data Reviewed
-
Lab Data: Labs Reviewed by me
Old Records: Reviewed
Impression/Plan
-
IMPRESSION:
79-year-old with history of paroxysmal atrial fibrillation, chronically anticoagulated on Eliquis presenting to the emergency department with dark tarry stools for the last 24 hours. In the emergency department his blood pressure is 100/66,
baseline blood pressure based on last admission was in the 140s and 150s systolic. He is not tachycardic but is on a beta-aniceto. Hemoglobin is unchanged from prior at 11.4. Complains of abdominal pain as well as back pain which appears to be
acute on chronic. Heme negative green liquid stool on my exam (bismuth?). Given history of GERD, back tarry stools, Eliquis use suspect for GI bleed secondary to anticoagulant. He appears hemodynamically stable but suspect given the decrease in
his baseline BP that he may be somewhat hypovolemic. Last dose of Eliquis is am 24 hours ago per patient. Presumed around 5 pm. Very weak per history compared to his baseline
PLAN:
1. GI bleed - suspect UGIB 2/2 eliquis use. Black stools x 1 day. Hgb stable. Hemodynamically appears stable.
- admit to telemetry
- no active bleeding on exam currently
- NPO for now
- PPI IV gtt started in ED, will continue and transition to bid
- holding eliquis
- if BP drops will give Kcentra
- type and cross, consented and placed in chart
- H&H q 8 for now
- if blood bm, will get CT a/p
- small bolus of fluid 500 ml x 1 given, h/o CHF p EF
- holding lasix, and bp meds
- held GI consultation pending further evidence of blood loss
2. Weakness - Possibly GI bleed vs diarrhea. Denies any fevers chills, report chronic cough.
- check covid, flu
- holding diuretics for now
- evaluate and monitor for bleed as above
- orthostatic vital signs
3. AFIB
- will restart carvedilol with hold parameters 3.125 bid
- holding eliquis
DVT PPX - SCDs
Code status - Full code
[2025-02-02 06:26] LABS: Hemoglobin 11.7 g/dL (13.0-18.0)
[2025-02-02 06:37] LABS: INR 2.25; PT 24.9 Sec (11.4-14.6)
[2025-02-02 07:32] LABS: COVID-19 Antigen Negative (Negative)
--- NOTE | 2025-02-02 10:33 | CON.GI ---
Addendum entered and electronically signed by Chemo Rivera MD 02/02/25 11:01:
For clarification, if last dose of Eliquis was last evening then would plan nonemergent endoscopy Monday if needed.
Original Note:
Consultation
-
Date/Time Consultation Performed: 02/02/25
Performing Provider: Nando Rivera MD
Reason for Consultation: melena
Medical History
Chief Complaint / HPI
Chief Complaint: dark stools
History of Present Illness:
The patient is a 79-year-old male with complicated past medical history as noted who presents with dark stools from was the independent. By the patient is report he has had dark stools intermittently for some time, and is on iron supplements and
does have Pepto-Bismol ordered as needed. He was recently hospitalized with hypertension and C. difficile, where his hemoglobin was 10 on discharge on January 02. Upon admission here his hemoglobin is 11.4, up to 11.7 on repeat. His BUN is
normal. He does have mild lower abdominal pain which he states has been chronic and intermittent. Looking back he has had chronic anemia, with intermittently low iron studies over many years, on oral iron. His last colonoscopy in 2019 with
Shi was essentially unremarkable. His last endoscopy in 2021 was positive for H. pylori which was treated. He denies any fever, chills, chest pain.
Past Medical History
Past Medical History: Other (aroxysmal atrial fibrillation and flutter Chronic back pain, spinal stenosis, and degenerative disc disease with chronic opioid use with dependence Essential hypertension h/o Klebsiella pneumonia and coagulase-negative
Staphylococcus infected hardware in L4-L5 (April 2023) treated with Chronic neurop)
Past Surgical History: Other (History of pain pump infection with removal Pacer and aortic valve replaced Cervical spine fusion, laminectomy 2018, lumbar surgery 2022 with screws placed then removed 04/25/2023 Hemorrhoidectomy Rhizotomy
lower back Cardiac cath 2006)
Social History
Tobacco: Non-Smoker
Alcohol: Occasional
Family History
Family History: Reviewed & Not Pertinent
Allergies / Home Medications
Allergy/AdvReac Type Severity Reaction Status Date / Time
amiodarone Allergy Unknown Verified 02/02/25 01:21
amlodipine Allergy Swelling - Verified 02/02/25 01:21
1993
benzyl alcohol Allergy Unknown Verified 02/02/25 01:21
clindamycin Allergy Unknown Verified 02/02/25 01:21
hydrochlorothiazide Allergy Hyponatremi Verified 02/02/25 01:21
a
meloxicam Allergy Unknown Verified 02/02/25 01:21
polysorbate 80 Allergy Unknown Verified 02/02/25 01:21
sulfamethoxazole Allergy Unknown Verified 02/02/25 01:21
[From Bactrim]
tizanidine [From Zanaflex] Allergy took from Verified 02/02/25 01:21
patient
history
and
physical
from
surgeon
trimethoprim [From Bactrim] Allergy Unknown Verified 02/02/25 01:21
�Medication �Instructions �Recorded
apixaban 5 mg tablet (Eliquis) 5 mg PO BID Blood clot 01/16/22
prevention/tx
furosemide 20 mg tablet 20 mg PO DAILY Fluid 09/13/22
retention/Swelling
trazodone 150 mg tablet 150 mg PO HS Depression/sleep 09/13/22
famotidine 20 mg tablet (Pepcid) 20 mg PO BID Gastrointestinal issue 02/17/23
hydralazine 10 mg tablet 10 mg PO TID Blood Pressure 04/03/23
vitamin B complex 1 cap PO DAILY Supplement ##0 04/03/23
atorvastatin 20 mg tablet (Lipitor) 20 mg PO HS High cholesterol 04/12/23
cholecalciferol (vitamin D3) 125 125 mcg PO DAILY Supplement 04/12/23
mcg (5,000 unit) tablet (Vitamin
D3)
polyethylene glycol 3350 17 17 g PO DAILY Constipation 04/14/24
gram/dose oral powder (Miralax)
tamsulosin 0.4 mg capsule 0.4 mg PO HS Urinary Issue 04/14/24
acetaminophen 500 mg tablet 1,000 mg PO [id number] PRN fever 09/07/24
carvedilol 3.125 mg tablet (Coreg) 3.125 mg PO BID Blood Pressure 09/07/24
gabapentin 600 mg tablet 600 mg PO TID Pain 09/07/24
losartan 25 mg tablet 25 mg PO DAILY Blood Pressure 09/07/24
pantoprazole 40 mg tablet,delayed 40 mg PO DAILY GERD 09/07/24
release (Protonix)
vitamin E 268 mg (400 unit) capsule 268 mg PO DAILY Supplement 09/07/24
bismuth subsalicylate 262 mg/15 mL 524 mg PO DAILYPRN PRN diarrhea 12/25/24
oral suspension (Kaopectate
(bismuth subsalicylate))
duloxetine 30 mg capsule,delayed 30 mg PO DAILY Mental 12/25/24
release (Cymbalta) Health/Anxiety
ferrous sulfate 325 mg (65 mg 325 mg PO DAILY Supplement 12/25/24
iron) tablet
terazosin 2 mg capsule 2 mg PO HS Urinary Issue/BP 12/25/24
Review of Systems
-
All other systems: A 12 pt ROS was Negative except as stated above in HPI
Vital Signs
Temp Pulse Resp BP Pulse Ox
97.2 F 64 14 141/89 93
02/02/25 01:17 02/02/25 10:15 02/02/25 10:15 02/02/25 10:00 02/02/25 10:15
Physical Exam
Exam
General: NAD
HEENT: MMM, anicteric, no lymphadenopathy
Heart: Regular, no murmurs
Lungs: CTA bilaterally
Abdomen: normal bowel sounds, soft, minimal lower abdominal tenderness, no rebound or guarding, no masses, bruits or ascites
Extremeties: no edema
Skin: no rashes
Results
WBC 9.9 10^3/uL (4.8-10.8) 02/02/25 01:30
Hgb 11.7 g/dL (13.0-18.0) L 02/02/25 06:19
Hct 33.0 % (39.0-52.0) L 02/02/25 01:30
MCV 89.4 fL (80.0-94.0) 02/02/25 01:30
Plt Count 127 10^3/uL (130-400) L 02/02/25 01:30
Absolute Neuts (auto) 8.2 10^3/uL (1.4-6.5) H 02/02/25 01:30
PT 24.9 Sec (11.4-14.6) H 02/02/25 06:19
INR 2.25 02/02/25 06:19
Sodium 132 mmol/L (135-145) L 02/02/25 01:30
Potassium 3.4 mmol/L (3.5-5.1) L 02/02/25 01:30
Chloride 96 mmol/L (98-107) L 02/02/25 01:30
Carbon Dioxide 29 mmol/L (22-30) 02/02/25 01:30
BUN 14 mg/dl (9-20) 02/02/25 01:30
Creatinine 0.9 mg/dL (0.7-1.3) 02/02/25 01:30
Calcium 9.2 mg/dl (8.4-10.2) 02/02/25 01:30
Total Bilirubin 1.4 mg/dl (0.2-1.3) H 02/02/25 01:30
AST 18 U/L (17-59) 02/02/25 01:30
ALT 11 U/L (0-50) 02/02/25 01:30
Alkaline Phosphatase 68 U/L (38-126) 02/02/25 01:30
Diagnostic Image Results:
Prior GI Procedures:
EGD:
2021:
07/01/22 EGD:
nodular gastritis in body/fundus
antrum with some erythema
both biopsied
duodenum normal, biopsied for celiac
bx + H pylori
Colonoscopy:
2019:
Findings:
A few small and large-mouthed diverticula were found in the sigmoid
colon.
No other significant abnormalities were identified in a careful
examination of the remainder of the colon.
No additional abnormalities were found on retroflexion.
Assessment / Plan
-
1. Dark stools: Unclear if truly active GI bleeding/melena given that his hemoglobin is actually better than his discharge and stable, with normal BUN. He is on anticoagulation, though he is also been chronically on iron and does have Pepto-Bismol
ordered as well which can make his stools dark. He thinks that his last dose of Eliquis was yesterday. He remains hemodynamically stable. At this point would continue supportive care, PPI twice daily, trend hemoglobin, clear liquid diet for now.
Pending his clinical course may consider endoscopy tomorrow versus continued observation.
-
-
Thank you for consultation and allowing me to participate in the patient's care. Please call the product support consultant GI physician during the after hours with any questions or concerns.
[2025-02-02] MEDS: DILAUDID 0.25 MG IV (11:03)
[2025-02-02] MEDS: DILAUDID 0.5 MG IV (13:42)
--- NOTE | 2025-02-02 14:14 | W.PN.UPDATE ---
Update Note
Progress Note Update
Dark Stool - unclear if due to iron or not
monitor hgb
holding Eliquis
PPI BID
CLD
CT A/P with cont
Possible EGD within 24-48 hours
--- NOTE | 2025-02-02 14:23 | CM ---
CM spoke with nursing/[facility]
Pt is independent with his ADLs and all personal care taks with use of a WW
Staff provide medication management and administration
Pt is AxO 3x
Pt is not current with VN or outpt therapy
PCP- [facility]
Rx- [facility] nursing noted discussion will need to be had with staff nurse regarding what level pt can return to unit at vs need for SNF
CM to follow up during next business day
Pt will benefit from PT/OT orders once appropriate
Discharge Disposition- [facility]
--- NOTE | 2025-02-02 15:43 | PTCARENOTE ---
Pt was given Dilaudid 0.5mg Iv at 13:42 for c/o all across lower abd pain. He states it constant and feels crampy. 1hr later he wanted more pain medication. I came into see him and he was laying in bed and explained that he just received it 1hr
ago. Mary I got him a warm blanket to help with his cramping. He again rang and asked for more pain medication. I'm not sure if he is forgetful or not but he seems to understand how the pain medication works when explained to him. He has been on
and off the bedside commode have small black tarry stools, c/o how week he feels. Offered the use of the bedpan but he declined. Will cont to monitor.
[2025-02-02 15:54] LABS: Hematocrit 33.8 % (39.0-52.0); Hemoglobin 11.9 g/dL (13.0-18.0)
[2025-02-02] MEDS: DILAUDID 1 MG IV ×2 (17:35→20:37)
[2025-02-02] MEDS: FLUSH (NSS) 2 FLUSH IV (17:36)
[2025-02-02] MEDS: NSS (PRESERVATIVE FREE) 10 ML IV (20:37)
[2025-02-02] MEDS: PROTONIX IV 40 MG IV (20:37)
[2025-02-02] MEDS: HYTRIN 2 MG PO (21:37)
[2025-02-02] MEDS: DESYREL 150 MG PO (21:37)
[2025-02-02] MEDS: TYLENOL 650 MG PO (21:47)
[2025-02-03] MEDS: DILAUDID 1 MG IV ×5 (01:31→17:32)
[2025-02-03 03:23] VITALS: BP 101/61
--- NOTE | 2025-02-03 05:45 | W.PN.GI.CBS2 ---
Today's Communication / Plan
-
Please see assessment and plan for details.
Assessment / Plan
-
1. Dark stools: Less likely active bleeding given his hemoglobin is better than when discharged, normal BUN, likely from oral iron that has been on chronically, does also have Pepto-Bismol ordered. He had brown bowel movement overnight and has
been hemodynamically stable. At this point we will continue PPI, though advance diet and continue to trend for now. Will hold on endoscopy unless significant decrease in hemoglobin. He does have chronic anemia intermittently over the years with
negative otherwise workup in the past.
2. Abdominal pain: Likely from urinary retention given bladder distention noted on CT scan. While there was some suggestion of colitis though has not had any significant colitis symptoms, no significant diarrhea, no leukocytosis, likely resolving
from recent C. difficile. If pain returns would check BladderScan.
Subjective
Subjective
Date of Service: February 03, 2025
Patient feeling better overall, some lower abdominal pain still, but no vomiting. Had brown soft bowel movement per nursing, no melena or significant diarrhea. CT scan noted, significant bladder distention. There was some colonic thickening,
though no abscess or perforation.
Objective
Data Reviewed
Laboratory Data:
Laboratory Results
PT 24.9 Sec (11.4-14.6) H 02/02/25 06:19
INR 2.25 02/02/25 06:19
Total Bilirubin 1.4 mg/dl (0.2-1.3) H 02/02/25 01:30
AST 18 U/L (17-59) 02/02/25 01:30
ALT 11 U/L (0-50) 02/02/25 01:30
Alkaline Phosphatase 68 U/L (38-126) 02/02/25 01:30
Vital Signs and I&O:
Vital Signs
Temp Pulse Resp BP Pulse Ox
98.3 F 61 18 101/61 95
02/03/25 03:23 02/03/25 03:23 02/03/25 03:23 02/03/25 03:23 02/03/25 03:23
Physical Exam
Physical Exam
General: NAD
Abdomen: normal bowel sounds, soft, minimal lower abdominal tenderness, no masses or bruits, no ascites
[2025-02-03 06:00] VITALS: BMI 24.8
[2025-02-03 07:46] LABS: Hematocrit 32.5 % (39.0-52.0); Hemoglobin 11.1 g/dL (13.0-18.0); Mean Corp Hgb Conc. 34.2 g/dL (33.0-37.0); Mean Corpuscular Hgb 30.7 pg (27.0-31.0); Mean Corpuscular Volume 89.8 fL (80.0-94.0); Mean Platelet Volume 9.2 fL (7.4-10.4); Platelet Count 136 10^3/uL (130-400); Red Blood Cell Count 3.62 10^6/uL (4.70-6.10); White Blood Cell Count 8.1 10^3/uL (4.8-10.8)
[2025-02-03] MEDS: NSS (PRESERVATIVE FREE) 10 ML IV (08:06)
[2025-02-03] MEDS: PROTONIX IV 40 MG IV (08:06)
[2025-02-03 08:12] VITALS: BP 145/87
[2025-02-03 08:32] LABS: Blood Urea Nitrogen 16 mg/dl (9-20); Calcium 8.9 mg/dl (8.4-10.2); Carbon Dioxide 29 mmol/L (22-30); Chloride 95 mmol/L (98-107); Estimated Creatinine Clearance 63 ml/min; Glucose 91 mg/dl (70-99); Potassium 3.1 mmol/L (3.5-5.1); Sodium 133 mmol/L (135-145); eGFR > 60.00
--- NOTE | 2025-02-03 10:40 | W.PN.HOSP.TC ---
Today's Communication/Plan
-
check Fe studies
IV Fe, stop oral Fe
resume Eliquis
if Hgb remains stable and no sign of bleeding, potential dc tomorow
Assessment / Plan
Assessment / Plan
79-year-old with history of paroxysmal atrial fibrillation, chronically anticoagulated on Eliquis presenting to the emergency department with dark tarry stools for the last 24 hours. In the emergency department his blood pressure is 100/66, as of
02/03 145/87, baseline blood pressure based on last admission was in the 140s and 150s systolic. He is not tachycardic but is on a beta-aniceto. Hemoglobin is unchanged from prior at 11.4-->11.1. Complains of abdominal pain as well as back pain
which appears to be acute on chronic. Heme negative green liquid stool on admission (bismuth?). Given history of GERD, back tarry stools, Eliquis use suspect for GI bleed secondary to anticoagulant. He appears hemodynamically stable but suspect
given the decrease in his baseline BP that he may be somewhat hypovolemic. 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 Presumed around 5 pm. Very weak per history compared to his baseline. Confirmed with Dr. Rivera, okay to resume
Eliquis, he is not planning to EGD him.
PLAN:
1. GI bleed - suspect UGIB 2/2 eliquis use. Black stools x 1 day. Hgb stable. Hemodynamically appears stable.
- admit to telemetry
- no active bleeding on exam currently
- diet resumed
- PPI IV gtt started in ED, will continue and transition to bid oral
- if BP drops will give Kcentra
- rita, consented and placed in chart
- mild anemia, will check Fe studies
will give IV FE and stop oral Fe
- CT abd: Findings suggesting moderate pancolitis. No evidence of perforation or abscess formation. Progressed
Significant bladder distention. This can be seen with bladder outlet obstruction. New
Many small layering gallstones. Stable
Too small to characterize hypodense hepatic lesions likely small cysts or hemangiomas. Stable
Too small to characterize hypodense right renal lesion likely a benign cyst.
Mild diverticulosis. No evidence of acute diverticulitis. Stable
Moderate atherosclerotic vascular disease. Stable
Mild prostate hypertrophy. Stable
Compression fractures. Stable
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 Stable
- small bolus of fluid 500 ml x 1 given, h/o CHF p EF
- holding lasix, and bp meds
- held GI consultation pending further evidence of blood loss
2. Weakness - Possibly GI bleed vs diarrhea. Denies any fevers chills, report chronic cough.
- check covid, flu
- holding diuretics for now
- evaluate and monitor for bleed as above
- orthostatic vital signs
3. AFIB
- will restart carvedilol with hold parameters 3.125 bid
- holding eliquis
4 Recent C.Diff
most likely etiology of pancolitis. Was dc on 01/01/25 to complete total of 2 wks
DVT PPX - SCDs
Code status - Full code
Anticipated Discharge: 24 - 48 hours
Subjective/Interval History
-
Date of Service: February 03, 2025
Awake, alert. Stools are brown past 2 episodes
Objective Data
-
Labs:
Laboratory Results
02/03/25
07:04
WBC 8.1
Hgb 11.1 L
Hct 32.5 L
Plt Count 136
Sodium 133 L
Potassium 3.1 L
Chloride 95 L
Carbon Dioxide 29
BUN 16
Creatinine 0.9
Glucose 91
Calcium 8.9
Vital Signs:
Vital Signs
Temp Pulse Resp BP Pulse Ox
98.1 F 75 18 145/87 99
02/03/25 08:12 02/03/25 08:12 02/03/25 08:12 02/03/25 08:12 02/03/25 08:12
I&O
02/02/25 02/03/25 02/04/25
06:59 06:59 06:59
Intake Total 480 / 480
Balance 480 / 480
Review of Systems
-
History Source: Patient and Coordinated Provider
Constitutional: Denies Fever
EENT: Denies No Symptoms Reported
Respiratory: Denies No Symptoms
Cardiac: Denies No Symptoms
Abdomen/GI: Denies Abdominal Pain, Nausea, Vomiting, Diarrhea or Constipated
Genitourinary: Reports Difficulty Voiding (pt states he has to stand to void, this is chronic)
Neuro: Reports No Symptoms
Physical Exam
-
General: Well Developed, Well Nourished and No Apparent Distress
HEENT: Normocephalic and Atraumatic
Respiratory: Clear to Auscultation; Negative Wheezes, Rales or Rhonchi
Cardiac: Regular Rhythm and S1/S2
GI: Nontender and Nondistended
Musculoskeletal: No Clubbing, No Cyanosis and No Edema
Neuro: Awake, Alert and Oriented
[2025-02-03 11:31] VITALS: BP 133/82; BP 135/79; BP 138/78; PULSE 62; PULSE 65; PULSE 67
[2025-02-03 12:01] LABS: Iron 43 ug/dl (49-181)
[2025-02-03 12:11] LABS: Percent Saturation 16 % (20-50); Total Iron Binding Capacity 256 ug/dl (261-462)
[2025-02-03 12:38] LABS: Ferritin 84.1 ng/ml (17.9-464.0)
[2025-02-03] MEDS: FERRLECIT 110 MG IV (13:25)
--- NOTE | 2025-02-03 13:44 | CM ---
Reviewed the chart notes and spoke with the patient at the bedside. Patient expressed feeling weak. Patient would benefit from PT screen prior to discharge. Patient reside in person care at [facility]. Patient has been to [facility] in past. CM continues
to be available to patient/family and is monitoring medical plan for needs at discharge.
Plan: Discharge plans will depend on the patient's progress. Will need PT evaluation for safe return to personal care.
[2025-02-03 15:20] VITALS: BP 159/81
[2025-02-03 19:30] VITALS: BP 176/100
[2025-02-03] MEDS: NSS (PRESERVATIVE FREE) IV (20:05)
[2025-02-03] MEDS: PROTONIX 40 MG PO (20:35)
[2025-02-03] MEDS: COREG 3.125 MG PO (20:35)
[2025-02-03] MEDS: DILAUDID 0.5 MG IV (20:36)
[2025-02-03] MEDS: DESYREL 150 MG PO (21:06)
[2025-02-03] MEDS: HYTRIN 2 MG PO (21:07)
[2025-02-03] MEDS: FLOMAX 0.4 MG PO (21:07)
[2025-02-03 23:15] VITALS: BP 145/80
[2025-02-04] MEDS: DILAUDID 0.5 MG IV ×5 (01:05→18:33)
[2025-02-04 03:20] VITALS: BP 159/85
[2025-02-04 06:00] VITALS: BMI 24.3
[2025-02-04] MEDS: COREG 3.125 MG PO ×2 (07:44→21:29)
[2025-02-04] MEDS: NSS (PRESERVATIVE FREE) IV ×2 (07:44→20:17)
[2025-02-04] MEDS: ELIQUIS 5 MG PO ×2 (07:44→21:28)
[2025-02-04] MEDS: PROTONIX 40 MG PO ×2 (07:44→21:28)
[2025-02-04] MEDS: COZAAR 25 MG PO (07:44)
[2025-02-04] MEDS: DILAUDID 1 MG IV ×4 (07:45→21:31)
[2025-02-04 07:53] VITALS: BP 159/92
[2025-02-04] MEDS: KCL 20 MEQ PO ×2 (08:06→21:30)
[2025-02-04 08:11] LABS: Hematocrit 32.6 % (39.0-52.0); Hemoglobin 11.2 g/dL (13.0-18.0); Mean Corp Hgb Conc. 34.4 g/dL (33.0-37.0); Mean Corpuscular Hgb 30.5 pg (27.0-31.0); Mean Corpuscular Volume 88.8 fL (80.0-94.0); Mean Platelet Volume 9.3 fL (7.4-10.4); Platelet Count 154 10^3/uL (130-400); Red Blood Cell Count 3.67 10^6/uL (4.70-6.10); Red Cell Dist. Width 13.6 % (11.5-14.5); White Blood Cell Count 7.5 10^3/uL (4.8-10.8)
[2025-02-04 08:30] LABS: Blood Urea Nitrogen 17 mg/dl (9-20); Carbon Dioxide 24 mmol/L (22-30); Chloride 96 mmol/L (98-107); Estimated Creatinine Clearance 71 ml/min; Glucose 88 mg/dl (70-99); Potassium 3.3 mmol/L (3.5-5.1); Sodium 135 mmol/L (135-145); eGFR > 60.00
--- NOTE | 2025-02-04 09:42 | W.PN.GI.CBS2 ---
Addendum entered and electronically signed by PATRICIA Colin 02/05/25 09:43:
reviewed c-diff with Dr. Orozco from 02/02 note inconclusive will repeat today
Addendum entered and electronically signed by Lilyia Loving DO 02/04/25 11:16:
The patient was seen and examined by me independently in collaboration with the nurse practitioner.
Past medical history/social history/medications/allergies/family history reviewed.
Lab data and imaging data reviewed.
Patient seen in follow-up this morning. He reports bloody stool early in the AM. Able to view stool in toilet as well as pad, brown stool with specks of bright red blood. He does admit to this happening in the past. Hemoglobin stable at 11.2.
Eliquis resumed yesterday. He does have some irritation around the rectum. Agree with topical cream, avoid straining. Interestingly, reports dark stool leading up to admission. Last colonoscopy in 2019 with diverticulosis. Given stable hemoglobin,
okay for d/c from a GI perspective. With regards to his abdominal pain this does appear somewhat chronic. He recently had C.diff and I agree that the changes seen on CT are likely from recent infection. Recommend outpatient follow-up with GI upon
discharge, at which time discussion regarding repeat endoscopic evaluation can be discussed. No plans for inpatient procedures at this time.
Original Note:
Today's Communication / Plan
-
stools now brown-- some noted red blood overnight but not recurrent ? local source
current rectal exam with brown stool heme neg but increased rectal irritation ? related to recent c-diff infection vs other
pancolitis on CT may be residual with recent c-diff infection-- similar finding on CT 12/27 and noted as severe
abdominal pain some may be chronic also noted urinary retention
reviewed with nursing to apply calazime cream BID and PRN and keep rectal area clear and dry
repeat c-diff neg
cont PPI remain on Eliquis
cont diet
Will hold on endoscopy unless significant decrease in hemoglobin
cont to trend hbg
Assessment / Plan
-
Pt is a 79yo presents with hx PAF, significant for paroxysmal atrial fibrillation on Eliquis, ASCVD, valvular heart disease with bioprosthetic aortic valve replacement, chronic back pain with history of opioid use, anemia of chronic disease,
hyperlipidemia, history of bladder outlet obstruction urinary retention with indwelling Montalvo catheter, history of osteomyelitis, pacemaker, polyneuropathy, diastolic heart failure, chronic kidney disease stage III, and recent c-diff infection
12/28/24 who presents to the emergency room with complaints of dark stools. CT on admission with similar finding of pancolitis also noted with recent c-diff infection. Hx colonoscopy 2020 with diverticulosis, no abnormality noted .
IMPRESSION: Findings suggesting moderate pancolitis. No evidence of perforation or abscess formation. Progressed
Significant bladder distention. This can be seen with bladder outlet obstruction. New
Many small layering gallstones. Stable
Too small to characterize hypodense hepatic lesions likely small cysts or hemangiomas. Stable
Too small to characterize hypodense right renal lesion likely a benign cyst.
Mild diverticulosis. No evidence of acute diverticulitis. Stable
Moderate atherosclerotic vascular disease. Stable
Mild prostate hypertrophy. Stable
Compression fractures. Stable
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 Stable
-dark stools
--recent c-diff infection
-rectal irritation
-changes of pancolitis on CT
- acute chronic abdominal pain
-anemia iron studies with chronic disease
-chronic bili elevation with minimal D bili elevation -- gilbert's
-Atrial fibrillation on Eliquis
other medical problems:
-h pylori
-left common iliac artery aneuryms per imaging
-CAD
-Hypertension
-CKD
-Chronic pain
-Former opioid use
-BPH
-History of bladder outlet obstruction with chronic Montalvo
-Hyperlipidemia
-Diastolic heart failure
-cholelithiasis
PLAN:
stools now brown-- some noted red blood overnight but not recurrent ? local source
current rectal exam with brown stool heme neg but increased rectal irritation ? related to recent c-diff infection vs other
pancolitis on CT may be residual with recent c-diff infection-- similar finding on CT 12/27 and noted as severe
abdominal pain some may be chronic also noted urinary retention
reviewed with nursing to apply calazime cream BID and PRN and keep rectal area clear and dry
repeat c-diff neg
cont PPI remain on Eliquis
cont diet
Will hold on endoscopy unless significant decrease in hemoglobin
cont to trend hbg
Subjective
Subjective
Date of Service: February 04, 2025
brown liquid stool but noted some red blood today on regular diet
Objective
Data Reviewed
Laboratory Data:
Laboratory Results
02/04/25 05:29
02/04/25 05:29
Laboratory Results
PT 24.9 Sec (11.4-14.6) H 02/02/25 06:19
INR 2.25 02/02/25 06:19
Total Bilirubin 1.4 mg/dl (0.2-1.3) H 02/02/25 01:30
AST 18 U/L (17-59) 02/02/25 01:30
ALT 11 U/L (0-50) 02/02/25 01:30
Alkaline Phosphatase 68 U/L (38-126) 02/02/25 01:30
Vital Signs and I&O:
Vital Signs
Temp Pulse Resp BP Pulse Ox
98.9 F 70 18 159/92 95
02/04/25 07:53 02/04/25 07:53 02/04/25 07:53 02/04/25 07:53 02/04/25 07:53
I&O
02/03/25 02/04/25 02/05/25
06:59 06:59 06:59
Intake Total 480 / 480 1300 / 1300
Balance 480 / 480 1300 / 1300
Physical Exam
Physical Exam
HEENT: Anicteric and Moist mucous membranes
Cardiology: Normal Sinus Rhythm
Pulmonary: Clear
GI: Soft, Non Distended and Tender (lower abdomen - chronic )
Rectal: Brown (heme neg ) and Other (increased redness in rectal area no active bleeding with some brown stool on pad in bed )
Extremities: No Edema
Neuro: Non Focal
[2025-02-04 11:32] VITALS: BP 136/82; BP 145/85; BP 145/90; PULSE 61; PULSE 69; PULSE 71
--- NOTE | 2025-02-04 11:53 | W.PN.HOSP.TC ---
Today's Communication/Plan
-
recheck labs in AM
bautista to be placed and see if pain resolves
Urology consult to follow
Assessment / Plan
Assessment / Plan
79-year-old with history of paroxysmal atrial fibrillation, chronically anticoagulated on Eliquis presenting to the emergency department with dark tarry stools for the last 24 hours. In the emergency department his blood pressure was 100/66, as of
02/03 145/87, baseline blood pressure based on last admission was in the 140s and 150s systolic. He is not tachycardic but is on a beta-aniceto. Hemoglobin is unchanged from prior at 11.4-->11.1-->11.2. Complains of abdominal pain as well as back
pain which appears to be acute on chronic. Heme negative green liquid stool on admission (bismuth?). Given history of GERD, black tarry stools, Eliquis use suspect for GI bleed secondary to anticoagulant. He appears hemodynamically stable but
suspect given the decrease in his baseline BP that he may be somewhat hypovolemic. 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 Presumed around 5 pm. Very weak per history compared to his baseline. Confirmed with Dr. Rivera, okay to
resume Eliquis, he is not planning to EGD him. Dr. Rivera does not believe abd pain is related to GI and is requesting Urology input
PLAN:
1. GI bleed - suspect UGIB 2/2 eliquis use. Black stools x 1 day. Hgb stable. Hemodynamically appears stable.
- admit to telemetry
- no active bleeding on exam currently
- diet resumed
- PPI IV gtt started in ED, will continue and transition to bid oral
Eliquis resumed today
- rita, consented and placed in chart
- mild anemia, will check Fe studies Fe 16%, Ferritin 84.1
will give IV FE and stop oral Fe
- CT abd: Findings suggesting moderate pancolitis. No evidence of perforation or abscess formation. Progressed
Significant bladder distention. This can be seen with bladder outlet obstruction. New
Many small layering gallstones. Stable
Too small to characterize hypodense hepatic lesions likely small cysts or hemangiomas. Stable
Too small to characterize hypodense right renal lesion likely a benign cyst.
Mild diverticulosis. No evidence of acute diverticulitis. Stable
Moderate atherosclerotic vascular disease. Stable
Mild prostate hypertrophy. Stable
Compression fractures. Stable
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 Stable
- small bolus of fluid 500 ml x 1 given, h/o CHF p EF
- holding lasix, and bp meds
2. Weakness - Possibly GI bleed vs diarrhea. Denies any fevers chills, report chronic cough.
- neg covid, flu neg
- holding diuretics for now
- evaluate and monitor for bleed as above
- orthostatic vital signs
3. AFIB
- will restart carvedilol with hold parameters 3.125 bid
- resumed eliquis
4 Recent C.Diff
most likely etiology of pancolitis. Was dc on 01/01/25 to complete total of 2 wks. Stool neg for WBC
5. Abd pain
unclear etio. GI believes related to bladder distention. Will consult Urology, pt goes to Dr. Mitchell. Dr. Ruelas recommends trial of straight cath to see if pain resolves. Will place bautista to see if pain fully resolves and urology input
regarding whether should be dc with bautista or evaluate for possible other etiologies of pain
6. Hypokalemia
Better. K 3.4-->3.1-->3.3
continue K supplement for now, recheck in AM
DVT PPX - SCDs
Code status - Full code
Anticipated Discharge: 24 - 48 hours
Subjective/Interval History
-
Date of Service: February 04, 2025
Still with LLQ abd pain
Objective Data
-
Labs:
Laboratory Results
02/04/25
05:29
WBC 7.5
Hgb 11.2 L
Hct 32.6 L
Plt Count 154
Sodium 135
Potassium 3.3 L
Chloride 96 L
Carbon Dioxide 24
BUN 17
Creatinine 0.8
Glucose 88
Calcium 9.0
Vital Signs:
Vital Signs
Temp Pulse Resp BP Pulse Ox
98.5 F 61 16 145/85 95
02/04/25 11:32 02/04/25 11:32 02/04/25 11:32 02/04/25 11:32 02/04/25 11:32
I&O
02/03/25 02/04/25 02/05/25
06:59 06:59 06:59
Intake Total 480 / 480 1300 / 1300
Balance 480 / 480 1300 / 1300
Review of Systems
-
History Source: Patient and Coordinated Provider
Constitutional: Denies Fever
EENT: Denies No Symptoms Reported
Respiratory: Denies No Symptoms
Cardiac: Denies No Symptoms
Abdomen/GI: Reports Abdominal Pain (LLQ); Denies Nausea, Vomiting, Diarrhea (pt states no diarrhea) or Constipated
Genitourinary: Reports Difficulty Voiding (pt states he has to stand to void, this is chronic)
Neuro: Reports No Symptoms
Physical Exam
-
General: Well Developed, Well Nourished and No Apparent Distress
HEENT: Normocephalic and Atraumatic
Respiratory: Clear to Auscultation; Negative Wheezes, Rales or Rhonchi
Cardiac: Regular Rhythm and S1/S2
GI: Nondistended and Tender (LLQ)
Musculoskeletal: No Clubbing, No Cyanosis and No Edema
Neuro: Awake, Alert and Oriented
--- NOTE | 2025-02-04 12:34 | PTCARENOTE ---
Patient with 8-9/10 abd pain this AM, states it is throughout lower abdomen, partially relieved by PRN IV dilaudid - see MAR. Patient bladder scanned for 245 ml by this RN after not having any urge to urinate this AM. MD made aware. Urology consult
placed per MD, 16fr bautista inserted for acute retention per MD order. Patient tolerated procedure, bautista draining fan colored urine.
[2025-02-04] MEDS: FERRLECIT 110 MG IV (13:00)
--- NOTE | 2025-02-04 14:37 | PTCARENOTE ---
Patient continuing to c/o lower abdominal pain rated 8-9/10 despite bautista catheter placement, bautista with ~250 ml fan colored output since insertion, patient with poor appetite/oral intake r/t abd pain. MD and urology made aware, urology stated to
maintain bautista at this time, patient medicated with PRN IV dilaudid- see MAR.
--- NOTE | 2025-02-04 15:30 | PN.CDI ---
CDI
- -
CDI:
Physician Documentation Request
Admit Date: 02/02/25 06:32
Dear Doctor Pam,
Clinical Indicators:
Patient admitted with suspected UGIB; patient presented with tarry stools & weakness.
02/02 H & P, '...suspect given the decrease in his baseline BP that he may be somewhat hypovolemic...small bolus of fluid 500 ml x 1 given...'
Sodium trend:
02/02/25 02/03/25
07:04
Sodium 132 L 133 L
Based on the above, could you clarify in the progress notes, the appropriate diagnosis, if significant, that supports the above abnormalities and additional evaluation, monitoring and/or treatment rendered:
Hyponatremia
Abnormal lab values, clinically insignificant
Other, please specify
Use of terms such as suspected, likely, concern for, or probable (associated with a specific diagnosis that is being evaluated, monitored, or treated as if it exists) are acceptable and can be coded in the inpatient setting, when documented at the
time of discharge.
Thank you,
Ana Hernadez RN BSN
CDI Specialist
available via tiger text
Please use your independent medical judgment in providing your response.
--- NOTE | 2025-02-04 15:32 | CM ---
Addendum entered by Rosalind Mancini RN 02/04/25 16:11:
IMM reviewed.
Original Note:
Reviewed the chart notes and spoke with the patient at the bedside. Voice message left with personal care to review patient's current status. Montalov placed today. PT evaluation pending. CM continues to be available to patient/family and is
monitoring medical plan for needs at discharge.
Plan: Discharge back to [facility] when medically stable.
--- NOTE | 2025-02-04 15:41 | PN.CDI ---
CDI
- -
CDI:
Physician Documentation Request
Admit Date: 02/02/25 06:32
Dear Doctor Pam,
Clinical Indicators:
Patient admitted with suspected UGIB; patient presented with tarry stools & weakness.
02/04 PN, 'mild anemia, will check Fe studies Fe 16%, Ferritin 84.1'
02/03 Ferrlecit 125 mg IV daily ordered.
Hgb/Hct trend
02/02/25 02/03/25 02/04/25
: 07:04 05:29
Hgb 11.4 L 11.1 L 11.2 L
Hct 33.0 L 32.5 L 32.6 L
Based on the above, could you clarify, in your progress note, which of the following is the most likely type of anemia you are evaluating, monitoring and/or treating?
Acute blood loss anemia with baseline chronic iron deficiency anemia
Chronic iron deficiency anemia only
Other, please specify
Use of terms such as suspected, likely, concern for, or probable (associated with a specific diagnosis that is being evaluated, monitored, or treated as if it exists) are acceptable and can be coded in the inpatient setting, when documented at the
time of discharge.
Thank you,
Ana Hernadez RN BSN
CDI Specialist
available via tiger text
Please use your independent medical judgment in providing your response.
[2025-02-04 15:50] VITALS: BP 142/85
[2025-02-04 19:10] VITALS: BP 150/84
[2025-02-04] MEDS: HYTRIN 2 MG PO (21:29)
[2025-02-04] MEDS: FLOMAX 0.4 MG PO (21:30)
[2025-02-04] MEDS: DESYREL 150 MG PO (21:30)
[2025-02-04 23:50] VITALS: BP 138/89
[2025-02-05] VITALS (7 sets, daily range): BP systolic 132–180; BP diastolic 86–105; PULSE 59–70; O2SAT 95–97; BMI 24.1
[2025-02-05 07:38] LABS: Hematocrit 32.9 % (39.0-52.0); Hemoglobin 11.3 g/dL (13.0-18.0); Mean Corp Hgb Conc. 34.3 g/dL (33.0-37.0); Mean Corpuscular Hgb 30.5 pg (27.0-31.0); Mean Corpuscular Volume 88.9 fL (80.0-94.0); Mean Platelet Volume 9.3 fL (7.4-10.4); Platelet Count 165 10^3/uL (130-400); Red Cell Dist. Width 13.5 % (11.5-14.5); White Blood Cell Count 6.9 10^3/uL (4.8-10.8)
--- NOTE | 2025-02-05 07:51 | CONS.URO ---
Consultation
-
Date/Time Consultation Requested: 02/04
Date/Time Consultation Performed: 02/04 1630
Requesting Provider: Pam
Performing Provider: Joss
Reason for Consultation: urinary retention, abdominal pain
Medical History
History of Present Illness
79M known to [facility] with prior urologic history as follows:
- s/p TURP ([facility]) complicated by bladder neck contracture
- 2010: s/p laser incision of BNC (Dr. Mitchell)
- only minor obstructive LUTS since 2010 bladder neck incision until early 2021
- 01/14/22: acute urinary retention in setting of Enterococcus bacterial prostatitis
- 01/22/22: passed voiding trial w/ recurrent urinary retention - Montalvo catheter placed
- 01/22/22: CT imaging => no acute pathology, distended bladder
- passed voiding trial w/ recurrent urinary retention in 02/2022
- 03/2022: cystoscopy => open bladder neck, no visual evidence of bladder outlet obstruction
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
- CIC (self-catheterization) was taught - patient went back and forth b/w indwelling catheter vs. CIC
- 03/2024 office visit - emptying well w/ PVR 66 cc.
Long-standing h/o chronic lower abdominal pain requiring narcotics historically - managed w/ pain pump in past.
Currently admitted w/ acute on chronic exacerbation of lower abdominal pain, recent C. diff infection, UGIB.
Past Medical History
Past Medical History: Arrhythmia (pAF, atrial flutter), GERD, HTN, Psychiatric (anxiety, depression) and Other (chronic back pain, spinal stenosis, DDD, chronic opioid use w/ dependence, h/o Klebsiella and Staph infection of L4-L5 hardware, chronic
neuropathy, HLD)
Past Surgical History: Cardiac (pacemaker and AVR 2006 and 2019, cardiac catheterization 2006), Orthopedic (rhizotomy lower back, c-spine fusion/laminectomy (2018), lumbar surgery w/ screws (2022), removal of screws (04/2023)), Urological (TURP
([place]), laser bladder neck incision (2010)) and Other (hemorrhoidectomy)
Social History
Tobacco: Non-smoker
Alcohol: Occasional
Drug: None
Personal:
Living: With Family
Employment: Retired
Family History
Family History: Reviewed & Not Pertinent
Allergies/Home Medications
Allergies
Allergy/AdvReac Type Severity Reaction Status Date / Time
amiodarone Allergy Unknown Verified 02/02/25 01:21
amlodipine Allergy Swelling - Verified 02/02/25 01:21
1993
benzyl alcohol Allergy Unknown Verified 02/02/25 01:21
clindamycin Allergy Unknown Verified 02/02/25 01:21
hydrochlorothiazide Allergy Hyponatremi Verified 02/02/25 01:21
a
meloxicam Allergy Unknown Verified 02/02/25 01:21
polysorbate 80 Allergy Unknown Verified 02/02/25 01:21
sulfamethoxazole Allergy Unknown Verified 02/02/25 01:21
[From Bactrim]
tizanidine [From Zanaflex] Allergy took from Verified 02/02/25 01:21
patient
history
and
physical
from
surgeon
trimethoprim [From Bactrim] Allergy Unknown Verified 02/02/25 01:21
Home Medications
�Medication �Instructions �Recorded �Confirmed �Type
apixaban 5 mg tablet (Eliquis) 5 mg PO BID Blood clot 01/16/22 02/02/25 History
prevention/tx
trazodone 150 mg tablet 150 mg PO HS Depression/sleep 09/13/22 02/02/25 History
famotidine 20 mg tablet (Pepcid) 20 mg PO BID Gastrointestinal issue 02/17/23 02/02/25 History
hydralazine 10 mg tablet 10 mg PO TID Blood Pressure 04/03/23 02/02/25 History
vitamin B complex 1 cap PO DAILY Supplement ##0 04/03/23 02/02/25 History
atorvastatin 20 mg tablet (Lipitor) 20 mg PO HS High cholesterol 04/12/23 02/02/25 History
cholecalciferol (vitamin D3) 125 125 mcg PO DAILY Supplement 04/12/23 02/02/25 History
mcg (5,000 unit) tablet (Vitamin
D3)
polyethylene glycol 3350 17 17 g PO DAILY Constipation 04/14/24 02/02/25 History
gram/dose oral powder (Miralax)
tamsulosin 0.4 mg capsule 0.4 mg PO HS Urinary Issue 04/14/24 02/02/25 History
acetaminophen 500 mg tablet 1,000 mg PO Q12H Pain 09/07/24 02/02/25 History
carvedilol 3.125 mg tablet (Coreg) 3.125 mg PO BID Blood Pressure 09/07/24 02/02/25 History
gabapentin 600 mg tablet 600 mg PO TID Pain 09/07/24 02/02/25 History
pantoprazole 40 mg tablet,delayed 40 mg PO DAILY GERD 09/07/24 02/02/25 History
release (Protonix)
vitamin E 268 mg (400 unit) capsule 268 mg PO DAILY Supplement 09/07/24 02/02/25 History
bismuth subsalicylate 262 mg/15 mL 524 mg PO DAILYPRN PRN diarrhea 12/25/24 02/02/25 History
oral suspension (Kaopectate
(bismuth subsalicylate))
duloxetine 30 mg capsule,delayed 30 mg PO DAILY Mental 12/25/24 02/02/25 History
release (Cymbalta) Health/Anxiety
ferrous sulfate 325 mg (65 mg 325 mg PO DAILY Supplement 12/25/24 02/02/25 History
iron) tablet
terazosin 2 mg capsule 2 mg PO HS Urinary Issue/BP 12/25/24 02/02/25 History
acetaminophen 500 mg tablet 1,000 mg PO BIDPRN PRN mild pain 02/02/25 02/02/25 History
(Tylenol Extra Strength)
furosemide 20 mg tablet (Lasix) 20 mg PO DAILY Fluid 02/02/25 02/02/25 History
Retention/Swelling
losartan 25 mg tablet 25 mg PO DAILY Blood Pressure 02/02/25 02/02/25 History
ondansetron HCl 4 mg tablet 4 mg PO Q8HPRN PRN nausea 02/02/25 02/02/25 History
oxycodone 15 mg tablet 15 mg PO TIDPRN PRN break through 02/02/25 02/02/25 History
pain
Review of Systems
-
History Source: Patient
A 12 point Review of Systems was completed except as noted: Yes
Physical Exam
Vital Signs
Vital Signs
Temp Pulse Resp BP Pulse Ox
98.4 F 88 14 152/90 99
02/05/25 03:21 02/05/25 03:21 02/05/25 03:21 02/05/25 03:21 02/05/25 05:15
Lab / Testing Results
Laboratory Results
02/05/25 05:35
Physical Exam
General: No Apparent Distress
HEENT: Normocephalic and Anicteric
Respiratory: Non Labored Respirations
Cardiac: Regular Rhythm
Breast: N/A
GI: Soft, Non Tender and Non Distended
Rectal: Deferred by Provider
Genito-urinary: No Costovertebral Tend, Clear Urine and Montalvo Catheter
Musculoskeletal: No Edema
Skin: Warm and Dry
Neuro: AO x 3, No Motor Deficits and Nonfocal/Grossly Intact
Psych: Calm and Intact Judgement
Assessment / Plan
-
Chronic urinary retention w/o evidence of bladder outlet obstruction (on cystoscopy + urodynamics studies)
Remote h/o TURP w/ bladder neck contracture development (s/p laser incision of BNC in 2010)
Chronic lower abdominal pain w/ opioid dependence
Cr WNL
02/02: CTAP w/ IV contrast => markedly distended bladder, bilateral kidneys w/o hydroureteronephrosis
Montalvo catheter placed w/ concentrated clear UOP noted.
Patient notes NO change in lower abdominal pain since catheter decompression of bladder.
Patient endorses not having performed CIC in several months - voiding at baseline.
- If no change in abdominal pain after catheter placement - this suggests non-urologic etiology
- Recommend voiding trial before discharge or patient resuming CIC x3 daily (14Fr catheters) as previously discussed w/ patient - revisited again today
- F/U w/ Dr. Mitchell as scheduled in 03/2025
D/w patient.
D/w Dr. Franco.
Data Reviewed
-
Total Time Spent with Patient (in minutes): 55
CT Scan: Image personally visualized and interpreted, Report Reviewed by Me, Discussed with Physician and Discussed with Patient
Lab Data: Labs Reviewed, Discussed with Physician and Discussed with Patient
Old Records: Reviewed
[2025-02-05] MEDS: COREG 3.125 MG PO ×2 (08:11→13:54)
[2025-02-05] MEDS: PROTONIX 40 MG PO ×2 (08:11→22:34)
[2025-02-05] MEDS: ELIQUIS 5 MG PO ×2 (08:12→22:33)
[2025-02-05] MEDS: COZAAR 25 MG PO (08:12)
[2025-02-05] MEDS: KCL 20 MEQ PO ×2 (08:13→22:33)
[2025-02-05] MEDS: NSS (PRESERVATIVE FREE) IV ×2 (08:13→22:34)
[2025-02-05] MEDS: DILAUDID 1 MG IV (08:15)
[2025-02-05 08:25] LABS: Blood Urea Nitrogen 14 mg/dl (9-20); Carbon Dioxide 28 mmol/L (22-30); Chloride 98 mmol/L (98-107); Estimated Creatinine Clearance 71 ml/min; Glucose 92 mg/dl (70-99); Potassium 3.8 mmol/L (3.5-5.1); Sodium 136 mmol/L (135-145); eGFR > 60.00
--- NOTE | 2025-02-05 08:31 | PTCARENOTE ---
Addendum entered by Dionne Chopra, TRICIA 02/05/25 09:52:
Cdiff stool sample ordered per MD.
Original Note:
Patient's BP this AM taken by tech 178/103 HR 63, repeat taken by this RN 176/100 RUE, patient AV paced on tele monitor. Patient c/o 8-9/10 abd pain and frequent diarrhea, administered scheduled BP medications and PRN 1 mg IV dilaudid - see MAR.
Patient with moist harsh occ cough, lung sounds coarse with exp wheeze, patient states cough is new but denies SOB at this time. MD made aware of assessment findings and BP results, no new orders at this time.
[2025-02-05] MEDS: DILAUDID 0.5 MG IV ×2 (10:00→18:39)
--- NOTE | 2025-02-05 10:55 | W.PN.HOSP.TC ---
Today's Communication/Plan
-
resume chronic oxycodone
voiding trial
check for C. Diff
Assessment / Plan
Assessment / Plan
79-year-old with history of paroxysmal atrial fibrillation, chronically anticoagulated on Eliquis presenting to the emergency department with dark tarry stools for the last 24 hours. In the emergency department his blood pressure was 100/66, as of
02/03 145/87, baseline blood pressure based on last admission was in the 140s and 150s systolic. He is not tachycardic but is on a beta-aniceto. Hemoglobin is unchanged from prior at 11.4-->11.1-->11.2.
Complains of abdominal pain as well as back pain which appears to be acute on chronic. On questioning, pt is on chronic narcotic analgesics for this and was not continued on admission. Heme negative green liquid stool on admission (bismuth?). Given
history of GERD, black tarry stools, Eliquis use suspect for GI bleed secondary to anticoagulant. He appears hemodynamically stable but suspect given the decrease in his baseline BP that he may be somewhat hypovolemic. Last dose of Eliquis was am
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 Presumed around 5 pm. Very weak per history compared to his baseline. Confirmed with Dr. Rivera, okay to resume Eliquis, he is not planning to EGD him. Dr. Rivera does not believe abd pain is related to GI and is
requesting Urology input. Discussed with Dr. Coreas, will order voiding trial for tomorrow
PLAN:
1. Doubt GI bleed - Hgb has been rock stable. Hemodynamically appears stable.
- admit to telemetry
- no active bleeding on exam currently
- diet resumed
- PPI IV gtt started in ED, will continue and transition to bid oral
Eliquis resumed and again Hgb has been steady
- shine and cross, consented and placed in chart
- mild anemia, will check Fe studies Fe 16%, Ferritin 84.1
will give IV FE and stop oral Fe
- CT abd: Findings suggesting moderate pancolitis. No evidence of perforation or abscess formation. Progressed
Significant bladder distention. This can be seen with bladder outlet obstruction. New
Many small layering gallstones. Stable
Too small to characterize hypodense hepatic lesions likely small cysts or hemangiomas. Stable
Too small to characterize hypodense right renal lesion likely a benign cyst.
Mild diverticulosis. No evidence of acute diverticulitis. Stable
Moderate atherosclerotic vascular disease. Stable
Mild prostate hypertrophy. Stable
Compression fractures. Stable
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 Stable
- small bolus of fluid 500 ml x 1 given, h/o CHF p EF
- holding lasix, and bp meds
2. Weakness - Possibly GI bleed vs diarrhea. Denies any fevers chills, report chronic cough.
- neg covid, flu neg
- holding diuretics for now
- evaluate and monitor for bleed as above
- orthostatic vital signs
PT and OT have been consulted
3. AFIB
- will restart carvedilol with hold parameters 3.125 bid
- resumed eliquis
4 Recent C.Diff
most likely etiology of pancolitis. Was dc on 01/01/25 to complete total of 2 wks. Stool neg for WBC, thus unlikely to be recurrent C.Diff, but with potential dc to facility, will recheck
5. Abd pain
unclear etio. GI believes related to bladder distention. Will consult Urology, pt goes to Dr. Mitchell. Dr. Ruelas recommends trial of straight cath to see if pain resolves. Will place bautista to see if pain fully resolved, which it did not
and urology input regarding whether should be dc with bautista or evaluate for possible other etiologies of pain. Discussed with Dr. Coreas. Will resume outpt oxycodone
6. Hypokalemia
Better. K 3.4-->3.1-->3.3-->3.8
continue K supplement for now, recheck in AM
DVT PPX - SCDs
discussed with Nat PELLETIER
Code status - Full code
Anticipated Discharge: 24 - 48 hours
Subjective/Interval History
-
Date of Service: February 05, 2025
Nurse describes pt having soft, but not liquidy stools
Still with suprapubic pain
Objective Data
-
Labs:
Laboratory Results
02/05/25
05:35
WBC 6.9
Hgb 11.3 L
Hct 32.9 L
Plt Count 165
Sodium 136
Potassium 3.8
Chloride 98
Carbon Dioxide 28
BUN 14
Creatinine 0.8
Glucose 92
Calcium 9.0
Vital Signs:
Vital Signs
Temp Pulse Resp BP Pulse Ox
98.9 F 63 16 178/103 95
02/05/25 07:45 02/05/25 08:12 02/05/25 07:45 02/05/25 08:12 02/05/25 08:29
I&O
02/04/25 02/05/25 02/06/25
06:59 06:59 06:59
Intake Total 1300 / 1300 480 / 480
Output Total 675 / 675
Balance 1300 / 1300 -195 / -195
Review of Systems
-
History Source: Patient and Coordinated Provider
Constitutional: Denies Fever
EENT: Denies No Symptoms Reported
Respiratory: Denies No Symptoms
Cardiac: Denies No Symptoms
Abdomen/GI: Reports Abdominal Pain (LLQ); Denies Nausea, Vomiting, Diarrhea (not truly diarrhea, but soft stools) or Constipated
Genitourinary: Reports Difficulty Voiding (pt states he has to stand to void, this is chronic, bautista has been placed)
Neuro: Reports No Symptoms
Physical Exam
-
General: Well Developed, Well Nourished and No Apparent Distress
HEENT: Normocephalic and Atraumatic
Respiratory: Clear to Auscultation; Negative Wheezes, Rales or Rhonchi
Cardiac: Regular Rhythm and S1/S2
GI: Nondistended, Normal Bowel Sounds and Tender (LLQ)
Genito-urinary: Bautista
Musculoskeletal: No Clubbing, No Cyanosis and No Edema
Neuro: Awake, Alert and Oriented
[2025-02-05] MEDS: ROXICODONE 15 MG PO ×2 (11:22→15:01)
[2025-02-05] MEDS: FERRLECIT 110 MG IV (13:03)
--- NOTE | 2025-02-05 14:36 | CM ---
Reviewed the chart notes and spoke with the patient at the bedside. Discussed recommendations of PT and OT. Patient agreeable with rehab. Referral to [facility] sent via [facility] with [facility]. CM continues to be available to patient/family and is
monitoring medical plan for needs at discharge.
Plan: Discharge plans will depend on the patient's progress. [facility] vs home with VN services.
--- NOTE | 2025-02-05 16:14 | PTCARENOTE ---
Patient working with PT/OT this afternoon, BP prior to session 172/98 and BP after activity 180/103, HR AV paced in 60s on tele monitor. PT/OT reporting patient dizzy with activity, orthos obtained earlier in shift - see charting. MD made aware,
scheduled coreg dosing increased and one time dose ordered per MD and administered by this RN - see JAN. Patient's BP for 1500 vitals 132/86 HR 64. Patient placed back on home dose of 15 mg PO oxycodone q8hr, states improvement of abdominal/back
pain throughout shift. Static overlay placed on bed, barrier ointment applied to blanchable red sacrum/buttocks. Montalvo pulled at 1130 per MD order, patient to be bladder scanned at 1730. Patient on enhanced precautions for outstanding cdiff sample.
--- NOTE | 2025-02-05 19:38 | PTCARENOTE ---
Patient with no urine output throughout shift despite ambulating to bathroom and having urge to urinate, bladder scan at 1730 231 ml. This RN communicated with urology, urology stated to either place 18fr bautista or intermittently catheterize for
bladder scan >250ml. Per urology, patient with chronic urinary retention and has been advised to self cath intermittently at home in the past. This RN discussed options with patient, patient states he does not feel comfortable intermittently
catheterizing at this time, prefers bautista placement and output f/u. This RN communicated with urology, verbal order taken for bautista catheter per urology determination; urology to coordinate outpatient f/u after discharge for TOV and self-cath
education. This RN inserted 18fr bautista, patient tolerated procedure, bautista draining fan colored urine. Patient medicated with PRN 0.5mg IV dilaudid for insertion discomfort and 8/10 lower abd pain - see MAR. made aware of urology discussion and
bautista placement.
[2025-02-05] MEDS: HYTRIN 2 MG PO (22:33)
[2025-02-05] MEDS: COREG 6.25 MG PO (22:33)
[2025-02-05] MEDS: DESYREL 150 MG PO (22:33)
[2025-02-05] MEDS: FLOMAX 0.4 MG PO (22:34)
[2025-02-06] VITALS (9 sets, daily range): BP systolic 100–189; BP diastolic 70–118; PULSE 75–81; BMI 25.1
[2025-02-06] MEDS: ROXICODONE 15 MG PO ×4 (00:05→23:09)
[2025-02-06 06:29] LABS: Hematocrit 32.1 % (39.0-52.0); Hemoglobin 11.1 g/dL (13.0-18.0); Mean Corp Hgb Conc. 34.6 g/dL (33.0-37.0); Mean Corpuscular Hgb 30.8 pg (27.0-31.0); Mean Corpuscular Volume 89.2 fL (80.0-94.0); Mean Platelet Volume 8.7 fL (7.4-10.4); Platelet Count 153 10^3/uL (130-400); Red Cell Dist. Width 13.3 % (11.5-14.5); White Blood Cell Count 5.2 10^3/uL (4.8-10.8)
[2025-02-06] MEDS: COREG 6.25 MG PO ×2 (08:26→19:29)
[2025-02-06] MEDS: COZAAR 25 MG PO (08:27)
[2025-02-06] MEDS: ELIQUIS 5 MG PO ×2 (08:27→19:29)
[2025-02-06] MEDS: KCL 20 MEQ PO ×2 (08:27→19:29)
[2025-02-06] MEDS: PROTONIX 40 MG PO ×2 (08:27→19:29)
[2025-02-06] MEDS: NSS (PRESERVATIVE FREE) IV ×2 (08:28→19:50)
[2025-02-06] MEDS: DILAUDID 0.25 MG IV (10:10)
[2025-02-06] MEDS: DILAUDID 0.5 MG IV ×2 (13:03→19:26)
[2025-02-06] MEDS: FERRLECIT 110 MG IV (13:03)
--- NOTE | 2025-02-06 14:41 | CM ---
Reviewed the chart notes and spoke with the patient at the bedside and his son via telephone. PT recommending VN services. CM spoke with Christy from [facility]. Patient can come back to with michele with VN services. No weekend admissions. CM
continues to be available to patient/family and is monitoring medical plan for needs at discharge.
Plan: Discharge back to [facility] with [facility] services.
--- NOTE | 2025-02-06 14:42 | PTCARENOTE ---
Patient's orthostatics done as ordered and documented. Dr. Orozco at bedside and aware of vs. plan of care ongoing. call calles within reach.
[2025-02-06] MEDS: APRESOLINE 5 MG PO ×2 (16:40→21:54)
--- NOTE | 2025-02-06 18:37 | W.PN.HOSP.TC ---
Today's Communication/Plan
-
continue current Rx
Assessment / Plan
Assessment / Plan
79-year-old with history of paroxysmal atrial fibrillation, chronically anticoagulated on Eliquis presenting to the emergency department with dark tarry stools for the last 24 hours. In the emergency department his blood pressure was 100/66, as of
02/03 145/87, baseline blood pressure based on last admission was in the 140s and 150s systolic. He is not tachycardic but is on a beta-aniceto. Hemoglobin is unchanged from prior at 11.4-->11.1-->11.2-->11.1.
BP today has increased to 160/100. Unclear as to why. Hydralazine started
Complains of abdominal pain as well as back pain which appears to be acute on chronic. On questioning, pt is on chronic narcotic analgesics for this and was not continued on admission. Heme negative green liquid stool on admission (bismuth?). Given
history of GERD, black tarry stools, Eliquis use suspect for GI bleed secondary to anticoagulant, but probably not. He appears hemodynamically stable but suspect given the decrease in his baseline BP that he may be somewhat hypovolemic, this has
resolved and he is currently with elevated BP. 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 Presumed around 5 pm. Very weak per history compared to his baseline. Confirmed with Dr. Rivera, okay to resume Eliquis, he is not planning to
EGD him. Dr. Rivera does not believe abd pain is related to GI and is requesting Urology input. Discussed with Dr. Coreas, underwent voiding trial, catheter removed, but decreased urinary output and increasing pain. Bautista replaced, but pain has
not resolved. Unclear as to etiology of pain. He was placed back on his outpt dose of oxycodone, but does believe resumption is helping his pain. Was asked if pain is worse than his baseline and he was somewhat unsure, but believes so and does
not believe he is stable to be dc to home.
PLAN:
1. Doubt GI bleed - Hgb has been stable. Hemodynamically appears stable.
- admit to telemetry
- no active bleeding on exam currently
- diet resumed
- PPI IV gtt started in ED, will continue and transition to bid oral
Eliquis resumed and again Hgb has been steady
- type and cross, consented and placed in chart
- mild anemia, will check Fe studies Fe 16%, Ferritin 84.1
will give IV FE and stop oral Fe
- CT abd: Findings suggesting moderate pancolitis. No evidence of perforation or abscess formation. Progressed
Significant bladder distention. This can be seen with bladder outlet obstruction. New
Many small layering gallstones. Stable
Too small to characterize hypodense hepatic lesions likely small cysts or hemangiomas. Stable
Too small to characterize hypodense right renal lesion likely a benign cyst.
Mild diverticulosis. No evidence of acute diverticulitis. Stable
Moderate atherosclerotic vascular disease. Stable
Mild prostate hypertrophy. Stable
Compression fractures. Stable
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 Stable
- small bolus of fluid 500 ml x 1 given, h/o CHF p EF
- holding lasix, and bp meds
2. Weakness - Possibly GI bleed vs diarrhea. Denies any fevers chills, report chronic cough.
- neg covid, flu neg
- holding diuretics for now
- evaluate and monitor for bleed as above
- orthostatic vital signs
PT and OT have been consulted
3. AFIB
- will restart carvedilol with hold parameters 3.125 bid initially, dose increased to 6.25 mg bid
- resumed eliquis
4 Recent C.Diff
most likely etiology of pancolitis. Was dc on 01/01/25 to complete total of 2 wks. Stool neg for WBC, thus unlikely to be recurrent C.Diff, but with potential dc to facility, will recheck
5. Abd pain
unclear etio. GI believes related to bladder distention. Will consult Urology, pt goes to Dr. Mitchell. Dr. Ruelas recommends trial of straight cath to see if pain resolves. Will place bautista to see if pain fully resolved, which it did not
and urology input regarding whether should be dc with bautista or evaluate for possible other etiologies of pain. Discussed with Dr. Coreas. Will resume outpt oxycodone
6. Hypokalemia
Better. K 3.4-->3.1-->3.3-->3.8
continue K supplement for now, recheck in AM
DVT PPX - SCDs
discussed with Nat PELLETIER
call placed to son Angel and reviewed situation. States pain has been ongoing past 5+ years, but now more located in lower abdomen over past 2-3 weeks. Etiology of process remains unclear, consider surgical consult tomorrow
Code status - Full code
time 60 minutes
Anticipated Discharge: > 48 hours
Subjective/Interval History
-
Date of Service: February 06, 2025
Still with suprapubic abd pain, does not believe urinary catheter did any benefit to symptoms
Objective Data
-
Vital Signs:
Vital Signs
Temp Pulse Resp BP Pulse Ox
97.4 F 72 17 160/100 95
02/06/25 15:10 02/06/25 16:40 02/06/25 15:10 02/06/25 16:40 02/06/25 15:10
I&O
02/05/25 02/06/25 02/07/25
06:59 06:59 06:59
Intake Total 480 / 480 1140 / 1140 900 / 900
Output Total 675 / 675 675 / 675 550 / 550
Balance -195 / -195 465 / 465 350 / 350
Review of Systems
-
History Source: Patient and Coordinated Provider
Constitutional: Denies Fever
EENT: Denies No Symptoms Reported
Respiratory: Denies No Symptoms
Cardiac: Denies No Symptoms
Abdomen/GI: Reports Abdominal Pain (LLQ) and Constipated (no BM past 24 hrs); Denies Nausea, Vomiting or Diarrhea (not truly diarrhea, but soft stools)
Genitourinary: Reports Difficulty Voiding (pt states he has to stand to void, this is chronic, bautista has been placed)
Neuro: Reports No Symptoms
Physical Exam
-
General: Well Developed, Well Nourished and No Apparent Distress
HEENT: Normocephalic and Atraumatic
Respiratory: Clear to Auscultation; Negative Wheezes, Rales or Rhonchi
Cardiac: Regular Rhythm and S1/S2
GI: Nondistended, Normal Bowel Sounds and Tender (LLQ)
Genito-urinary: Bautista
Musculoskeletal: No Clubbing, No Cyanosis and No Edema
Neuro: Awake, Alert and Oriented
[2025-02-06] MEDS: DESYREL 150 MG PO (21:54)
[2025-02-06] MEDS: FLOMAX 0.4 MG PO (21:54)
[2025-02-06] MEDS: HYTRIN 2 MG PO (21:55)
[2025-02-07] MEDS: DILAUDID 0.5 MG IV ×2 (03:42→19:47)
[2025-02-07 05:37] VITALS: BMI 24.4
[2025-02-07 07:22] LABS: Hematocrit 32.8 % (39.0-52.0); Hemoglobin 11.1 g/dL (13.0-18.0); Mean Corp Hgb Conc. 33.8 g/dL (33.0-37.0); Mean Corpuscular Hgb 30.3 pg (27.0-31.0); Mean Corpuscular Volume 89.6 fL (80.0-94.0); Mean Platelet Volume 9.2 fL (7.4-10.4); Platelet Count 180 10^3/uL (130-400); Red Blood Cell Count 3.66 10^6/uL (4.70-6.10); Red Cell Dist. Width 13.4 % (11.5-14.5); White Blood Cell Count 4.6 10^3/uL (4.8-10.8)
[2025-02-07 07:47] LABS: ALT (SGPT) 12 U/L (0-50); AST (SGOT) 19 U/L (17-59); Albumin 3.6 g/dl (3.5-5.0); Alkaline Phosphatase 69 U/L (38-126); Blood Urea Nitrogen 11 mg/dl (9-20); Calcium 9.1 mg/dl (8.4-10.2); Carbon Dioxide 32 mmol/L (22-30); Chloride 97 mmol/L (98-107); Estimated Creatinine Clearance 63 ml/min; Glucose 94 mg/dl (70-99); Potassium 4.4 mmol/L (3.5-5.1); Sodium 134 mmol/L (135-145); Total Bilirubin 1.5 mg/dl (0.2-1.3); Total Protein 5.9 g/dl (6.3-8.2); eGFR > 60.00
[2025-02-07 07:50] VITALS: BP 144/96
[2025-02-07] MEDS: ROXICODONE 15 MG PO ×3 (07:56→23:23)
[2025-02-07] MEDS: COZAAR 25 MG PO (07:56)
[2025-02-07] MEDS: PROTONIX 40 MG PO (07:56)
[2025-02-07] MEDS: COREG 6.25 MG PO ×2 (07:56→20:00)
[2025-02-07] MEDS: KCL 20 MEQ PO ×2 (07:56→19:48)
[2025-02-07] MEDS: ELIQUIS 5 MG PO ×2 (07:57→19:48)
[2025-02-07] MEDS: APRESOLINE 5 MG PO ×3 (07:57→21:50)
[2025-02-07] MEDS: NSS (PRESERVATIVE FREE) IV ×2 (09:19→19:48)
[2025-02-07] MEDS: DILAUDID 0.25 MG IV ×2 (10:13→21:54)
--- NOTE | 2025-02-07 11:20 | W.PN.GI.CBS2 ---
Addendum entered and electronically signed by Liliya Loving DO 02/07/25 13:48:
The patient was seen and examined by me independently in collaboration with the nurse practitioner.
Past medical history/social history/medications/allergies/family history reviewed.
Lab data and imaging data reviewed.
GI is reconsulted due to acute on chronic lower abdominal pain. He was previously being followed by GI for initial presentation of black tarry stools, which then changed to bright red blood per rectum. His hemoglobin remained stable throughout
these episodes and he was cleared to resume his Eliquis. He did have a recent episode of C. difficile, CAT scan showed findings of pancolitis, felt to be residual from his recent C. difficile infection. He also reports recently having diarrhea
however now it has changed to constipation over the last 4 to 5 days.
#Abdominal Pain
#C.diff s/p treatment
#Pancolitis
-unable to provide stool sample for c.diff testing
-repeat CT A/P pending
-upon review, he has had numerous imaging studies in the past for workup of his abdominal pain, so I actually do not feel this is 2/2 underlying pancolitis seen on imaging. It does seem to be consistent with his baseline, chronic abdominal pain
-certainly, a colonoscopy can be considered, but he is currently on eliquis; depending on findings on repeat CT Scan, can discuss performing colonsocopy ealry next week vs. expedited colonoscopy as an outpatient
Original Note:
Today's Communication / Plan
-
asked to see again for continued abdominal pain- acute on chronic
no stool last 2 days
no fever, normal WBC or severe distention on exam
I suspect this is all post infectious related to recent c-diff with severe pancolitis noted on CT 12/27 then moderate kam colitis 02/02 with hx chronic abdominal pain
pt current unable to tell me the pattern of his chronic abd pain other than periumbilical and this is somewhat lower pain
will repeat CT to ensure no changes
repeat c-diff 02/02 invalid -- await follow up specimen to ensure c-diff properly treated
reviewed with Dr. Orozco recent CT with bladder distention but no improvement with bladder decompression
cont local rectal care with irritation likely from recent diarrhea
cont PPI -- will change to daily -- if tolerating consider pepcid as alternative with recent c-diff infection
remain on Eliquis
cont diet
hbg stable 11 with prior dark stools hold EGD with no signs of active bleeding
cont to trend hbg
Assessment / Plan
-
Pt is a 79yo presents with hx PAF, significant for paroxysmal atrial fibrillation on Eliquis, ASCVD, valvular heart disease with bioprosthetic aortic valve replacement, chronic back pain with history of opioid use, anemia of chronic disease,
hyperlipidemia, history of bladder outlet obstruction urinary retention with indwelling Montalvo catheter, history of osteomyelitis, pacemaker, polyneuropathy, diastolic heart failure, chronic kidney disease stage III, and recent c-diff infection
12/28/24 who presents to the emergency room with complaints of dark stools. CT on admission with similar finding of pancolitis also noted with recent c-diff infection. Hx colonoscopy 2019 with diverticulosis, no abnormality noted .
IMPRESSION: Findings suggesting moderate pancolitis. No evidence of perforation or abscess formation. Progressed
Significant bladder distention. This can be seen with bladder outlet obstruction. New
Many small layering gallstones. Stable
Too small to characterize hypodense hepatic lesions likely small cysts or hemangiomas. Stable
Too small to characterize hypodense right renal lesion likely a benign cyst.
Mild diverticulosis. No evidence of acute diverticulitis. Stable
Moderate atherosclerotic vascular disease. Stable
Mild prostate hypertrophy. Stable
Compression fractures. Stable
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 Stable
-continued acute on chronic abdominal pain
-dark stools
--recent c-diff infection
-rectal irritation
-changes of pancolitis on CT severe 12/2024 then moderate 01/2025
-anemia iron studies with chronic disease
-chronic bili elevation with minimal D bili elevation -- gilbert's
-Atrial fibrillation on Eliquis
other medical problems:
-h pylori
-left common iliac artery aneurysm per imaging
-CAD
-Hypertension
-CKD
-Chronic pain
-Former opioid use
-BPH
-History of bladder outlet obstruction with chronic Montalvo
-Hyperlipidemia
-Diastolic heart failure
-cholelithiasis
PLAN:
asked to see again for continued abdominal pain- acute on chronic
no stool last 2 days
no fever, normal WBC or severe distention on exam
I suspect this is all post infectious related to recent c-diff with severe pancolitis noted on CT 12/27 then moderate kam colitis 02/02 with hx chronic abdominal pain
pt current unable to tell me the pattern of his chronic abd pain other than periumbilical and this is somewhat lower pain
will repeat CT to ensure no changes
repeat c-diff 02/02 invalid -- await follow up specimen to ensure c-diff properly treated
reviewed with Dr. Orozco recent CT with bladder distention but no improvement with bladder decompression
cont local rectal care with irritation likely from recent diarrhea
cont PPI -- will change to daily -- if tolerating consider pepcid as alternative with recent c-diff infection
remain on Eliquis
cont diet
hbg stable 11 with prior dark stools hold EGD with no signs of active bleeding
cont to trend hbg
Subjective
Subjective
Date of Service: February 07, 2025
02/05 brown stool no stool last 2 days -- asked to see for persistent abdominal pain, on regular diet eating 0 to 100 % on intakes
Objective
Data Reviewed
Laboratory Data:
Laboratory Results
02/07/25 06:54
02/07/25 06:54
Laboratory Results
PT 24.9 Sec (11.4-14.6) H 02/02/25 06:19
INR 2.25 02/02/25 06:19
Total Bilirubin 1.5 mg/dl (0.2-1.3) H 02/07/25 06:54
AST 19 U/L (17-59) 02/07/25 06:54
ALT 12 U/L (0-50) 02/07/25 06:54
Alkaline Phosphatase 69 U/L (38-126) 02/07/25 06:54
Vital Signs and I&O:
Vital Signs
Temp Pulse Resp BP Pulse Ox
98.2 F 67 16 144/96 95
02/07/25 07:50 02/07/25 07:57 02/07/25 07:50 02/07/25 07:57 02/07/25 10:00
I&O
02/06/25 02/07/25 02/08/25
06:59 06:59 06:59
Intake Total 1140 / 1140 900 / 900
Output Total 675 / 675 1000 / 1000
Balance 465 / 465 -100 / -100
Physical Exam
Physical Exam
HEENT: Anicteric and Moist mucous membranes
Cardiology: Normal Sinus Rhythm
Pulmonary: Clear
GI: Soft, Non Distended and Tender (diffuse worse lower mid abdomen )
Extremities: No Edema
Neuro: Non Focal and Other (forgetful)
--- NOTE | 2025-02-07 11:29 | W.PN.HOSP.TC ---
Addendum entered and electronically signed by Sidney Orozco MD 02/07/25 12:47:
text from nursing, bladder scan demonstrates 420 cc, will resume bautista
Addendum entered and electronically signed by Sidney Orozco MD 02/07/25 12:12:
updated, GI has ordered CT scan
Original Note:
Today's Communication/Plan
-
GI, CRS reevaluation
defer to CRS whether any benefit on repeating CT scan
Assessment / Plan
Assessment / Plan
79-year-old with history of paroxysmal atrial fibrillation, chronically anticoagulated on Eliquis presenting to the emergency department with dark tarry stools for the last 24 hours. In the emergency department his blood pressure was 100/66, as of
02/03 145/87, baseline blood pressure based on last admission was in the 140s and 150s systolic. He is not tachycardic but is on a beta-aniceto. Hemoglobin is unchanged from prior at 11.4-->11.1-->11.2-->11.1-->11.1.
BP today has increased to 160/100. Unclear as to why. Hydralazine started
Complains of abdominal pain as well as back pain which appears to be acute on chronic. On questioning, pt is on chronic narcotic analgesics for this and was not continued on admission. Heme negative green liquid stool on admission (bismuth?). Given
history of GERD, black tarry stools, Eliquis use was suspect for GI bleed secondary to anticoagulant, but probably not as Hgb never dropped. He appears hemodynamically stable but suspect given the decrease in his baseline BP that he may be somewhat
hypovolemic on admission, but this has resolved and he is currently with elevated BP. Last dose of Eliquis was am 24 hours ETCHER HAND per patient. Presumed around 5 pm. Very weak per history compared to his baseline. Confirmed with Dr. Rivera, okay to
resume Eliquis, he is not planning to EGD him. Dr. Rivera does not believe abd pain is related to GI and is requesting Urology input. Discussed with Dr. Coreas, underwent voiding trial, catheter removed, but decreased urinary output and
increasing pain. Bautista replaced, but pain had not resolved and bautista since removed Unclear as to etiology of pain. He was placed back on his outpt dose of oxycodone, but does believe resumption is helping his pain. Was asked if pain is worse
than his baseline and he was somewhat unsure, but believes so and does not believe he is stable to be dc to home. He does describe that his chronic pain is more diffuse, current acute pain is more intense and is located in suprapubic area
PLAN:
1. Doubt GI bleed - Hgb has been stable. Hemodynamically appears stable.
- admit to telemetry
- no active bleeding on exam currently
- diet resumed
- PPI IV gtt started in ED, will continue and transition to bid oral
Eliquis resumed and again Hgb has been steady
- shine and olivia, consented and placed in chart
- mild anemia, Fe studies Fe 16%, Ferritin 84.1
will give IV FE and stop oral Fe
- CT abd: Findings suggesting moderate pancolitis. No evidence of perforation or abscess formation. Progressed
Significant bladder distention. This can be seen with bladder outlet obstruction. New
Many small layering gallstones. Stable
Too small to characterize hypodense hepatic lesions likely small cysts or hemangiomas. Stable
Too small to characterize hypodense right renal lesion likely a benign cyst.
Mild diverticulosis. No evidence of acute diverticulitis. Stable
Moderate atherosclerotic vascular disease. Stable
Mild prostate hypertrophy. Stable
Compression fractures. Stable
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 Stable
- small bolus of fluid 500 ml x 1 given, h/o CHF p EF
- holding lasix, and bp meds
2. Weakness - Possibly GI bleed vs diarrhea. Denies any fevers chills, report chronic cough.
- neg covid, flu neg
- holding diuretics for now
- evaluate and monitor for bleed as above
- orthostatic vital signs
PT and OT have been consulted
3. AFIB
- will restart carvedilol with hold parameters 3.125 bid initially, dose increased to 6.25 mg bid
- resumed eliquis
4 Recent C.Diff
most likely etiology of pancolitis. Was dc on 01/01/25 to complete total of 2 wks. Stool neg for WBC, thus unlikely to be recurrent C.Diff, no diarrhea, actually no stool production past 3 days and thus
5. Abd pain
unclear etio. GI believes related to bladder distention. Will consult Urology, pt goes to Dr. Mitchell. Dr. Ruelas recommends trial of straight cath to see if pain resolves. placed bautista to see if pain fully resolved, which it did not
and urology input regarding whether should be dc with bautista or evaluate for possible other etiologies of pain. Discussed with Dr. Coreas. Will resume outpt oxycodone. Request input from CRS and reevaluation by GI
6. Hypokalemia
Better. K 3.4-->3.1-->3.3-->3.8-->4.4
resolved, will stop K supplement
7. mild hyponatremia on admission, as per son, this is about patient's baseline
Abnormal lab values, clinically insignificant
8. Chronic iron deficiency anemia only
DVT PPX - SCDs
discussed with GI, Nat GOMEZ, request GI reevaluate, ?Flex sigmoidoscopy
discussed with Dr. Leo, will consult
call placed to son Angel 02/07 and reviewed situation and fully updated. States pain has been ongoing past 5+ years, but now more located in lower abdomen over past 2-3 weeks. Etiology of process remains unclear, request GI reevaluate, CRS consult.
Again will hold Eliquis pending their evaluations
Code status - Full code
time 60 minutes
Anticipated Discharge: > 48 hours
Subjective/Interval History
-
Date of Service: February 07, 2025
still with significant abd pain
Objective Data
-
Labs:
Laboratory Results
02/07/25
06:54
WBC 4.6 L
Hgb 11.1 L
Hct 32.8 L
Plt Count 180
Sodium 134 L
Potassium 4.4
Chloride 97 L
Carbon Dioxide 32 H
BUN 11
Creatinine 0.9
Glucose 94
Calcium 9.1
Total Bilirubin 1.5 H
AST 19
ALT 12
Alkaline Phosphatase 69
Vital Signs:
Vital Signs
Temp Pulse Resp BP Pulse Ox
98.2 F 67 16 144/96 95
02/07/25 07:50 02/07/25 07:57 02/07/25 07:50 02/07/25 07:57 02/07/25 10:00
I&O
02/06/25 02/07/25 02/08/25
06:59 06:59 06:59
Intake Total 1140 / 1140 900 / 900
Output Total 675 / 675 1000 / 1000
Balance 465 / 465 -100 / -100
Review of Systems
-
History Source: Patient and Coordinated Provider
Constitutional: Denies Fever
EENT: Denies No Symptoms Reported
Respiratory: Denies No Symptoms
Cardiac: Denies No Symptoms
Abdomen/GI: Reports Abdominal Pain (LLQ) and Constipated (no BM past 72hrs); Denies Nausea, Vomiting or Diarrhea (not truly diarrhea, but soft stools on initial presentation, but no stools at all in past 72 hrs)
Genitourinary: Reports Difficulty Voiding (pt states he has to stand to void, this is chronic, bautista had been placed, did not affect pain and was discontinued)
Neuro: Reports No Symptoms
Physical Exam
-
General: Well Developed, Well Nourished and No Apparent Distress
HEENT: Normocephalic and Atraumatic
Respiratory: Clear to Auscultation; Negative Wheezes, Rales or Rhonchi
Cardiac: Regular Rhythm and S1/S2
GI: Nondistended, Normal Bowel Sounds and Tender (suprapubic area)
Genito-urinary: Negative Bautista
Musculoskeletal: No Clubbing, No Cyanosis and No Edema
Neuro: Awake, Alert and Oriented
[2025-02-07] MEDS: OMNIPAQUE 50 ML PO (12:24)
--- NOTE | 2025-02-07 12:43 | CON.CRS ---
Consultation
-
Date/Time Consultation Requested: 02/07/2025, 08:30
Date/Time Consultation Performed: 02/07/2025, 08:40
Requesting Provider: Sidney Orozco MD
Performing Provider: Sidney Leo MD
Reason for Consultation: pancolitis
Medical History
-
Chief Complaint: dark tarry stools
History of Present Illness:
79-year-old male presented to [place] [facility] on 01/06/2025 due to 1 day of tarry stools. The patient has atrial fibrillation and is currently on Eliquis. He also has a history of C. difficile in the past, recently admitted at the end of December 2024
and treated with oral vancomycin.. He is a detention patient and is unable to provide much information. He was seen by gastroenterology. On CT from 01/06/2025 there was moderate pancolitis with no evidence of perforation or abscess formation.
The patient gave a stool sample but it was inadequate and he has not been able to provide another one due to constipation. Stool cultures did come back all negative. The patient tells us he is currently having flatus but has not had any bowel
movements in several days. He normally has abdominal pain at baseline. Given lack of BMs and pancolitis noted on CT, we have been consulted for further surgical opinion.
Past Medical History
Past Medical History: Other (paroxysmal atrial fibrillation and flutter Chronic back pain, spinal stenosis, and degenerative disc disease with chronic opioid use with dependence Essential hypertension h/o Klebsiella pneumonia and coagulase-negative
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
Past Surgical History: Other (History of pain pump infection with removal Pacer and aortic valve replaced Cervical spine fusion, laminectomy 2018, lumbar surgery 2022 with screws placed then removed 04/25/2023 Hemorrhoidectomy Rhizotomy
lower back Cardiac cath 2006)
Social History
Tobacco: Non-Smoker
Alcohol: Occasional
Drug: None
Personal:
Employment: Retired
Family History
Family History: Reviewed & Not Pertinent
Allergies / Home Medications
Allergy/AdvReac Type Severity Reaction Status Date / Time
amiodarone Allergy Unknown Verified 02/02/25 01:21
amlodipine Allergy Swelling - Verified 02/02/25 01:21
1993
benzyl alcohol Allergy Unknown Verified 02/02/25 01:21
clindamycin Allergy Unknown Verified 02/02/25 01:21
hydrochlorothiazide Allergy Hyponatremi Verified 02/02/25 01:21
a
meloxicam Allergy Unknown Verified 02/02/25 01:21
polysorbate 80 Allergy Unknown Verified 02/02/25 01:21
sulfamethoxazole Allergy Unknown Verified 02/02/25 01:21
[From Bactrim]
tizanidine [From Zanaflex] Allergy took from Verified 02/02/25 01:21
patient
history
and
physical
from
surgeon
trimethoprim [From Bactrim] Allergy Unknown Verified 02/02/25 01:21
�Medication �Instructions �Recorded �Confirmed �Type
apixaban 5 mg tablet (Eliquis) 5 mg PO BID Blood clot 01/16/22 02/02/25 History
prevention/tx
trazodone 150 mg tablet 150 mg PO HS Depression/sleep 09/13/22 02/02/25 History
famotidine 20 mg tablet (Pepcid) 20 mg PO BID Gastrointestinal issue 02/17/23 02/02/25 History
hydralazine 10 mg tablet 10 mg PO TID Blood Pressure 04/03/23 02/02/25 History
vitamin B complex 1 cap PO DAILY Supplement ##0 04/03/23 02/02/25 History
atorvastatin 20 mg tablet (Lipitor) 20 mg PO HS High cholesterol 04/12/23 02/02/25 History
cholecalciferol (vitamin D3) 125 125 mcg PO DAILY Supplement 04/12/23 02/02/25 History
mcg (5,000 unit) tablet (Vitamin
D3)
polyethylene glycol 3350 17 17 g PO DAILY Constipation 04/14/24 02/02/25 History
gram/dose oral powder (Miralax)
tamsulosin 0.4 mg capsule 0.4 mg PO HS Urinary Issue 04/14/24 02/02/25 History
acetaminophen 500 mg tablet 1,000 mg PO Q12H Pain 09/07/24 02/02/25 History
carvedilol 3.125 mg tablet (Coreg) 3.125 mg PO BID Blood Pressure 09/07/24 02/02/25 History
gabapentin 600 mg tablet 600 mg PO TID Pain 09/07/24 02/02/25 History
pantoprazole 40 mg tablet,delayed 40 mg PO DAILY GERD 09/07/24 02/02/25 History
release (Protonix)
vitamin E 268 mg (400 unit) capsule 268 mg PO DAILY Supplement 09/07/24 02/02/25 History
bismuth subsalicylate 262 mg/15 mL 524 mg PO DAILYPRN PRN diarrhea 12/25/24 02/02/25 History
oral suspension (Kaopectate
(bismuth subsalicylate))
duloxetine 30 mg capsule,delayed 30 mg PO DAILY Mental 12/25/24 02/02/25 History
release (Cymbalta) Health/Anxiety
ferrous sulfate 325 mg (65 mg 325 mg PO DAILY Supplement 12/25/24 02/02/25 History
iron) tablet
terazosin 2 mg capsule 2 mg PO HS Urinary Issue/BP 12/25/24 02/02/25 History
acetaminophen 500 mg tablet 1,000 mg PO BIDPRN PRN mild pain 02/02/25 02/02/25 History
(Tylenol Extra Strength)
furosemide 20 mg tablet (Lasix) 20 mg PO DAILY Fluid 02/02/25 02/02/25 History
Retention/Swelling
losartan 25 mg tablet 25 mg PO DAILY Blood Pressure 02/02/25 02/02/25 History
ondansetron HCl 4 mg tablet 4 mg PO Q8HPRN PRN nausea 02/02/25 02/02/25 History
oxycodone 15 mg tablet 15 mg PO TIDPRN PRN break through 02/02/25 02/02/25 History
pain
Review of Systems
-
History Source: Patient and Physician
Abdomen/GI: Constipated and Black Stools
A 10 point review of systems was completed, and was negative except as per HPI.
Physical Exam
Vital Signs
Temp 98.2 F 02/07/25 07:50
Pulse 67 02/07/25 07:57
Resp Rate 16 02/07/25 07:50
Blood pressure 144/96 02/07/25 07:57
SaO2 95 02/07/25 10:00
02/06/25 02/07/25 02/08/25
06:59 06:59 06:59
Actual Weight 72.711 kg 70.488 kg
Body Mass Index (BMI) 24.4
Lab Results / Allergies
02/07/25 06:54
02/07/25 06:54
WBC 4.6 10^3/uL (4.8-10.8) L 02/07/25 06:54
Hgb 11.1 g/dL (13.0-18.0) L 02/07/25 06:54
Hct 32.8 % (39.0-52.0) L 02/07/25 06:54
Plt Count 180 10^3/uL (130-400) 02/07/25 06:54
Abs Immat Gran (auto) 0.0 10^3/uL (0-0.05) 02/02/25 01:30
Neutrophils % 83.0 % (42.2-75.2) H 02/02/25 01:30
Allergy/AdvReac Type Severity Reaction Status Date / Time
amiodarone Allergy Unknown Verified 02/02/25 01:21
amlodipine Allergy Swelling - Verified 02/02/25 01:21
1992
benzyl alcohol Allergy Unknown Verified 02/02/25 01:21
clindamycin Allergy Unknown Verified 02/02/25 01:21
hydrochlorothiazide Allergy Hyponatremi Verified 02/02/25 01:21
a
meloxicam Allergy Unknown Verified 02/02/25 01:21
polysorbate 80 Allergy Unknown Verified 02/02/25 01:21
sulfamethoxazole Allergy Unknown Verified 02/02/25 01:21
[From Bactrim]
tizanidine [From Zanaflex] Allergy took from Verified 02/02/25 01:21
patient
history
and
physical
from
surgeon
trimethoprim [From Bactrim] Allergy Unknown Verified 02/02/25 01:21
Physical Exam
General: Well Developed, Well Nourished and No Apparent Distress
GI: Soft and Tender (mild suprapubic)
Skin: Warm and Dry
Neuro: AO x 3
Psych: Calm
Data Reviewed
-
CT Scan: Image Personally Visualized and interpreted, Report Reviewed by me and Discussed with Patient
Labs: Labs Reviewed by me, Discussed with Physician and Discussed with Patient
Old Records: Reviewed
Assessment / Plan
-
Assessment: 79-year-old patient presents from the detention due to black tarry stools and found to have pancolitis on CT with 4 or 5 days of constipation
Plan:
- Recommend reconsult GI, would likely benefit from a colonoscopy as he is unable to provide a stool sample to test for C. difficile
- No plans for surgery at this time
- Recommend holding Eliquis for now until his situation is sorted out
- Discussed with Dr. Orozco
--- NOTE | 2025-02-07 13:58 | PTCARENOTE ---
Patient Refused daily orthostatic. . no s/s of distress noted. Plan of care ongoing. call calles within reach.
[2025-02-07] MEDS: FERRLECIT 110 MG IV (14:09)
--- NOTE | 2025-02-07 14:44 | CM ---
Reviewed the chart notes and spoke with the patient at the bedside. [facility] do not accept admissions over weekend. CM continues to be available to patient/family and is monitoring medical plan for needs at discharge.
Plan: Discharge back to [facility] with [facility] when medically stable.
[2025-02-07 15:40] VITALS: BP 169/105
[2025-02-07 15:53] VITALS: BMI 24.4
[2025-02-07 16:06] VITALS: BP 150/90
--- NOTE | 2025-02-07 17:05 | W.PN.UPDATE ---
Update Note
Progress Note Update
Reviewed CT A/P, showing improvement in pancolitis. Returned to bedside to notify patient of results, he reports his abdominal pain has improved. Suspect resolving c.diff colitis inconjunction with his chronic abdominal pain. Recommend outpatient GI
follow-up.
GI will sign off, please call with questions.
[2025-02-07 19:45] VITALS: BP 126/80
[2025-02-07] MEDS: FLOMAX 0.4 MG PO (21:43)
[2025-02-07] MEDS: HYTRIN 2 MG PO (21:44)
[2025-02-07] MEDS: DESYREL 150 MG PO (21:44)
[2025-02-07 21:50] VITALS: BP 131/84
[2025-02-07 23:45] VITALS: BP 122/81
[2025-02-08] MEDS: DILAUDID 0.5 MG IV ×4 (02:18→22:12)
[2025-02-08 05:29] VITALS: BMI 24.4
[2025-02-08 05:31] VITALS: BMI 23.8
[2025-02-08 07:38] LABS: Hematocrit 33.5 % (39.0-52.0); Hemoglobin 11.7 g/dL (13.0-18.0); Mean Corp Hgb Conc. 34.9 g/dL (33.0-37.0); Mean Corpuscular Volume 88.9 fL (80.0-94.0); Mean Platelet Volume 8.7 fL (7.4-10.4); Platelet Count 191 10^3/uL (130-400); Red Blood Cell Count 3.77 10^6/uL (4.70-6.10); Red Cell Dist. Width 13.5 % (11.5-14.5); White Blood Cell Count 4.3 10^3/uL (4.8-10.8)
[2025-02-08] MEDS: ROXICODONE 15 MG PO ×3 (07:39→23:31)
[2025-02-08] MEDS: APRESOLINE 5 MG PO ×3 (07:39→21:41)
[2025-02-08] MEDS: COREG 6.25 MG PO ×2 (07:39→20:07)
[2025-02-08] MEDS: KCL 20 MEQ PO ×2 (07:39→20:08)
[2025-02-08] MEDS: COZAAR 25 MG PO (07:39)
[2025-02-08] MEDS: PROTONIX 40 MG PO (07:39)
[2025-02-08] MEDS: NSS (PRESERVATIVE FREE) IV ×2 (07:40→20:08)
[2025-02-08 07:47] VITALS: BP 132/84
--- NOTE | 2025-02-08 10:30 | W.PN.HOSP.TC ---
Today's Communication/Plan
-
Flex Sig planned for tomorrow
Eliquis placed on hold (did not receive dose today)
Assessment / Plan
Assessment / Plan
79-year-old with history of paroxysmal atrial fibrillation, chronically anticoagulated on Eliquis presenting to the emergency department with dark tarry stools for the last 24 hours. In the emergency department his blood pressure was 100/66, as of
02/03 145/87, baseline blood pressure based on last admission was in the 140s and 150s systolic. He is not tachycardic but is on a beta-aniceto. Hemoglobin is unchanged from prior at 11.4-->11.1-->11.2-->11.1-->11.1.
BP today has increased to 160/100. Unclear as to why. Hydralazine started
Complains of abdominal pain as well as back pain which appears to be acute on chronic. On questioning, pt is on chronic narcotic analgesics for this and was not continued on admission. Heme negative green liquid stool on admission (bismuth?). Given
history of GERD, black tarry stools, Eliquis use was suspect for GI bleed secondary to anticoagulant, but probably not as Hgb never dropped. He appears hemodynamically stable but suspect given the decrease in his baseline BP that he may be somewhat
hypovolemic on admission, but this has resolved and he is currently with elevated BP. Last dose of Eliquis was am 24 hours [employer] per patient. Presumed around 5 pm. Very weak per history compared to his baseline. Confirmed with Dr. Rivera, okay to
resume Eliquis, he is not planning to EGD him. Dr. Rivera does not believe abd pain is related to GI and is requesting Urology input. Discussed with Dr. Coreas, underwent voiding trial, catheter removed, but decreased urinary output and
increasing pain. Bautista replaced, but pain had not resolved and bautista since removed Unclear as to etiology of pain. He was placed back on his outpt dose of oxycodone, but does believe resumption is helping his pain. Was asked if pain is worse
than his baseline and he was somewhat unsure, but believes so and does not believe he is stable to be dc to home. He does describe that his chronic pain is more diffuse, current acute pain is more intense and is located in suprapubic area
repeat CT scan 02/07: Again seen is mild diffuse colonic wall thickening compatible with a pancolitis, overall improved compared to prior CT. No pelvic free fluid identified.
PLAN:
1. Doubt GI bleed - Hgb has been stable. Hemodynamically appears stable.
- admit to telemetry
- no active bleeding on exam currently
- diet resumed, though pt not eating well.
- PPI IV gtt started in ED, will continue and transition to bid oral
Eliquis resumed and again Hgb has been steady, will hold Eliquis at this point for planned Flex Sig tomorrow
discussed with Dr. Leo, will evaluate further
- shine and olivia, consented and placed in chart
- mild anemia, Fe studies Fe 16%, Ferritin 84.1
will give IV FE and stop oral Fe
- CT abd: Findings suggesting moderate pancolitis. No evidence of perforation or abscess formation. Progressed
Significant bladder distention. This can be seen with bladder outlet obstruction. New
Many small layering gallstones. Stable
Too small to characterize hypodense hepatic lesions likely small cysts or hemangiomas. Stable
Too small to characterize hypodense right renal lesion likely a benign cyst.
Mild diverticulosis. No evidence of acute diverticulitis. Stable
Moderate atherosclerotic vascular disease. Stable
Mild prostate hypertrophy. Stable
Compression fractures. Stable
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 Stable
- small bolus of fluid 500 ml x 1 given, h/o CHF p EF
- holding lasix, and bp meds
2. Weakness - Possibly GI bleed vs diarrhea. Denies any fevers chills, report chronic cough.
- neg covid, flu neg
- holding diuretics for now
- evaluate and monitor for bleed as above
- orthostatic vital signs
PT and OT have been consulted
3. AFIB
- will restart carvedilol with hold parameters 3.125 bid initially, dose increased to 6.25 mg bid
- eliquis will be resumed once GI issue fully determined
4 Recent C.Diff
most likely etiology of pancolitis. Was dc on 01/01/25 to complete total of 2 wks. Stool neg for WBC, thus unlikely to be recurrent C.Diff, no diarrhea, actually no stool production past 3+ days and thus less likely that this acute process is
C.Diff related
5. Abd pain
unclear etio. GI believed related to bladder distention. consulted Urology, pt goes to Dr. Mitchell. Dr. Ruelas recommends trial of straight cath to see if pain resolves. placed bautista to see if pain fully resolved, which it did not and
urology input appreciated. bautista to be resumed for now. As above, it remains unclear what the cause of the abd pain is. Await flex sig planned by Dr. Leo. If this is negative, one consideration is that the pain relates to his chronic back
issues.
6. Hypokalemia
Better. K 3.4-->3.1-->3.3-->3.8-->4.4
resolved, will stop K supplement
7. mild hyponatremia on admission, as per son, this is about patient's baseline
Abnormal lab values, clinically insignificant
8. Chronic iron deficiency anemia only
DVT PPX - SCDs
discussed with GI, Nat GOMEZ, request GI reevaluate, ?Flex sigmoidoscopy
discussed with Dr. Leo, will consult
call placed to son Angel 02/08 and reviewed situation and fully updated. States pain has been ongoing past 5+ years, but now more located in lower abdomen over past 2-3 weeks. Etiology of process remains unclear, request GI reevaluate, CRS consult.
Again will hold Eliquis pending their evaluations. GI has signed off, discussed extensively with Dr. Leo
Code status - Full code
complex situation
time 60 minutes
Anticipated Discharge: > 48 hours
Subjective/Interval History
-
Date of Service: February 08, 2025
Still with abdominal pain, states has not improved
Objective Data
-
Labs:
Laboratory Results
02/08/25
06:54
WBC 4.3 L
Hgb 11.7 L
Hct 33.5 L
Plt Count 191
Vital Signs:
Vital Signs
Temp Pulse Resp BP Pulse Ox
97.7 F 64 16 132/84 94
02/08/25 07:47 02/08/25 07:47 02/08/25 07:47 02/08/25 07:47 02/08/25 09:55
I&O
02/07/25 02/08/25 02/09/25
06:59 06:59 06:59
Intake Total 900 / 900 1080 / 1080
Output Total 1000 / 1000 1650 / 1650
Balance -100 / -100 -570 / -570
Review of Systems
-
History Source: Patient and Coordinated Provider
Constitutional: Denies Fever
EENT: Denies No Symptoms Reported
Respiratory: Denies No Symptoms
Cardiac: Denies No Symptoms
Abdomen/GI: Reports Abdominal Pain (suprapubic now, more so than laterlly) and Constipated (still no BM as per nursing, >72hrs); Denies Nausea, Vomiting or Diarrhea (not truly diarrhea, but soft stools on initial presentation, but no stools at all
in past 72 hrs)
Genitourinary: Reports Difficulty Voiding (pt states he has to stand to void, this is chronic, bautista had been placed, did not affect pain and was discontinued)
Neuro: Reports No Symptoms
Physical Exam
-
General: Well Developed, Well Nourished and No Apparent Distress
HEENT: Normocephalic and Atraumatic
Respiratory: Clear to Auscultation; Negative Wheezes, Rales or Rhonchi
Cardiac: Regular Rhythm and S1/S2
GI: Nondistended, Normal Bowel Sounds and Tender (suprapubic area)
Genito-urinary: Negative Bautista
Musculoskeletal: No Clubbing, No Cyanosis and No Edema
Neuro: Awake, Alert and Oriented
--- NOTE | 2025-02-08 13:47 | W.PN.CRS1 ---
Addendum entered and electronically signed by Sidney Leo MD 02/08/25 15:36:
I saw and examined the patient.
The DENTAL ASSOCIATE's note was reviewed and I agree with the note.
Comment:
Seen in am with DENTAL ASSOCIATE.
Still with abdominal pain.
AFVSS. WBC 4.3.
Abdomen mildly tender.
Yesterday's CT noted & reviewed. Still kam-proctocolitis but somewhat improved. GI's input noted.
Will plan on flex sig tomorrow to better evaluate situation--patient's Eliquis is on hold.
Original Note:
Today's Communication / Plan
-
Sigmoidoscopy in AM
Assessment/Plan
-
79-year-old patient presents from the [facility] due to black tarry stools and found to have pancolitis on CT with 4 or 5 days of constipation in setting of recent c-diff infection. Repeat CT again demonstrating pancolitis with some improvement
AFVSS
No leukocytosis. H/H stable.
Pain persists but tolerating diet
Unable to provide stool sample
Plan:
- Sigmoidoscopy in OR tomorrow, NPO after MN
- Continue to hold Eliquis
Subjective Data
Subjective Data
Date of Service: February 08, 2025
Patient seen and examined at bedside with Dr. Leo. Reports pain continues. Tolerating diet without n/v. Not passing stools.
Objective Data
-
Vital Signs
Temp Pulse Resp BP Pulse Ox
97.7 F 64 16 132/84 94
02/08/25 07:47 02/08/25 07:47 02/08/25 07:47 02/08/25 07:47 02/08/25 09:55
Intake & Output
02/07/25 02/08/25 02/09/25
06:59 06:59 06:59
Intake Total 900 / 900 1080 / 1080
Output Total 999 / 999
Balance -100 / -100 -570 / -570
Intake:
Oral fluids 900 / 900 1080 / 1080
Output:
Urine, [place] 999 / 999
Lab Results
02/08/25 06:54
02/07/25 06:54
Physical Exam
-
General: No Acute Distress
Abdomen: Soft and Non Distended
Data Reviewed
-
CT Scan: Image Reviewed and Report Reviewed
[2025-02-08] MEDS: DILAUDID 0.25 MG IV (14:19)
--- NOTE | 2025-02-08 14:26 | PTCARENOTE ---
Patient OOB to commode this AM x3 with urge to have BM but no output. Patient without BM for 3 days, outstanding cdiff stool sample noted. Patient continuing to state lower abd pain rated 7-8/10, medicated with scheduled PO 15 mg oxycodone and PRN
IV dilaudid throughout shift- see JAN. and colorectal made aware, hold on stool softeners at this time, patient NPO at midnight for flex sig in AM with colorectal.
[2025-02-08 15:16] VITALS: BP 134/88; BP 150/94; BP 153/103; PULSE 68; PULSE 71; PULSE 72
[2025-02-08 15:17] VITALS: BP 150/94
[2025-02-08 20:07] VITALS: BP 118/79
[2025-02-08] MEDS: DESYREL 150 MG PO (21:40)
[2025-02-08] MEDS: FLOMAX 0.4 MG PO (21:41)
[2025-02-08] MEDS: HYTRIN 2 MG PO (21:41)
[2025-02-08 23:19] VITALS: BP 123/83
[2025-02-09] MEDS: DILAUDID 0.5 MG IV ×4 (05:09→19:55)
[2025-02-09 06:00] VITALS: BMI 23.6
[2025-02-09 07:35] LABS: % Basophils 0.1 % (0-2); % Eosinophils 1.2 % (0-6); % Immature Granulocytes 0.7 % (0-0.5); % Lymphocytes 16.8 % (20.5-51.1); % Monocytes 7.4 % (1.7-9.3); % Neutrophils 73.8 % (42.2-75.2); Absolute Eosinophils 0.1 10^3/uL (0-0.7); Absolute Immature Granulocytes 0.1 10^3/uL (0-0.05); Absolute Lymphocytes 1.1 10^3/uL (1.2-3.4); Absolute Monocytes 0.5 10^3/uL (0.1-0.6); Hematocrit 34.3 % (39.0-52.0); Hemoglobin 11.9 g/dL (13.0-18.0); Mean Corp Hgb Conc. 34.7 g/dL (33.0-37.0); Mean Corpuscular Hgb 31.1 pg (27.0-31.0); Mean Corpuscular Volume 89.6 fL (80.0-94.0); Mean Platelet Volume 8.8 fL (7.4-10.4); Nucleated Red Blood Cells % 0 % (-); Platelet Count 201 10^3/uL (130-400); Red Blood Cell Count 3.83 10^6/uL (4.70-6.10); Red Cell Dist. Width 13.5 % (11.5-14.5); White Blood Cell Count 6.8 10^3/uL (4.8-10.8)
[2025-02-09] MEDS: PROTONIX 40 MG PO (07:39)
[2025-02-09] MEDS: APRESOLINE 5 MG PO ×2 (07:39→16:29)
[2025-02-09] MEDS: COREG 6.25 MG PO ×2 (07:39→19:59)
[2025-02-09] MEDS: NSS (PRESERVATIVE FREE) IV ×2 (07:39→22:49)
[2025-02-09] MEDS: KCL PO ×2 (07:40→08:51)
[2025-02-09] MEDS: ROXICODONE 15 MG PO ×3 (07:40→23:32)
[2025-02-09] MEDS: COZAAR 25 MG PO (07:40)
[2025-02-09 07:55] VITALS: BP 127/84
[2025-02-09 08:33] LABS: ALT (SGPT) 13 U/L (0-50); AST (SGOT) 19 U/L (17-59); Albumin 4.4 g/dl (3.5-5.0); Alkaline Phosphatase 74 U/L (38-126); Blood Urea Nitrogen 14 mg/dl (9-20); Calcium 9.7 mg/dl (8.4-10.2); Carbon Dioxide 27 mmol/L (22-30); Chloride 99 mmol/L (98-107); Estimated Creatinine Clearance 63 ml/min; Glucose 100 mg/dl (70-99); Potassium 4.9 mmol/L (3.5-5.1); Sodium 135 mmol/L (135-145); Total Bilirubin 1.5 mg/dl (0.2-1.3); Total Protein 6.5 g/dl (6.3-8.2); eGFR > 60.00
--- NOTE | 2025-02-09 08:45 | W.PN.UPDATE ---
Update Note
Progress Note Update
Flexible sigmoidoscopy complete. No obvious gross evidence for colitis. Some noninflamed appearing sigmoid diverticula. Discussed with Dr. Orozco. Will give a dose of Relistor. Resume diet.
[2025-02-09 09:09] LABS: Erythrocyte Sed Rate 22 mm/hour (0-20)
--- NOTE | 2025-02-09 09:21 | PTCARENOTE ---
Patient received from GI lab s/p flex sig, regular diet order entered, patient assisted into chair, states no complaints at this time. K 4.9 on AM labs, patient with no BM in 4 days. This RN communicated with , stated to hold scheduled PO 20 meq
KCl at this time.
[2025-02-09] MEDS: RELISTOR 12 MG SC (09:51)
[2025-02-09] MEDS: DILAUDID 0.25 MG IV (11:17)
--- NOTE | 2025-02-09 11:20 | W.PN.HOSP.TC ---
Today's Communication/Plan
-
Relistor
If moves bowels and is able to eat, potential dc to follow up with back specialist post dc
Assessment / Plan
Assessment / Plan
79-year-old with history of paroxysmal atrial fibrillation, chronically anticoagulated on Eliquis presenting to the emergency department with dark tarry stools for the last 24 hours. In the emergency department his blood pressure was 100/66, as of
02/03 145/87, baseline blood pressure based on last admission was in the 140s and 150s systolic. He is not tachycardic but is on a beta-aniceto. Hemoglobin is unchanged from prior at 11.4-->11.1-->11.2-->11.1-->11.1-->11.9. Eliquis was stopped 02/08
for planned flex sig which was done today, 02/[address] Leo, who then called me and told was negative. Pt has not been eating and has not had a BM in multiple days. Dr. Leo will try Relistor a this time. High probability that the pain is due
to chronic back issues, that may have worsened during time he had C.Diff symptoms.
Call placed and discussed with pt's son, Angel. At this time will resume Eliquis and diet. If he is able to move bowels and tolerates diet, potential dc next 1-2 days back to [facility], but will need Enhanced for now. He should follow up with back
specialist to evaluate how the back is associated with the lower abdominal pain and consider intervention.
repeat CT scan 02/07: Again seen is mild diffuse colonic wall thickening compatible with a pancolitis, overall improved compared to prior CT. No pelvic free fluid identified.
02/02 CT abd: Findings suggesting moderate pancolitis. No evidence of perforation or abscess formation. Progressed
Significant bladder distention. This can be seen with bladder outlet obstruction. New
Many small layering gallstones. Stable
Too small to characterize hypodense hepatic lesions likely small cysts or hemangiomas. Stable
Too small to characterize hypodense right renal lesion likely a benign cyst.
Mild diverticulosis. No evidence of acute diverticulitis. Stable
Moderate atherosclerotic vascular disease. Stable
Mild prostate hypertrophy. Stable
Compression fractures. Stable
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 Stable
1. HTN Coreg dose was increased to 6.25 mg bid, continued Cozaar and Hydralazine was added with BP now 127/84
2. Weakness - Possibly GI bleed vs diarrhea. Denies any fevers chills, report chronic cough.
- neg covid, flu neg
- holding diuretics for now
- evaluate and monitor for bleed as above
- orthostatic vital signs
PT and OT have been consulted
3. AFIB
- will restart carvedilol with hold parameters 3.125 bid initially, dose increased to 6.25 mg bid
- eliquis will be resumed once GI issue fully determined
4 Recent C.Diff
most likely etiology of pancolitis. Was dc on 01/01/25 to complete total of 2 wks. Stool neg for WBC, thus unlikely to be recurrent C.Diff, no diarrhea, actually no stool production past 3+ days and thus less likely that this acute process is
C.Diff related
5. Abd pain
unclear etio. GI believed related to bladder distention. consulted Urology, pt goes to Dr. Mitchell. Dr. Ruelas recommends trial of straight cath to see if pain resolves. placed bautista to see if pain fully resolved, which it did not and
urology input appreciated. bautista had been stopped, but pt demonstrated urinary retention and was resumed for now, will need follow up with urology post dc
6. Hypokalemia
Better. K 3.4-->3.1-->3.3-->3.8-->4.4-->4.9
resolved, will stop K supplement
7. mild hyponatremia on admission, as per son, this is about patient's baseline
Abnormal lab values, clinically insignificant
8. Chronic iron deficiency anemia only
DVT PPX - SCDs
call placed to son Angel /5 and reviewed situation and fully updated. States pain has been ongoing past 5+ years, but now more located in lower abdomen over past 2-3 weeks. Most likely relates to chronic back issue, will need follow up with back
specialist
Code status - Full code
complex situation
Anticipated Discharge: 24 - 48 hours
Subjective/Interval History
-
Date of Service: February 09, 2025
Awake, alert, still with abdominal pain
Objective Data
-
Labs:
Laboratory Results
02/09/25
07:06
WBC 6.8
Hgb 11.9 L
Hct 34.3 L
Plt Count 201
Sodium 135
Potassium 4.9
Chloride 99
Carbon Dioxide 27
BUN 14
Creatinine 0.9
Glucose 100 H
Calcium 9.7
Total Bilirubin 1.5 H
AST 19
ALT 13
Alkaline Phosphatase 74
Vital Signs:
Vital Signs
Temp Pulse Resp BP Pulse Ox
98.3 F 69 16 127/84 94
02/09/25 07:55 02/09/25 07:55 02/09/25 07:55 02/09/25 07:55 02/09/25 07:55
I&O
02/08/25 02/09/25 02/10/25
06:59 06:59 06:59
Intake Total 1080 / 1080 720 / 720
Output Total 1650 / 1650 875 / 875
Balance -570 / -570 -155 / -155
Review of Systems
-
History Source: Patient and Coordinated Provider
Constitutional: Denies Fever
EENT: Denies No Symptoms Reported
Respiratory: Denies No Symptoms
Cardiac: Denies No Symptoms
Abdomen/GI: Reports Abdominal Pain (suprapubic now, more so than laterally) and Constipated (still no BM as per nursing, >72hrs); Denies Nausea, Vomiting or Diarrhea (not truly diarrhea, but soft stools on initial presentation, but no stools at all
in past 72 hrs)
Genitourinary: Reports Difficulty Voiding (pt states he has to stand to void, this is chronic, bautista had been placed, did not affect pain and was discontinued)
Neuro: Reports No Symptoms
Physical Exam
-
General: Well Developed, Well Nourished and No Apparent Distress
HEENT: Normocephalic and Atraumatic
Respiratory: Clear to Auscultation; Negative Wheezes, Rales or Rhonchi
Cardiac: Regular Rhythm and S1/S2
GI: Nondistended, Normal Bowel Sounds and Tender (suprapubic area)
Genito-urinary: Bautista (has been resumed)
Musculoskeletal: No Clubbing, No Cyanosis and No Edema
Neuro: Awake, Alert and Oriented
[2025-02-09 13:04] VITALS: BP 113/92; BP 123/86; BP 153/96; PULSE 77; PULSE 85; PULSE 86
[2025-02-09 15:50] VITALS: BP 131/89
[2025-02-09 15:58] VITALS: BP 113/92; BP 123/86; BP 153/96; PULSE 77; PULSE 85; PULSE 86
--- NOTE | 2025-02-09 17:50 | PTCARENOTE ---
Patient continuing to state abd pain and back pain rated 7-8/10, medicated with scheduled 15 mg PO oxycodone and PRN 0.5mg IV dilaudid and 0.25mg IV dilaudid throughout shift - see MAR. Patient OOB to chair for ~2hours, only tolerates sitting up for
short periods of time d/t chronic back pain. Patient administered one time dose of subq Relistor earlier in AM, had smear BM earlier in shift but no urge to have BM otherwise; patient with poor appetite, still on enhanced precautions for outstanding
cdiff sample. Montalvo in place draining fan colored urine. Bed alarm in place, patient ringing appropriately.
[2025-02-09] MEDS: ELIQUIS 5 MG PO (19:55)
[2025-02-09 23:06] VITALS: BP 106/66
[2025-02-09] MEDS: HYTRIN 2 MG PO (23:24)
[2025-02-09] MEDS: FLOMAX 0.4 MG PO (23:24)
[2025-02-09 23:30] VITALS: BP 116/78
[2025-02-10 00:55] VITALS: BP 112/51
[2025-02-10] MEDS: APRESOLINE 5 MG PO ×3 (00:57→16:34)
[2025-02-10] MEDS: DESYREL PO (04:16)
[2025-02-10] MEDS: DILAUDID 0.5 MG IV ×2 (04:17→10:25)
[2025-02-10 05:21] VITALS: BMI 23.5
[2025-02-10 07:30] VITALS: BP 148/80
[2025-02-10] MEDS: ELIQUIS 5 MG PO (07:38)
[2025-02-10] MEDS: COREG 6.25 MG PO (07:38)
[2025-02-10] MEDS: ROXICODONE 15 MG PO ×3 (07:38→16:33)
[2025-02-10] MEDS: PROTONIX 40 MG PO (07:39)
[2025-02-10] MEDS: COZAAR 25 MG PO (07:42)
[2025-02-10] MEDS: NSS (PRESERVATIVE FREE) IV (07:45)
[2025-02-10 08:24] LABS: % Basophils 0.3 % (0-2); % Eosinophils 1.9 % (0-6); % Immature Granulocytes 0.6 % (0-0.5); % Lymphocytes 17.7 % (20.5-51.1); % Monocytes 7.1 % (1.7-9.3); % Neutrophils 72.4 % (42.2-75.2); Absolute Eosinophils 0.1 10^3/uL (0-0.7); Absolute Lymphocytes 1.1 10^3/uL (1.2-3.4); Absolute Monocytes 0.5 10^3/uL (0.1-0.6); Absolute Neutrophils 4.6 10^3/uL (1.4-6.5); Hematocrit 34.1 % (39.0-52.0); Hemoglobin 11.7 g/dL (13.0-18.0); Mean Corp Hgb Conc. 34.3 g/dL (33.0-37.0); Mean Corpuscular Hgb 30.8 pg (27.0-31.0); Mean Corpuscular Volume 89.7 fL (80.0-94.0); Mean Platelet Volume 8.9 fL (7.4-10.4); Nucleated Red Blood Cells % 0 % (-); Platelet Count 200 10^3/uL (130-400); Red Cell Dist. Width 13.4 % (11.5-14.5); White Blood Cell Count 6.4 10^3/uL (4.8-10.8)
[2025-02-10 08:56] LABS: Blood Urea Nitrogen 16 mg/dl (9-20); Calcium 9.4 mg/dl (8.4-10.2); Carbon Dioxide 26 mmol/L (22-30); Chloride 98 mmol/L (98-107); Estimated Creatinine Clearance 57 ml/min; Glucose 97 mg/dl (70-99); Potassium 4.6 mmol/L (3.5-5.1); Sodium 134 mmol/L (135-145); eGFR > 60.00
--- NOTE | 2025-02-10 13:38 | W.PN.HOSP.TC ---
Addendum entered and electronically signed by Cecil Carbajal MD 02/10/25 17:00:
Dictation is in
F/u PCP, GI, Urology out
f/u cbc, bmp outpt
Addendum entered and electronically signed by Cecil Carbajal MD 02/10/25 14:49:
colitis - as per gi and imaging eval - appears to be chronic in nature
Original Note:
Today's Communication/Plan
-
dc ready
switch to PO meds
Cm aware, awaiting clearance for dc
Assessment / Plan
Assessment / Plan
79-year-old with history of paroxysmal atrial fibrillation, chronically anticoagulated on Eliquis presenting to the emergency department with dark tarry stools for the last 24 hours. In the emergency department his blood pressure was 100/66, as of
02/03 145/87, baseline blood pressure based on last admission was in the 140s and 150s systolic. He is not tachycardic but is on a beta-aniceto. Hemoglobin is unchanged from prior at 11.4-->11.1-->11.2-->11.1-->11.1-->11.9. Eliquis was stopped 02/08
for planned flex sig which was done today, 02/[address] Leo, who then called me and told was negative. Pt has not been eating and has not had a BM in multiple days. Dr. Leo will try Relistor a this time. High probability that the pain is due
to chronic back issues, that may have worsened during time he had C.Diff symptoms.
Call placed and discussed with pt's son, Angel. At this time will resume Eliquis and diet. If he is able to move bowels and tolerates diet, potential dc next 1-2 days back to [facility], but will need Enhanced for now. He should follow up with back
specialist to evaluate how the back is associated with the lower abdominal pain and consider intervention.
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 Stable
# HTN Coreg dose was increased to 6.25 mg bid, continued Cozaar and Hydralazine
# Abd pain
unclear etio although chronically on opiates, and there is a suspicion that it may be pain hypersensitivity 2/2 to chronic opiate use
-Flex Sig unremarkable
-Relistor.
-f/u CRS, GI outpt
-GI believed related to bladder distention. consulted Urology, pt goes to Dr. Mitchell. Dr. Ruelas recommends trial of straight cath to see if pain resolves. placed bautista to see if pain fully resolved, which it did not and urology input
appreciated. bautista had been stopped, but pt demonstrated urinary retention and was resumed for now, will need follow up with urology post dc
-had BM
#AFIB
- will restart carvedilol - 6.25 mg bid
- no GI issues, resume Eliquis
#Recent C.Diff
most likely etiology of pancolitis. Was dc on 01/01/25 to complete total of 2 wks. Stool neg for WBC, thus unlikely to be recurrent C.Diff, no diarrhea
-CDiff negative on 02/02 - antigen and toxin
# Hypokalemia
monitor and replet
# mild hyponatremia on admission, as per son, this is about patient's baseline
#Chronic iron deficiency anemia only
DVT PPX - SCDs
Code status - Full code
complex situation
Anticipated Discharge: Within 24 hours
Subjective/Interval History
-
Date of Service: February 10, 2025
No acute events, had bowel movement yesterday
Objective Data
-
Labs:
Laboratory Results
02/10/25
07:43
WBC 6.4
Hgb 11.7 L
Hct 34.1 L
Plt Count 200
Sodium 134 L
Potassium 4.6
Chloride 98
Carbon Dioxide 26
BUN 16
Creatinine 1.0
Glucose 97
Calcium 9.4
Vital Signs:
Vital Signs
Temp Pulse Resp BP Pulse Ox
97.8 F 74 16 148/83 95
02/10/25 07:30 02/10/25 07:42 02/10/25 07:30 02/10/25 07:42 02/10/25 10:54
I&O
02/09/25 02/10/25 02/11/25
06:59 06:59 06:59
Intake Total 720 / 720 600 / 600
Output Total 875 / 875 450 / 450
Balance -155 / -155 150 / 150
Review of Systems
-
History Source: Patient
All other systems: Not reviewed unless documented
Physical Exam
-
General: Well Developed, Well Nourished and No Apparent Distress
HEENT: Normocephalic and Atraumatic
Respiratory: Clear to Auscultation; Negative Wheezes, Rales or Rhonchi
Cardiac: Regular Rhythm and S1/S2
GI: Nondistended and Normal Bowel Sounds
Genito-urinary: Bautista (has been resumed)
Musculoskeletal: No Clubbing, No Cyanosis and No Edema
Neuro: Awake, Alert and Oriented
Data Reviewed
-
Labs: Labs Reviewed by me
--- NOTE | 2025-02-10 14:34 | CM ---
Reviewed the chart notes and spoke with the patient at the bedside. IMM reviewed. CM spoke with Christy from [facility]. Patient is able to return today.
Plan: Discharge to [facility] with [facility] services.
Call report to: [phone]; Fax report to: [phone]
[facility] fax: ([phone])
--- NOTE | 2025-02-10 14:49 | W.DS.TRANS ---
DC Summary - [employer]
-
Discharge Instructions:
Discharge Diagnosis/Procedures Abd pain, nonspecific
Diet Low Fat,Low Cholesterol,Low Residue
Activity As tolerated
Blood Work Abdominal Assessment as per GI
cbc and cmp in 3-5 days
Instructions:
Stand-Alone Forms:
Changes to Home Medications: Yes
Discharge Medications:
DC Medications w/original date entered in [facility]
apixaban 5 mg tablet (Eliquis) 5 mg PO BID Blood clot prevention/tx 01/16/22
trazodone 150 mg tablet 150 mg PO HS Depression/sleep 09/13/22
famotidine 20 mg tablet (Pepcid) 20 mg PO BID Gastrointestinal issue 02/17/23
vitamin B complex 1 cap PO DAILY Supplement ##0 04/03/23
atorvastatin 20 mg tablet (Lipitor) 20 mg PO HS High cholesterol 04/12/23
cholecalciferol (vitamin D3) 125 mcg (5,000 unit) tablet (Vitamin D3) 125 mcg PO DAILY Supplement 04/12/23
polyethylene glycol 3350 17 gram/dose oral powder (Miralax) 17 g PO DAILY Constipation 04/14/24
tamsulosin 0.4 mg capsule 0.4 mg PO HS Urinary Issue 04/14/24
gabapentin 600 mg tablet 600 mg PO TID Pain 09/07/24
pantoprazole 40 mg tablet,delayed release (Protonix) 40 mg PO DAILY GERD 09/07/24
vitamin E 268 mg (400 unit) capsule 268 mg PO DAILY Supplement 09/07/24
bismuth subsalicylate 262 mg/15 mL oral suspension (Kaopectate (bismuth subsalicylate)) 524 mg PO DAILYPRN PRN diarrhea 12/25/24
duloxetine 30 mg capsule,delayed release (Cymbalta) 30 mg PO DAILY Mental Health/Anxiety 12/25/24
ferrous sulfate 325 mg (65 mg iron) tablet 325 mg PO DAILY Supplement 12/25/24
terazosin 2 mg capsule 2 mg PO HS Urinary Issue/BP 12/25/24
acetaminophen 500 mg tablet (Tylenol Extra Strength) 1,000 mg PO BIDPRN PRN mild pain 02/02/25
furosemide 20 mg tablet (Lasix) 20 mg PO DAILY Fluid Retention/Swelling 02/02/25
losartan 25 mg tablet 25 mg PO DAILY Blood Pressure 02/02/25
ondansetron HCl 4 mg tablet 4 mg PO Q8HPRN PRN nausea 02/02/25
oxycodone 15 mg tablet 15 mg PO TIDPRN PRN break through pain 02/02/25
carvedilol 6.25 mg tablet 6.25 mg PO BID #0 tabs 02/10/25
hydralazine 10 mg tablet 5 mg (1/2 x 10 mg) PO TID #0 tabs 02/10/25
Home Medication Changes
carvedilol 6.25 mg tablet 6.25 mg PO BID #0 tabs 02/10/25
hydralazine 10 mg tablet 5 mg (1/2 x 10 mg) PO TID #0 tabs 02/10/25
Pending Results: No
[2025-02-10 15:30] VITALS: BP 123/75
[2025-02-10] MEDS: NEURONTIN 600 MG PO (16:35)
--- NOTE | 2025-02-10 17:00 | W.DS.TRANS ---
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
-
Discharge Instructions:
Discharge Diagnosis/Procedures Abd pain, nonspecific
Diet Low Fat,Low Cholesterol,Low Residue
Activity As tolerated
Blood Work Abdominal Assessment as per GI
cbc and cmp in 3-5 days
Instructions:
Stand-Alone Forms:
Changes to Home Medications: Yes
Discharge Medications:
DC Medications w/original date entered in [facility]
apixaban 5 mg tablet (Eliquis) 5 mg PO BID Blood clot prevention/tx 01/16/22
trazodone 150 mg tablet 150 mg PO HS Depression/sleep 09/13/22
famotidine 20 mg tablet (Pepcid) 20 mg PO BID Gastrointestinal issue 02/17/23
vitamin B complex 1 cap PO DAILY Supplement ##0 04/03/23
atorvastatin 20 mg tablet (Lipitor) 20 mg PO HS High cholesterol 04/12/23
cholecalciferol (vitamin D3) 125 mcg (5,000 unit) tablet (Vitamin D3) 125 mcg PO DAILY Supplement 04/12/23
polyethylene glycol 3350 17 gram/dose oral powder (Miralax) 17 g PO DAILY Constipation 04/14/24
tamsulosin 0.4 mg capsule 0.4 mg PO HS Urinary Issue 04/14/24
gabapentin 600 mg tablet 600 mg PO TID Pain 09/07/24
pantoprazole 40 mg tablet,delayed release (Protonix) 40 mg PO DAILY GERD 09/07/24
vitamin E 268 mg (400 unit) capsule 268 mg PO DAILY Supplement 09/07/24
bismuth subsalicylate 262 mg/15 mL oral suspension (Kaopectate (bismuth subsalicylate)) 524 mg PO DAILYPRN PRN diarrhea 12/25/24
duloxetine 30 mg capsule,delayed release (Cymbalta) 30 mg PO DAILY Mental Health/Anxiety 12/25/24
ferrous sulfate 325 mg (65 mg iron) tablet 325 mg PO DAILY Supplement 12/25/24
terazosin 2 mg capsule 2 mg PO HS Urinary Issue/BP 12/25/24
acetaminophen 500 mg tablet (Tylenol Extra Strength) 1,000 mg PO BIDPRN PRN mild pain 02/02/25
furosemide 20 mg tablet (Lasix) 20 mg PO DAILY Fluid Retention/Swelling 02/02/25
losartan 25 mg tablet 25 mg PO DAILY Blood Pressure 02/02/25
ondansetron HCl 4 mg tablet 4 mg PO Q8HPRN PRN nausea 02/02/25
oxycodone 15 mg tablet 15 mg PO TIDPRN PRN break through pain 02/02/25
carvedilol 6.25 mg tablet 6.25 mg PO BID #0 tabs 02/10/25
hydralazine 10 mg tablet 5 mg (1/2 x 10 mg) PO TID #0 tabs 02/10/25
Home Medication Changes
carvedilol 6.25 mg tablet 6.25 mg PO BID #0 tabs 02/10/25
hydralazine 10 mg tablet 5 mg (1/2 x 10 mg) PO TID #0 tabs 02/10/25
Pending Results: No
[2025-02-10 19:07] VITALS: BP 117/77
--- NOTE | 2025-02-10 19:23 | PTCARENOTE ---
Report given to evening RN, pt to be picked up by [facility] and evening meds to be administered at [facility] per [facility] RN, report given to [facility], pt made aware of transport.
--- NOTE | 2025-02-10 19:38 | PTCARENOTE ---
02/10: Pt seen at bedside. IV site removed. VSS per 1900 vitals. Day shift called report to Michel. See discharge documentation.
== END 2025-02-10 19:46 | disposition home health service (06) | DRG 392 ==
LOC: 2 NORTH 06:32
PROVIDERS: Internal Medicine; Nurse Practitioner Adult Health; ADMITTING PHYSICIAN Internal Medicine; ATTENDING PHYSICIAN Internal Medicine; CONSULT PHYSICIAN Internal Medicine Gastroenterology; CONSULT PHYSICIAN Surgery; EMERGENCY PHYSICIAN Student in an Organized Health Care Education/Training Program
PROC: 0DJD8ZZ Inspection of Lower Intestinal Tract, Via Natural or Artificial Opening Endoscopic (ICD-10-PCS; 2025-02-09)
DX: K52.9 Noninfective gastroenteritis and colitis, unspecified (principal); I13.0 Hypertensive heart and chronic kidney disease with heart failure and stage 1 through stage 4 chronic kidney disease, or unspecified chronic kidney disease; I50.32 Chronic diastolic (congestive) heart failure; I48.92 Unspecified atrial flutter; F11.20 Opioid dependence, uncomplicated; K59.00 Constipation, unspecified; I25.10 Atherosclerotic heart disease of native coronary artery without angina pectoris; I48.0 Paroxysmal atrial fibrillation; K21.9 Gastro-esophageal reflux disease without esophagitis; G89.29 Other chronic pain; E78.00 Pure hypercholesterolemia, unspecified; F41.9 Anxiety disorder, unspecified; F32.A Depression, unspecified; G47.30 Sleep apnea, unspecified; R33.8 Other retention of urine; N18.30 Chronic kidney disease, stage 3 unspecified; E87.6 Hypokalemia; D50.9 Iron deficiency anemia, unspecified; K57.30 Diverticulosis of large intestine without perforation or abscess without bleeding; I72.3 Aneurysm of iliac artery; N40.0 Benign prostatic hyperplasia without lower urinary tract symptoms; M48.00 Spinal stenosis, site unspecified; Z11.52 Encounter for screening for COVID-19; Z88.1 Allergy status to other antibiotic agents; Z88.2 Allergy status to sulfonamides; Z95.2 Presence of prosthetic heart valve; Z98.1 Arthrodesis status; Z95.0 Presence of cardiac pacemaker; Z79.01 Long term (current) use of anticoagulants; Z79.899 Other long term (current) drug therapy
CPT/HCPCS: 74177; 80048; 80053; 82728; 83540; 83550; 85014; 85018; 85025; 85027; 85610; 85652; 86850; 86900; 86901; 87045; 87046; 87070; 87077; 87324; 87427; 87449; 87502; 87798; 87811; 89055; 96365; 96366; 97116; 97163; 97167; 97530; 99285; J2916; Q9967

== ENCOUNTER → 2025-02-13 10:43 | Outpatient (REF) | payer MEDICARE, OTHER, SELFPAY ==
[2025-02-13 11:07] LABS: % Basophils 0.3 % (0-2); % Eosinophils 2.2 % (0-6); % Immature Granulocytes 0.5 % (0-0.5); % Lymphocytes 17.6 % (20.5-51.1); % Monocytes 8.3 % (1.7-9.3); % Neutrophils 71.1 % (42.2-75.2); Absolute Eosinophils 0.1 10^3/uL (0-0.7); Absolute Lymphocytes 1.1 10^3/uL (1.2-3.4); Absolute Monocytes 0.5 10^3/uL (0.1-0.6); Absolute Neutrophils 4.5 10^3/uL (1.4-6.5); Hematocrit 31.4 % (39.0-52.0); Hemoglobin 10.8 g/dL (13.0-18.0); Mean Corp Hgb Conc. 34.4 g/dL (33.0-37.0); Mean Corpuscular Hgb 30.8 pg (27.0-31.0); Mean Corpuscular Volume 89.5 fL (80.0-94.0); Mean Platelet Volume 9.8 fL (7.4-10.4); Nucleated Red Blood Cells % 0 % (-); Platelet Count 204 10^3/uL (130-400); Red Blood Cell Count 3.51 10^6/uL (4.70-6.10); Red Cell Dist. Width 13.5 % (11.5-14.5); White Blood Cell Count 6.4 10^3/uL (4.8-10.8)
[2025-02-13 11:18] LABS: ALT (SGPT) 12 U/L (0-50); AST (SGOT) 20 U/L (17-59); Albumin 3.8 g/dl (3.5-5.0); Alkaline Phosphatase 85 U/L (38-126); Blood Urea Nitrogen 29 mg/dl (9-20); Carbon Dioxide 30 mmol/L (22-30); Chloride 94 mmol/L (98-107); Glucose 110 mg/dl (70-99); Potassium 3.9 mmol/L (3.5-5.1); Sodium 131 mmol/L (135-145); Total Bilirubin 1.2 mg/dl (0.2-1.3); Total Protein 5.9 g/dl (6.3-8.2); eGFR 35.66
== END ==
LOC: OLABWPC 10:43
PROVIDERS: ATTENDING PHYSICIAN Internal Medicine
DX: D64.9 Anemia, unspecified (principal); I48.0 Paroxysmal atrial fibrillation
CPT/HCPCS: 36415; 80053; 85025

== ENCOUNTER 2025-02-17 13:25 | Inpatient (IN) | payer MEDICARE, OTHER, SELFPAY ==
[2025-02-14 18:50] VITALS: BP 102/80; BMI 23.4
[2025-02-14 19:09] VITALS: BP 91/69
--- NOTE | 2025-02-14 19:56 | ED.GENMED ---
History of Present Illness
General
Chief Complaint: Fall
Source: patient
Time Seen by Provider: 02/14/25 19:16
History of Present Illness
History of Present Illness:
This patient is a 79-year-old male presents emergency department with complaints of feeling like his legs will start 'jerking' when he is standing or walking causing him to fall. In exploring details regarding his 'fall', he states that he slowly
lowered himself to the ground. He denies impact, head strike, loss of consciousness. He has not suffered injury from the falls. He had a fall yesterday and again 1 today. Patient suffers from chronic abdominal and back pain and was most recently
hospitalized for approximately 1 week, discharged on the seventh of this month, no etiology identified. Patient denies new or worsening pain. He denies fever, chills, neck pain, numbness, tingling, focal weakness, chest pain, dyspnea, or other
complaints.
Past History
Past History
ED Past Medical History: Arrthythmia (Atrial flutter/fib), CAD, CHF, HTN, Hypercholesterolemia, Valvular disease, Psychiatric (Anxiety, Depression), Other (Rib fractures, Chronic back pain, Anemia, Cellulitis, Left pleural effusion, osteomyelitis,
endocarditis, Sleep apnea, Parkinson, GI bleeding, UTI with retention, AAA, Montalvo), Other (polyneuropathy, balance issues, Neuropathy, tingling in arms and legs. ) and Other (chronic back pain, pain management with Buprenorphine and ASA)
ED Past Surgical History: Cardiac (Aortic valve replaced (x 2), Pacemaker), Orthopedic (C spine fusion, Laminectomy) and Other (Hemorrhoidectomy, cataracts)
Patient has exhibited threatening behavior?: No
PSI?: No
Social History
Tobacco: Non-smoker
Alcohol: Occasional ( Beer)
Drug: None
Personal:
Living: with family
Employment: Retired
Family History
Family History: Hypertension and CAD
Phy Exam
Physical Exam
Physical Exam:
GENERAL: awake but drowsy , in no apparent distress
EYE: pupils equal and reactive
NECK: Supple, no significant adenopathy.
ENT: o/p clr, mmm.
CARDIAC: Regular rate and rhythm .
LUNGS: Clear breath sounds bilaterally, no acute respiratory distress, no wheezes/rales/rhonchi
ABDOMEN: Soft, nonspecif diffuse tenderness, no r/g, no cvat
NEUROLOGICAL: Alert and oriented, no focal neuro deficits, motor intact throughout, sens intact, speech clear
SKIN: Warm and dry, skin intact.
MUSCULOSKELETAL: No edema, well perfused.
PSYCH: Normal and appropriate interaction.
Course
Orders/Labs/Results
Orders:
Orders
02/14/25 19:42
Urinalysis Reflex To Culture Urgent
02/14/25 20:00
Complete Blood Count/No Diff Urgent
Comprehensive Metabolic Panel Urgent
Abnormal Lab Results
02/14/25
20:00
RBC 3.45 L 10^6/uL
(4.70-6.10)
Hgb 10.8 L g/dL
(13.0-18.0)
Hct 31.2 L %
(39.0-52.0)
MCH 31.3 H pg
(27.0-31.0)
Sodium 133 L mmol/L
(135-145)
Chloride 95 L mmol/L
(98-107)
BUN 28 H mg/dl
(9-20)
Creatinine 1.6 H mg/dL
(0.7-1.3)
Glucose 101 H mg/dl
(70-99)
Total Protein 6.2 L g/dl
(6.3-8.2)
02/14/25 20:00
02/14/25 20:00
Vital Signs
Initial and Last Documented VS:
Initial Vital Signs
Temp Pulse Resp BP Pulse Ox
97.4 F 68 20 102/80 93
02/14/25 18:50 02/14/25 18:50 02/14/25 18:50 02/14/25 18:50 02/14/25 18:50
Last Documented Vital Signs
Temp Pulse Resp BP Pulse Ox
97.4 F 63 15 95/67 93
02/14/25 18:50 02/14/25 22:00 02/14/25 22:00 02/14/25 22:00 02/14/25 19:09
Update Note
Update Note:
Patient presents to the Emergency Department with ___legs 'jerking'
Number and Complexity of Problems Addressed at the Encounter
� Chronic conditions affecting care:
� Acute Exacerbation and/or Progression of Chronic Illness:
� Differential Diagnosis includes:but not limited to electrolyte abnl, deconditioning, worsening neuropathy, etc etc etc
Amount and/or Complexity of Data to be Reviewed and Analyzed
� I performed an independent evaluation of and my interpretation is:
EKG:
CT:
Xrays:
Laboratory Studies:mild anemia, stable. mild renal insuffic, stable.
Other:
� Review of other/old records reveals:
� Clinical information was obtained by an independent historian:
� Prescriptions/Medications Considered but not given:
� Further testing considered but not performed:
Risk of Complications and/or Morbidity or Mortality of Patient Management
� Social determinants of health affecting care:
� Discussion with other providers (PCP, Hospitalists, Consultants, etc):
� Escalation of care including admission/observation vs risk of discharge considered:Son called and expressed deep concern for pts ability to live at level of care where he currently is at [facility]. Pt is describing frequent recent
falls, which is particularly concerning given hx of DOAC use. In addition, he appears to be sedated/over medicated. Recommedn obs/admission, PT/Case management eval. D/w hospitalist via tt.
Pt sleeping and stable.
ED Attending Note
-
Portions of this chart may have been created with voice recognition software.� Occasional wrong word or��sound alike� substitutions may have occurred due to the inherent limitations of voice recognition software.
Discharge Plan
Departure
Patient Disposition: Admit
Date of Disposition: 02/14/25
Time of Disposition: 22:27
Presentation/result/management discussed w/ accepting MD/DO: Hospitalist
Condition: Fair
Discharge Problem:
Ambulatory dysfunction
Prescriptions:
No Action
Eliquis 5 MG tablet
5 mg PO BID
trazodone 150 mg Tablet
150 mg PO HS
famotidine [Pepcid] 20 mg Tablet
20 mg PO BID
vitamin B complex Capsule
1 cap PO DAILY Qty: 0
cholecalciferol (vitamin D3) [Vitamin D3] 125 mcg (5,000 unit) Tablet
125 mcg PO DAILY
atorvastatin [Lipitor] 20 MG tablet
20 mg PO HS
tamsulosin 0.4 mg capsule
0.4 mg PO HS
polyethylene glycol 3350 [Miralax] 17 gram/dose Powder
17 g PO DAILY
gabapentin 600 mg Tablet
600 mg PO TID
pantoprazole [Protonix] 40 mg Tablet,Delayed Release (Dr/Ec)
40 mg PO DAILY
vitamin E 268 mg (400 unit) Capsule
268 mg PO DAILY
terazosin 2 mg Capsule
2 mg PO HS
ferrous sulfate 325 mg (65 mg iron) Tablet
325 mg PO DAILY
bismuth subsalicylate [Kaopectate (bismuth subsalicy)] 262 mg/15 mL Suspension
524 mg PO Q8HPRN PRN (Reason: diarrhea)
duloxetine [Cymbalta] 30 mg Capsule,Delayed Release(Dr/Ec)
30 mg PO DAILY
ondansetron HCl 4 mg Tablet
4 mg PO Q8HPRN PRN (Reason: nausea/vomiting)
acetaminophen [Tylenol Extra Strength] 500 mg Tablet
1,000 mg PO BIDPRN PRN (Reason: mild pain)
oxycodone 15 mg Tablet
15 mg PO TIDPRN PRN (Reason: break through pain)
losartan 25 mg Tablet
25 mg PO DAILY
furosemide [Lasix] 20 mg Tablet
20 mg PO DAILY
hydralazine 10 mg Tablet
5 mg PO TID Qty: 0 0RF
carvedilol 6.25 mg Tablet
6.25 mg PO BID Qty: 0 0RF
Referrals:
Gianluca Orta MD [Family Provider] -
Interventions
Interventions:
*Risk Screen - Suicide Last Done: 02/14/25 18:44
*General Assessment Last Done: 02/14/25 18:44
*Neglect/Abuse Screening Last Done: 02/14/25 18:44
*ED- Fall Risk Assessment Last Done: 02/14/25 19:39
*ED COVID-19 Vaccine History Last Done: 02/14/25 18:44
ED-Musculoskeletal Assessment Last Done: 02/14/25 18:54
ED- Neurological Assessment Last Done: 02/14/25 18:54
ED-Skin Assessment Last Done: 02/14/25 18:54
Discharge Date and Time
Print Language: MACANESE
[2025-02-14 20:08] LABS: Hematocrit 31.2 % (39.0-52.0); Hemoglobin 10.8 g/dL (13.0-18.0); Mean Corp Hgb Conc. 34.6 g/dL (33.0-37.0); Mean Corpuscular Hgb 31.3 pg (27.0-31.0); Mean Corpuscular Volume 90.4 fL (80.0-94.0); Platelet Count 160 10^3/uL (130-400); Red Blood Cell Count 3.45 10^6/uL (4.70-6.10); Red Cell Dist. Width 13.7 % (11.5-14.5); White Blood Cell Count 7.7 10^3/uL (4.8-10.8)
[2025-02-14 20:19] LABS: ALT (SGPT) 12 U/L (0-50); AST (SGOT) 19 U/L (17-59); Albumin 4.1 g/dl (3.5-5.0); Alkaline Phosphatase 75 U/L (38-126); Blood Urea Nitrogen 28 mg/dl (9-20); Calcium 8.8 mg/dl (8.4-10.2); Carbon Dioxide 29 mmol/L (22-30); Chloride 95 mmol/L (98-107); Estimated Creatinine Clearance 36 ml/min; Glucose 101 mg/dl (70-99); Potassium 4.2 mmol/L (3.5-5.1); Sodium 133 mmol/L (135-145); Total Bilirubin 1.3 mg/dl (0.2-1.3); Total Protein 6.2 g/dl (6.3-8.2); eGFR 43.83
[2025-02-14 21:11] VITALS: BP 99/73
[2025-02-14 22:00] VITALS: BP 95/67
[2025-02-14 23:00] VITALS: BP 97/71
[2025-02-15] VITALS: BP 99/67
--- NOTE | 2025-02-15 00:33 | HPS.HSE ---
Family Physician
-
Family Physician: Gianluca Orta
Chief Complaint
-
Falls
History of Present Illness
This is a 79-year-old male with past medical history significant for paroxysmal atrial fibrillation on anticoagulation with Eliquis, hypertension, HEVER on CKD, GERD, BPH and hyperlipidemia, recently admitted with hematochezia complaint and abdominal
pain with extensive workup which showed no significant etiology comes to the emergency department with complaints of leg shaking and increasing/multiple falls.
Patient is a very poor historian. He is arousable but unable to provide me any history as to why he is coming to the emergency department. This is similar to his presentation the last time. There is concern of overmedication with opioids. During
his last admission he was noted to have increased heart rate with atrial fibrillation and had a increased dose of carvedilol to 6.25 mg twice daily with resumption of his Eliquis on discharge.
He resides at [facility] and said he fell at around 8 AM in the morning and again later around 20-day. He already uses a walker and states that he has been shaking for a few days. Did not have any lightheadedness or dizziness.
Denies any loss of consciousness. He denies any headache. He denies striking his head. He has not been having any chest pain shortness of breath or palpitations. He denies any fevers or chills and any urinary symptoms. He denies any recurrent
melena or hematochezia. He reports ongoing chronic back and neck pain.
In the emergency department he was afebrile, blood pressure was 97/70 with pulse of 66 and he was satting 95% on room air. CBC was unremarkable with hemoglobin of 10.8, electrolytes BUN/creatinine notable for a BUN of 28 and a creatinine of 1.6.
Medical History
Past Medical History
Past Medical History: Reports Other
Additional Past Medical History:
paroxysmal atrial fibrillation and flutter
Chronic back pain, spinal stenosis, and degenerative disc disease with chronic opioid use with dependence
Essential hypertension
h/o Klebsiella pneumonia and coagulase-negative Staphylococcus infected hardware in L4-L5 (April 2023) treated with Chronic neuropathy
Gastroesophageal reflux disease
Chronic HFpEF
Benign prostatic hypertrophy
Hyperlipidemia
h/o permanent pacer
h/o aortic valve x 2
Obstructive sleep
Anxiety
Depression
HX C. difficile
Past Surgical History: Reports Other
Additional Past Surgical History:
History of pain pump infection with removal
Pacer and aortic valve replaced
Cervical spine fusion, laminectomy 2018, lumbar surgery 2022 with screws placed then removed 04/25/2023
Hemorrhoidectomy
Rhizotomy lower back
Cardiac cath 2006
Social History
Tobacco: Non-smoker
Alcohol: Occasional
Drug: None
Personal:
Living: With Family
Employment: Retired
Family History
Family History: Not pertinent
Allergies / Home Medications
Allergies reflects when Allergies were last updated in [facility].
Home Medications with original date entered in [facility]
Allergy/Medication List:
Allergies
Allergy/AdvReac Type Severity Reaction Status Date / Time
amiodarone Allergy Unknown Verified 02/02/25 01:21
amlodipine Allergy Swelling - Verified 02/02/25 01:21
1992
benzyl alcohol Allergy Unknown Verified 02/02/25 01:21
clindamycin Allergy Unknown Verified 02/02/25 01:21
hydrochlorothiazide Allergy Hyponatremi Verified 02/02/25 01:21
a
meloxicam Allergy Unknown Verified 02/02/25 01:21
polysorbate 80 Allergy Unknown Verified 02/02/25 01:21
sulfamethoxazole Allergy Unknown Verified 02/02/25 01:21
[From Bactrim]
tizanidine [From Zanaflex] Allergy took from Verified 02/02/25 01:21
patient
history
and
physical
from
surgeon
trimethoprim [From Bactrim] Allergy Unknown Verified 02/02/25 01:21
Home Medications
apixaban 5 mg tablet (Eliquis) 5 mg PO BID Blood clot prevention/tx 01/16/22
furosemide 20 mg tablet 20 mg PO DAILY Fluid retention/Swelling 09/13/22
trazodone 150 mg tablet 150 mg PO HS Depression/sleep 09/13/22
famotidine 20 mg tablet (Pepcid) 20 mg PO BID Gastrointestinal issue 02/17/23
hydralazine 10 mg tablet 10 mg PO TID Blood Pressure 04/03/23
vitamin B complex 1 cap PO DAILY Supplement ##0 04/03/23
atorvastatin 20 mg tablet (Lipitor) 20 mg PO HS High cholesterol 04/12/23
cholecalciferol (vitamin D3) 125 mcg (5,000 unit) tablet (Vitamin D3) 125 mcg PO DAILY Supplement 04/12/23
polyethylene glycol 3350 17 gram/dose oral powder (Miralax) 17 g PO DAILY Constipation 04/14/24
tamsulosin 0.4 mg capsule 0.4 mg PO HS Urinary Issue 04/14/24
acetaminophen 500 mg tablet 1,000 mg PO [id number] PRN fever 09/07/24
carvedilol 6.25 mg tablet (Coreg) 6.125 mg PO BID Blood Pressure 09/07/24
gabapentin 600 mg tablet 600 mg PO TID Pain 09/07/24
losartan 25 mg tablet 25 mg PO DAILY Blood Pressure 09/07/24
pantoprazole 40 mg tablet,delayed release (Protonix) 40 mg PO DAILY GERD 09/07/24
vitamin E 268 mg (400 unit) capsule 268 mg PO DAILY Supplement 09/07/24
bismuth subsalicylate 262 mg/15 mL oral suspension (Kaopectate (bismuth subsalicylate)) 524 mg PO DAILYPRN PRN diarrhea 12/25/24
duloxetine 30 mg capsule,delayed release (Cymbalta) 30 mg PO DAILY Mental Health/Anxiety 12/25/24
ferrous sulfate 325 mg (65 mg iron) tablet 325 mg PO DAILY Supplement 12/25/24
terazosin 2 mg capsule 2 mg PO HS Urinary Issue/BP 12/25/24
Review of Systems
-
History Source: Patient
Constitutional: Reports No Symptoms
EENT: Reports No Symptoms
Respiratory: Reports No Symptoms
Cardiac: Reports No Symptoms
Abdomen/GI: Reports No Symptoms
: Reports No Symptoms
Musculoskeletal: Reports No Symptoms
Skin: Reports No Symptoms
Endocrine: Reports No Symptoms
Hematologic/Lymphatic: Reports No Symptoms
Psych: Reports No Symptoms
Physical Exam
Vital Signs
Vital Signs
Temp Pulse Resp BP Pulse Ox
97.4 F 66 20 97/71 93
02/14/25 18:50 02/14/25 23:00 02/14/25 23:00 02/14/25 23:00 02/14/25 19:09
Physical Exam
General: No Apparent Distress
HEENT: NormoCephalic, Anicteric, Atraumatic, PERRLA and No Ptosis; No Oxygen
Respiratory: Clear
Cardiac: S1/S2 and Regular Rhythm
Breast: Deferred by me
GI: Soft, Non Tender, Non Distended and Normal Bowel Sounds
Rectal: Hem Negative
Genito-urinary: Deferred by me
Musculoskeletal: No Clubbing, No Cyanosis and No Edema
Skin: Warm
Neuro: Nonfocal/grossly intact and Other (sleepy but arousable, oriented to person and place)
Hematologic/Lymphatic: No Lymphadenopathy
Psych: Calm
Laboratory Results
-
02/14/25 20:00
02/14/25 20:00
Laboratory Results
Total Bilirubin 1.3 mg/dl (0.2-1.3) 02/14/25 20:00
AST 19 U/L (17-59) 02/14/25 20:00
ALT 12 U/L (0-50) 02/14/25 20:00
Alkaline Phosphatase 75 U/L (38-126) 02/14/25 20:00
Data Reviewed
-
Lab Data: Labs Reviewed by me
Old Records: Reviewed
Impression/Plan
-
IMPRESSION:
Patient presents for evaluation after 2 falls at his independent living facility. Currently walks with a walker. No loss of consciousness. No head strike. No focal deficits on neurological exam. History does not provide any additional
information. His hemoglobin is stable and he denies any evidence of recurrent gi bleed. He does appear dehydrated on labs with elevated bun to 28, Cr 1.6 and Na 133. Suspect possibly dehydration and orthostasis causing his falls in addition to
pain medications.
PLAN:
Falls
- admit to med/surg
- orthostatic vs
- hold hydralazine and lasix for now
- gentle hydration overnight
- hold losartan
- holding opioids for now, decreasing dose prn
- decrease gabapentin to 300 bid for now given hever
- PT evaluation, case management for high level of placement.
HEVER - Cr 1.6, baseline 1.0. Na 133. BP 90 systolic. Suspect dehydration and hypotension
- holding losartan and hydralazine for now
- IV fluids 1L
- monitor i/os
- u/a
- repeat labs in am
- check renal bladder u/s
AFIB - regular pulse and rate controlled
- continue coreg 6.25 bid
- continue eliquis for now
DVT PPX - on eliquis
Code status - Full code
[2025-02-15 01:00] VITALS: BP 93/68
[2025-02-15] MEDS: NSS 500 IV ×2 (01:15→04:17)
[2025-02-15 02:21] LABS: Urine Albumin 1+ (Neg - Trace); Urine Bilirubin Negative (Negative); Urine Character Slightly Cloudy (Clear); Urine Color Yellow; Urine Glucose Negative (Negative); Urine Ketone Negative (Negative); Urine Leukocyte 3+ (Negative); Urine Nitrite Negative (Negative); Urine Occult Blood 4+ (Negative); Urine Urobilinogen Negative (Neg - 1+)
[2025-02-15 03:05] LABS: Urine Bacteria Many (Negative); Urine Hyaline Cast 0-2 /LPF (0-2); Urine Squamous Cell 0-2 /LPF (Few); Urine White Cell >100 /HPF (0-5)
[2025-02-15 03:30] VITALS: BP 135/79; BMI 23.5
[2025-02-15 06:55] LABS: Hematocrit 31.6 % (39.0-52.0); Hemoglobin 10.7 g/dL (13.0-18.0); Mean Corp Hgb Conc. 33.9 g/dL (33.0-37.0); Mean Corpuscular Hgb 30.7 pg (27.0-31.0); Mean Corpuscular Volume 90.8 fL (80.0-94.0); Platelet Count 135 10^3/uL (130-400); Red Blood Cell Count 3.48 10^6/uL (4.70-6.10); Red Cell Dist. Width 13.7 % (11.5-14.5); White Blood Cell Count 7.1 10^3/uL (4.8-10.8)
[2025-02-15 07:22] VITALS: BP 149/90
[2025-02-15 07:37] LABS: Blood Urea Nitrogen 22 mg/dl (9-20); Calcium 8.5 mg/dl (8.4-10.2); Carbon Dioxide 32 mmol/L (22-30); Chloride 100 mmol/L (98-107); Creatine Phosphokinase 48 U/L (55-170); Estimated Creatinine Clearance 44 ml/min; Glucose 102 mg/dl (70-99); Potassium 4.3 mmol/L (3.5-5.1); Sodium 136 mmol/L (135-145); eGFR 56.23
[2025-02-15] MEDS: ELIQUIS 5 MG PO ×2 (07:53→20:04)
[2025-02-15] MEDS: FEOSOL 325 MG PO (07:53)
[2025-02-15] MEDS: PROTONIX 40 MG PO (07:53)
[2025-02-15] MEDS: CYMBALTA DELAYED RELEASE 30 MG PO (07:53)
[2025-02-15] MEDS: PEPCID 20 MG PO (07:53)
[2025-02-15] MEDS: MIRALAX 17 GRAMS PO (07:53)
[2025-02-15] MEDS: COREG 6.25 MG PO ×2 (07:53→20:04)
[2025-02-15] MEDS: NEURONTIN 300 MG PO ×2 (07:53→20:04)
[2025-02-15] MEDS: ZOSYN 50 IV ×3 (11:33→21:08)
[2025-02-15] MEDS: ROXICODONE 5 MG PO ×2 (11:36→21:08)
--- NOTE | 2025-02-15 13:58 | W.PN.UPDATE ---
Update Note
Progress Note Update
Has suprapubic tenderness, urinary discomfort such as dysuria. Further has watery diarrhea. Initiated Zosyn, follow-up C. difficile.
Stop MiraLAX HEVER improving
X-ray ordered for supposedly pleuritic pain, no acute pulmonary process found
--- NOTE | 2025-02-15 14:00 | CM ---
Addendum entered by Nargis Torres 02/15/25 14:04:
correction: PCP: [facility] per patient
Original Note:
Patient seen at bedside.
OBS status-LOVELL form explained & signed.
Lives at [facility] with , elevator access
PLOF: Walker
DME: walker, cane
Denies VN/has been at [facility]
PT to see patient - patient declined
PCP: Gianluca Menjivar
Pharmacy: [facility]
PLAN: Await PT rec, CM to continue to follow for needs
[2025-02-15 15:39] VITALS: BP 123/79
[2025-02-15] MEDS: FLOMAX 0.4 MG PO (21:08)
[2025-02-15] MEDS: LIPITOR 20 MG PO (21:08)
[2025-02-15] MEDS: HYTRIN 2 MG PO (21:08)
[2025-02-15] MEDS: DESYREL 150 MG PO (21:08)
[2025-02-15 23:46] VITALS: BP 116/73
[2025-02-16] MEDS: ZOSYN 50 IV ×2 (03:57→11:00)
[2025-02-16 07:30] VITALS: BP 149/90
[2025-02-16 07:56] LABS: Blood Urea Nitrogen 17 mg/dl (9-20); Calcium 8.7 mg/dl (8.4-10.2); Carbon Dioxide 28 mmol/L (22-30); Chloride 100 mmol/L (98-107); Estimated Creatinine Clearance 57 ml/min; Glucose 90 mg/dl (70-99); Potassium 4.1 mmol/L (3.5-5.1); Sodium 135 mmol/L (135-145); eGFR > 60.00
[2025-02-16 08:00] LABS: Hematocrit 31.2 % (39.0-52.0); Hemoglobin 10.8 g/dL (13.0-18.0); Mean Corp Hgb Conc. 34.6 g/dL (33.0-37.0); Mean Corpuscular Hgb 31.1 pg (27.0-31.0); Mean Corpuscular Volume 89.9 fL (80.0-94.0); Mean Platelet Volume 9.7 fL (7.4-10.4); Platelet Count 148 10^3/uL (130-400); Red Blood Cell Count 3.47 10^6/uL (4.70-6.10); Red Cell Dist. Width 13.6 % (11.5-14.5); White Blood Cell Count 5.4 10^3/uL (4.8-10.8)
[2025-02-16] MEDS: CYMBALTA DELAYED RELEASE 30 MG PO (08:25)
[2025-02-16] MEDS: FEOSOL 325 MG PO (08:25)
[2025-02-16] MEDS: NEURONTIN 300 MG PO ×2 (08:25→20:47)
[2025-02-16] MEDS: PROTONIX 40 MG PO (08:25)
[2025-02-16] MEDS: COREG 6.25 MG PO ×2 (08:25→20:47)
[2025-02-16] MEDS: ELIQUIS 5 MG PO ×2 (08:25→20:47)
[2025-02-16] MEDS: ROXICODONE 5 MG PO ×3 (08:25→20:47)
[2025-02-16] MEDS: PEPCID 20 MG PO (08:25)
[2025-02-16 09:38] VITALS: BP 154/108; BP 158/110; BP 162/101; PULSE 61; O2SAT 96
--- NOTE | 2025-02-16 13:58 | W.PN.HOSP.TC ---
Today's Communication/Plan
-
PT/OT
CDiff f/u
TOV
Orthostatics
Assessment / Plan
Assessment / Plan
Physical Exam
General: No Apparent Distress
HEENT: NormoCephalic, Anicteric, Atraumatic, PERRLA and No Ptosis; No Oxygen
Respiratory: Clear
Cardiac: S1/S2 and Regular Rhythm
Breast: Deferred by me
GI: Soft, Non Tender, Non Distended and Normal Bowel Sounds
Rectal: Hem Negative
Genito-urinary: Deferred by me
Musculoskeletal: No Clubbing, No Cyanosis and No Edema
Skin: Warm
Neuro: AAOx3
Hematologic/Lymphatic: No Lymphadenopathy
Psych: Calm
Patient presents for evaluation after 2 falls at his independent living facility. Currently walks with a walker. No loss of consciousness. No head strike. No focal deficits on neurological exam. History does not provide any additional
information. His hemoglobin is stable and he denies any evidence of recurrent gi bleed. He does appear dehydrated on labs with elevated bun to 28, Cr 1.6 and Na 133. Suspect possibly dehydration and orthostasis causing his falls in addition to
pain medications.
PLAN:
Falls
-possibly 2/2 to dehydration v ambulatory dysfunction
-Orthostatics
-states has diarrhea - will order cdiff
- hold hydralazine and lasix for now
-- hold losartan
- holding opioids for now, decreasing dose prn
- decrease gabapentin to 300 bid for now given hever
- PT evaluation, case management for high level of placement.
HEVER - Cr 1.6, baseline 1.0. Na 133. BP 90 systolic. Suspect dehydration and hypotension
- holding losartan and hydralazine for now
- s/p IV fluids 1L
- resolved
-Ucx negative
Chronic Urinary retention
-TOV
-F/u urology outpatient
hx of CDiff
-currently has watery diarrhea
-f/u CDiff, stool cultures - may be contributing to falls
AFIB - regular pulse and rate controlled
- continue coreg 6.25 bid
- continue eliquis for now
DVT PPX - on eliquis
Code status - Full code
Anticipated Discharge: Within 24 hours
Subjective/Interval History
-
Date of Service: February 16, 2025
no acute events
Objective Data
-
Labs:
Laboratory Results
02/16/25
07:03
WBC 5.4
Hgb 10.8 L
Hct 31.2 L
Plt Count 148
Sodium 135
Potassium 4.1
Chloride 100
Carbon Dioxide 28
BUN 17
Creatinine 1.0
Glucose 90
Calcium 8.7
Vital Signs:
Vital Signs
Temp Pulse Resp BP Pulse Ox
97.7 F 61 18 149/90 94
02/16/25 07:30 02/16/25 07:30 02/16/25 07:30 02/16/25 07:30 02/16/25 07:30
I&O
02/15/25 02/16/25 02/17/25
06:59 06:59 06:59
Intake Total 500 / 500 960 / 960
Output Total 1050 / 1050 1000 / 1000
Balance -550 / -550 -40 / -40
Review of Systems
-
History Source: Patient
All other systems: Not reviewed unless documented
Physical Exam
-
General: Well Developed, Well Nourished and No Apparent Distress
HEENT: Normocephalic and Atraumatic
Respiratory: Clear to Auscultation; Negative Wheezes, Rales or Rhonchi
Cardiac: Regular Rhythm and S1/S2
GI: Nondistended and Normal Bowel Sounds
Genito-urinary: Montalvo (has been resumed, tov today)
Musculoskeletal: No Clubbing, No Cyanosis and No Edema
Neuro: Awake, Alert and Oriented
Data Reviewed
-
Labs: Labs Reviewed by me
[2025-02-16 16:00] VITALS: BP 116/74
[2025-02-16] MEDS: DESENEX/MITRAZOL/ZEASORB 1 APPLIC TOPICAL (20:48)
[2025-02-16] MEDS: FLOMAX 0.4 MG PO (22:37)
[2025-02-16] MEDS: DESYREL 150 MG PO (22:37)
[2025-02-16] MEDS: HYTRIN 2 MG PO (22:37)
[2025-02-16] MEDS: LIPITOR 20 MG PO (22:38)
[2025-02-17 00:04] VITALS: BP 125/77
[2025-02-17] MEDS: ROXICODONE 5 MG PO ×5 (01:07→19:59)
[2025-02-17 06:11] LABS: Hematocrit 31.5 % (39.0-52.0); Hemoglobin 10.8 g/dL (13.0-18.0); Mean Corp Hgb Conc. 34.3 g/dL (33.0-37.0); Mean Corpuscular Hgb 31.1 pg (27.0-31.0); Mean Corpuscular Volume 90.8 fL (80.0-94.0); Mean Platelet Volume 9.7 fL (7.4-10.4); Platelet Count 154 10^3/uL (130-400); Red Blood Cell Count 3.47 10^6/uL (4.70-6.10); Red Cell Dist. Width 13.6 % (11.5-14.5); White Blood Cell Count 8.3 10^3/uL (4.8-10.8)
[2025-02-17 06:42] LABS: Blood Urea Nitrogen 16 mg/dl (9-20); Calcium 8.7 mg/dl (8.4-10.2); Carbon Dioxide 29 mmol/L (22-30); Chloride 98 mmol/L (98-107); Estimated Creatinine Clearance 63 ml/min; Glucose 92 mg/dl (70-99); Potassium 4.1 mmol/L (3.5-5.1); Sodium 134 mmol/L (135-145); eGFR > 60.00
[2025-02-17 07:30] VITALS: BP 127/87
[2025-02-17] MEDS: ELIQUIS 5 MG PO ×2 (07:54→20:00)
[2025-02-17] MEDS: COREG 6.25 MG PO ×2 (07:54→20:03)
[2025-02-17] MEDS: PROTONIX 40 MG PO (07:55)
[2025-02-17] MEDS: FEOSOL 325 MG PO (07:55)
[2025-02-17] MEDS: CYMBALTA DELAYED RELEASE 30 MG PO (07:55)
[2025-02-17] MEDS: NEURONTIN 300 MG PO ×2 (07:55→20:00)
[2025-02-17] MEDS: PEPCID 20 MG PO (07:55)
[2025-02-17] MEDS: DESENEX/MITRAZOL/ZEASORB 1 APPLIC TOPICAL ×2 (07:57→20:03)
[2025-02-17 12:50] VITALS: BMI 23.9
--- NOTE | 2025-02-17 13:15 | W.PN.HOSP.TC ---
Today's Communication/Plan
-
Check orthostatics
Urinalysis
Bladder scan
Assessment / Plan
Assessment / Plan
Gen-AAOx3, NAD
HEENT-NC, AT, anicteric, clear oral mm
Neck-supple
CV-reg, no M, +S1/S2
Lungs-clear B/L
Abd-soft, nondistended, mild tenderness without guarding or rebound
Ext-no edema
Musculoskeletal-no cyanosis, clubbing
Skin-warm and dry
Neuro-grossly non-focal
Psych-calm, cooperative
Ambulatory dysfunction/falls -suspect due to deconditioning, volume depletion and dehydration. Continue PT/OT.
HEVER -presentation with elevated INR, 1.9, along with hypotension. Suspect due to volume depletion and dehydration, possible GI losses And anorexia. Creatinine improved to 0.9 with IV fluids. Losartan and hydralazine on hold.
Chronic hyponatremia -134. Monitor for now.
Chronic Urinary retention -Montalvo catheter removed February 16. Check bladder scan. Voiding trial. Patient complaining of dysuria since removal of Montalvo, recheck urinalysis. Just had urinalysis and urine culture sent February 15, culture grew out
greater than 100,000 CFU per mL mixed eloise, possible contamination.
History of C. difficile colitis -diagnosed December 2024. Has had multiple follow-up CT scans, last was February 07, showing mild diffuse colonic wall thickening compatible with pancolitis but overall improved compared to prior scans.
Patient states diarrhea is improving. Stool C. difficile testing came back invalid. Stool culture pending.
Clinically doubt recurrent C. difficile colitis given clinical stability. WBC count normal, afebrile.
Paroxysmal atrial fibrillation -rate controlled.
- continue coreg 6.25 bid
- continue eliquis for now
Chronic normocytic anemia -stable.
Hyperlipidemia -atorvastatin.
DVT PPX - on eliquis
Code status - Full code
Dispo -patient requesting to go to [place] for rehab. Discussed with case management, awaiting input.
Anticipated Discharge: Within 24 hours
Subjective/Interval History
-
Date of Service: February 17, 2025
Patient seen and examined. Complaining of abdominal discomfort. Some anorexia. States diarrhea is improving.
Objective Data
-
Labs:
Laboratory Results
02/17/25
05:54
WBC 8.3
Hgb 10.8 L
Hct 31.5 L
Plt Count 154
Sodium 134 L
Potassium 4.1
Chloride 98
Carbon Dioxide 29
BUN 16
Creatinine 0.9
Glucose 92
Calcium 8.7
Vital Signs:
Vital Signs
Temp Pulse Resp BP Pulse Ox
97.4 F 76 18 127/87 97
02/17/25 07:30 02/17/25 07:54 02/17/25 07:30 02/17/25 07:54 02/17/25 08:53
I&O
02/16/25 02/17/25 02/18/25
06:59 06:59 06:59
Intake Total 960 / 960 720 / 720
Output Total 1000 / 1000 200 / 200
Balance -40 / -40 520 / 520
Review of Systems
-
History Source: Patient
All other systems: Reviewed and negative
[2025-02-17 13:47] VITALS: BP 107/76; BP 129/79; BP 97/69; PULSE 61; PULSE 63; PULSE 70
[2025-02-17 15:30] VITALS: BP 151/95
[2025-02-17] MEDS: DESYREL 150 MG PO (20:00)
[2025-02-17] MEDS: HYTRIN 2 MG PO (20:00)
[2025-02-17] MEDS: LIPITOR 20 MG PO (20:00)
[2025-02-17] MEDS: FLOMAX 0.4 MG PO (20:01)
[2025-02-17 23:12] VITALS: BP 89/57
[2025-02-18 06:05] LABS: Hemoglobin 10.5 g/dL (13.0-18.0); Mean Corp Hgb Conc. 33.9 g/dL (33.0-37.0); Mean Corpuscular Hgb 30.7 pg (27.0-31.0); Mean Corpuscular Volume 90.6 fL (80.0-94.0); Mean Platelet Volume 9.4 fL (7.4-10.4); Platelet Count 145 10^3/uL (130-400); Red Blood Cell Count 3.42 10^6/uL (4.70-6.10); Red Cell Dist. Width 13.5 % (11.5-14.5); White Blood Cell Count 8.3 10^3/uL (4.8-10.8)
[2025-02-18 06:31] LABS: Blood Urea Nitrogen 10 mg/dl (9-20); Calcium 8.7 mg/dl (8.4-10.2); Carbon Dioxide 28 mmol/L (22-30); Chloride 98 mmol/L (98-107); Estimated Creatinine Clearance 63 ml/min; Glucose 87 mg/dl (70-99); Potassium 4.4 mmol/L (3.5-5.1); Sodium 135 mmol/L (135-145); eGFR > 60.00
[2025-02-18 07:40] VITALS: BP 126/79
--- NOTE | 2025-02-18 08:12 | W.PN.HOSP.TC ---
Addendum entered and electronically signed by Cam Molina DO 02/18/25 15:18:
Stable for discharge home today to personal care apartment with [facility]. Discussed with case management. Outpatient follow-up.
Original Note:
Today's Communication/Plan
-
Compression stockings
Check urinalysis
Discharge planning
Assessment / Plan
Assessment / Plan
Gen-AAOx3, NAD
HEENT-NC, AT, anicteric, clear oral mm
Neck-supple
CV-reg, no M, +S1/S2
Lungs-clear B/L
Abd-soft, nondistended, mild tenderness without guarding or rebound
Ext-no edema
Musculoskeletal-no cyanosis, clubbing
Skin-warm and dry
Neuro-grossly non-focal
Psych-calm, cooperative
Ambulatory dysfunction/falls -suspect due to deconditioning, volume depletion, dehydration, orthostatic hypotension. Continue PT/OT.
Orthostatic hypotension -compression stockings ordered. Discussed with nursing.
HEVER -presentation with elevated creatinine, 1.9, along with hypotension. Suspect due to volume depletion and dehydration, possible GI losses And anorexia. Creatinine improved to 0.9 with IV fluids. Losartan and hydralazine on hold.
Chronic hyponatremia - improved.
Chronic Urinary retention -Montalvo catheter removed February 16. No retention noted on bladder scan. Patient complaining of dysuria since removal of Montalvo, recheck urinalysis. Just had urinalysis and urine culture sent February 15, culture grew out
greater than 100,000 CFU per mL mixed eloise, possible contamination.
History of C. difficile colitis -diagnosed December 2024. Has had multiple follow-up CT scans, last was February 07, showing mild diffuse colonic wall thickening compatible with pancolitis but overall improved compared to prior scans.
Sigmoidoscopy performed February 09, 2025 showed diverticulosis in the sigmoid colon. No specimens collected.
Patient states diarrhea is improving. Stool C. difficile testing came back invalid. Stool culture pending.
Clinically doubt recurrent C. difficile colitis given clinical stability. WBC count normal, afebrile.
Stools are becoming more formed. Still has residual abdominal discomfort likely due to recent colitis. No indication for further imaging or workup.
Paroxysmal atrial fibrillation -rate controlled.
- continue coreg 6.25 bid
- continue eliquis for now
Chronic normocytic anemia -stable.
Hyperlipidemia -atorvastatin.
DVT PPX - on eliquis
Code status - Full code
Dispo -patient requesting to go to [place] for rehab. Discussed with case management, awaiting input.
Anticipated Discharge: Within 24 hours
Subjective/Interval History
-
Date of Service: February 18, 2025
Patient seen and examined. Complaining of abdominal discomfort.
Objective Data
-
Labs:
Laboratory Results
02/18/25
05:51
WBC 8.3
Hgb 10.5 L
Hct 31.0 L
Plt Count 145
Sodium 135
Potassium 4.4
Chloride 98
Carbon Dioxide 28
BUN 10
Creatinine 0.9
Glucose 87
Calcium 8.7
Vital Signs:
Vital Signs
Temp Pulse Resp BP Pulse Ox
98.1 F 64 16 126/79 94
02/18/25 07:40 02/18/25 07:40 02/18/25 07:40 02/18/25 07:40 02/18/25 07:40
I&O
02/17/25 02/18/25 02/19/25
06:59 06:59 06:59
Intake Total 720 / 720 600 / 600
Output Total 200 / 200 350 / 350
Balance 520 / 520 250 / 250
Review of Systems
-
History Source: Patient
All other systems: Reviewed and negative
[2025-02-18] MEDS: CYMBALTA DELAYED RELEASE 30 MG PO (08:38)
[2025-02-18] MEDS: PROTONIX 40 MG PO (08:38)
[2025-02-18] MEDS: ELIQUIS 5 MG PO (08:38)
[2025-02-18] MEDS: NEURONTIN 300 MG PO (08:38)
[2025-02-18] MEDS: PEPCID 20 MG PO (08:38)
[2025-02-18] MEDS: DESENEX/MITRAZOL/ZEASORB 1 APPLIC TOPICAL (08:39)
[2025-02-18] MEDS: ROXICODONE 5 MG PO ×2 (08:39→14:15)
[2025-02-18] MEDS: FEOSOL 325 MG PO (08:39)
[2025-02-18] MEDS: COREG 6.25 MG PO (08:39)
[2025-02-18 08:54] LABS: ALT (SGPT) 10 U/L (0-50); AST (SGOT) 18 U/L (17-59); Albumin 3.6 g/dl (3.5-5.0); Alkaline Phosphatase 76 U/L (38-126); Direct Bilirubin 0.2 mg/dl (0.0-0.4); Total Bilirubin 1.3 mg/dl (0.2-1.3); Total Protein 5.6 g/dl (6.3-8.2)
[2025-02-18 14:19] LABS: Urine Albumin Negative (Neg - Trace); Urine Bilirubin Negative (Negative); Urine Character Clear (Clear); Urine Color Yellow; Urine Glucose Negative (Negative); Urine Ketone Negative (Negative); Urine Leukocyte 3+ (Negative); Urine Nitrite Negative (Negative); Urine Occult Blood 4+ (Negative); Urine Urobilinogen Negative (Neg - 1+)
[2025-02-18 14:28] LABS: Urine Bacteria Few (Negative); Urine Squamous Cell 0-2 /LPF (Few); Urine White Cell 26-30 /HPF (0-5)
[2025-02-18 15:16] VITALS: BP 109/71
--- NOTE | 2025-02-18 15:18 | CM ---
Addendum entered by Christy Bloom RN 02/18/25 15:21:
Patient is known to [facility],
CM will sent referral via [facility].
Plan: home with [facility] to [facility]
Original Note:
Cm reviewed medical records. Patient is medically ready for discharge to home. He is agreeable to return to his Personal Care Apartment at [place]. M spoke to PC RN and she is able to accept patient back. Patient will need home care from [facility]. CM
updated [facility] print shop chief clerk RN.
[facility]
Report
[phone]
--- NOTE | 2025-02-18 15:23 | W.DS.TRANS ---
DC Summary - Rn Oncology Clinical
-
Discharge Instructions:
Discharge Diagnosis/Procedures Orthostatic hypotension, acute kidney injury,
volume depletion
Diet Regular
Activity As tolerated
Driving Restrictions No driving
Bathing Restrictions None
Other Services VN
Instructions:
Stand-Alone Forms:
Changes to Home Medications: No
Discharge Medications:
DC Medications w/original date entered in [employer]
apixaban 5 mg tablet (Eliquis) 5 mg PO BID Blood clot prevention/tx 01/16/22
trazodone 150 mg tablet 150 mg PO HS Depression/sleep 09/13/22
vitamin B complex 1 cap PO DAILY Supplement ##0 04/03/23
atorvastatin 20 mg tablet (Lipitor) 20 mg PO HS High cholesterol 04/12/23
cholecalciferol (vitamin D3) 125 mcg (5,000 unit) tablet (Vitamin D3) 125 mcg PO DAILY Supplement 04/12/23
polyethylene glycol 3350 17 gram/dose oral powder (Miralax) 17 g PO DAILY Constipation 04/14/24
tamsulosin 0.4 mg capsule 0.4 mg PO HS Urinary Issue 04/14/24
pantoprazole 40 mg tablet,delayed release (Protonix) 40 mg PO DAILY GERD 09/07/24
vitamin E 268 mg (400 unit) capsule 268 mg PO DAILY Supplement 09/07/24
duloxetine 30 mg capsule,delayed release (Cymbalta) 30 mg PO DAILY Mental Health/Anxiety 12/25/24
ferrous sulfate 325 mg (65 mg iron) tablet 325 mg PO DAILY Supplement 12/25/24
terazosin 2 mg capsule 2 mg PO HS Urinary Issue/BP 12/25/24
acetaminophen 500 mg tablet (Tylenol Extra Strength) 1,000 mg PO BIDPRN PRN mild pain 02/02/25
losartan 25 mg tablet 25 mg PO DAILY Blood Pressure 02/02/25
ondansetron HCl 4 mg tablet 4 mg PO Q8HPRN PRN nausea/vomiting 02/02/25
carvedilol 6.25 mg tablet 6.25 mg PO BID #0 tabs 02/10/25
famotidine 20 mg tablet 20 mg PO DAILY #30 tabs 02/18/25
gabapentin 300 mg capsule 300 mg PO BID #60 caps 02/18/25
Home Medication Changes
Pending Results: No
[2025-02-18 15:31] VITALS: BP 118/74
--- NOTE | 2025-02-18 15:36 | CM ---
Addendum entered by Christy Bloom RN 02/19/25 07:39:
CM confirmed that [facility] is able to accept patient.
Original Note:
CM spoke with patient's son who is agreeable with discharge. Patient's son is in [place] and is requesting a wheelchair van for transportation.
--- NOTE | 2025-02-18 17:07 | W.DS.TRANS ---
DC Summary - [employer]
-
Discharge Instructions:
Discharge Diagnosis/Procedures Orthostatic hypotension, acute kidney injury,
volume depletion
Diet Regular
Activity As tolerated
Driving Restrictions No driving
Bathing Restrictions None
Other Services VN
Instructions:
Stand-Alone Forms:
Changes to Home Medications: No
Discharge Medications:
DC Medications w/original date entered in [employer]
apixaban 5 mg tablet (Eliquis) 5 mg PO BID Blood clot prevention/tx 01/16/22
trazodone 150 mg tablet 150 mg PO HS Depression/sleep 09/13/22
vitamin B complex 1 cap PO DAILY Supplement ##0 04/03/23
atorvastatin 20 mg tablet (Lipitor) 20 mg PO HS High cholesterol 04/12/23
cholecalciferol (vitamin D3) 125 mcg (5,000 unit) tablet (Vitamin D3) 125 mcg PO DAILY Supplement 04/12/23
polyethylene glycol 3350 17 gram/dose oral powder (Miralax) 17 g PO DAILY Constipation 04/14/24
tamsulosin 0.4 mg capsule 0.4 mg PO HS Urinary Issue 04/14/24
pantoprazole 40 mg tablet,delayed release (Protonix) 40 mg PO DAILY GERD 09/07/24
vitamin E 268 mg (400 unit) capsule 268 mg PO DAILY Supplement 09/07/24
duloxetine 30 mg capsule,delayed release (Cymbalta) 30 mg PO DAILY Mental Health/Anxiety 12/25/24
ferrous sulfate 325 mg (65 mg iron) tablet 325 mg PO DAILY Supplement 12/25/24
terazosin 2 mg capsule 2 mg PO HS Urinary Issue/BP 12/25/24
acetaminophen 500 mg tablet (Tylenol Extra Strength) 1,000 mg PO BIDPRN PRN mild pain 02/02/25
losartan 25 mg tablet 25 mg PO DAILY Blood Pressure 02/02/25
ondansetron HCl 4 mg tablet 4 mg PO Q8HPRN PRN nausea/vomiting 02/02/25
carvedilol 6.25 mg tablet 6.25 mg PO BID #0 tabs 02/10/25
famotidine 20 mg tablet 20 mg PO DAILY #30 tabs 02/18/25
gabapentin 300 mg capsule 300 mg PO BID #60 caps 02/18/25
oxycodone 15 mg tablet 15 mg PO TID PRN Pain #7 tabs 02/18/25
Home Medication Changes
Pending Results: No
[2025-02-18 17:16] VITALS: BP 138/90
== END 2025-02-18 17:05 | disposition home health service (06) | DRG 683 ==
LOC: 3 WEST ACU 13:25
PROVIDERS: Internal Medicine; ADMITTING PHYSICIAN Internal Medicine; ATTENDING PHYSICIAN Hospitalist; EMERGENCY PHYSICIAN Emergency Medicine; FAMILY PHYSICIAN Internal Medicine
DX: N17.9 Acute kidney failure, unspecified (principal); E87.1 Hypo-osmolality and hyponatremia; F11.20 Opioid dependence, uncomplicated; I48.92 Unspecified atrial flutter; I50.32 Chronic diastolic (congestive) heart failure; R29.6 Repeated falls; I95.1 Orthostatic hypotension; I11.0 Hypertensive heart disease with heart failure; I48.0 Paroxysmal atrial fibrillation; K21.9 Gastro-esophageal reflux disease without esophagitis; E78.00 Pure hypercholesterolemia, unspecified; E86.0 Dehydration; D64.9 Anemia, unspecified; N40.1 Benign prostatic hyperplasia with lower urinary tract symptoms; R33.8 Other retention of urine; R10.9 Unspecified abdominal pain; F41.9 Anxiety disorder, unspecified; F32.A Depression, unspecified; G62.9 Polyneuropathy, unspecified; I25.10 Atherosclerotic heart disease of native coronary artery without angina pectoris; G89.29 Other chronic pain; G47.30 Sleep apnea, unspecified; M48.00 Spinal stenosis, site unspecified; M54.2 Cervicalgia; M54.9 Dorsalgia, unspecified; Z86.19 Personal history of other infectious and parasitic diseases; Z95.2 Presence of prosthetic heart valve; Z79.01 Long term (current) use of anticoagulants
CPT/HCPCS: 71046; 76770; 80048; 80053; 81003; 81015; 82248; 82550; 85027; 87045; 87046; 87070; 87086; 87324; 87427; 87449; 97116; 97163; 99284

== ENCOUNTER → 2025-02-25 21:00 | Outpatient (REF) | payer MEDICARE, OTHER, SELFPAY ==
[2025-02-26 11:40] LABS: Urine Albumin 2+ (Neg - Trace); Urine Bilirubin Negative (Negative); Urine Character Slightly Cloudy (Clear); Urine Color Yellow; Urine Glucose Negative (Negative); Urine Ketone Negative (Negative); Urine Leukocyte 3+ (Negative); Urine Nitrite Negative (Negative); Urine Occult Blood 2+ (Negative); Urine Urobilinogen Negative (Neg - 1+); Urine pH 6.5 (5.0-9.0)
[2025-02-26 12:42] LABS: Urine Urothelial Cell 0-2 /LPF (FEW)
[2025-02-26 12:43] LABS: Urine White Cell >100 /HPF (0-5)
[2025-02-26 12:44] LABS: Urine Bacteria Many (Negative)
== END ==
LOC: OLABWPC 21:00
PROVIDERS: ATTENDING PHYSICIAN Internal Medicine
DX: R30.0 Dysuria (principal)
CPT/HCPCS: 81003; 81015; 87077; 87086

== ENCOUNTER → 2025-03-06 10:18 | Outpatient (REF) | payer MEDICARE, OTHER, SELFPAY ==
[2025-03-06 10:38] LABS: % Basophils 0.8 % (0-2); % Eosinophils 1.8 % (0-6); % Immature Granulocytes 0.5 % (0-0.5); % Lymphocytes 25.6 % (20.5-51.1); % Monocytes 11.6 % (1.7-9.3); % Neutrophils 59.7 % (42.2-75.2); Absolute Eosinophils 0.1 10^3/uL (0-0.7); Absolute Monocytes 0.5 10^3/uL (0.1-0.6); Absolute Neutrophils 2.3 10^3/uL (1.4-6.5); Hematocrit 30.8 % (39.0-52.0); Hemoglobin 10.4 g/dL (13.0-18.0); Mean Corp Hgb Conc. 33.8 g/dL (33.0-37.0); Mean Corpuscular Hgb 31.9 pg (27.0-31.0); Mean Corpuscular Volume 94.5 fL (80.0-94.0); Nucleated Red Blood Cells % 0 % (-); Platelet Count 127 10^3/uL (130-400); Red Blood Cell Count 3.26 10^6/uL (4.70-6.10); Red Cell Dist. Width 14.4 % (11.5-14.5); White Blood Cell Count 3.9 10^3/uL (4.8-10.8)
== END ==
LOC: OLABWPC 10:18
PROVIDERS: ATTENDING PHYSICIAN Internal Medicine; FAMILY PHYSICIAN Specialist
DX: K92.1 Melena (principal)
CPT/HCPCS: 36415; 85025

== ENCOUNTER 2025-03-29 16:16 | Emergency (ER) | payer MEDICARE, OTHER, SELFPAY ==
[2025-03-29 16:16] VITALS: BMI 24.2
[2025-03-29 16:18] VITALS: BP 154/108
--- NOTE | 2025-03-29 18:58 | ED.GENMED ---
History of Present Illness
General
Chief Complaint: Abdominal Pain
Source: patient
Time Seen by Provider: 03/29/25 18:42
History of Present Illness
History of Present Illness:
79-year-old male presents to the emergency room complaining of increased abdominal pain. Patient states he has chronic back and abdominal pain. He is prescribed oxycodone which he takes every 8 hours. The pain seems more significant over the past
few days than normal. No fever, chills, vomiting. No specific urinary symptoms.
Past History
Past History
ED Past Medical History: Arrthythmia (Atrial flutter/fib), CAD, CHF, HTN, Hypercholesterolemia, Valvular disease, Psychiatric (Anxiety, Depression), Other (Rib fractures, Chronic back pain, Anemia, Cellulitis, Left pleural effusion, osteomyelitis,
endocarditis, Sleep apnea, Parkinson, GI bleeding, UTI with retention, AAA, Montalvo), Other (polyneuropathy, balance issues, Neuropathy, tingling in arms and legs. ) and Other (chronic back pain, pain management with Buprenorphine and ASA)
ED Past Surgical History: Cardiac (Aortic valve replaced (x 2), Pacemaker), Orthopedic (C spine fusion, Laminectomy) and Other (Hemorrhoidectomy, cataracts)
Patient has exhibited threatening behavior?: No
PSI?: No
Social History
Tobacco: Non-smoker
Alcohol: Occasional ( Beer)
Drug: None
Personal:
Living: with family
Employment: Retired
Family History
Family History: Hypertension and CAD
Phy Exam
Physical Exam
Physical Exam:
General: Awake, Alert, Oriented X3. No acute distress.
Vitals: unremarkable
Head: Atraumatic
Eyes: Pupils equal, EOMI
Throat: Airway intact, no exudates
Neck: Trachea midline
Lungs: Clear and equal b/l
Heart: Regular rate, no murmurs
Abd: Soft, no significant tenderness to palpation, No pulsatile mass
Neuro: Nonfocal
Skin: Warm, dry, no rash
Extremities: pulses equal b/l, no edema
Course
Orders/Labs/Results
Orders:
Orders
03/29/25 18:54
Bladder Scan- Treatment ONCE
03/29/25 19:12
Complete Blood Count/With Diff Urgent
Comprehensive Metabolic Panel Urgent
Lipase Urgent
03/29/25 20:54
Urinalysis Reflex To Culture Urgent
Date Specimen was Collected: 03/29/25
Time Specimen was Collected: 20:52
Urine Microscopic Reflex Cult Urgent
03/29/25 21:42
Oxycodone [Roxicodone] 15 mg PO NOW STA
Abnormal Lab Results
03/29/25 03/29/25
19:12 20:54
WBC 3.8 L 10^3/uL
(4.8-10.8)
RBC 3.60 L 10^6/uL
(4.70-6.10)
Hgb 11.5 L g/dL
(13.0-18.0)
Hct 34.0 L %
(39.0-52.0)
MCV 94.4 H fL
(80.0-94.0)
MCH 31.9 H pg
(27.0-31.0)
Plt Count 102 L 10^3/uL
(130-400)
Absolute Lymphs (auto) 0.8 L 10^3/uL
(1.2-3.4)
Monocytes % 11.7 H %
(1.7-9.3)
Carbon Dioxide 31 H mmol/L
(22-30)
Total Bilirubin 1.7 H mg/dl
(0.2-1.3)
Ur Occult Blood Reflex 1+ A
(Negative)
Urine RBC 3-6 A /HPF
(0-2)
03/29/25 19:12
03/29/25 19:12
Vital Signs
Initial and Last Documented VS:
Initial Vital Signs
Temp Pulse Resp BP Pulse Ox
98.3 F 85 22 154/108 95
03/29/25 16:18 03/29/25 16:18 03/29/25 16:18 03/29/25 16:18 03/29/25 16:18
Last Documented Vital Signs
Temp Pulse Resp BP Pulse Ox
98.3 F 72 16 160/91 98
03/29/25 16:18 03/30/25 01:38 03/30/25 01:38 03/30/25 01:38 03/30/25 01:38
MDM/Problems Addressed
Differential Diagnosis Includes:
Exacerbation of chronic abdominal pain, pancreatitis
MDM/Problems Addressed:
Exacerbation of chronic abdominal pain. Labs are at the baseline. Patient had upwards of 30 CT scans of his abdomen here. I do not believe there is any evidence that he has an acute intra-abdominal catastrophe ongoing. Patient was given his
evening dose of oxycodone. Given his benign abdominal exam, unremarkable lab
*Critical Care Note
Total Time (30-74mins, 75-104mins- exclusive of procedures): Not Applicable
ED Attending Note
-
Portions of this chart may have been created with voice recognition software.� Occasional wrong word or��sound alike� substitutions may have occurred due to the inherent limitations of voice recognition software.
Discharge Plan
Departure
Patient Disposition: Home (Routine Discharge)
Date of Disposition: 03/29/25
Time of Disposition: 23:08
Patient with high blood pressure during this ER visit?: Yes
Condition: Good
Discharge Problem:
Abdominal pain
Instructions: Abdominal Pain
Prescriptions:
No Action
Eliquis 5 MG tablet
5 mg PO BID
trazodone 150 mg Tablet
150 mg PO HS
vitamin B complex Capsule
1 cap PO DAILY Qty: 0
cholecalciferol (vitamin D3) [Vitamin D3] 125 mcg (5,000 unit) Tablet
125 mcg PO DAILY
atorvastatin [Lipitor] 20 MG tablet
20 mg PO HS
tamsulosin 0.4 mg capsule
0.4 mg PO HS
polyethylene glycol 3350 [Miralax] 17 gram/dose Powder
17 g PO DAILY
pantoprazole [Protonix] 40 mg Tablet,Delayed Release (Dr/Ec)
40 mg PO DAILY
vitamin E 268 mg (400 unit) Capsule
268 mg PO DAILY
terazosin 2 mg Capsule
2 mg PO HS
ferrous sulfate 325 mg (65 mg iron) Tablet
325 mg PO DAILY
duloxetine [Cymbalta] 30 mg Capsule,Delayed Release(Dr/Ec)
30 mg PO DAILY
ondansetron HCl 4 mg Tablet
4 mg PO Q8HPRN PRN (Reason: nausea/vomiting)
acetaminophen [Tylenol Extra Strength] 500 mg Tablet
1,000 mg PO BIDPRN PRN (Reason: mild pain)
losartan 25 mg Tablet
25 mg PO DAILY
carvedilol 6.25 mg Tablet
6.25 mg PO BID Qty: 0 0RF
famotidine 20 mg Tablet
20 mg PO DAILY Qty: 30 0RF
gabapentin 300 mg Capsule
300 mg PO BID Qty: 60 0RF
oxycodone 15 mg tablet
15 mg PO TID PRN (Reason: Pain) Qty: 7 0RF
Referrals:
Berlin Gomez MD [Family Provider] -
Interventions
Interventions:
*Risk Screen - Suicide Last Done: 03/29/25 16:18
*General Assessment Last Done: 03/29/25 16:18
*Neglect/Abuse Screening Last Done: 03/29/25 16:18
*ED- Fall Risk Assessment Last Done: 03/30/25 01:41
*ED COVID-19 Vaccine History Last Done: 03/30/25 01:41
*Nursing Disposition Last Done: 03/30/25 01:41
CN-Gjqrqo-Aqvwzjmtdp Assessment Last Done: 03/29/25 19:29
Discharge Date and Time
Discharge Date/Time: 03/30/25 05:28
Print Language: COOK ISLANDER
[2025-03-29 19:11] VITALS: BP 161/98
[2025-03-29 19:33] LABS: % Basophils 0.8 % (0-2); % Eosinophils 1.9 % (0-6); % Immature Granulocytes 0.3 % (0-0.5); % Lymphocytes 22.4 % (20.5-51.1); % Monocytes 11.7 % (1.7-9.3); % Neutrophils 62.9 % (42.2-75.2); Absolute Eosinophils 0.1 10^3/uL (0-0.7); Absolute Lymphocytes 0.8 10^3/uL (1.2-3.4); Absolute Monocytes 0.4 10^3/uL (0.1-0.6); Absolute Neutrophils 2.4 10^3/uL (1.4-6.5); Hemoglobin 11.5 g/dL (13.0-18.0); Mean Corp Hgb Conc. 33.8 g/dL (33.0-37.0); Mean Corpuscular Hgb 31.9 pg (27.0-31.0); Mean Corpuscular Volume 94.4 fL (80.0-94.0); Mean Platelet Volume 10.2 fL (7.4-10.4); Nucleated Red Blood Cells % 0 % (-); Platelet Count 102 10^3/uL (130-400); Red Cell Dist. Width 13.5 % (11.5-14.5); White Blood Cell Count 3.8 10^3/uL (4.8-10.8)
[2025-03-29 19:38] LABS: ALT (SGPT) 14 U/L (0-50); AST (SGOT) 21 U/L (17-59); Albumin 4.6 g/dl (3.5-5.0); Alkaline Phosphatase 77 U/L (38-126); Blood Urea Nitrogen 19 mg/dl (9-20); Calcium 9.3 mg/dl (8.4-10.2); Carbon Dioxide 31 mmol/L (22-30); Chloride 101 mmol/L (98-107); Estimated Creatinine Clearance 72 ml/min; Glucose 91 mg/dl (70-99); Lipase 82 U/L (23-300); Potassium 4.1 mmol/L (3.5-5.1); Sodium 135 mmol/L (135-145); Total Bilirubin 1.7 mg/dl (0.2-1.3); Total Protein 6.8 g/dl (6.3-8.2); eGFR > 60.00
[2025-03-29 20:00] VITALS: BP 155/92
[2025-03-29 21:03] LABS: Urine Albumin Negative (Neg - Trace); Urine Bilirubin Negative (Negative); Urine Character Clear (Clear); Urine Color Yellow; Urine Glucose Negative (Negative); Urine Ketone Negative (Negative); Urine Leukocyte Negative (Negative); Urine Nitrite Negative (Negative); Urine Occult Blood 1+ (Negative); Urine Specific Gravity 1.005 (<1.030); Urine Urobilinogen Negative (Neg - 1+)
[2025-03-29 21:15] LABS: Urine Squamous Cell 0-2 /LPF (Few); Urine White Cell 0-2 /HPF (0-5)
[2025-03-29] MEDS: ROXICODONE 15 MG PO (21:46)
[2025-03-29 22:00] VITALS: BP 162/111
--- NOTE | 2025-03-30 | EDRN ---
Pt. is discharged, Dr. Fam explained results and plan of care w/ pt. Pt. informs this RN he needs ambulance transportation back to his [facility]. [facility] ambulance contacted, ETA 04:00, pt. aware.
[2025-03-30 01:38] VITALS: BP 160/91
--- NOTE | 2025-03-30 01:40 | EDRN ---
Pt. is discharged, awaiting ambulance transportation home. Pt. requested for index editor/BP cuff/pulse ox. to be removed. Monitor removed per pt. request.
== END 2025-03-30 05:28 | disposition home or self-care (01) ==
LOC: EMR 16:16
PROVIDERS: EMERGENCY PHYSICIAN Emergency Medicine; FAMILY PHYSICIAN Specialist
DX: R10.9 Unspecified abdominal pain (principal); M54.9 Dorsalgia, unspecified; G89.29 Other chronic pain; I48.91 Unspecified atrial fibrillation; I48.92 Unspecified atrial flutter; I25.10 Atherosclerotic heart disease of native coronary artery without angina pectoris; I10 Essential (primary) hypertension; E78.00 Pure hypercholesterolemia, unspecified; F32.A Depression, unspecified; F41.9 Anxiety disorder, unspecified; G47.30 Sleep apnea, unspecified; I38 Endocarditis, valve unspecified; D64.9 Anemia, unspecified; G62.9 Polyneuropathy, unspecified; Z79.01 Long term (current) use of anticoagulants; Z87.440 Personal history of urinary (tract) infections; Z95.2 Presence of prosthetic heart valve; Z95.0 Presence of cardiac pacemaker; M43.22 Fusion of spine, cervical region; Z88.1 Allergy status to other antibiotic agents; Z88.2 Allergy status to sulfonamides; Z88.8 Allergy status to other drugs, medicaments and biological substances
CPT/HCPCS: 99283; 80053; 81003; 81015; 83690; 85025

== ENCOUNTER 2025-04-08 12:40 | Emergency (ER) | payer MEDICARE, OTHER, SELFPAY ==
[2025-04-08 12:44] VITALS: BP 133/81
[2025-04-08 13:00] VITALS: BP 114/72
[2025-04-08 14:00] VITALS: BP 126/79
--- NOTE | 2025-04-08 14:43 | ED.GENMED ---
History of Present Illness
General
Chief Complaint: Urinary Symptoms
Source: patient
Exam Limitations: none
Time Seen by Provider: 04/08/25 13:18
Nursing documentation reviewed up to this point in time: agreed with
History of Present Illness
History of Present Illness:
Patient presents to ED secondary to difficulty urinating over the past 2 weeks, especially at nighttime. Patient unfortunately has had a Montalvo catheter insertion on multiple occasions for similar complaint. Patient states that his last Montalvo
catheter was removed during hospitalization 2 weeks ago. Since then, he has had intermittent difficulty with urination. Denies fever or chills. Denies abdominal pain. Denies nausea or vomiting. Denies direct trauma. Denies recent change in
medications or diet.
Past History
Past History
ED Past Medical History: Arrthythmia (Atrial flutter/fib), CAD, CHF, HTN, Hypercholesterolemia, Valvular disease, Psychiatric (Anxiety, Depression), Other (Rib fractures, Chronic back pain, Anemia, Cellulitis, Left pleural effusion, osteomyelitis,
endocarditis, Sleep apnea, Parkinson, GI bleeding, UTI with retention, AAA, Montalvo), Other (polyneuropathy, balance issues, Neuropathy, tingling in arms and legs. ) and Other (chronic back pain, pain management with Buprenorphine and ASA)
ED Past Surgical History: Cardiac (Aortic valve replaced (x 2), Pacemaker), Orthopedic (C spine fusion, Laminectomy) and Other (Hemorrhoidectomy, cataracts)
Patient has exhibited threatening behavior?: No
PSI?: No
Social History
Tobacco: Non-smoker
Alcohol: Occasional ( Beer)
Drug: None
Personal:
Living: with family
Employment: Retired
Family History
Family History: Hypertension and CAD
Review of Systems
Review of Systems
Allergies reviewed?: Yes
All Other Systems: ROS reviewed and negative except as documented in HPI and ROS
Constitutional: Reports no symptoms; Denies fever
ABD/GI: Reports no symptoms
Musculoskeletal: Reports no symptoms
Skin: Reports no symptoms
Neurological: Reports no symptoms
Phy Exam
Physical Exam
Physical Exam:
Physical Exam
General: mild distress, not acutely ill. afebrile
Head: nc/at. eomi
Neck: supple. normal range of motion.
Abdomen: normal bowel sounds. not tender. no distention
Neuro: alert and oriented x 3. no focal neurological deficits
Skin: no rash
Psychiatric: well kept. interactive and cooperative
Extremities: no edema. no calf tenderness.
Course
Orders/Labs/Results
Orders:
Orders
04/08/25 14:43
Montalvo Placement- Treatment ONCE
Reason for insertion: Acute Retention
Vital Signs
Initial and Last Documented VS:
Initial Vital Signs
Temp Pulse Resp BP
98.1 F 75 16 133/81
04/08/25 12:44 04/08/25 12:44 04/08/25 12:44 04/08/25 12:44
Last Documented Vital Signs
Temp Pulse Resp BP Pulse Ox
98.1 F 64 18 138/89 97
04/08/25 12:44 04/08/25 14:11 04/08/25 14:52 04/08/25 15:34 04/08/25 15:35
MDM/Problems Addressed
MDM/Problems Addressed:
Postvoid bladder scan reveals greater than 250 mL of urine, with patient having sensation of incomplete voiding sensation and discomfort. As such, decision made to reinsert Montalvo catheter, with recommendation to follow-up with his urologist for an
outpatient evaluation.
*Critical Care Note
Total Time (30-74mins, 75-104mins- exclusive of procedures): Not Applicable
ED Attending Note
-
Portions of this chart may have been created with voice recognition software.� Occasional wrong word or��sound alike� substitutions may have occurred due to the inherent limitations of voice recognition software.
Discharge Plan
Departure
Patient Disposition: Correction/SNF
Date of Disposition: 04/08/25
Time of Disposition: 15:37
Patient with high blood pressure during this ER visit?: Yes
Discharge Problem:
Acute urinary retention
Instructions: How to Care for Your Montalvo Catheter, Male, Urinary retention - Discharge instructions
Prescriptions:
No Action
Eliquis 5 MG tablet
5 mg PO BID
trazodone 150 mg Tablet
150 mg PO HS
vitamin B complex Capsule
1 cap PO DAILY Qty: 0
cholecalciferol (vitamin D3) [Vitamin D3] 125 mcg (5,000 unit) Tablet
125 mcg PO DAILY
atorvastatin [Lipitor] 20 MG tablet
20 mg PO HS
tamsulosin 0.4 mg capsule
0.4 mg PO HS
polyethylene glycol 3350 [Miralax] 17 gram/dose Powder
17 g PO DAILY
pantoprazole [Protonix] 40 mg Tablet,Delayed Release (Dr/Ec)
40 mg PO DAILY
vitamin E 268 mg (400 unit) Capsule
268 mg PO DAILY
terazosin 2 mg Capsule
2 mg PO HS
ferrous sulfate 325 mg (65 mg iron) Tablet
325 mg PO DAILY
duloxetine [Cymbalta] 30 mg Capsule,Delayed Release(Dr/Ec)
30 mg PO DAILY
ondansetron HCl 4 mg Tablet
4 mg PO Q8HPRN PRN (Reason: nausea/vomiting)
acetaminophen [Tylenol Extra Strength] 500 mg Tablet
1,000 mg PO BIDPRN PRN (Reason: mild pain)
losartan 25 mg Tablet
25 mg PO DAILY
carvedilol 6.25 mg Tablet
6.25 mg PO BID Qty: 0 0RF
famotidine 20 mg Tablet
20 mg PO DAILY Qty: 30 0RF
gabapentin 300 mg Capsule
300 mg PO BID Qty: 60 0RF
oxycodone 15 mg tablet
15 mg PO TID PRN (Reason: Pain) Qty: 7 0RF
Referrals:
Gianluca Orta MD [Family Provider]
Samir Mitchell MD [Active, Urology]
Activity Restrictions/Additional Instructions:
As discussed, please follow-up with your urologist for further evaluation and treatment.
Interventions
Interventions:
*Risk Screen - Suicide Last Done: 04/08/25 12:44
*General Assessment Last Done: 04/08/25 12:44
*Neglect/Abuse Screening Last Done: 04/08/25 12:44
*ED- Fall Risk Assessment Last Done: 04/08/25 12:44
*ED COVID-19 Vaccine History Last Done: 04/08/25 12:44
*Nursing Disposition Last Done: 04/08/25 15:47
ED-Male Genitourinary Assessment Last Done: 04/08/25 14:44
Discharge Date and Time
Discharge Date/Time: 04/08/25 15:48
Print Language: MALTESE
[2025-04-08 15:34] VITALS: BP 138/89
== END 2025-04-08 15:48 ==
LOC: EMR 12:40
PROVIDERS: EMERGENCY PHYSICIAN Emergency Medicine; FAMILY PHYSICIAN Internal Medicine; OTHER PHYSICIAN Specialist
DX: R33.9 Retention of urine, unspecified (principal); I11.0 Hypertensive heart disease with heart failure; I50.9 Heart failure, unspecified; I25.10 Atherosclerotic heart disease of native coronary artery without angina pectoris; E78.00 Pure hypercholesterolemia, unspecified; F32.A Depression, unspecified; F41.9 Anxiety disorder, unspecified; G89.29 Other chronic pain; M54.9 Dorsalgia, unspecified; D64.9 Anemia, unspecified; I48.91 Unspecified atrial fibrillation; G47.30 Sleep apnea, unspecified; G20.A1 Parkinson's disease without dyskinesia, without mention of fluctuations; I71.40 Abdominal aortic aneurysm, without rupture, unspecified; K21.9 Gastro-esophageal reflux disease without esophagitis; I12.9 Hypertensive chronic kidney disease with stage 1 through stage 4 chronic kidney disease, or unspecified chronic kidney disease; N18.9 Chronic kidney disease, unspecified; M19.90 Unspecified osteoarthritis, unspecified site; G62.9 Polyneuropathy, unspecified; M48.00 Spinal stenosis, site unspecified; Z79.01 Long term (current) use of anticoagulants; Z95.2 Presence of prosthetic heart valve; Z95.0 Presence of cardiac pacemaker; Z87.440 Personal history of urinary (tract) infections; Z86.73 Personal history of transient ischemic attack (TIA), and cerebral infarction without residual deficits; Z86.16 Personal history of COVID-19; Z85.828 Personal history of other malignant neoplasm of skin; M43.22 Fusion of spine, cervical region; Z88.1 Allergy status to other antibiotic agents; Z88.2 Allergy status to sulfonamides; Z88.8 Allergy status to other drugs, medicaments and biological substances
CPT/HCPCS: 99284; 51798; 51702

== ENCOUNTER 2025-05-08 22:12 | Inpatient (IN) | payer MEDICARE, OTHER, SELFPAY ==
[2025-05-08] VITALS (8 sets, daily range): BP systolic 80–143; BP diastolic 56–90; BMI 26.4; BMI 25.7
[2025-05-08] MEDS: NSS 500 IV (18:23)
[2025-05-08 18:33] LABS: Hematocrit 32.8 % (39.0-52.0); Hemoglobin 11.5 g/dL (13.0-18.0); Mean Corp Hgb Conc. 35.1 g/dL (33.0-37.0); Mean Corpuscular Volume 92.9 fL (80.0-94.0); Nucleated Red Blood Cells % 0 % (-); Red Cell Dist. Width 12.9 % (11.5-14.5)
[2025-05-08 19:05] LABS: ALT (SGPT) 15 U/L (0-50); Albumin 4.2 g/dl (3.5-5.0); Alkaline Phosphatase 50 U/L (38-126); Blood Urea Nitrogen 19 mg/dl (9-20); Calcium 9.0 mg/dl (8.4-10.2); Carbon Dioxide 26 mmol/L (22-30); Chloride 95 mmol/L (98-107); Estimated Creatinine Clearance 64 ml/min; Potassium 4.0 mmol/L (3.5-5.1); Sodium 128 mmol/L (135-145); Total Protein 6.4 g/dl (6.3-8.2); eGFR > 60.00
[2025-05-08 19:09] LABS: Platelet Count 85 10^3/uL (130-400)
[2025-05-08 19:15] LABS: AST (SGOT) 20 U/L (17-59); Glucose 118 mg/dl (70-99)
[2025-05-08] MEDS: NSS 1000 IV (20:15)
--- NOTE | 2025-05-08 20:28 | ED.GENMED ---
History of Present Illness
General
Chief Complaint: Back Pain
Source: patient
Exam Limitations: none
Time Seen by Provider: 05/08/25 16:47
Nursing documentation reviewed up to this point in time: agreed with
History of Present Illness
History of Present Illness:
Patient to ED with complaint of worsening low back pain. History of chronic low back pain, prior compression fx's. Takes Oxycodone 15mg tid but states this is not helping today. Reports generalized weakness. Brought to ED via EMS for eval.
Past History
Past History
ED Past Medical History: Arrthythmia (Atrial flutter/fib), CAD, CHF, HTN, Hypercholesterolemia, Valvular disease, Psychiatric (Anxiety, Depression), Other (Rib fractures, Chronic back pain, Anemia, Cellulitis, Left pleural effusion, osteomyelitis,
endocarditis, Sleep apnea, Parkinson, GI bleeding, UTI with retention, AAA, Montalvo), Other (polyneuropathy, balance issues, Neuropathy, tingling in arms and legs. ) and Other (chronic back pain, pain management with Buprenorphine and ASA)
ED Past Surgical History: Cardiac (Aortic valve replaced (x 2), Pacemaker), Orthopedic (C spine fusion, Laminectomy) and Other (Hemorrhoidectomy, cataracts)
Patient has exhibited threatening behavior?: No
PSI?: No
Social History
Tobacco: Non-smoker
Alcohol: Occasional ( Beer)
Drug: None
Personal:
Living: with family
Employment: Retired
Family History
Family History: Hypertension and CAD
Review of Systems
Review of Systems
Allergies reviewed?: Yes
All Other Systems: ROS reviewed and negative except as documented in HPI and ROS
Constitutional: Reports fatigue
EENT: Reports no symptoms
Respiratory: Reports no symptoms
Cardiac: Reports no symptoms
ABD/GI: Reports no symptoms
: Reports no symptoms
Musculoskeletal: Reports back pain
Skin: Reports no symptoms
Neurological: Reports weakness
Psychiatric: Reports no symptoms
Phy Exam
General Physical Exam
General Presentation: moderate distress
General age: appears stated age
General Skin: warm and dry
General Habitus: normal
General Mental: alert
Cardiovascular Exam
Cardiovascular Exam: regular rate/rhythm
Gastrointestinal Exam
Gastrointestinal Exam: normal bowel sounds, non tender, soft, no organomegaly, no pulsatile mass, non distended and no cva tenderness
Neurological Exam
Neurological Exam: alert, oriented x3, CN II-XII intact, no motor deficits, no sensory deficits and speech normal
Musculoskeletal Exam
Musculoskeletal Exam: back pain (bilateral lower back pain) and neuro vasc intact
Skin Exam
Skin Exam: normal color, warm/dry and no rash
Psychiatric Exam
Psychiatric Exam: normal mood/affect
Course
Orders/Labs/Results
Orders:
Orders
05/08/25 Breakfast
Regular
At Your Request: Limited Participation
05/08/25 16:56
Lumbar Spine Complete, 4 View [CR Lumbar Spine Comp Min 4 Vw*] Urgent
Comment:
Reason For Exam: pain
05/08/25 17:32
HYDROmorphone [Dilaudid] 0.25 mg IV NOW STA
05/08/25 18:21
Chest [CR Chest - 2 Views ] Urgent
Comment:
Reason For Exam: low SpO2
05/08/25 18:22
0.9% Sodium Chloride 500 ml [Nss] 500 ml IV BOLUS
05/08/25 18:24
Complete Blood Count/With Diff Urgent
Comprehensive Metabolic Panel Urgent
05/08/25 20:15
0.9% Sodium Chloride 1000 ml [Nss] 1,000 ml IV 125 mls/hr
05/08/25 20:58
CT Abd/pel W Iv And Oral Contr Urgent
Comment:
Reason For Exam: Abd Pain / Sepsis
Iohexol [Omnipaque] See Protocol PO NOW STA
05/08/25 21:01
Urinalysis Reflex To Culture Urgent
Date Specimen was Collected: 05/08/25
Time Specimen was Collected: 20:54
Urine Microscopic Reflex Cult Urgent
Urine Culture Urgent
TAMIKO Source: U
Specimen Description:
Date Specimen was Collected: 05/08/25
Time Specimen was Collected: 20:54
05/08/25 21:42
Admit/Transfer Patient As Directed
Co-Sign Provider:
Level of Care: Inpatient admission
Assign to:: IMU- Intermediate Care
Physician / Group: Perez
Diagnosis: UTI / Sepsis
Reason for Hospitalization: UTI / Sepsis
Expected length of stay greater than two midnights?: Yes
ELOS- Estimated Length of Stay in days: 3
I certify the patient meets the requirements for IP care: Yes
PRN Pain Medication Management As Directed
May give lesser potent ordered pain med per pt: Yes
preference::
Protocol:: Medication orders for pain may be administered in a
manner that supports deferring to patient preference
when the pt is:
- Requesting an ordered lesser potent pain medication.
Least to most potent pain medications are defined
as: acetaminophen < NSAID < tramadol < opioids
(morphine, oxycodone, hydromorphone).
- Requesting a lesser dose of the same medication IF
ORDERED.
- Requesting a less intrusive route of administration
if both routes are prescribed by the provider (PO <
IV).
05/08/25 21:43
Code Status As Directed
Resuscitation Status: Full Code
05/08/25 23:34
0.9% Sodium Chloride 1000 ml [Nss] 1,000 ml IV 100 mls/hr
Acetaminophen [Tylenol] 1,000 mg PO Q8HPRN PRN mild pain / temp > 101 mild pain / temp > 101
Atorvastatin [Lipitor] 20 mg PO HS
Trazodone [Desyrel] 150 mg PO HS
05/08/25 23:34
Activity As Directed
Activity Level: Ambulate
With Assistance
EKG with chest pain [ECG as needed] As Directed
ECG as needed for:: Chest Pain
Montalvo Catheter [Catheter- Indwelling] As Directed
Reason for insertion: Chronic Montalvo on Admit
Comment: please exchange Montalvo
I/O [Intake/ Output] As Directed
Frequency: Per unit guidelines
Orthostatic Vital Signs As Directed
Orthostatic VS Frequency: BID
Pneumatic Compression Sleeves As Directed
Type: Knee high
Vital Signs As Directed
Frequency: Per unit guidelines
Weight As Directed
Frequency: Daily
Oxygen Therapy [O2 Therapy] [RESP] Routine
Titrate/Wean O2 to maintain O2 sat greater than (%): 94
PT Consult [Pt Eval And Treat] Routine
Activity Level: Ambulate
With Assistance
DX Deep Vein Thrombosis Video Routine
05/08/25 23:41
Oxycodone [Roxicodone] 10 mg PO Q8HPRN PRN breakthrough pain
05/09/25 00:00
Ciprofloxacin 400 mg/[id number] [Cipro 400 mg] 200 ml IV Q12H
05/09/25 05:14
Basic Metabolic Panel IN AM
Complete Blood Count/No Diff IN AM
05/09/25 08:00
Duloxetine Delayed Release [Cymbalta Delayed Release] 30 mg PO DAILY
Gabapentin [Neurontin] 300 mg PO BID
Pantoprazole [Protonix] 40 mg PO DAILY
Abnormal Lab Results
05/08/25 05/08/25
18:24 21:01
WBC 11.3 H 10^3/uL
(4.8-10.8)
RBC 3.53 L 10^6/uL
(4.70-6.10)
Hgb 11.5 L g/dL
(13.0-18.0)
Hct 32.8 L %
(39.0-52.0)
MCH 32.6 H pg
(27.0-31.0)
Plt Count 85 L 10^3/uL
(130-400)
Absolute Neuts (auto) 9.5 H 10^3/uL
(1.4-6.5)
Absolute Lymphs (auto) 0.6 L 10^3/uL
(1.2-3.4)
Absolute Monos (auto) 1.1 H 10^3/uL
(0.1-0.6)
Neutrophils % 84.3 H %
(42.2-75.2)
Lymphocytes % 5.5 L %
(20.5-51.1)
Monocytes % 9.7 H %
(1.7-9.3)
Sodium 128 L mmol/L
(135-145)
Chloride 95 L mmol/L
(98-107)
Glucose 118 H mg/dl
(70-99)
Total Bilirubin 2.4 H mg/dl
(0.2-1.3)
Ur Occult Blood Reflex 4+ A
(Negative)
Leukocyte Esterase Rfl 3+ A
(Negative)
Urine RBC 7-10 A /HPF
(0-2)
Urine WBC (Reflex) >100 A /HPF
(0-5)
Urine Bacteria (Reflex) Many A
(Negative)
Urine Albumin (Reflex) 2+ A
(Neg - Trace)
05/08/25 18:24
05/08/25 18:24
Vital Signs
Initial and Last Documented VS:
Initial Vital Signs
Temp Pulse Resp BP Pulse Ox
99.0 F 75 18 94/58 93
05/08/25 16:18 05/08/25 16:18 05/08/25 16:18 05/08/25 16:18 05/08/25 16:18
Last Documented Vital Signs
Temp Pulse Resp BP Pulse Ox
98.2 F 60 14 128/77 96
05/09/25 15:49 05/09/25 18:00 05/09/25 18:00 05/09/25 18:00 05/09/25 14:00
*Radiology
Radiology exam reviewed: radiology read reviewed
*Pulse Oximetry
SaO2: 95
Oxygen Mode of Delivery: Room air
Patient hypoxic: no
*Critical Care Note
Total Time (30-74mins, 75-104mins- exclusive of procedures): Not Applicable
Update Note
Update Note:
Patient to ED with complaint of bilateral lower back pain. History of chronic low back pain. Usual pain meds not helping. unable to ambulate due to pain. He also reports weakness and fatigue. Labs reviewed. Na 128 noted. He reports episodes of
hyponatremia in the past. IVF infusing. Hypotensive - possibly related to pain meds. He reports prior episodes of this also. He denies any dizziness or lightheadedness. Will admit to hospitalist for back pain/ambulatory dysfunction,
hyponatremia, hypotension.
ED Attending Note
-
Portions of this chart may have been created with voice recognition software.� Occasional wrong word or��sound alike� substitutions may have occurred due to the inherent limitations of voice recognition software.
Discharge Plan
Departure
Patient Disposition: Admit
Date of Disposition: 05/08/25
Time of Disposition: 20:39
Presentation/result/management discussed w/ accepting MD/DO: Hospitalist
Patient with high blood pressure during this ER visit?: No
Condition: Fair
Discharge Problem:
Ambulatory dysfunction, Acute hyponatremia
Interventions
Interventions:
*Risk Screen - Suicide Last Done: 05/08/25 16:18
*General Assessment Last Done: 05/08/25 16:18
*Neglect/Abuse Screening Last Done: 05/08/25 16:18
*ED- Fall Risk Assessment Last Done: 05/08/25 21:23
*ED COVID-19 Vaccine History Last Done: 05/08/25 21:23
*Nursing Disposition Last Done: 05/08/25 23:50
ED-Musculoskeletal Assessment Last Done: 05/08/25 16:50
Discharge Date and Time
Discharge Date/Time: 05/08/25 23:50
--- NOTE | 2025-05-08 21:11 | HPS.HSE ---
Family Physician
-
Family Physician: Gianluca Orta
Chief Complaint
-
Weakness, 'shaking'
History of Present Illness
Patient is a 79y M with PMH significant for A-Fib, hypertension and chronic back pain on chronic opioids who presents to ED complaining of generalized weakness and shakiness. Patient states that he has been more 'shaky' and unsteady for the past
2 days or so. He states that he 'lowered myself to the floor' today. He denies any actual fall, injury, LOC, etc. Patient presented to the ED for further evaluation.
He notes chronic low back pain that is not changed from his usual baseline.
He complains of lower abdominal pain - below the umbilicus - which he also noted during his prior admission here in February.
He denies any other new / acute complaints or concerns.
On evaluation in the ED, patient is noted to have temp to 99.4 and BP 86/60.
Medical History
Past Medical History
Past Medical History: Reports Other
Additional Past Medical History:
Paroxysmal atrial fibrillation and flutter
Chronic back pain, spinal stenosis, and degenerative disc disease with chronic opioid use with dependence
Hypertension
h/o Klebsiella pneumonia and coagulase-negative Staphylococcus infected hardware in L4-L5 (April 2023)
Chronic neuropathy
Gastroesophageal reflux disease
Chronic HFpEF
Benign prostatic hypertrophy
Hyperlipidemia
Obstructive sleep
Anxiety
Depression
HX C. difficile
Past Surgical History: Reports Other
Additional Past Surgical History:
History of pain pump infection with removal
PPM Placement
Aortic valve replaced 2006 and 2019
Cervical spine fusion, laminectomy 2018, lumbar surgery 2022 with screws placed then removed 04/25/2023
Hemorrhoidectomy
Rhizotomy lower back
Cardiac cath 2006
Social History
Tobacco: Non-smoker
Alcohol: Occasional
Drug: None
Personal:
Living: With Family
Employment: Retired
Family History
Family History: Not pertinent
Allergies / Home Medications
Allergies reflects when Allergies were last updated in [employer].
Home Medications with original date entered in [employer]
Allergy/Medication List:
Allergies
Allergy/AdvReac Type Severity Reaction Status Date / Time
amiodarone Allergy Unknown Verified 05/08/25 16:21
amlodipine Allergy Swelling - Verified 05/08/25 16:21
1993
benzyl alcohol Allergy Unknown Verified 05/08/25 16:21
clindamycin Allergy Unknown Verified 05/08/25 16:21
meloxicam Allergy Unknown Verified 05/08/25 16:21
polysorbate 80 Allergy Unknown Verified 05/08/25 16:21
sulfamethoxazole (From Allergy Unknown Verified 05/08/25 16:21
Bactrim)
tizanidine (From Zanaflex) Allergy took from Verified 05/08/25 16:21
patient
history
and
physical
from
surgeon
trimethoprim (From Bactrim) Allergy Unknown Verified 05/08/25 16:21
hydrochlorothiazide AdvReac Hyponatremi Verified 05/08/25 16:21
a
Home Medications
apixaban 5 mg tablet (Eliquis) 5 mg PO BID Blood clot prevention/tx 01/16/22
trazodone 150 mg tablet 150 mg PO HS Depression/sleep 09/13/22
vitamin B complex 1 cap PO DAILY Supplement ##0 04/03/23
atorvastatin 20 mg tablet (Lipitor) 20 mg PO HS High cholesterol 04/12/23
polyethylene glycol 3350 17 gram/dose oral powder (Miralax) 17 g PO DAILY Constipation 04/14/24
tamsulosin 0.4 mg capsule 0.4 mg PO HS Urinary Issue 04/14/24
pantoprazole 40 mg tablet,delayed release (Protonix) 40 mg PO DAILY GERD 09/07/24
vitamin E 268 mg (400 unit) capsule 268 mg PO DAILY Supplement 09/07/24
ferrous sulfate 325 mg (65 mg iron) tablet 325 mg PO DAILY Supplement 12/25/24
terazosin 2 mg capsule 2 mg PO HS Urinary Issue/BP 12/25/24
acetaminophen 500 mg tablet (Tylenol Extra Strength) 1,000 mg PO Q8HPRN PRN mild pain 02/02/25
ondansetron HCl 4 mg tablet 4 mg PO Q8HPRN PRN nausea/vomiting 02/02/25
carvedilol 6.25 mg tablet 6.25 mg PO BID #0 tabs 02/10/25
famotidine 20 mg tablet 20 mg PO DAILY #30 tabs 02/18/25
gabapentin 300 mg capsule 300 mg PO BID #60 caps 02/18/25
cholecalciferol (vitamin D3) 125 mcg (5,000 unit) capsule 125 mcg PO DAILY 05/08/25
duloxetine 30 mg capsule,delayed release sprinkle 30 mg PO DAILY 05/08/25
furosemide 20 mg tablet 20 mg PO MOWEFR 05/08/25
hydralazine 25 mg tablet 25 mg PO Q8HPRN PRN high SBP>160 05/08/25
losartan 50 mg tablet 50 mg PO DAILY 05/08/25
oxycodone 15 mg tablet 15 mg PO Q8HPRN PRN breakthrough pain 05/08/25
Review of Systems
-
History Source: Patient
A 12 point ROS was completed and negative except as noted: Yes
Constitutional: Reports Fatigue; Denies Fever or Chills
EENT: Denies Sore Throat
Respiratory: Denies Cough or Trouble Breathing
Cardiac: Denies Chest Pain or Palpitations
Abdomen/GI: Reports Abdominal Pain; Denies Nausea, Vomiting or Diarrhea
: Reports Other (Chronic bautista in place.); Denies Flank Pain
Neurological: Denies Dizzy or Headache
Psych: Denies Depression or Anxiety
Physical Exam
Vital Signs
Vital Signs
Temp Pulse Resp BP Pulse Ox
99.4 F 67 20 86/60 95
05/08/25 18:06 05/08/25 20:03 05/08/25 18:55 05/08/25 20:03 05/08/25 20:28
Physical Exam
General: Other (79y M in no acute distress.)
HEENT: Moist mucous membranes and PERRLA
Respiratory: Clear; No Wheezes, Rales or Rhonchi
Cardiac: S1/S2 and Regular Rhythm; No Murmur
GI: Other (Lower abdominal tenderness. Pos BS. )
Genito-urinary: Other (Bautista in place draining dark, fan urine.)
Musculoskeletal: No Clubbing, No Cyanosis and No Edema
Neuro: AO x 3
Laboratory Results
-
05/08/25 18:24
05/08/25 18:24
Laboratory Results
Total Bilirubin 2.4 mg/dl (0.2-1.3) H 05/08/25 18:24
AST 20 U/L (17-59) 05/08/25 18:24
ALT 15 U/L (0-50) 05/08/25 18:24
Alkaline Phosphatase 50 U/L (38-126) 05/08/25 18:24
Impression/Plan
-
A/P: Patient is a 79y M with PMH significant for A-Fib, hypertension and chronic pain who presents to ED complaining of weakness and gait dysfunction.
CAUTI
- Admit for further evaluation and treatment.
- UA with > 100k WBC and many bacteria. Catheter chronically in place and negative nitrites.
- Note tri-phosphate crystals also suggesting infection / bacteria.
- Cover with IV abx for now and follow-up culture data.
- CT A/P ordered given lower abdominal pain - follow-up results.
Hypotension
- Likely secondary to hypovolemia +/- acute infection.
- Hold diuretics (these were discontinued during prior admission).
- IVF support +/- pressors as needed for perfusion.
Paroxysmal Atrial Fibrillation
- Stable. Hold carvedilol due to hypotension.
- Hold Eliquis acutely given thrombocytopenia (since February admission).
- Monitor on telemetry for now.
Thrombocytopenia
Chronic Anemia
- Stable. Hgb at / near usual baseline. No reported blood loss.
- Platelet count decreased since February admission.
- Note prior episodes / periods of mild thrombocytopenia.
- Monitor for any gross bleeding.
- Follow cell counts for changes.
Chronic Urinary Retention
- Bautista in place and draining dark colored urine.
- IVF support as noted above.
- Maintain Bautista for now.
- Consider TOV prior to discharge. Note that Bautista was able to be removed during February admission and has since been replaced.
Acute on Chronic Hyponatremia
- Likely due to component of hypovolemia.
- IVFs as noted above.
- Follow for improvement in labs.
Spinal Stenosis
Chronic Back Pain
Chronic Opioid Dependence
- Stable. No new / increased back pain.
- Decrease dose of oxycodone and try to minimize sedating meds in general given hypotension.
- Follow-up with Pain Management as an outpatient.
DVT Prophylaxis: SCDs
Code Status: Full
[2025-05-08] MEDS: OMNIPAQUE 50 ML PO (21:12)
[2025-05-08 21:15] LABS: Urine Character Slightly Cloudy (Clear)
[2025-05-08 21:21] LABS: Urine Squamous Cell 0-2 /LPF (Few)
[2025-05-08 21:22] LABS: Urine White Cell >100 /HPF (0-5)
[2025-05-09] VITALS (17 sets, daily range): BP systolic 105–162; BP diastolic 66–97; PULSE 63–68; O2SAT 95; BMI 25.7; BMI 25.6
[2025-05-09] MEDS: NSS 1000 IV ×3 (00:01→21:17)
[2025-05-09] MEDS: CIPRO 400 MG 200 IV ×2 (00:01→11:15)
--- NOTE | 2025-05-09 00:28 | PTCARENOTE ---
Pt brought to IMU from ED. Pt AAOx3 able to make needs known. Vitals stable at this time. Pt having complaints of back pain, see mar for social media manager. Call calles within reach. Bed alarm on.
--- NOTE | 2025-05-09 05:11 | PTCARENOTE ---
Unable to find documentation of chronic Montalvo changed in ED. Contacted night [facility], order placed to exchange Montalvo. ED RN did later verify Montalvo not changed just leg bag. Pt tolerated well.
[2025-05-09 05:48] LABS: Hematocrit 33.1 % (39.0-52.0); Hemoglobin 11.4 g/dL (13.0-18.0); Mean Corp Hgb Conc. 34.4 g/dL (33.0-37.0); Mean Corpuscular Volume 93.0 fL (80.0-94.0); Platelet Count 76 10^3/uL (130-400); Red Cell Dist. Width 13.0 % (11.5-14.5)
[2025-05-09 06:01] LABS: Blood Urea Nitrogen 15 mg/dl (9-20); Calcium 8.7 mg/dl (8.4-10.2); Carbon Dioxide 26 mmol/L (22-30); Chloride 98 mmol/L (98-107); Estimated Creatinine Clearance 72 ml/min; Glucose 94 mg/dl (70-99); Potassium 4.0 mmol/L (3.5-5.1); Sodium 131 mmol/L (135-145); eGFR > 60.00
--- NOTE | 2025-05-09 07:19 | PTCARENOTE ---
Up dated Pt son Tyler on phone this am.
--- NOTE | 2025-05-09 08:21 | PTCARENOTE ---
Patient received from cnc machinist 2nd shift. Patient resting comfortably in bed. AAO, VSS. No events noted overnight. No complaints of pain at this time. Patient on Room Air. NSS @ 100mL/hr, continuing ABX. Patient with poor appetite and not wanting to
get to chair due to back pain. No testing scheduled at this time. Call calles in reach.
[2025-05-09] MEDS: CYMBALTA DELAYED RELEASE 30 MG PO (08:39)
[2025-05-09] MEDS: DESENEX/MITRAZOL/ZEASORB 1 APPLIC TOPICAL ×2 (08:39→20:29)
[2025-05-09] MEDS: NEURONTIN 300 MG PO ×2 (08:39→20:30)
[2025-05-09] MEDS: PROTONIX 40 MG PO (08:39)
[2025-05-09] MEDS: FIRVANQ 125 MG PO ×2 (11:15→20:30)
--- NOTE | 2025-05-09 11:51 | W.PN.HOSP.TC ---
Today's Communication/Plan
-
Monitor vital signs and see plan
Abdomen ultrasound to evaluate cholelithiasis with pericholecystic free fluid
Continue with antibiotic
Follow cultures
Monitor platelets
maintain bautista
PT
Assessment / Plan
Assessment / Plan
General: Other (79y M in no acute distress.)
HEENT: Moist mucous membranes and PERRLA
Respiratory: Clear; No Wheezes, Rales or Rhonchi
Cardiac: S1/S2 and Regular Rhythm; No Murmur
GI: non tender,+BS
Genito-urinary: + bautista
Musculoskeletal: No Edema
Neuro: AO x 3
CAUTI
- UA with > 100k WBC and many bacteria. Catheter chronically in place and negative nitrites.
- Cover with IV abx for now based on previous culture and follow-up culture data.
- CT A/P ordered given lower abdominal pain; CT with cholelithiasis with trace LEIGHA cholecystic free fluid. Currently patient has no right upper quadrant pain. Mild bilirubin elevation however normal LFTs. check RUQ US
Hypotension
- Likely secondary to hypovolemia with acute infection
- Hold diuretics (these were discontinued during prior admission).
- IVF support +/- pressors as needed for perfusion.
Paroxysmal Atrial Fibrillation
- Stable. Hold carvedilol due to hypotension.
- Hold Eliquis acutely given thrombocytopenia (since February admission).
- Monitor on telemetry for now.
Thrombocytopenia
Chronic Anemia
- Stable. Hgb at / near usual baseline. No reported blood loss.
- Platelet count decreased since February admission.
- Note prior episodes / periods of mild thrombocytopenia.
- Monitor for any gross bleeding.
- Follow cell counts for changes.
Chronic Urinary Retention
- Bautista in place
- IVF support as noted above.
- Maintain Bautista for now.
Follow-up with Dr. Mitchell outpatient
Acute on Chronic Hyponatremia
- Likely due to component of hypovolemia.
- IVFs as noted above.
Improving
Spinal Stenosis
Chronic Back Pain
Chronic Opioid Dependence
Multiple chronic compression fracture of the lumbar spine
- Stable. No new / increased back pain.
- Decrease dose of oxycodone and try to minimize sedating meds in general given hypotension.
- Follow-up with Pain Management as an outpatient.
DVT Prophylaxis: SCDs
Code Status: Full
I spent a total of 52 minutes with the patient or on the floor. More than 50% of this time involved counseling and coordination of care.
Anticipated Discharge: > 48 hours
Subjective/Interval History
-
Date of Service: May 09, 2025
denies nausea
Objective Data
-
Labs:
Laboratory Results
05/09/25
05:14
WBC 9.5
Hgb 11.4 L
Hct 33.1 L
Plt Count 76 L
Sodium 131 L
Potassium 4.0
Chloride 98
Carbon Dioxide 26
BUN 15
Creatinine 0.8
Glucose 94
Calcium 8.7
Vital Signs:
Vital Signs
Temp Pulse Resp BP Pulse Ox
98.1 F 60 11 126/71 92
05/09/25 11:32 05/09/25 06:00 05/09/25 06:00 05/09/25 06:00 05/09/25 10:37
I&O
05/08/25 05/09/25 05/10/25
06:59 06:59 06:59
Intake Total 1380 / 1380
Output Total 1300 / 1300 600 / 600
Balance 80 / 80 -600 / -600
[2025-05-09] MEDS: ROXICODONE 10 MG PO ×3 (13:49→22:41)
[2025-05-09] MEDS: TYLENOL 1000 MG PO (16:07)
[2025-05-09] MEDS: DESYREL 150 MG PO ×2 (21:14)
[2025-05-09] MEDS: LIPITOR 20 MG PO ×2 (21:14)
[2025-05-10] VITALS (8 sets, daily range): BP systolic 106–166; BP diastolic 68–104; PULSE 61–78; BMI 26.0
[2025-05-10] MEDS: CIPRO 400 MG 200 IV ×2 (00:16→11:25)
--- NOTE | 2025-05-10 01:33 | PTCARENOTE ---
Received Pt from Day RN. Pt able to make needs known. BRPx1 rw minimal assist. Pt NPO for morning ABD US. Call calles within reach. bed alarm on. Assessment care and vitals as charted.
[2025-05-10 03:05] LABS: Hematocrit 32.8 % (39.0-52.0); Hemoglobin 11.3 g/dL (13.0-18.0); Mean Corp Hgb Conc. 34.5 g/dL (33.0-37.0); Mean Corpuscular Volume 93.4 fL (80.0-94.0); Nucleated Red Blood Cells % 0 % (-); Platelet Count 88 10^3/uL (130-400); Red Cell Dist. Width 12.9 % (11.5-14.5)
[2025-05-10 03:29] LABS: ALT (SGPT) 16 U/L (0-50); AST (SGOT) 21 U/L (17-59); Albumin 3.9 g/dl (3.5-5.0); Alkaline Phosphatase 69 U/L (38-126); Blood Urea Nitrogen 12 mg/dl (9-20); Calcium 8.6 mg/dl (8.4-10.2); Carbon Dioxide 26 mmol/L (22-30); Chloride 101 mmol/L (98-107); Estimated Creatinine Clearance 83 ml/min; Glucose 92 mg/dl (70-99); Potassium 4.0 mmol/L (3.5-5.1); Sodium 133 mmol/L (135-145); Total Protein 6.3 g/dl (6.3-8.2); eGFR > 60.00
[2025-05-10] MEDS: ROXICODONE 10 MG PO ×3 (06:42→20:34)
[2025-05-10] MEDS: CYMBALTA DELAYED RELEASE 30 MG PO (07:34)
[2025-05-10] MEDS: FIRVANQ 125 MG PO ×2 (07:34→20:28)
[2025-05-10] MEDS: NEURONTIN 300 MG PO ×2 (07:34→20:29)
[2025-05-10] MEDS: DESENEX/MITRAZOL/ZEASORB 1 APPLIC TOPICAL ×2 (07:34→20:30)
[2025-05-10] MEDS: PROTONIX 40 MG PO (07:34)
[2025-05-10] MEDS: TYLENOL 1000 MG PO (07:41)
--- NOTE | 2025-05-10 08:40 | PTCARENOTE ---
Patient received from retirement manager. Patient resting comfortably in bed. AAO, VSS. No events noted overnight. No complaints of pain at this time. Patient on Room Air. NSS @ 100mL/hr, continuing ABX. Patient with improved appetite and continuing
to not want to get to chair due to back pain. Protective foam placed on right buttock for protection. Abdominal US scheduled for this AM, currently 'NPO'. Call calles in reach.
[2025-05-10] MEDS: NSS 1000 IV (10:41)
--- NOTE | 2025-05-10 12:02 | W.PN.HOSP.TC ---
Today's Communication/Plan
-
Monitor vital close
See plan
Surgery evaluation
Maintain Bautista
Continue with antibiotics
Transfer to telemetry
Restart Coreg, losartan
Assessment / Plan
Assessment / Plan
General: Other (79y M in no acute distress.)
HEENT: Moist mucous membranes and PERRLA
Respiratory: Clear; No Wheezes, Rales or Rhonchi
Cardiac: S1/S2 and Regular Rhythm; No Murmur
GI: non tender,+BS
Genito-urinary: + bautista
Musculoskeletal: No Edema
Neuro: AO x 3
CAUTI
- UA with > 100k WBC and many bacteria. Catheter chronically in place and negative nitrites.
- Cover with IV abx for now based on previous culture and follow-up culture data.
- CT A/P ordered given lower abdominal pain; CT with cholelithiasis with trace LEIGHA cholecystic free fluid. Currently patient has no right upper quadrant pain. Mild bilirubin elevation however normal LFTs. check RUQ US with findings equivocal for
acute cholecystitis with biliary stone/sludge, pericholecystic fluid and borderline wall thickening. However negative Leblanc sign. Patient denies any right upper quadrant pain. Consider HIDA. Surgery evaluation
Hypotension
- Likely secondary to hypovolemia with acute infection
- Hold diuretics (these were discontinued during prior admission).
Blood pressure improving
Paroxysmal Atrial Fibrillation
- Restart Coreg
- Hold Eliquis acutely given thrombocytopenia (since February admission).
- Monitor on telemetry for now.
Thrombocytopenia
Chronic Anemia
- Stable. Hgb at / near usual baseline. No reported blood loss.
- Platelet count decreased since February admission.
- Note prior episodes / periods of mild thrombocytopenia.
- Monitor for any gross bleeding.
- Follow cell counts for changes.
Chronic Urinary Retention
- Bautista in place
- Maintain Bautista for now.
Follow-up with Dr. Mitchell outpatient
Acute on Chronic Hyponatremia
- Likely due to component of hypovolemia.
DC further IVF
Improving
Spinal Stenosis
Chronic Back Pain
Chronic Opioid Dependence
Multiple chronic compression fracture of the lumbar spine
- Stable. No new / increased back pain.
- Decrease dose of oxycodone and try to minimize sedating meds in general given hypotension.
- Follow-up with Pain Management as an outpatient.
DVT Prophylaxis: SCDs
Code Status: Full
I spent a total of 52 minutes with the patient or on the floor. More than 50% of this time involved counseling and coordination of care.
Anticipated Discharge: 24 - 48 hours
Subjective/Interval History
-
Date of Service: May 10, 2025
Objective Data
-
Labs:
Laboratory Results
05/10/25
02:49
WBC 7.7
Hgb 11.3 L
Hct 32.8 L
Plt Count 88 L
Sodium 133 L
Potassium 4.0
Chloride 101
Carbon Dioxide 26
BUN 12
Creatinine 0.7
Glucose 92
Calcium 8.6
Total Bilirubin 1.5 H
AST 21
ALT 16
Alkaline Phosphatase 69
Vital Signs:
Vital Signs
Temp Pulse Resp BP Pulse Ox
98.1 F 68 15 135/79 95
05/10/25 11:49 05/10/25 10:45 05/10/25 10:45 05/10/25 06:00 05/10/25 10:45
I&O
05/09/25 05/10/25 05/11/25
06:59 06:59 06:59
Intake Total 1380 / 1380 1680 / 1680
Output Total 1300 / 1300 2725 / 2725
Balance 80 / 80 -1045 / -1045
--- NOTE | 2025-05-10 13:16 | CON.GS ---
Addendum entered and electronically signed by Benton Kasper MD 05/10/25 14:26:
Patient seen and examined.
Patient is a 79 yo M with a PMH of Parkinson's disease, GERD, HTN, HLD, CAD, A-fib (on Eliquis, LD 05/25), s/p AVR x 2, AAA, GILLES, BPH c/b urinary retention and chronic Bautista, chronic back pain (on Oxycodone, prior pain pump c/b infection s/p removal)
s/p cervical spine fusion and laminectomies, s/p hemorrhoidectomy, and s/p open RIGHT inguinal hernia repair with mesh by Dr. Sims in 2022. Mr. Carpio presents with weakness and a fall in the setting of hyponatremia. He has had intermittent LLQ
abdominal pain over the past few weeks. He denies any epigastric or RUQ abdominal discomfort. Of note, and reviewing his chart he has had prior episodes of epigastric discomfort. No nausea or vomiting. No association of his current abdominal
discomfort with food intake. No fevers or chills. Denies any jaundice, pale stools, tea colored urine. Currently moving his bowels and passing flatus. He does report occasional issues with constipation related to his narcotics and takes MiraLAX.
Gen: NAD
Abd: soft, mild LLQ discomfort, palpable fullness, partially reducible spigelian hernia, no RUQ or epigastric tenderness, negative Leblanc's sign, non-peritoneal
Labs and imaging were reviewed.
Patient is a 79 yo M presenting with lower extremity weakness and hyponatremia
During the course of his presentation Mr. Carpio reported some lower abdominal discomfort. This is primarily over the LLQ and is most likely related to a fat-containing spigelian hernia. This is partially reducible and does not need to be
urgently addressed. He denies any epigastric or RUQ abdominal discomfort. In the setting of above-noted abdominal discomfort and hyperbilirubinemia a CT scan was obtained which demonstrated cholelithiasis without any evidence of cholecystitis. A
follow-up ultrasound was equivocal for cholecystitis with a notably negative sonographic Leblanc sign. Currently, he clinically does not have any evidence of cholecystitis. In reviewing his chart, he likely has had episodes of biliary colic years
ago. He has been noted to have intermittent chronic hyperbilirubinemia which is primarily direct and most likely a stress response and not related to cholestasis.
No plans or indication for cholecystectomy at this time. Recommend dietary advancement. Should he develop upper abdominal discomfort or worsening labs could pursue further workup with a HIDA scan, however, would hold at this time. Recommend
outpatient follow-up to discuss cholecystectomy and his spigelian hernia. All questions answered.
-- No plans for cholecystectomy
-- Low fat diet
-- Outpatient follow-up
Original Note:
Consultation
-
Date/Time Consultation Performed: 05/10/25 1215
Medical History
-
Chief Complaint: weakness
History of Present Illness:
Mr Carpio is a 79 yo male with a h/o AFib on Eliquis, HFpEF, spinal surgery, BPH, chronic urinary catheter d/t urinary retention who presented through the ED with increasing weakness and is currently in the IMU for management of hyponatremia. He
has noted intermittent lower abdominal pain for the past few weeks which has not been severe. He denies upper abdominal pain. He denies nausea or vomiting. He denies pain with food.
Past Medical History
Past Medical History: Arrhythmias (PAF), CAD, CHF (HFpEF), GERD, HTN, Hypercholesterolemia and Other (c-diff, BPH, chronic urinary retention; bautista dependent)
Past Surgical History: Cardiac (PPM, Aortic valve replaced 2006 and 2019), Orthopedic (Cervical spine fusion, laminectomy 2018, lumbar surgery 2022 with screws placed then removed 04/25/2023 (infection)) and Other (History of pain pump infection with
removal, Hemorrhoidectomy, Rhizotomy lower back)
Social History
Tobacco: Non-Smoker
Alcohol: Occasional
Personal:
Living: With Family
Employment: Retired ([employer])
Family History
Family History: Reviewed & Not Pertinent
Allergies / Home Medications
Allergy/AdvReac Type Severity Reaction Status Date / Time
amiodarone Allergy Unknown Verified 05/08/25 16:21
amlodipine Allergy Swelling - Verified 05/08/25 16:21
1992
benzyl alcohol Allergy Unknown Verified 05/08/25 16:21
clindamycin Allergy Unknown Verified 05/08/25 16:21
hydrochlorothiazide Allergy Hyponatremi Verified 05/08/25 23:36
a
meloxicam Allergy Unknown Verified 05/08/25 16:21
polysorbate 80 Allergy Unknown Verified 05/08/25 16:21
sulfamethoxazole (From Allergy Unknown Verified 05/08/25 16:21
Bactrim)
tizanidine (From Zanaflex) Allergy took from Verified 05/08/25 16:21
patient
history
and
physical
from
surgeon
trimethoprim (From Bactrim) Allergy Unknown Verified 05/08/25 16:21
�Medication �Instructions �Recorded �Confirmed �Type
apixaban 5 mg tablet (Eliquis) 5 mg PO BID Blood clot 01/16/22 05/08/25 History
prevention/tx
trazodone 150 mg tablet 150 mg PO HS Depression/sleep 09/13/22 05/08/25 History
vitamin B complex 1 cap PO DAILY Supplement ##0 04/03/23 05/08/25 History
atorvastatin 20 mg tablet (Lipitor) 20 mg PO HS High cholesterol 04/12/23 05/08/25 History
polyethylene glycol 3350 17 17 g PO DAILY Constipation 04/14/24 05/08/25 History
gram/dose oral powder (Miralax)
tamsulosin 0.4 mg capsule 0.4 mg PO HS Urinary Issue 04/14/24 05/08/25 History
pantoprazole 40 mg tablet,delayed 40 mg PO DAILY GERD 09/07/24 05/08/25 History
release (Protonix)
vitamin E 268 mg (400 unit) capsule 268 mg PO DAILY Supplement 09/07/24 05/08/25 History
ferrous sulfate 325 mg (65 mg 325 mg PO DAILY Supplement 12/25/24 05/08/25 History
iron) tablet
terazosin 2 mg capsule 2 mg PO HS Urinary Issue/BP 12/25/24 05/08/25 History
acetaminophen 500 mg tablet 1,000 mg PO Q8HPRN PRN mild pain 02/02/25 05/08/25 History
(Tylenol Extra Strength)
ondansetron HCl 4 mg tablet 4 mg PO Q8HPRN PRN nausea/vomiting 02/02/25 05/08/25 History
carvedilol 6.25 mg tablet 6.25 mg PO BID #0 tabs 02/10/25 05/08/25 Rx
famotidine 20 mg tablet 20 mg PO DAILY #30 tabs 02/18/25 05/08/25 Rx
gabapentin 300 mg capsule 300 mg PO BID #60 caps 02/18/25 05/08/25 Rx
cholecalciferol (vitamin D3) 125 125 mcg PO DAILY Supplement 05/08/25 05/08/25 History
mcg (5,000 unit) capsule
duloxetine 30 mg capsule,delayed 30 mg PO DAILY Mental 05/08/25 05/08/25 History
release sprinkle Health/Anxiety
furosemide 20 mg tablet 20 mg PO MOWEFR Fluid 05/08/25 05/08/25 History
Retention/Swelling
hydralazine 25 mg tablet 25 mg PO Q8HPRN PRN high SBP>160 05/08/25 05/08/25 History
losartan 50 mg tablet 50 mg PO DAILY Blood Pressure 05/08/25 05/08/25 History
oxycodone 15 mg tablet 15 mg PO Q8HPRN PRN breakthrough 05/08/25 05/08/25 History
pain
Review of Systems
-
History Source: Patient
All other systems: Negative unless noted
A 10 point review of systems was completed, and was negative except as per HPI.
Physical Exam
Vital Signs
Temp Pulse Resp BP Pulse Ox
98.1 F 68 15 135/79 95
05/10/25 11:49 05/10/25 10:45 05/10/25 10:45 05/10/25 06:00 05/10/25 10:45
05/09/25 05/10/25 05/11/25
06:59 06:59 06:59
Actual Weight 75.1 kg 76.3 kg
Body Mass Index (BMI) 26.0
Lab Results
05/10/25 02:49
05/10/25 02:49
WBC 7.7 10^3/uL (4.8-10.8) 05/10/25 02:49
Hgb 11.3 g/dL (13.0-18.0) L 05/10/25 02:49
Hct 32.8 % (39.0-52.0) L 05/10/25 02:49
Plt Count 88 10^3/uL (130-400) L 05/10/25 02:49
Abs Immat Gran (auto) 0.0 10^3/uL (0-0.05) 05/10/25 02:49
Neutrophils % 75.1 % (42.2-75.2) 05/10/25 02:49
Physical Exam
General: Well Developed and Well Nourished
HEENT: Moist Mucous Membranes
Respiratory: Non Labored Respirations
GI: Soft, Non Distended and Tender (mild to LLQ)
Skin: Warm and Dry
Neuro: Awake, Alert and AO x 3
Psych: Calm
Assessment / Plan
-
Mr Carpio is a 79 yo male with a h/o AFib on Eliquis, HFpEF, spinal surgery, BPH, chronic urinary catheter d/t urinary retention who presented through the ED with increasing weakness and is currently in the IMU for management of hyponatremia. CT in
evaluation of LLQ pain with incidental findings of cholelithiasis with trace pericholecystic free fluid. No acute abdominal pathologies noted, although small left spigelian hernia present (fat containing). US done in follow up with cholelithiasis
and borderline wall thickening/pericholecystic edema. Negative leblanc's sign on US and on exam today. Mild leukocytosis on presentation, now resolved. Has been on abx for ?UTI.
Hernia soft, reducible on exam and likely the source of his intermittent discomfort. Do not suspect cholecystitis given benign exam, equivocal imaging findings and overall clinical picture
Plan:
Diet as per primary team
No plans for surgery at this time
If hernia continues to cause discomfort, can plan OP surgical follow up to discuss nonurgent repair
[2025-05-10] MEDS: COREG 6.25 MG PO ×2 (13:46→20:30)
[2025-05-10] MEDS: LIDOCAINE 4% PATCH 1 PATCH TOPICAL (13:46)
--- NOTE | 2025-05-10 14:06 | CM ---
Alert awake patient who lives with his Priscila in [facility] . He is assisted in all activities of daily living.He was offered VN he declined need.He uses walker and cane .
[facility] care VN / [facility] history
[facility]
PCP DR Tyler Artis
PLAN Home Declined VN
--- NOTE | 2025-05-10 18:09 | PTCARENOTE ---
Report called to [facility] [place]. Patient eating dinner, will take to new room after.
--- NOTE | 2025-05-10 19:00 | PTCARENOTE ---
Patient transferred to 3W via wheel chair. Receiving RN in room to get patient on 3W monitor. Patient transferred with all known belongings and meds.
--- NOTE | 2025-05-10 19:11 | PTCARENOTE ---
Late documentation note for 05/10 1845. PT received at 1845. PT assisted into bed, tele placed, call calles in hand. PT oriented to room, call calles. PT understood that we were going into report but vocalized he has been here a while and understood how
to call for nurses if he needed anything. He agreed to not get oob without a nurse
[2025-05-10] MEDS: DESYREL 150 MG PO (20:29)
[2025-05-10] MEDS: REMOVE LIDOCAINE PATCH 1 PATCH REMOVE (20:30)
[2025-05-10] MEDS: LIPITOR 20 MG PO (20:30)
[2025-05-11] VITALS (8 sets, daily range): BP systolic 141–170; BP diastolic 87–106; PULSE 68–70; BMI 25.7
[2025-05-11] MEDS: CIPRO 400 MG 200 IV ×3 (00:53→23:15)
[2025-05-11 07:16] LABS: Hematocrit 34.2 % (39.0-52.0); Hemoglobin 11.6 g/dL (13.0-18.0); Mean Corp Hgb Conc. 33.9 g/dL (33.0-37.0); Mean Corpuscular Volume 94.7 fL (80.0-94.0); Nucleated Red Blood Cells % 0 % (-); Platelet Count 104 10^3/uL (130-400); Red Cell Dist. Width 12.6 % (11.5-14.5)
[2025-05-11 07:32] LABS: ALT (SGPT) 19 U/L (0-50); AST (SGOT) 23 U/L (17-59); Albumin 3.8 g/dl (3.5-5.0); Alkaline Phosphatase 67 U/L (38-126); Blood Urea Nitrogen 6 mg/dl (9-20); Calcium 8.9 mg/dl (8.4-10.2); Carbon Dioxide 30 mmol/L (22-30); Chloride 100 mmol/L (98-107); Estimated Creatinine Clearance 72 ml/min; Glucose 100 mg/dl (70-99); Potassium 4.0 mmol/L (3.5-5.1); Sodium 135 mmol/L (135-145); Total Protein 6.0 g/dl (6.3-8.2); eGFR > 60.00
[2025-05-11] MEDS: TYLENOL 1000 MG PO ×2 (08:36→23:25)
[2025-05-11] MEDS: PROTONIX 40 MG PO (08:36)
[2025-05-11] MEDS: ROXICODONE 10 MG PO ×3 (08:36→21:34)
[2025-05-11] MEDS: NEURONTIN 300 MG PO ×2 (08:36→19:49)
[2025-05-11] MEDS: LIDOCAINE 4% PATCH 1 PATCH TOPICAL (08:36)
[2025-05-11] MEDS: COREG 6.25 MG PO ×2 (08:37→19:49)
[2025-05-11] MEDS: FIRVANQ 125 MG PO ×2 (08:37→19:50)
[2025-05-11] MEDS: DESENEX/MITRAZOL/ZEASORB 1 APPLIC TOPICAL ×2 (08:37→19:50)
[2025-05-11] MEDS: COZAAR 50 MG PO (08:38)
[2025-05-11] MEDS: CYMBALTA DELAYED RELEASE 30 MG PO (08:38)
--- NOTE | 2025-05-11 11:18 | W.PN.HOSP.TC ---
Today's Communication/Plan
-
Monitor vitals
See plan
cw abx
maintain bautista
hopeful dc tomorrow
Assessment / Plan
Assessment / Plan
General: Other (79y M in no acute distress.)
HEENT: Moist mucous membranes and PERRLA
Respiratory: Clear; No Wheezes, Rales or Rhonchi
Cardiac: S1/S2 and Regular Rhythm; No Murmur
GI: non tender,+BS
Genito-urinary: + bautista
Musculoskeletal: No Edema
Neuro: AO x 3
CAUTI
- UA with > 100k WBC and many bacteria. Catheter chronically in place and negative nitrites.
- Cover with IV abx for now based on previous culture
- CT A/P ordered given lower abdominal pain; CT with cholelithiasis with trace LEIGHA cholecystic free fluid. Currently patient has no right upper quadrant pain. Mild bilirubin elevation however normal LFTs. check RUQ US with findings equivocal for
acute cholecystitis with biliary stone/sludge, pericholecystic fluid and borderline wall thickening. However negative Leblanc sign. Patient denies any right upper quadrant pain. Evaluated by surgery. No surgery indicated at this time. Patient to
follow-up with surgery outpatient. Patient to also follow-up regarding spigelian hernia
Hypotension
- Likely secondary to hypovolemia with acute infection
- Hold diuretics (these were discontinued during prior admission).
Blood pressure improving
Paroxysmal Atrial Fibrillation
- Restart Coreg
- Restart Eliquis
- Monitor on telemetry for now.
Thrombocytopenia
Chronic Anemia
- Stable. Hgb at / near usual baseline. No reported blood loss.
- Platelet count decreased since February admission.
- Note prior episodes / periods of mild thrombocytopenia.
- Monitor for any gross bleeding.
- Follow cell counts for changes.
Chronic Urinary Retention
- Bautista in place
- Maintain Bautista for now.
Follow-up with Dr. Mitchell outpatient
Acute on Chronic Hyponatremia
- Likely due to component of hypovolemia.
DC further IVF
Improving
Spinal Stenosis
Chronic Back Pain
Chronic Opioid Dependence
Multiple chronic compression fracture of the lumbar spine
- Stable. No new / increased back pain.
- Decrease dose of oxycodone and try to minimize sedating meds in general given hypotension.
- Follow-up with Pain Management as an outpatient.
DVT Prophylaxis: SCDs, Eliquis
Code Status: Full
Anticipated Discharge: Within 24 hours
Subjective/Interval History
-
Date of Service: May 11, 2025
Denies pain
Objective Data
-
Labs:
Laboratory Results
05/11/25
06:27
WBC 5.3
Hgb 11.6 L
Hct 34.2 L
Plt Count 104 L
Sodium 135
Potassium 4.0
Chloride 100
Carbon Dioxide 30
BUN 6 L
Creatinine 0.8
Glucose 100 H
Calcium 8.9
Total Bilirubin 1.2
AST 23
ALT 19
Alkaline Phosphatase 67
Vital Signs:
Vital Signs
Temp Pulse Resp BP Pulse Ox
98.3 F 62 22 146/89 96
05/11/25 08:03 05/11/25 08:03 05/11/25 08:03 05/11/25 10:31 05/11/25 08:03
I&O
05/10/25 05/11/25 05/12/25
06:59 06:59 06:59
Intake Total 1680 / 1680 1350 / 1350
Output Total 2725 / 2725 1000 / 1000
Balance -1045 / -1045 -1000 / -1000 1350 / 1350
[2025-05-11] MEDS: APRESOLINE 25 MG PO (18:38)
[2025-05-11] MEDS: ELIQUIS 5 MG PO (19:49)
[2025-05-11] MEDS: REMOVE LIDOCAINE PATCH 1 PATCH REMOVE (19:50)
[2025-05-11] MEDS: LIPITOR 20 MG PO (21:02)
[2025-05-11] MEDS: DESYREL 150 MG PO (21:02)
[2025-05-12] VITALS (9 sets, daily range): BP systolic 141–172; BP diastolic 85–110; BMI 25.9
[2025-05-12] MEDS: ROXICODONE 10 MG PO ×3 (03:56→18:03)
[2025-05-12 06:21] LABS: ALT (SGPT) 16 U/L (0-50); AST (SGOT) 19 U/L (17-59); Albumin 3.7 g/dl (3.5-5.0); Alkaline Phosphatase 61 U/L (38-126); Blood Urea Nitrogen 9 mg/dl (9-20); Calcium 9.0 mg/dl (8.4-10.2); Carbon Dioxide 33 mmol/L (22-30); Chloride 99 mmol/L (98-107); Estimated Creatinine Clearance 83 ml/min; Glucose 114 mg/dl (70-99); Potassium 3.8 mmol/L (3.5-5.1); Sodium 134 mmol/L (135-145); Total Protein 5.9 g/dl (6.3-8.2); eGFR > 60.00
[2025-05-12 06:24] LABS: Hematocrit 32.1 % (39.0-52.0); Hemoglobin 11.0 g/dL (13.0-18.0); Mean Corp Hgb Conc. 34.3 g/dL (33.0-37.0); Mean Corpuscular Volume 93.0 fL (80.0-94.0); Nucleated Red Blood Cells % 0 % (-); Platelet Count 115 10^3/uL (130-400); Red Cell Dist. Width 12.4 % (11.5-14.5)
[2025-05-12] MEDS: CYMBALTA DELAYED RELEASE 30 MG PO (07:56)
[2025-05-12] MEDS: COZAAR 50 MG PO (07:56)
[2025-05-12] MEDS: LIDOCAINE 4% PATCH 1 PATCH TOPICAL (07:57)
[2025-05-12] MEDS: ELIQUIS 5 MG PO ×2 (07:57→19:45)
[2025-05-12] MEDS: COREG 6.25 MG PO ×2 (07:57→19:45)
[2025-05-12] MEDS: FIRVANQ 125 MG PO ×2 (07:57→19:45)
[2025-05-12] MEDS: PROTONIX 40 MG PO (07:57)
[2025-05-12] MEDS: NEURONTIN 300 MG PO ×2 (07:57→19:45)
[2025-05-12] MEDS: DESENEX/MITRAZOL/ZEASORB 1 APPLIC TOPICAL ×2 (07:58→19:46)
[2025-05-12] MEDS: TYLENOL 1000 MG PO ×2 (08:57→19:50)
--- NOTE | 2025-05-12 11:03 | W.PN.HOSP.TC ---
Today's Communication/Plan
-
Monitor vital signs see plan
Continue with BP meds, hydralazine as needed
Continue with antibiotics
Discharge planning, likely discharge later today if blood pressure stable
Assessment / Plan
Assessment / Plan
General: Other (79y M in no acute distress.)
HEENT: Moist mucous membranes and PERRLA
Respiratory: Clear; No Wheezes, Rales or Rhonchi
Cardiac: S1/S2 and Regular Rhythm; No Murmur
GI: non tender,+BS
Genito-urinary: + bautista
Musculoskeletal: No Edema
Neuro: AO x 3
CAUTI
- UA with > 100k WBC and many bacteria. Catheter chronically in place and negative nitrites.
- Cover with IV abx for now based on previous culture
- CT A/P ordered given lower abdominal pain; CT with cholelithiasis with trace LEIGHA cholecystic free fluid. Currently patient has no right upper quadrant pain. Mild bilirubin elevation however normal LFTs. check RUQ US with findings equivocal for
acute cholecystitis with biliary stone/sludge, pericholecystic fluid and borderline wall thickening. However negative Leblanc sign. Patient denies any right upper quadrant pain. Evaluated by surgery. No surgery indicated at this time. Patient to
follow-up with surgery outpatient. Patient to also follow-up regarding spigelian hernia
Hypotension
Now hypertensive,
- Likely secondary to hypovolemia with acute infection
- Will restart diuretics as able
Hydralazine as needed restarted
Paroxysmal Atrial Fibrillation
- Restart Coreg
- Restart Eliquis
- Monitor on telemetry for now.
Thrombocytopenia
Chronic Anemia
- Stable. Hgb at / near usual baseline. No reported blood loss.
- Platelet count decreased since February admission.
- Note prior episodes / periods of mild thrombocytopenia.
- Monitor for any gross bleeding.
- Follow cell counts for changes.
Chronic Urinary Retention
- Bautista in place
- Maintain Bautista for now.
Follow-up with Dr. Mitchell outpatient
Acute on Chronic Hyponatremia
- Likely due to component of hypovolemia.
DC further IVF
Improving
Spinal Stenosis
Chronic Back Pain
Chronic Opioid Dependence
Multiple chronic compression fracture of the lumbar spine
- Stable. No new / increased back pain.
- Decrease dose of oxycodone and try to minimize sedating meds in general given hypotension.
- Follow-up with Pain Management as an outpatient.
DVT Prophylaxis: SCDs, Eliquis
Code Status: Full
Anticipated Discharge: Today
Subjective/Interval History
-
Date of Service: May 12, 2025
Denies nausea
Objective Data
-
Labs:
Laboratory Results
05/12/25
05:37
WBC 3.9 L
Hgb 11.0 L
Hct 32.1 L
Plt Count 115 L
Sodium 134 L
Potassium 3.8
Chloride 99
Carbon Dioxide 33 H
BUN 9
Creatinine 0.7
Glucose 114 H
Calcium 9.0
Total Bilirubin 0.8
AST 19
ALT 16
Alkaline Phosphatase 61
Vital Signs:
Vital Signs
Temp Pulse Resp BP Pulse Ox
99.0 F 62 16 166/108 95
05/12/25 10:50 05/12/25 10:50 05/12/25 10:50 05/12/25 10:50 05/12/25 10:50
I&O
05/11/25 05/12/25 05/13/25
06:59 06:59 06:59
Intake Total 3690 / 3690
Output Total 1000 / 1000 650 / 650
Balance -1000 / -1000 3040 / 3040
[2025-05-12] MEDS: APRESOLINE 25 MG PO ×3 (11:08→23:09)
[2025-05-12] MEDS: CIPRO 400 MG 200 IV ×2 (11:19→23:10)
[2025-05-12] MEDS: LASIX 20 MG PO (14:10)
[2025-05-12] MEDS: REMOVE LIDOCAINE PATCH 1 PATCH REMOVE (19:53)
[2025-05-12] MEDS: DESYREL 150 MG PO (21:12)
[2025-05-12] MEDS: LIPITOR 20 MG PO (21:12)
[2025-05-13 03:04] VITALS: BP 136/85
[2025-05-13] MEDS: ROXICODONE 10 MG PO ×2 (04:40→11:17)
[2025-05-13 05:45] VITALS: BMI 26.0
[2025-05-13] MEDS: TYLENOL 1000 MG PO (05:50)
[2025-05-13 05:53] LABS: Hematocrit 33.3 % (39.0-52.0); Hemoglobin 11.6 g/dL (13.0-18.0); Mean Corp Hgb Conc. 34.8 g/dL (33.0-37.0); Mean Corpuscular Volume 91.5 fL (80.0-94.0); Nucleated Red Blood Cells % 0 % (-); Platelet Count 119 10^3/uL (130-400); Red Cell Dist. Width 12.3 % (11.5-14.5)
[2025-05-13 06:34] LABS: ALT (SGPT) 17 U/L (0-50); AST (SGOT) 20 U/L (17-59); Albumin 3.8 g/dl (3.5-5.0); Alkaline Phosphatase 54 U/L (38-126); Blood Urea Nitrogen 10 mg/dl (9-20); Calcium 8.8 mg/dl (8.4-10.2); Carbon Dioxide 30 mmol/L (22-30); Chloride 94 mmol/L (98-107); Estimated Creatinine Clearance 83 ml/min; Glucose 105 mg/dl (70-99); Potassium 3.8 mmol/L (3.5-5.1); Sodium 130 mmol/L (135-145); Total Protein 6.0 g/dl (6.3-8.2); eGFR > 60.00
[2025-05-13 07:55] VITALS: BP 137/92
[2025-05-13] MEDS: LIDOCAINE 4% PATCH 1 PATCH TOPICAL (08:40)
[2025-05-13] MEDS: COREG 6.25 MG PO (08:40)
[2025-05-13] MEDS: FIRVANQ 125 MG PO (08:40)
[2025-05-13] MEDS: ELIQUIS 5 MG PO (08:41)
[2025-05-13] MEDS: NEURONTIN 300 MG PO (08:41)
[2025-05-13] MEDS: PROTONIX 40 MG PO (08:41)
[2025-05-13] MEDS: CYMBALTA DELAYED RELEASE 30 MG PO (08:41)
[2025-05-13] MEDS: APRESOLINE 25 MG PO ×2 (08:41→15:32)
[2025-05-13] MEDS: COZAAR 50 MG PO (08:42)
[2025-05-13] MEDS: DESENEX/MITRAZOL/ZEASORB 1 APPLIC TOPICAL (08:42)
--- NOTE | 2025-05-13 11:00 | W.PN.HOSP.TC ---
Addendum entered and electronically signed by Jose Alcantar MD 05/13/25 17:07:
Pancytopenia
Original Note:
Today's Communication/Plan
-
Monitor vitals
See plan
Blood pressure much better
Discharge today on p.o. antibiotics
Time of discharge 38 minutes
Assessment / Plan
Assessment / Plan
General: Other (79y M in no acute distress.)
HEENT: Moist mucous membranes and PERRLA
Respiratory: Clear; No Wheezes, Rales or Rhonchi
Cardiac: S1/S2 and Regular Rhythm; No Murmur
GI: non tender,+BS
Genito-urinary: + bautista
Musculoskeletal: No Edema
Neuro: AO x 3
CAUTI
- UA with > 100k WBC and many bacteria. Catheter chronically in place and negative nitrites.
Switch antibiotics to oral
- CT A/P ordered given lower abdominal pain; CT with cholelithiasis with trace LEIGHA cholecystic free fluid. Currently patient has no right upper quadrant pain. Mild bilirubin elevation however normal LFTs. check RUQ US with findings equivocal for
acute cholecystitis with biliary stone/sludge, pericholecystic fluid and borderline wall thickening. However negative Leblanc sign. Patient denies any right upper quadrant pain. Evaluated by surgery. No surgery indicated at this time. Patient to
follow-up with surgery outpatient. Patient to also follow-up regarding spigelian hernia
Hypotension
Now hypertensive,
- Likely secondary to hypovolemia with acute infection
- Will restart diuretics as able
Hydralazine standing with holding parameter, blood pressure much improved
Paroxysmal Atrial Fibrillation
- Restart Coreg
- Restart Eliquis
- Monitor on telemetry for now.
Thrombocytopenia
Chronic Anemia
- Stable. Hgb at / near usual baseline. No reported blood loss.
- Platelet count decreased since February admission.
- Note prior episodes / periods of mild thrombocytopenia.
- Monitor for any gross bleeding.
- Follow cell counts for changes.
Chronic Urinary Retention
- Bautista in place
- Maintain Bautista for now.
Follow-up with Dr. Mitchell outpatient
Acute on Chronic Hyponatremia
- Likely due to component of hypovolemia.
Spinal Stenosis
Chronic Back Pain
Chronic Opioid Dependence
Multiple chronic compression fracture of the lumbar spine
- Stable. No new / increased back pain.
- Decrease dose of oxycodone and try to minimize sedating meds in general given hypotension.
- Follow-up with Pain Management as an outpatient.
DVT Prophylaxis: SCDs, Eliquis
Code Status: Full
Anticipated Discharge: Today
Subjective/Interval History
-
Date of Service: May 13, 2025
Denies pain
Objective Data
-
Labs:
Laboratory Results
05/13/25
05:37
WBC 4.1 L
Hgb 11.6 L
Hct 33.3 L
Plt Count 119 L
Sodium 130 L
Potassium 3.8
Chloride 94 L
Carbon Dioxide 30
BUN 10
Creatinine 0.7
Glucose 105 H
Calcium 8.8
Total Bilirubin 1.0
AST 20
ALT 17
Alkaline Phosphatase 54
Vital Signs:
Vital Signs
Temp Pulse Resp BP Pulse Ox
98 F 85 16 137/92 96
05/13/25 07:55 05/13/25 08:42 05/13/25 07:55 05/13/25 08:42 05/13/25 09:00
I&O
05/12/25 05/13/25 05/14/25
06:59 06:59 06:59
Intake Total 3690 / 3690 960 / 960
Output Total 650 / 650 4150 / 4150
Balance 3040 / 3040 -3190 / -3190
[2025-05-13 11:05] VITALS: BP 173/108
--- NOTE | 2025-05-13 11:09 | W.DCSUMMARY ---
Discharge Summary
Discharge Data
Date of Admission: 05/08/25
Date of Discharge: 05/13/25
-
Pending Results: No
Hospital Course
79-year-old male with past medical history of chronic urinary retention, Montalvo catheter, paroxysmal atrial fibrillation, thrombocytopenia, chronic anemia, chronic hyponatremia, spinal stenosis, chronic back pain, chronic opioid dependence, multiple
compression fracture of the lumbar spine came to the hospital with catheter associated urinary tract infection. Patient did have hypotension and profound weakness on admission and was treated for UTI. Urine culture did not show any blood however
given his symptoms he was treated with ciprofloxacin. He symptoms continue to improve. He also had CT of abdomen and pelvis which showed cholelithiasis. Ultrasound later was equivocal for acute cholecystitis with biliary stone/sludge. Surgery
was consulted who was not convinced the patient has acute cholecystitis at this time. Surgery deferred HIDA scan. Patient also appeared to had spigelian hernia for which she was started to follow-up with surgery outpatient. While he was in the
hospital his blood pressure continued to improve and in fact he was hypertensive and all his medications were restarted. Since his symptoms continue to improve over time, he was then discharged home with instructions to follow-up with all the
physicians outpatient.
Discharge Plan
-
Patient Disposition: Home (Routine Discharge)
Discharge Diagnosis/Procedures: Catheter associated urinary tract infection
Spigelian hernia
Ultrasound with questionable acute cholecystitis
Hypertension
Condition: Fair
Diet: Low Fat
Activity: As tolerated
Driving Restrictions: As prior to admission
Bathing Restrictions: None
Referrals:
Gianluca Orta MD [Family Provider] - in less than 1 week
Gus Sims MD [Active, Surgical] - in three to four weeks
Prescriptions:
New
vancomycin 125 mg capsule
125 mg PO Q12 Qty: 14 0RF
ciprofloxacin HCl 500 mg tablet
500 mg PO BID Qty: 10 0RF
lidocaine 4 % Adhesive Patch,Medicated
1 patch topical DAILY Qty: 30 0RF
Continued
Eliquis 5 MG tablet
5 mg PO BID
trazodone 150 mg Tablet
150 mg PO HS
vitamin B complex Capsule
1 cap PO DAILY Qty: 0
atorvastatin [Lipitor] 20 MG tablet
20 mg PO HS
tamsulosin 0.4 mg capsule
0.4 mg PO HS
polyethylene glycol 3350 [Miralax] 17 gram/dose Powder
17 g PO DAILY
pantoprazole [Protonix] 40 mg Tablet,Delayed Release (Dr/Ec)
40 mg PO DAILY
vitamin E 268 mg (400 unit) Capsule
268 mg PO DAILY
terazosin 2 mg Capsule
2 mg PO HS
ferrous sulfate 325 mg (65 mg iron) Tablet
325 mg PO DAILY
ondansetron HCl 4 mg Tablet
4 mg PO Q8HPRN PRN (Reason: nausea/vomiting)
acetaminophen [Tylenol Extra Strength] 500 mg Tablet
1,000 mg PO Q8HPRN PRN (Reason: mild pain)
carvedilol 6.25 mg Tablet
6.25 mg PO BID Qty: 0 0RF
famotidine 20 mg Tablet
20 mg PO DAILY Qty: 30 0RF
gabapentin 300 mg Capsule
300 mg PO BID Qty: 60 0RF
losartan 50 mg Tablet
50 mg PO DAILY
Patient Comments:
05/08/2025, hold for SBP<110.
furosemide 20 mg Tablet
20 mg PO MOWEFR
cholecalciferol (vitamin D3) 125 mcg (5,000 unit) Capsule
125 mcg PO DAILY
duloxetine 30 mg Capsule, Delayed Rel Sprinkle
30 mg PO DAILY
oxycodone 15 mg tablet
15 mg PO Q8HPRN PRN (Reason: breakthrough pain)
Changed
hydralazine 25 mg Tablet
25 mg PO Q8H Qty: 0 0RF
Discharge Orders:
Discharge Patient (As Directed); Ordered 05/13/25
Ordered By: Jose Alcantar
Discharge Date and Time
Discharge Date/Time: 05/13/25 18:33
Print Language: SAMI
[2025-05-13 11:10] VITALS: BP 168/111
[2025-05-13] MEDS: CIPRO 400 MG 200 IV (11:16)
[2025-05-13] MEDS: LASIX 20 MG PO (11:33)
--- NOTE | 2025-05-13 13:39 | CM ---
Addendum entered by Sharlene Mojica 05/13/25 14:33:
CM notified by transportation planner that w/c van is not safe or appropriate for patient and will transport via ambulance. Medical Necessity completed due to fall risk, compression fractures.
Original Note:
Pt is cleared for discharge to his independent apartment at [facility]. Pt agreeable to VN. Referral placed in [facility].
W/C van transport requested. Pt advised that his son would call to pay for the transport.
--- NOTE | 2025-05-13 14:14 | PN.CDI ---
CDI
- -
CDI:
Physician Documentation Request
Admit Date: 05/08/25 22:12
Dear Doctor Ortiz,
Please review the following and provide your response in the progress notes.
Clinical Indicators:
Laboratory Tests
05/12/25 05/13/25
05:37 05:37
WBC 3.9 L 4.1 L
RBC 3.45 L 3.64 L
Plt Count 115 L 119 L
Based on the above and your clinical assessment, please clarify in the progress notes, the appropriate diagnosis, if significant, that supports the above abnormalities and additional evaluation, monitoring and/or treatment rendered:
Pancytopenia
Drug-induced pancytopenia
Other(please specify)
Use of terms such as suspected, likely, concern for, or probable (associated with a specific diagnosis that is being evaluated, monitored, or treated as if it exists) are acceptable and can be coded in the inpatient setting, when documented at the
time of discharge.
Thank you,
Maru Schultz RN BSN CCDS
CDI Specialist
Please contact via tiger text
Please use your independent medical judgment in providing your response.
--- NOTE | 2025-05-13 14:21 | PN.CDI ---
CDI
- -
CDI:
Physician Documentation Request
Admit Date: 05/08/25 22:12
Dear Doctor Ortiz,
Please review the following and provide your response in the progress notes.
Clinical Indicators:
Laboratory Tests
05/12/25 05/13/25
05:37 05:37
WBC 3.9 L 4.1 L
RBC 3.45 L 3.64 L
Plt Count 115 L 119 L
Based on the above and your clinical assessment, please clarify in the progress notes, the appropriate diagnosis, if significant, that supports the above abnormalities and additional evaluation, monitoring and/or treatment rendered:
Pancytopenia
Drug-induced pancytopenia
Abnormal lab values, clinically insignificant
Other(please specify)
Use of terms such as suspected, likely, concern for, or probable (associated with a specific diagnosis that is being evaluated, monitored, or treated as if it exists) are acceptable and can be coded in the inpatient setting, when documented at the
time of discharge.
Thank you,
Maru Schultz RN BSN CCDS
CDI Specialist
Please contact via tiger text
Please use your independent medical judgment in providing your response.
[2025-05-13 15:00] VITALS: BP 130/75
== END 2025-05-13 18:33 | disposition home health service (06) | DRG 699 ==
LOC: 3 WEST ACU 22:12
PROVIDERS: Nurse Practitioner; ADMITTING PHYSICIAN Hospitalist; ATTENDING PHYSICIAN Internal Medicine; CONSULT PHYSICIAN Surgery; EMERGENCY PHYSICIAN Emergency Medicine; FAMILY PHYSICIAN Internal Medicine
DX: T83.518A Infection and inflammatory reaction due to other urinary catheter, initial encounter (principal); D61.818 Other pancytopenia; E87.1 Hypo-osmolality and hyponatremia; I50.32 Chronic diastolic (congestive) heart failure; K80.00 Calculus of gallbladder with acute cholecystitis without obstruction; N39.0 Urinary tract infection, site not specified; F11.20 Opioid dependence, uncomplicated; M48.56XA Collapsed vertebra, not elsewhere classified, lumbar region, initial encounter for fracture; Y84.6 Urinary catheterization as the cause of abnormal reaction of the patient, or of later complication, without mention of misadventure at the time of the procedure; K43.9 Ventral hernia without obstruction or gangrene; I11.0 Hypertensive heart disease with heart failure; Z79.01 Long term (current) use of anticoagulants; D64.9 Anemia, unspecified; D69.6 Thrombocytopenia, unspecified; G89.29 Other chronic pain; I48.0 Paroxysmal atrial fibrillation; E86.1 Hypovolemia; M48.061 Spinal stenosis, lumbar region without neurogenic claudication; G62.9 Polyneuropathy, unspecified; F41.9 Anxiety disorder, unspecified; F32.A Depression, unspecified; K21.9 Gastro-esophageal reflux disease without esophagitis; Z95.2 Presence of prosthetic heart valve; Z98.1 Arthrodesis status; Z88.1 Allergy status to other antibiotic agents; Z88.2 Allergy status to sulfonamides; E78.00 Pure hypercholesterolemia, unspecified; G47.30 Sleep apnea, unspecified; I25.10 Atherosclerotic heart disease of native coronary artery without angina pectoris; N40.1 Benign prostatic hyperplasia with lower urinary tract symptoms; R33.8 Other retention of urine; Z79.899 Other long term (current) drug therapy
CPT/HCPCS: 71046; 72110; 74177; 76705; 80048; 80053; 81003; 81015; 82248; 84439; 84443; 85025; 85027; 87070; 87086; 96361; 96374; 97162; 97530; 99285; Q9967

== ENCOUNTER 2025-05-26 14:46 | Emergency (ER) | payer MEDICARE, OTHER, SELFPAY ==
[2025-05-26 14:52] VITALS: BP 114/72
[2025-05-26 15:32] LABS: Hematocrit 34.4 % (39.0-52.0); Hemoglobin 12.1 g/dL (13.0-18.0); Mean Corp Hgb Conc. 35.2 g/dL (33.0-37.0); Mean Corpuscular Volume 91.0 fL (80.0-94.0); Nucleated Red Blood Cells % 0 % (-); Platelet Count 123 10^3/uL (130-400); Red Cell Dist. Width 12.6 % (11.5-14.5)
[2025-05-26 15:35] LABS: ALT (SGPT) 17 U/L (0-50); AST (SGOT) 24 U/L (17-59); Albumin 4.7 g/dl (3.5-5.0); Alkaline Phosphatase 52 U/L (38-126); Blood Urea Nitrogen 14 mg/dl (9-20); Calcium 9.3 mg/dl (8.4-10.2); Carbon Dioxide 30 mmol/L (22-30); Chloride 92 mmol/L (98-107); Glucose 115 mg/dl (70-99); Potassium 3.9 mmol/L (3.5-5.1); Sodium 127 mmol/L (135-145); Total Protein 7.3 g/dl (6.3-8.2); eGFR > 60.00
[2025-05-26 18:01] VITALS: BP 152/96
[2025-05-26] MEDS: ROXICODONE 15 MG PO (18:12)
[2025-05-26 18:33] VITALS: BMI 25.5
[2025-05-26 19:00] VITALS: BP 147/90
--- NOTE | 2025-05-26 19:01 | ED.GENMED ---
History of Present Illness
General
Chief Complaint: Weakness
Source: patient
Time Seen by Provider: 05/26/25 16:57
History of Present Illness
History of Present Illness:
79-year-old male presents to the emergency room complaining of low back pain. Patient also said he feels generally weak. Patient has just been discharged from the hospital after an admission for UTI and hyponatremia. No nausea or vomiting.
Patient has an indwelling Montalvo catheter.
Past History
Past History
ED Past Medical History: Arrthythmia (Atrial flutter/fib), CAD, CHF, HTN, Hypercholesterolemia, Valvular disease, Psychiatric (Anxiety, Depression), Other (Rib fractures, Chronic back pain, Anemia, Cellulitis, Left pleural effusion, osteomyelitis,
endocarditis, Sleep apnea, Parkinson, GI bleeding, UTI with retention, AAA, Montalvo), Other (polyneuropathy, balance issues, Neuropathy, tingling in arms and legs. ) and Other (chronic back pain, pain management with Buprenorphine and ASA)
ED Past Surgical History: Cardiac (Aortic valve replaced (x 2), Pacemaker), Orthopedic (C spine fusion, Laminectomy) and Other (Hemorrhoidectomy, cataracts)
Patient has exhibited threatening behavior?: No
PSI?: No
Social History
Tobacco: Non-smoker
Alcohol: Occasional ( Beer)
Drug: None
Personal:
Living: with family
Employment: Retired
Family History
Family History: Hypertension and CAD
Phy Exam
Physical Exam
Physical Exam:
General: Awake, Alert, Oriented X3. Appears uncomfortable, chronically ill
Vitals: unremarkable
Head: Atraumatic
Eyes: Pupils equal, EOMI
Throat: Airway intact, no exudates
Neck: Trachea midline
Lungs: Clear and equal b/l
Heart: Regular rate, no murmurs
Abd: Soft, Nontender, No pulsatile mass
Back: Mild diffuse back pain
Neuro: No focal weakness
Skin: Warm, dry, no rash
Extremities: pulses equal b/l, no edema
Course
Orders/Labs/Results
Orders:
Orders
05/26/25 15:02
Complete Blood Count/With Diff Urgent
Comprehensive Metabolic Panel Urgent
Lactic Acid Urgent
Blood Culture Urgent
TAMIKO Source: Blood/Venous
Specimen Description:
05/26/25 17:47
Oxycodone [Roxicodone] 15 mg PO NOW STA
Abnormal Lab Results
05/26/25
15:02
RBC 3.78 L 10^6/uL
(4.70-6.10)
Hgb 12.1 L g/dL
(13.0-18.0)
Hct 34.4 L %
(39.0-52.0)
MCH 32.0 H pg
(27.0-31.0)
Plt Count 123 L 10^3/uL
(130-400)
Abs Immat Gran (auto) 0.2 H 10^3/uL
(0-0.05)
Absolute Neuts (auto) 9.2 H 10^3/uL
(1.4-6.5)
Absolute Lymphs (auto) 0.4 L 10^3/uL
(1.2-3.4)
Absolute Monos (auto) 0.8 H 10^3/uL
(0.1-0.6)
Immature Gran % 1.5 H %
(0-0.5)
Neutrophils % 87.1 H %
(42.2-75.2)
Lymphocytes % 3.9 L %
(20.5-51.1)
Sodium 127 L mmol/L
(135-145)
Chloride 92 L mmol/L
(98-107)
Glucose 115 H mg/dl
(70-99)
Total Bilirubin 2.7 H mg/dl
(0.2-1.3)
05/26/25 15:02
05/26/25 15:02
Vital Signs
Initial and Last Documented VS:
Initial Vital Signs
Temp Pulse Resp BP Pulse Ox
98.9 F 87 20 114/72 93
05/26/25 14:52 05/26/25 14:52 05/26/25 14:52 05/26/25 14:52 05/26/25 14:52
Last Documented Vital Signs
Temp Pulse Resp BP Pulse Ox
98.9 F 72 17 152/96 94
05/26/25 14:52 05/26/25 18:45 05/26/25 18:45 05/26/25 18:01 05/26/25 18:45
MDM/Problems Addressed
Differential Diagnosis Includes:
Exacerbation of chronic back pain, electrode abnormality
MDM/Problems Addressed:
Patient presents with increased back pain. He felt weak and his legs seem to give out when he slid to the ground. No fever here. Labs show normal white count, baseline hemoglobin. Sodium is 127 which is mildly low but not unexpected given his
chronic pain and use of opiates. Seems to be more of an exacerbation of chronic pain. Patient feels better after dose of his oxycodone here.
*Pulse Oximetry
SaO2: 94
Oxygen Mode of Delivery: Room air
Patient hypoxic: no
*Critical Care Note
Total Time (30-74mins, 75-104mins- exclusive of procedures): Not Applicable
ED Attending Note
-
Portions of this chart may have been created with voice recognition software.� Occasional wrong word or��sound alike� substitutions may have occurred due to the inherent limitations of voice recognition software.
Discharge Plan
Departure
Patient Disposition: Assisted/SNF
Date of Disposition: 05/26/25
Time of Disposition: 19:02
Condition: Good
Discharge Problem:
Acute exacerbation of chronic low back pain
Instructions: Low back pain - ED discharge instructions
Prescriptions:
No Action
Eliquis 5 MG tablet
5 mg PO BID
trazodone 150 mg Tablet
150 mg PO HS
vitamin B complex Capsule
1 cap PO DAILY Qty: 0
atorvastatin [Lipitor] 20 MG tablet
20 mg PO HS
tamsulosin 0.4 mg capsule
0.4 mg PO HS
polyethylene glycol 3350 [Miralax] 17 gram/dose Powder
17 g PO DAILY
pantoprazole [Protonix] 40 mg Tablet,Delayed Release (Dr/Ec)
40 mg PO DAILY
vitamin E 268 mg (400 unit) Capsule
268 mg PO DAILY
terazosin 2 mg Capsule
2 mg PO HS
ferrous sulfate 325 mg (65 mg iron) Tablet
325 mg PO DAILY
ondansetron HCl 4 mg Tablet
4 mg PO Q8HPRN PRN (Reason: nausea/vomiting)
acetaminophen [Tylenol Extra Strength] 500 mg Tablet
1,000 mg PO Q8HPRN PRN (Reason: mild pain)
carvedilol 6.25 mg Tablet
6.25 mg PO BID Qty: 0 0RF
famotidine 20 mg Tablet
20 mg PO DAILY Qty: 30 0RF
gabapentin 300 mg Capsule
300 mg PO BID Qty: 60 0RF
losartan 50 mg Tablet
50 mg PO DAILY
Patient Comments:
05/08/2025, hold for SBP<110.
furosemide 20 mg Tablet
20 mg PO MOWEFR
cholecalciferol (vitamin D3) 125 mcg (5,000 unit) Capsule
125 mcg PO DAILY
duloxetine 30 mg Capsule, Delayed Rel Sprinkle
30 mg PO DAILY
oxycodone 15 mg tablet
15 mg PO Q8HPRN PRN (Reason: breakthrough pain)
vancomycin 125 mg capsule
125 mg PO Q12 Qty: 14 0RF
ciprofloxacin HCl 500 mg tablet
500 mg PO BID Qty: 10 0RF
lidocaine 4 % Adhesive Patch,Medicated
1 patch topical DAILY Qty: 30 0RF
hydralazine 25 mg Tablet
25 mg PO Q8H Qty: 0 0RF
Referrals:
Black Artis MD [Family Provider, Family Practice]
Interventions
Interventions:
*Risk Screen - Suicide Last Done: 05/26/25 14:52
*General Assessment Last Done: 05/26/25 14:52
*Neglect/Abuse Screening Last Done: 05/26/25 18:33
*ED- Fall Risk Assessment Last Done: 05/26/25 18:33
*ED COVID-19 Vaccine History Last Done: 05/26/25 18:33
ED- Cardiac Assessment Last Done: 05/26/25 18:32
ED- Neurological Assessment Last Done: 05/26/25 18:32
ED- Pulmonary Assessment Last Done: 05/26/25 18:32
Discharge Date and Time
Print Language: TURKISH
[2025-05-26 20:00] VITALS: BP 142/92
--- NOTE | 2025-05-26 21:44 | EDRN ---
Patient ambulated to the restroom with walker and assistance, patient requiring assistance of 2 nurses to get back to bed, he is dressed and waiting for transport
== END 2025-05-26 22:05 ==
LOC: EMR 14:46
PROVIDERS: EMERGENCY PHYSICIAN Emergency Medicine; FAMILY PHYSICIAN Family Medicine
DX: M54.50 Low back pain, unspecified (principal); G89.29 Other chronic pain; R53.1 Weakness; I48.91 Unspecified atrial fibrillation; I48.92 Unspecified atrial flutter; I11.0 Hypertensive heart disease with heart failure; I50.9 Heart failure, unspecified; E78.00 Pure hypercholesterolemia, unspecified; F32.A Depression, unspecified; F41.9 Anxiety disorder, unspecified; G47.30 Sleep apnea, unspecified; I71.40 Abdominal aortic aneurysm, without rupture, unspecified; G62.9 Polyneuropathy, unspecified; I25.10 Atherosclerotic heart disease of native coronary artery without angina pectoris; D64.9 Anemia, unspecified; Z79.01 Long term (current) use of anticoagulants; Z95.2 Presence of prosthetic heart valve; Z95.0 Presence of cardiac pacemaker; Z87.440 Personal history of urinary (tract) infections; M43.22 Fusion of spine, cervical region; Z88.1 Allergy status to other antibiotic agents; Z88.2 Allergy status to sulfonamides; Z88.8 Allergy status to other drugs, medicaments and biological substances
CPT/HCPCS: 99283; 80053; 83605; 85025; 87040

== ENCOUNTER → 2025-06-09 09:57 | Outpatient (REF) | payer MEDICARE, OTHER, SELFPAY ==
[2025-06-09 12:32] LABS: Blood Urea Nitrogen 9 mg/dl (9-20); Calcium 9.0 mg/dl (8.4-10.2); Carbon Dioxide 32 mmol/L (22-30); Chloride 97 mmol/L (98-107); Glucose 137 mg/dl (70-99); Potassium 4.7 mmol/L (3.5-5.1); Sodium 135 mmol/L (135-145); eGFR > 60.00
== END ==
LOC: OLABWPC 09:57
PROVIDERS: ATTENDING PHYSICIAN Internal Medicine
DX: I50.32 Chronic diastolic (congestive) heart failure (principal)
CPT/HCPCS: 36415; 80048

== ENCOUNTER 2025-06-12 14:48 | Emergency (ER) | payer MEDICARE, OTHER, SELFPAY ==
[2025-06-12 14:53] VITALS: BP 148/93
[2025-06-12 16:24] VITALS: BMI 27.3
--- NOTE | 2025-06-12 17:05 | ED.GENMED ---
History of Present Illness
General
Chief Complaint: Catheter/Tube Problem
Source: patient and records
Exam Limitations: none
Time Seen by Provider: 06/12/25 16:01
Nursing documentation reviewed up to this point in time: agreed with
History of Present Illness
History of Present Illness:
79-year-old male with a history as documented notable for BPH and urinary retention with a chronic Montalvo catheter; he presents today for evaluation to have his catheter exchanged. He has chronic Montalvo catheter and sees Dr. Mitchell for urology. He
says that he was supposed to have his Montalvo catheter exchanged routinely on 06/09/2025 but his typical visiting nurse was on vacation and so it was not exchanged. He says that he noticed that it is not flowing as well and decided to come to the ER to
have it exchanged. He denies any fever, chills, flank pain or any other acute issues or complaints.
Past History
Past History
ED Past Medical History: Arrthythmia (Atrial flutter/fib), CAD, CHF, HTN, Hypercholesterolemia, Valvular disease, Psychiatric (Anxiety, Depression), Other (Rib fractures, Chronic back pain, Anemia, Cellulitis, Left pleural effusion, osteomyelitis,
endocarditis, Sleep apnea, Parkinson, GI bleeding, UTI with retention, AAA, Montalvo), Other (polyneuropathy, balance issues, Neuropathy, tingling in arms and legs. ) and Other (chronic back pain, pain management with Buprenorphine and ASA)
ED Past Surgical History: Cardiac (Aortic valve replaced (x 2), Pacemaker), Orthopedic (C spine fusion, Laminectomy) and Other (Hemorrhoidectomy, cataracts)
Patient has exhibited threatening behavior?: No
PSI?: No
Social History
Tobacco: Non-smoker
Alcohol: Occasional ( Beer)
Drug: None
Personal:
Living: with family
Employment: Retired
Family History
Family History: Hypertension and CAD
Review of Systems
Review of Systems
All Other Systems: ROS reviewed and negative except as documented in HPI and ROS
: Reports other (Catheter issue)
Phy Exam
Physical Exam
Physical Exam:
General: Well appearing and non-toxic
HEENT: protecting airway
Neck: appears supple
CV: No evidence of cyanosis
Resp: No accessory muscle use
Abd: Non-distended, nontender
: 14F Montalvo catheter in place, relatively clear yellow urine in catheter bag without significant sediment or blood noted
Extremities: No deformities
Neuro: Alert
Psych: Normal affect
Skin: Intact
Scores
Heart Failure Risk
Heart Failure Risk Score: Not Applicable
Heart Score for Chest Pain Patients
STEMI patient?: Not applicable
Withdrawal Assessment of Alcohol
Withdrawal Assessment Completed?: Not applicable
Course
Orders/Labs/Results
Orders:
Orders
06/12/25 16:02
Montalvo Placement- Treatment ONCE
Reason for insertion: Chronic Montalvo on Admit
Vital Signs
Initial and Last Documented VS:
Initial Vital Signs
Temp Pulse Resp BP Pulse Ox
36.8 C 67 16 148/93 96
06/12/25 14:53 06/12/25 14:53 06/12/25 14:53 06/12/25 14:53 06/12/25 14:53
Last Documented Vital Signs
Temp Pulse Resp BP Pulse Ox
36.8 C 67 16 148/93 96
06/12/25 14:53 06/12/25 14:53 06/12/25 14:53 06/12/25 14:53 06/12/25 14:53
MDM/Problems Addressed
Differential Diagnosis Includes:
Montalvo catheter issue
MDM/Problems Addressed:
79-year-old male presents requesting Montalvo catheter exchange. He has a chronic Montalvo catheter that was due for exchange few days ago but this did not happen due to visiting nurse being away on vacation. He feels that catheter is not draining as
well today and so he decided to come to the ER to have it exchanged. No other acute issues or complaints. It was exchanged without issue here in the emergency room by nurse. Flowing freely with clear yellow urine. Stable for discharge.
Chronic conditions affecting care:
BPH with chronic urinary retention
*Pulse Oximetry
SaO2: 96
Oxygen Mode of Delivery: Room air
Patient hypoxic: no (96%)
*Critical Care Note
Total Time (30-74mins, 75-104mins- exclusive of procedures): Not Applicable
Data Reviewed
Source: patient and records
ED Attending Note
-
Portions of this chart may have been created with voice recognition software.� Occasional wrong word or��sound alike� substitutions may have occurred due to the inherent limitations of voice recognition software.
Discharge Plan
Departure
Patient Disposition: Home (Routine Discharge)
Date of Disposition: 06/12/25
Time of Disposition: 16:07
Patient with high blood pressure during this ER visit?: No
Discharge Problem:
Encounter for Montalvo catheter replacement
Instructions: How to Care for Your Montalvo Catheter, Male
Prescriptions:
No Action
Eliquis 5 MG tablet
5 mg PO BID
trazodone 150 mg Tablet
150 mg PO HS
vitamin B complex Capsule
1 cap PO DAILY Qty: 0
atorvastatin [Lipitor] 20 MG tablet
20 mg PO HS
tamsulosin 0.4 mg capsule
0.4 mg PO HS
polyethylene glycol 3350 [Miralax] 17 gram/dose Powder
17 g PO DAILY
pantoprazole [Protonix] 40 mg Tablet,Delayed Release (Dr/Ec)
40 mg PO DAILY
vitamin E 268 mg (400 unit) Capsule
268 mg PO DAILY
terazosin 2 mg Capsule
2 mg PO HS
ferrous sulfate 325 mg (65 mg iron) Tablet
325 mg PO DAILY
ondansetron HCl 4 mg Tablet
4 mg PO Q8HPRN PRN (Reason: nausea/vomiting)
acetaminophen [Tylenol Extra Strength] 500 mg Tablet
1,000 mg PO Q8HPRN PRN (Reason: mild pain)
carvedilol 6.25 mg Tablet
6.25 mg PO BID Qty: 0 0RF
famotidine 20 mg Tablet
20 mg PO DAILY Qty: 30 0RF
gabapentin 300 mg Capsule
300 mg PO BID Qty: 60 0RF
losartan 50 mg Tablet
50 mg PO DAILY
Patient Comments:
05/08/2025, hold for SBP<110.
furosemide 20 mg Tablet
20 mg PO MOWEFR
cholecalciferol (vitamin D3) 125 mcg (5,000 unit) Capsule
125 mcg PO DAILY
duloxetine 30 mg Capsule, Delayed Rel Sprinkle
30 mg PO DAILY
oxycodone 15 mg tablet
15 mg PO Q8HPRN PRN (Reason: breakthrough pain)
vancomycin 125 mg capsule
125 mg PO Q12 Qty: 14 0RF
ciprofloxacin HCl 500 mg tablet
500 mg PO BID Qty: 10 0RF
lidocaine 4 % Adhesive Patch,Medicated
1 patch topical DAILY Qty: 30 0RF
hydralazine 25 mg Tablet
25 mg PO Q8H Qty: 0 0RF
Referrals:
Black Artis MD [Family Provider, Family Practice]
Activity Restrictions/Additional Instructions:
Thank you for visiting the Emergency Department at [facility].
1. Please schedule a follow up appointment as directed. Call first thing tomorrow morning to make an appointment.
2. If indicated, please take your medications as instructed and indicated on discharge paperwork.
3. If any of your symptoms do not improve, or persist, or become more severe within 6-12 hours, please return to the emergency department for further care.
4. Please return to the emergency department if you develop a headache, neck pain/stiffness, fever greater than 100.4F, chest pain, shortness of breath, persistent nausea, vomiting, slurred speech, difficulty walking, numbness/tingling, weakness,
signs of infection or any other symptoms that are worrisome to you.
Please call [phone] if you have any questions.
Interventions
Interventions:
*Risk Screen - Suicide Last Done: 06/12/25 14:53
*General Assessment Last Done: 06/12/25 14:53
*Neglect/Abuse Screening Last Done: 06/12/25 14:53
*ED- Fall Risk Assessment Last Done: 06/12/25 16:23
*ED COVID-19 Vaccine History Last Done: 06/12/25 16:23
*Nursing Disposition Last Done: 06/12/25 16:27
QX-Fjhepb-Ibnesngsrm Assessment Last Done: 06/12/25 16:25
ED-Male Genitourinary Assessment Last Done: 06/12/25 16:25
Discharge Date and Time
Discharge Date/Time: 06/12/25 16:53
Print Language: GREEK
== END 2025-06-12 16:53 | disposition home or self-care (01) ==
LOC: EMR 14:48
PROVIDERS: EMERGENCY PHYSICIAN Emergency Medicine; FAMILY PHYSICIAN Family Medicine
DX: Z46.6 Encounter for fitting and adjustment of urinary device (principal); N40.1 Benign prostatic hyperplasia with lower urinary tract symptoms; R33.8 Other retention of urine; I11.0 Hypertensive heart disease with heart failure; I50.9 Heart failure, unspecified; I25.10 Atherosclerotic heart disease of native coronary artery without angina pectoris; I71.40 Abdominal aortic aneurysm, without rupture, unspecified; E78.00 Pure hypercholesterolemia, unspecified; I48.91 Unspecified atrial fibrillation; F32.A Depression, unspecified; F41.9 Anxiety disorder, unspecified; G47.30 Sleep apnea, unspecified; G62.9 Polyneuropathy, unspecified; M19.90 Unspecified osteoarthritis, unspecified site; G89.29 Other chronic pain; Z95.0 Presence of cardiac pacemaker; Z95.2 Presence of prosthetic heart valve; Z85.828 Personal history of other malignant neoplasm of skin; Z87.440 Personal history of urinary (tract) infections; Z86.73 Personal history of transient ischemic attack (TIA), and cerebral infarction without residual deficits; Z98.1 Arthrodesis status; Z88.1 Allergy status to other antibiotic agents; Z88.8 Allergy status to other drugs, medicaments and biological substances; Z88.2 Allergy status to sulfonamides
CPT/HCPCS: 99284; 51702

== ENCOUNTER 2025-10-31 02:05 | Inpatient (IN) | payer MEDICARE, OTHER, SELFPAY ==
[2025-10-30 21:14] VITALS: BP 155/93
[2025-10-30 21:23] VITALS: BMI 25.6
[2025-10-30 21:30] VITALS: BP 144/96
[2025-10-30 21:36] LABS: Hematocrit 34.8 % (39.0-52.0); Hemoglobin 11.9 g/dL (13.0-18.0); Mean Corp Hgb Conc. 34.2 g/dL (33.0-37.0); Mean Corpuscular Volume 92.3 fL (80.0-94.0); Nucleated Red Blood Cells % 0 % (-); Red Cell Dist. Width 13.2 % (11.5-14.5)
[2025-10-30 21:44] LABS: Urine Character Cloudy (Clear)
[2025-10-30 21:50] LABS: COVID-19 Antigen Negative (Negative)
[2025-10-30 22:00] VITALS: BP 140/93
[2025-10-30 22:07] LABS: ALT (SGPT) 13 U/L (0-50); AST (SGOT) 19 U/L (17-59); Albumin 4.8 g/dl (3.5-5.0); Alkaline Phosphatase 72 U/L (38-126); Blood Urea Nitrogen 17 mg/dl (9-20); Calcium 9.1 mg/dl (8.4-10.2); Carbon Dioxide 28 mmol/L (22-30); Chloride 93 mmol/L (98-107); Estimated Creatinine Clearance 64 ml/min; Glucose 105 mg/dl (70-99); Potassium 4.5 mmol/L (3.5-5.1); Sodium 128 mmol/L (135-145); Total Protein 7.4 g/dl (6.3-8.2); eGFR > 60.00
[2025-10-30 22:12] LABS: Platelet Count 99 10^3/uL (130-400)
[2025-10-30 22:30] VITALS: BP 148/90
[2025-10-30] MEDS: TYLENOL 1000 MG PO (22:38)
--- NOTE | 2025-10-30 22:41 | EDRN ---
this FOOD PORTER administered Tylenol 1000mg PO and NSS IVF 500ML bolus at 2238 per EMAR orders. this FOOD PORTER attempted to document this in the EMAR, however an ERROR message occurred stating this FOOD PORTER is unable to document this medication administration
at this time. ER ALE[facility] and pharmacy was called and notified of above
[2025-10-30] MEDS: NSS 500 IV (22:47)
--- NOTE | 2025-10-30 22:49 | ED.GENMED ---
History of Present Illness
General
Chief Complaint: Fall
Source: patient
Time Seen by Provider: 10/30/25 22:07
History of Present Illness
History of Present Illness:
80-year-old male with past medical history of CVA, known AAA, atrial fibrillation, CHF, hypertension, hyperlipidemia, pacemaker, GERD, previous GI bleeding, chronic kidney disease, chronic indwelling Montalvo catheter presenting to the emergency
department with EMS from home for evaluation after he states his legs were feeling very weak and could not hold himself up anymore and fell to the ground but states there was no head injury, loss consciousness, vomiting or visual changes. Patient
was not aware of any fevers at home despite having a fever here. He denies any upper respiratory symptoms, abdominal pain, nausea or vomiting, bowel changes, chest pain or shortness of breath. He denies any known sick contacts, recent travel or
recent antibiotics.
Past History
Past History
ED Past Medical History: Arrthythmia (Atrial flutter/fib), CAD, CHF, HTN, Hypercholesterolemia, Valvular disease, Psychiatric (Anxiety, Depression), Other (Rib fractures, Chronic back pain, Anemia, Cellulitis, Left pleural effusion, osteomyelitis,
endocarditis, Sleep apnea, Parkinson, GI bleeding, UTI with retention, AAA, Montalvo), Other (polyneuropathy, balance issues, Neuropathy, tingling in arms and legs. ) and Other (chronic back pain, pain management with Buprenorphine and ASA)
ED Past Surgical History: Cardiac (Aortic valve replaced (x 2), Pacemaker), Orthopedic (C spine fusion, Laminectomy) and Other (Hemorrhoidectomy, cataracts)
Patient has exhibited threatening behavior?: No
PSI?: No
Social History
Tobacco: Non-smoker
Alcohol: Occasional ( Beer)
Drug: None
Personal:
Living: with family
Employment: Retired
Family History
Family History: Hypertension and CAD
Review of Systems
Review of Systems
All Other Systems: ROS reviewed and negative except as documented in HPI and ROS
Phy Exam
Physical Exam
Physical Exam:
GENERAL: Alert , in no apparent distress
HEAD: Normocephalic atraumatic
EYE: clear conjunctiva
NECK: Supple
ENT: o/p clr, mmm.
CARDIAC: Regular rate and rhythm .
LUNGS: Clear breath sounds bilaterally, no acute respiratory distress, no wheezes/rales/rhonchi
ABDOMEN: Soft, without focal tenderness, no r/g, no cvat
NEUROLOGICAL: Alert and oriented
SKIN: Warm and dry, skin intact.
MUSCULOSKELETAL: No edema, well perfused.
PSYCH: Normal and appropriate interaction.
Scores
Heart Failure Risk
Heart Failure Risk Score: Not Applicable
Heart Score for Chest Pain Patients
STEMI patient?: Not applicable
Withdrawal Assessment of Alcohol
Withdrawal Assessment Completed?: Not applicable
Course
Orders/Labs/Results
Orders:
Orders
10/30/25 21:08
Electrocardiogram (*1) Urgent
Reason for Study: Tachycardia
EKG- Treatment ONCE
10/30/25 21:18
COVID-19 Antigen Urgent
Source: Nasal Swab
Complete Blood Count/With Diff Urgent
Comprehensive Metabolic Panel Urgent
Lactic Acid Q4H
Comment: ON ICE, CANCEL 2ND ORDER IF FIRST LACTIC ACID LEVEL <2
Blood Culture Q20M
TAMIKO Source: Blood/Venous
Specimen Description:
Comment: Urgent from separate sites. If patient screens positive for possible sepsis
Influenza A+B Rapid Molecular Urgent
TAMIKO Source: Nasal Swab
Specimen Description:
10/30/25 21:21
Blood Culture Q20M
TAMIKO Source: Blood/Venous
Specimen Description:
Comment: Urgent from separate sites. If patient screens positive for possible sepsis
10/30/25 21:30
Urinalysis Reflex To Culture Urgent
Date Specimen was Collected: 10/30/25
Time Specimen was Collected: 21:28
Urine Microscopic Reflex Cult Urgent
Urine Culture Urgent
TAMIKO Source: U
Specimen Description:
Date Specimen was Collected: 10/30/25
Time Specimen was Collected: 21:28
10/30/25 22:05
CXR2 [CR Chest - 2 Views ] Urgent
Comment:
Reason For Exam: fever
10/30/25 22:20
0.9% Sodium Chloride 500 ml [Nss] 500 ml IV BOLUS
10/30/25 22:46
Acetaminophen [Tylenol] 1,000 mg PO NOW STA
10/30/25 23:20
LevoFLOXacin 500 MG/100 ML [Levaquin] 500 mg in 100 ml IV NOW
10/31/25 00:45
CT Head W/o Iv Contrast Urgent
Comment:
Reason For Exam: fall, on eliquis
10/31/25 01:49
Admit/Transfer Patient As Directed
Co-Sign Provider:
Level of Care: Inpatient admission
Assign to:: Medical/Surgical
Physician / Group: Perez
Diagnosis: CAUTI, Sepsis
Reason for Hospitalization: CAUTI, Sepsis
Expected length of stay greater than two midnights?: Yes
ELOS- Estimated Length of Stay in days: 3
I certify the patient meets the requirements for IP care: Yes
PRN Pain Medication Management As Directed
May give lesser potent ordered pain med per pt: Yes
preference::
Protocol:: Medication orders for pain may be administered in a
manner that supports deferring to patient preference
when the pt is:
- Requesting an ordered lesser potent pain medication.
Least to most potent pain medications are defined
as: acetaminophen < NSAID < tramadol < opioids
(morphine, oxycodone, hydromorphone).
- Requesting a lesser dose of the same medication IF
ORDERED.
- Requesting a less intrusive route of administration
if both routes are prescribed by the provider (PO <
IV).
10/31/25 01:51
Code Status As Directed
Resuscitation Status: Full Code
Abnormal Lab Results
10/30/25 10/30/25
21:18 21:30
RBC 3.77 L 10^6/uL
(4.70-6.10)
Hgb 11.9 L g/dL
(13.0-18.0)
Hct 34.8 L %
(39.0-52.0)
MCH 31.6 H pg
(27.0-31.0)
Plt Count 99 L 10^3/uL
(130-400)
Absolute Neuts (auto) 7.0 H 10^3/uL
(1.4-6.5)
Absolute Lymphs (auto) 0.3 L 10^3/uL
(1.2-3.4)
Neutrophils % 88.0 H %
(42.2-75.2)
Lymphocytes % 4.3 L %
(20.5-51.1)
Sodium 128 L mmol/L
(135-145)
Chloride 93 L mmol/L
(98-107)
Glucose 105 H mg/dl
(70-99)
Total Bilirubin 2.4 H mg/dl
(0.2-1.3)
Ur Occult Blood Reflex 4+ A
(Negative)
Urine Nitrite (Reflex) Positive A
(Negative)
Urine Urobilinogen 2+ A
(Neg - 1+)
Leukocyte Esterase Rfl 3+ A
(Negative)
Urine RBC 11-15 A /HPF
(0-2)
Urine WBC (Reflex) 40-50 A /HPF
(0-5)
Urine Bacteria (Reflex) Many A
(Negative)
Urine Albumin (Reflex) 3+ A
(Neg - Trace)
10/30/25 21:18
10/30/25 21:18
Vital Signs
Initial and Last Documented VS:
Initial Vital Signs
Temp Pulse Resp BP Pulse Ox
101.5 F H 62 18 155/93 92
10/30/25 21:14 10/30/25 21:14 10/30/25 21:14 10/30/25 21:14 10/30/25 21:14
Last Documented Vital Signs
Temp Pulse Resp BP Pulse Ox
100.2 F 60 15 110/72 98
10/31/25 00:30 10/31/25 01:45 10/31/25 00:00 10/31/25 01:30 10/31/25 01:45
MDM/Problems Addressed
Differential Diagnosis Includes:
UTI
Covid
Influenza
Pneumonia
Electrolyte Imbalance
Anemia
HEVER
Dehydration
MDM/Problems Addressed:
80-year-old male presenting to the ER for evaluation of generalized weakness causing a fall to the ground stating his legs just felt too weak to hold him up. Noted to have a fever on arrival, patient was unaware that he had a fever at home. Has a
chronic indwelling Montalvo catheter. Will check labs, urine, chest x-ray, COVID and flu testing. Patient notes that he lives alone, anticipate patient will need admission.
Chronic conditions affecting care: Arrhythmia and Neurological disorder
*Radiology
Radiology exam reviewed: radiology read reviewed
*Pulse Oximetry
SaO2: 97
Nasal Cannula flow liters per minute: 2
Patient hypoxic: yes
*Medical Office Supervisor Interpretation
Rate: normal
Heart Rate: 65
Rhythm: sinus
*Critical Care Note
Total Time (30-74mins, 75-104mins- exclusive of procedures): Not Applicable
Data Reviewed
Review of Other/Old Records Reveals: Labs and Records
Patient Management
Discussion with other providers: Hospitalist
Escalation/DeEscalation of care consider admission/obs:
Patient's workup consistent with urinary tract infection. I reviewed previous culture reports which grew Enterobacter, resistant to multiple oral and IV he drugs. IV Levaquin ordered. Hospitalist team was notified and accepts for continued
evaluation and treatment. After admitting the patient, patient then expressed to nursing staff that he was having a headache. Given his reported fall and being on Eliquis a CT of the head was added.
ED Attending Note
-
Portions of this chart may have been created with voice recognition software.� Occasional wrong word or��sound alike� substitutions may have occurred due to the inherent limitations of voice recognition software.
Discharge Plan
Departure
Patient Disposition: Admit
Date of Disposition: 10/30/25
Time of Disposition: 23:21
Presentation/result/management discussed w/ accepting MD/DO: Hospitalist
Discharge Problem:
Acute UTI
Interventions
Interventions:
*General Assessment Last Done: 10/30/25 21:31
*Neglect/Abuse Screening Last Done: 10/30/25 21:31
*ED COVID-19 Vaccine History Last Done: 10/30/25 21:31
*ED Influenza Vaccine History Last Done: 10/30/25 21:31
[facility] Fall Risk Assessment Tool Last Done: 10/30/25 21:24
*Risk Screen - Suicide (C-SSRS) Last Done: 10/30/25 21:31
ED-Musculoskeletal Assessment Last Done: 10/30/25 21:30
ED- Neurological Assessment Last Done: 10/30/25 21:30
ED-Skin Assessment Last Done: 10/30/25 21:30
[2025-10-30 23:00] VITALS: BP 142/88
[2025-10-30 23:16] LABS: Urine Squamous Cell 0-2 /LPF (Few); Urine White Cell 40-50 /HPF (0-5)
[2025-10-30 23:39] VITALS: BP 138/87
[2025-10-30] MEDS: LEVAQUIN 100 IV (23:40)
[2025-10-31] VITALS (11 sets, daily range): BP systolic 110–154; BP diastolic 70–93; BMI 25.6; BMI 24.9
--- NOTE | 2025-10-31 01:54 | HPS.HSE ---
Family Physician
-
Family Physician: Blcak Artis
Chief Complaint
-
Weakness
History of Present Illness
Patient is a 80y M with PMH significant for A-Fib, hypertension and chronic back pain on chronic opioids who presents to ED complaining of generalized weakness. Patient states that his legs were 'weak' today and he was unable to walk. He states
that he slumped to the floor, but denies any fall, significant injury, head trauma, etc. Patient was transported from [facility] to the ED for further evaluation. He was noted to be febrile on initial evaluation at 101.5. He denied any focal / specific
complaints including cough, N/V/D, abdominal pain, etc.
Medical History
Past Medical History
Past Medical History: Reports Other
Additional Past Medical History:
Paroxysmal atrial fibrillation and flutter
Chronic back pain, spinal stenosis, and degenerative disc disease with chronic opioid use with dependence
Hypertension
h/o Klebsiella pneumonia and coagulase-negative Staphylococcus infected hardware in L4-L5 (April 2023)
Chronic neuropathy
Gastroesophageal reflux disease
Chronic HFpEF
Benign prostatic hypertrophy
Hyperlipidemia
Obstructive sleep
Anxiety
Depression
HX C. difficile
Past Surgical History: Reports Other
Additional Past Surgical History:
History of pain pump infection with removal
PPM Placement
Aortic valve replaced 2006 and 2019
Cervical spine fusion, laminectomy 2018, lumbar surgery 2022 with screws placed then removed 04/25/2023
Hemorrhoidectomy
Rhizotomy lower back
Cardiac cath 2006
Social History
Tobacco: Non-smoker
Alcohol: Occasional
Drug: None
Personal:
Living: With Family
Employment: Retired
Family History
Family History: Not pertinent
Allergies / Home Medications
Allergies reflects when Allergies were last updated in [facility].
Home Medications with original date entered in [facility]
Allergy/Medication List:
Allergies
Allergy/AdvReac Type Severity Reaction Status Date / Time
amiodarone Allergy Unknown Verified 10/31/25 00:34
amlodipine Allergy Swelling - Verified 10/31/25 00:34
1993
benzyl alcohol Allergy Unknown Verified 10/31/25 00:34
clindamycin Allergy Unknown Verified 10/31/25 00:34
hydrochlorothiazide Allergy Hyponatremi Verified 10/31/25 00:34
a
meloxicam Allergy Unknown Verified 10/31/25 00:34
polysorbate 80 Allergy Unknown Verified 10/31/25 00:34
sulfamethoxazole (From Allergy Unknown Verified 10/31/25 00:34
Bactrim)
tizanidine (From Zanaflex) Allergy took from Verified 10/31/25 00:34
patient
history
and
physical
from
surgeon
trimethoprim (From Bactrim) Allergy Unknown Verified 10/31/25 00:34
Home Medications
apixaban 5 mg tablet (Eliquis) 5 mg PO BID Blood clot prevention/tx 01/16/22
trazodone 150 mg tablet 150 mg PO HS Depression/sleep 09/13/22
atorvastatin 20 mg tablet (Lipitor) 20 mg PO HS High cholesterol 04/12/23
tamsulosin 0.4 mg capsule 0.4 mg PO HS Urinary Issue 04/14/24
pantoprazole 40 mg tablet,delayed release (Protonix) 20 mg PO DAILY GERD 09/07/24
terazosin 2 mg capsule 2 mg PO HS Urinary Issue/BP 12/25/24
acetaminophen 500 mg tablet (Tylenol Extra Strength) 1,000 mg PO BID PRN pain 02/02/25
ondansetron HCl 4 mg tablet 4 mg PO Q8HPRN PRN nausea/vomiting 02/02/25
carvedilol 6.25 mg tablet 6.25 mg PO BID #0 tabs 02/10/25
duloxetine 30 mg capsule,delayed release sprinkle 30 mg PO DAILY Mental Health/Anxiety 05/08/25
losartan 50 mg tablet 50 mg PO HS Blood Pressure 05/08/25
oxycodone 15 mg tablet 15 mg PO Q8HPRN PRN breakthrough pain 05/08/25
amoxicillin 500 mg capsule 2,000 mg PO DAILY PRN dental prophylactic administer 1 hr prior to appt 10/30/25
docusate sodium 100 mg capsule 100 mg PO BID 10/30/25
famotidine 20 mg tablet 20 mg PO BID 10/30/25
gabapentin 300 mg capsule 600 mg PO TID 10/30/25
hydralazine 25 mg tablet 25 mg PO DAILY hold for SBP<110 10/30/25
lisinopril 10 mg tablet 10 mg PO DAILY 10/30/25
nystatin 100,000 unit/gram topical cream 1 applic topical DAILY scrotal rash 10/30/25
Review of Systems
-
History Source: Patient
A 12 point ROS was completed and negative except as noted: Yes
Constitutional: Reports Fatigue; Denies Fever or Chills
EENT: Denies Sore Throat
Respiratory: Denies Cough or Trouble Breathing
Cardiac: Denies Chest Pain or Palpitations
Abdomen/GI: Denies Abdominal Pain, Nausea, Vomiting or Diarrhea
: Reports Montalvo
Musculoskeletal: Denies Edema
Neurological: Reports Headache and Weakness; Denies Dizzy or Numbness
Psych: Denies Depression or Anxiety
Physical Exam
Vital Signs
Vital Signs
Temp Pulse Resp BP Pulse Ox
100.2 F 60 15 119/78 96
10/31/25 00:30 10/31/25 00:30 10/31/25 00:00 10/31/25 00:30 10/31/25 00:30
Physical Exam
General: Other (80y M in no acute distress. )
HEENT: Moist mucous membranes and PERRLA
Respiratory: Clear; No Wheezes, Rales or Rhonchi
Cardiac: S1/S2 and Regular Rhythm; No Murmur
GI: Soft, Non Tender, Non Distended and Normal Bowel Sounds
Genito-urinary: Other (Montalvo in place draining clear yellow urine.)
Musculoskeletal: No Clubbing and No Cyanosis
Neuro: AO x 3
Laboratory Results
-
10/30/25 21:18
10/30/25 21:18
Laboratory Results
Lactic Acid Cancelled 10/31/25 01:15
Total Bilirubin 2.4 mg/dl (0.2-1.3) H 10/30/25 21:18
AST 19 U/L (17-59) 10/30/25 21:18
ALT 13 U/L (0-50) 10/30/25 21:18
Alkaline Phosphatase 72 U/L (38-126) 10/30/25 21:18
Impression/Plan
-
A/P: Patient is a 80y M with PMH significant for A-Fib, hypertension and chronic pain who presents to ED complaining of weakness and gait dysfunction.
CAUTI
Sepsis secondary to the above
- Admit for further evaluation and treatment.
- Patient presents with UA suggesting infection, fever and evidence of organ dysfunction in the form of hyperbilirubinemia.
- UA with 40-50 WBC and many bacteria. Catheter chronically in place.
- Cover with IV abx for now and follow-up culture data.
- IVF support.
- Prior cultures showed resistant Enterobacter. Continue with quinolone for now.
Benign Hypertension
- Stable. Continue home regimen with holding parameters.
- Patient on lisinopril and losartan? Will hold lisinopril for now.
Paroxysmal Atrial Fibrillation
- Stable. Continue Coreg, Eliquis, etc.
Thrombocytopenia
Chronic Anemia
- Stable. Hgb at / near usual baseline. No reported blood loss.
- Note prior episodes / periods of mild thrombocytopenia.
- Monitor for any gross bleeding.
- Follow cell counts for changes.
Chronic Urinary Retention
- Montalvo in place and draining clear appearing urine.
- IVF support as noted above.
- Maintain Montalvo for now.
Acute on Chronic Hyponatremia
- Likely due to component of hypovolemia.
- IVFs as noted above.
- Follow for improvement in labs.
Spinal Stenosis
Chronic Back Pain
Chronic Opioid Dependence
- Stable. No new / increased back pain.
- Decrease dose of oxycodone and try to minimize sedating meds in general.
- Follow-up with Pain Management as an outpatient.
DVT Prophylaxis: SCDs
Code Status: Full
[2025-10-31] MEDS: NSS 1000 IV ×3 (04:14→22:50)
--- NOTE | 2025-10-31 04:33 | PTCARENOTE ---
Pt received from ED via stretcher. Pulled over to bed x3 w/o incident. AAOx3, seems forgetful, poor historian. Oriented to surroundings and plan of care discussed. Admission and assessment completed. Pt does not recall events prior to arrival.
Sacral foam placed, R buttock blanchable. Preventative heel foams placed, heels floated. #20 RAC flushed and patent. #22 RFA w/NSS at 100 mL. [employer] contacted regarding wheter bautista should be exchanged as patient does not know date last changed.
Electronic order received to exchange bautista. #14F bautista placed using sterile technique w/o difficulty. Pt tolerated well. Call stevan w/in reach. Safe environment maintained.
[2025-10-31] MEDS: ROXICODONE 10 MG PO ×3 (06:19→22:39)
[2025-10-31 08:36] LABS: Hematocrit 32.3 % (39.0-52.0); Hemoglobin 11.0 g/dL (13.0-18.0); Mean Corp Hgb Conc. 34.1 g/dL (33.0-37.0); Mean Corpuscular Volume 93.4 fL (80.0-94.0); Platelet Count 82 10^3/uL (130-400); Red Cell Dist. Width 13.2 % (11.5-14.5)
[2025-10-31] MEDS: COREG 6.25 MG PO ×2 (08:46→21:11)
[2025-10-31] MEDS: NEURONTIN 600 MG PO ×3 (08:46→22:23)
[2025-10-31] MEDS: ELIQUIS 5 MG PO ×2 (08:46→21:02)
[2025-10-31] MEDS: COLACE 100 MG PO ×2 (08:46→21:03)
[2025-10-31] MEDS: PEPCID 20 MG PO ×2 (08:47→21:03)
[2025-10-31] MEDS: CYMBALTA DELAYED RELEASE 30 MG PO (08:47)
[2025-10-31 08:50] LABS: ALT (SGPT) 12 U/L (0-50); AST (SGOT) 17 U/L (17-59); Albumin 3.9 g/dl (3.5-5.0); Alkaline Phosphatase 55 U/L (38-126); Blood Urea Nitrogen 13 mg/dl (9-20); Calcium 8.8 mg/dl (8.4-10.2); Carbon Dioxide 29 mmol/L (22-30); Chloride 97 mmol/L (98-107); Estimated Creatinine Clearance 72 ml/min; Glucose 97 mg/dl (70-99); Potassium 4.0 mmol/L (3.5-5.1); Sodium 131 mmol/L (135-145); Total Protein 6.1 g/dl (6.3-8.2); eGFR > 60.00
--- NOTE | 2025-10-31 10:44 | W.PN.HOSP.TC ---
Today's Communication/Plan
-
see A/P
Assessment / Plan
Assessment / Plan
HPI: 80 yo M with PMH significant for A-Fib, hypertension and chronic back pain on chronic opioids; p/w generalized weakness and unable to walk. He stated that he slumped to the floor, but denies any fall, significant injury, head trauma, etc.
Patient was transported from [facility] to the ED for further evaluation. He was noted to be febrile on initial evaluation at 101.5.
A/P:
# CAUTI
# Sepsis secondary to the above, end organ dysfunction in the form of hyperbilirubinemia.
# Chronic Bautista catheter
Follow urine and blood cultures
Prior cultures showed resistant Enterobacter. Continue with quinolone for now.
Cover with empiric Levaquin
IVF support.
# Benign Hypertension, Stable.
Continue home regimen with holding parameters.
Med recc shows that patient on lisinopril and losartan? Pt unsure about his BP meds. Will hold lisinopril for now- informed pt.
# Paroxysmal Atrial Fibrillation, Stable.
Continue Coreg, Eliquis, etc.
# Thrombocytopenia
# Chronic Anemia
Stable. Hgb at / near usual baseline. No reported blood loss.
Note prior episodes / periods of mild thrombocytopenia.
Monitor for any gross bleeding.
Follow cell counts for changes.
# Chronic Urinary Retention with chronic bautista
Bautista exchanged on admission 10/30, next bautista change in 4 weeks
Maintain Bautista for now.
# Acute on Chronic Hyponatremia, Likely due to component of hypovolemia, improving
Sodium level 128 to 131 today, cont to monitor
IVFs as noted above.
# Spinal Stenosis
# Chronic Back Pain
# Chronic Opioid Dependence
Stable. No new / increased back pain.
Decrease dose of oxycodone and try to minimize sedating meds in general.
Follow-up with Pain Management as an outpatient.
DVT Prophylaxis: SCDs
Code Status: Full
Anticipated Discharge: 24 - 48 hours
Subjective/Interval History
-
Date of Service: October 31, 2025
Objective Data
-
Labs:
Laboratory Results
10/31/25
07:54
WBC 7.6
Hgb 11.0 L
Hct 32.3 L
Plt Count 82 L
Sodium 131 L
Potassium 4.0
Chloride 97 L
Carbon Dioxide 29
BUN 13
Creatinine 0.8
Glucose 97
Calcium 8.8
Total Bilirubin 2.8 H
AST 17
ALT 12
Alkaline Phosphatase 55
Vital Signs:
Vital Signs
Temp Pulse Resp BP Pulse Ox
36.4 C 64 20 143/84 95
10/31/25 07:25 10/31/25 08:46 10/31/25 07:25 10/31/25 08:46 10/31/25 07:25
I&O
10/30/25 10/31/25 11/01/25
06:59 06:59 06:59
Intake Total 460 / 460
Output Total 1350 / 1350
Balance -890 / -890
Review of Systems
-
History Source: Patient
All other systems: Reviewed and negative
Physical Exam
-
General: Well Developed, Well Nourished, No Apparent Distress, Comfortable and Conversant
HEENT: Normocephalic and Atraumatic
Respiratory: Clear to Auscultation and Non Labored Respirations; Negative Accessory Resp Muscle Use
Cardiac: Regular Rhythm and S1/S2
GI: Nondistended and Normal Bowel Sounds
Genito-urinary: Bautista (chronic)
Musculoskeletal: No Clubbing, No Cyanosis and No Edema
Neuro: Awake, Alert and Oriented
Psych: Calm and Intact Judgement/Insight
Data Reviewed
-
Labs: Labs Reviewed by me
--- NOTE | 2025-10-31 16:31 | CM ---
Patient seen at bedside on . Patient lives in personal care at [place] with his . CM spoke with patient son, sakina. Plan is for patient to return to personal care pending SNF vs with [facility]. Patient PCP Dr. Artis and he uses the [facility] in
[address] CM will continue to follow for discharge planning needs.
Plan; personal care at [facility] vs SNF; pending medical treatment plan
[2025-10-31] MEDS: DESYREL 150 MG PO (21:10)
[2025-10-31] MEDS: LIPITOR 20 MG PO (22:23)
[2025-10-31] MEDS: TYLENOL 650 MG PO (22:38)
[2025-10-31] MEDS: LEVAQUIN 100 IV (22:39)
[2025-10-31] MEDS: COZAAR 50 MG PO (22:40)
[2025-11-01] MEDS: ROXICODONE 5 MG PO (03:28)
[2025-11-01 06:00] VITALS: BMI 25.5
[2025-11-01 06:56] LABS: Hematocrit 32.1 % (39.0-52.0); Hemoglobin 11.0 g/dL (13.0-18.0); Mean Corp Hgb Conc. 34.3 g/dL (33.0-37.0); Mean Corpuscular Volume 94.4 fL (80.0-94.0); Platelet Count 82 10^3/uL (130-400); Red Cell Dist. Width 13.2 % (11.5-14.5)
[2025-11-01 07:10] VITALS: BP 139/85
[2025-11-01 07:19] LABS: ALT (SGPT) 12 U/L (0-50); AST (SGOT) 18 U/L (17-59); Albumin 3.9 g/dl (3.5-5.0); Alkaline Phosphatase 43 U/L (38-126); Blood Urea Nitrogen 14 mg/dl (9-20); Calcium 8.8 mg/dl (8.4-10.2); Carbon Dioxide 29 mmol/L (22-30); Chloride 97 mmol/L (98-107); Estimated Creatinine Clearance 72 ml/min; Glucose 99 mg/dl (70-99); Potassium 3.8 mmol/L (3.5-5.1); Sodium 131 mmol/L (135-145); Total Protein 6.2 g/dl (6.3-8.2); eGFR > 60.00
[2025-11-01] MEDS: NEURONTIN 600 MG PO ×3 (09:22→22:32)
[2025-11-01] MEDS: COREG 6.25 MG PO ×2 (09:22→20:16)
[2025-11-01] MEDS: COLACE 100 MG PO ×2 (09:23→20:16)
[2025-11-01] MEDS: PEPCID 20 MG PO ×2 (09:23→20:16)
[2025-11-01] MEDS: ELIQUIS 5 MG PO ×2 (09:23→20:16)
[2025-11-01] MEDS: ROXICODONE 10 MG PO ×2 (09:23→17:18)
[2025-11-01] MEDS: CYMBALTA DELAYED RELEASE 30 MG PO (09:23)
[2025-11-01] MEDS: NSS 1000 IV (10:33)
--- NOTE | 2025-11-01 13:44 | W.PN.HOSP.TC ---
Today's Communication/Plan
-
Continue current care.
Assessment / Plan
Assessment / Plan
80 yo M with PMH significant for:
A-Fib,
hypertension
chronic back pain on chronic opioids;
p/w generalized weakness and unable to walk. He stated that he slumped to the floor, but denies any fall, significant injury, head trauma, etc. Patient was transported from [facility] to the ED for further evaluation. He was noted to be febrile on initial
evaluation at 101.5.
A/P:
1. CA-UTI
Complicated by Sepsis secondary to the above, end organ dysfunction in the form of hyperbilirubinemia.
Complicated by Chronic Bautista catheter
Follow urine and blood cultures - so far gram neg bacilli in urine
Prior cultures showed resistant Enterobacter.
Continue with quinolone for now.
Cover with empiric Levaquin
IVF support.
2. Benign Hypertension, Stable.
Continue home regimen with holding parameters.
Med recc shows that patient on lisinopril and losartan?
Pt is unsure about his BP meds.
Will hold lisinopril for now- informed pt.
3. Paroxysmal Atrial Fibrillation, Stable.
Continue Coreg, Eliquis, etc.
4. Thrombocytopenia and Chronic Anemia
Stable.
Hgb at / near usual baseline.
No reported blood loss.
Note prior episodes / periods of mild thrombocytopenia.
Monitor for any gross bleeding.
Follow cell counts for changes.
5. Chronic Urinary Retention with chronic bautista
Bautista exchanged on admission 10/30,
next bautista change in 4 weeks
Maintain Bautista for now.
6. Acute on Chronic Hyponatremia, Likely due to component of hypovolemia, improving
Sodium level 128 to 131 today,
cont to monitor
IVFs as noted above.
7. Spinal Stenosis
With associated Chronic Back Pain
Complicated by Chronic Opioid Dependence
Stable. No new / increased back pain.
Decrease dose of oxycodone and try to minimize sedating meds in general.
Follow-up with Pain Management as an outpatient.
DVT Prophylaxis: SCDs
Code Status: Full
Anticipated Discharge: > 48 hours
Subjective/Interval History
-
Date of Service: November 01, 2025
No new complaints.
Objective Data
-
Labs:
Laboratory Results
11/01/25
06:35
WBC 5.8
Hgb 11.0 L
Hct 32.1 L
Plt Count 82 L
Sodium 131 L
Potassium 3.8
Chloride 97 L
Carbon Dioxide 29
BUN 14
Creatinine 0.8
Glucose 99
Calcium 8.8
Total Bilirubin 2.7 H
AST 18
ALT 12
Alkaline Phosphatase 43
Vital Signs:
Vital Signs
Temp Pulse Resp BP Pulse Ox
97.3 F 61 17 139/85 95
11/01/25 07:10 11/01/25 09:22 11/01/25 07:10 11/01/25 09:22 11/01/25 07:10
I&O
10/31/25 11/01/25 11/02/25
06:59 06:59 06:59
Intake Total 460 / 460 240 / 240
Output Total 1350 / 1350 1050 / 1050
Balance -890 / -890 -810 / -810
Review of Systems
-
History Source: Patient
All other systems: Reviewed and negative
Physical Exam
-
General: Well Developed, Well Nourished, No Apparent Distress and Comfortable
HEENT: Moist Mucous Membranes, Nose Appears Normal and Ears Appear Normal
Respiratory: Clear to Auscultation
Cardiac: Regular Rhythm and S1/S2
GI: Soft, Nontender and Nondistended
Musculoskeletal: No Clubbing, No Cyanosis and No Edema
Skin: Warm and Dry
Neuro: Awake, Alert and Oriented
Psych: Calm
Data Reviewed
-
Labs: Labs Reviewed by me
[2025-11-01 15:06] VITALS: BP 147/82
[2025-11-01 21:57] VITALS: BP 198/134
[2025-11-01] MEDS: DESYREL 150 MG PO (22:31)
[2025-11-01] MEDS: TYLENOL 650 MG PO (22:32)
[2025-11-01] MEDS: COZAAR 50 MG PO (22:32)
[2025-11-01] MEDS: LIPITOR 20 MG PO (22:33)
[2025-11-01] MEDS: LEVAQUIN 100 IV (23:57)
[2025-11-02 00:09] VITALS: BP 132/84
[2025-11-02] MEDS: ROXICODONE 10 MG PO ×3 (06:19→22:39)
[2025-11-02 07:41] VITALS: BP 161/93
[2025-11-02] MEDS: ELIQUIS 5 MG PO ×2 (08:53→22:35)
[2025-11-02] MEDS: PEPCID 20 MG PO ×2 (08:53→22:35)
[2025-11-02] MEDS: CYMBALTA DELAYED RELEASE 30 MG PO (08:53)
[2025-11-02] MEDS: NEURONTIN 600 MG PO ×3 (08:54→22:38)
[2025-11-02] MEDS: COREG 6.25 MG PO ×2 (08:54→22:35)
[2025-11-02] MEDS: COLACE 100 MG PO ×2 (08:54→22:35)
[2025-11-02] MEDS: TYLENOL 650 MG PO ×2 (08:59→22:38)
[2025-11-02 10:09] LABS: Hematocrit 32.6 % (39.0-52.0); Hemoglobin 11.1 g/dL (13.0-18.0); Mean Corp Hgb Conc. 34.0 g/dL (33.0-37.0); Mean Corpuscular Volume 93.1 fL (80.0-94.0); Platelet Count 95 10^3/uL (130-400); Red Cell Dist. Width 13.0 % (11.5-14.5)
[2025-11-02 10:24] LABS: Blood Urea Nitrogen 11 mg/dl (9-20); Calcium 8.9 mg/dl (8.4-10.2); Carbon Dioxide 28 mmol/L (22-30); Chloride 98 mmol/L (98-107); Estimated Creatinine Clearance 72 ml/min; Glucose 93 mg/dl (70-99); Potassium 3.7 mmol/L (3.5-5.1); Sodium 132 mmol/L (135-145); eGFR > 60.00
--- NOTE | 2025-11-02 12:01 | W.PN.HOSP.TC ---
Today's Communication/Plan
-
Doing well. Switch to PO abx tomorrow. Will need PT eval prior to discharge.
Assessment / Plan
Assessment / Plan
80 yo M with PMH significant for:
A-Fib,
hypertension
chronic back pain on chronic opioids;
p/w generalized weakness and unable to walk. He stated that he slumped to the floor, but denies any fall, significant injury, head trauma, etc. Patient was transported from [facility] to the ED for further evaluation. He was noted to be febrile on initial
evaluation at 101.5.
A/P:
1. CA-UTI
Complicated by Sepsis secondary to the above, end organ dysfunction in the form of hyperbilirubinemia.
Complicated by Chronic Bautista catheter
Follow urine and blood cultures - gram neg bacilli in urine
Urine Culture Final 11/02/25
CC: Greater than 100,000 CFU/ML Proteus mirabilis
CC: Greater than 100,000 CFU/ML Klebsiella aerogenes
Organism 1 Proteus mirabilis
Organism 2 Klebsiella aerogenes
P.MIRABILI KLEAER
M.I.C. RX M.I.C. RX
--------- --- --------- ---
Amoxicillin/Potas. Clavulanate <=8/4 S 16/8 R
Ampicillin <=8 S >16 R
Ampicillin/Sulbactam <=4/2 S 8/4 R
Aztreonam <=4 S <=4 S
Cefazolin 4 I >16 R
Cefepime <=2 S <=2 S
Ceftazidime <=1 S <=1 S
Ceftriaxone <=1 S <=1 S
Ertapenem <=0.5 S <=0.5 S
Ciprofloxacin <=0.25 S <=0.25 S
Gentamicin <=2 S <=2 S
Meropenem <=1 S <=1 S
Nitrofurantoin-Urine Only >64 R 64 I
Piperacillin/Tazobactam <=8 S <=8 S
Tetracycline >8 R <=4 S
Tobramycin <=2 S <=2 S
Trimethoprim/Sulfamethoxazole <=2/38 S <=2/38 S
Prior cultures showed resistant Enterobacter.
Continue with quinolone for now.
Cover with Levaquin
IVF support
Switch to appropriate PO given above list and allergy list after 3 days of IV abx. (switch on 11/03 to PO)
2. Benign Hypertension, Stable.
Continue home regimen with holding parameters.
Med recc shows that patient on lisinopril and losartan?
Pt is unsure about his BP meds.
Will hold lisinopril for now- informed pt.
3. Paroxysmal Atrial Fibrillation, Stable.
Continue Coreg, Eliquis, etc.
4. Thrombocytopenia and Chronic Anemia
Stable.
Hgb at / near usual baseline.
No reported blood loss.
Note prior episodes / periods of mild thrombocytopenia.
Monitor for any gross bleeding.
Follow cell counts for changes.
5. Chronic Urinary Retention with chronic bautista
Bautista exchanged on admission 10/30,
next bautista change in 4 weeks
Maintain Bautista for now.
6. Acute on Chronic Hyponatremia, Likely due to component of hypovolemia, improving
Sodium level 128 to 132 today,
cont to monitor
IVFs as noted above.
7. Spinal Stenosis
With associated Chronic Back Pain
Complicated by Chronic Opioid Dependence
Stable. No new / increased back pain.
Decrease dose of oxycodone and try to minimize sedating meds in general.
Follow-up with Pain Management as an outpatient.
8. Anemia and low platelets - both improving.
Monitor as outpatient
DVT Prophylaxis: SCDs
Code Status: Full
Anticipated Discharge: 24 - 48 hours
Subjective/Interval History
-
Date of Service: November 02, 2025
Feels stronger.
Objective Data
-
Labs:
Laboratory Results
11/02/25
08:55
WBC 4.8
Hgb 11.1 L
Hct 32.6 L
Plt Count 95 L
Sodium 132 L
Potassium 3.7
Chloride 98
Carbon Dioxide 28
BUN 11
Creatinine 0.8
Glucose 93
Calcium 8.9
Vital Signs:
Vital Signs
Temp Pulse Resp BP Pulse Ox
98.2 F 61 16 161/93 96
11/02/25 07:41 11/02/25 08:54 11/02/25 07:41 11/02/25 08:54 11/02/25 08:00
I&O
11/01/25 11/02/25 11/03/25
06:59 06:59 06:59
Intake Total 240 / 240 1580 / 1580 625 / 625
Output Total 1050 / 1050 2750 / 2750
Balance -810 / -810 -1170 / -1170 625 / 625
Review of Systems
-
History Source: Patient
All other systems: Reviewed and negative
Physical Exam
-
General: Well Developed, Well Nourished, No Apparent Distress, Comfortable and Conversant
HEENT: Normocephalic, Nose Appears Normal and Ears Appear Normal
Respiratory: Clear to Auscultation
Cardiac: Regular Rhythm and S1/S2
GI: Soft, Nontender and Nondistended
Skin: Warm and Dry
Neuro: Awake and Alert
Psych: Calm
Data Reviewed
-
Labs: Labs Reviewed by me
[2025-11-02 15:23] VITALS: BP 167/119
--- NOTE | 2025-11-02 20:30 | PTCARENOTE ---
Assumed care of Pt at 1900, assessment unchanged from previous shift. Pt aaox3, cooperative, forgetful. Pt oob twice to the bathroom, did not use call calles, bed alarm in place. bautista draining yellow urine. Report given to Hunter Garcia RN.
[2025-11-02] MEDS: DESYREL 150 MG PO (22:38)
[2025-11-02] MEDS: LIPITOR 20 MG PO (22:41)
[2025-11-02] MEDS: FLUSH (NSS) 2 FLUSH IV (22:41)
[2025-11-02] MEDS: LEVAQUIN 100 IV (22:41)
[2025-11-02] MEDS: COZAAR 50 MG PO (22:41)
[2025-11-02 23:18] VITALS: BP 168/106
[2025-11-03 01:01] VITALS: BP 159/96
[2025-11-03] MEDS: TYLENOL 650 MG PO ×2 (05:24→12:42)
[2025-11-03 06:00] VITALS: BMI 25.4
--- NOTE | 2025-11-03 06:37 | PTCARENOTE ---
102.7 fever last night medicated with Tylenol- afebrile since then. pt was forgetful and slightly confused with fever since resolved
[2025-11-03 07:15] VITALS: BP 177/109
[2025-11-03 08:07] LABS: Hematocrit 31.6 % (39.0-52.0); Hemoglobin 10.7 g/dL (13.0-18.0); Mean Corp Hgb Conc. 33.9 g/dL (33.0-37.0); Mean Corpuscular Volume 90.8 fL (80.0-94.0); Platelet Count 106 10^3/uL (130-400); Red Cell Dist. Width 13.0 % (11.5-14.5)
[2025-11-03] MEDS: PEPCID 20 MG PO ×2 (08:30→20:35)
[2025-11-03] MEDS: CYMBALTA DELAYED RELEASE 30 MG PO (08:30)
[2025-11-03] MEDS: ELIQUIS 5 MG PO ×2 (08:30→19:48)
[2025-11-03] MEDS: COLACE 100 MG PO ×2 (08:30→19:48)
[2025-11-03] MEDS: COREG 6.25 MG PO ×2 (08:30→19:49)
[2025-11-03] MEDS: NEURONTIN 600 MG PO ×3 (08:30→21:55)
[2025-11-03 08:31] LABS: Blood Urea Nitrogen 11 mg/dl (9-20); Calcium 8.9 mg/dl (8.4-10.2); Carbon Dioxide 31 mmol/L (22-30); Chloride 98 mmol/L (98-107); Estimated Creatinine Clearance 72 ml/min; Glucose 98 mg/dl (70-99); Potassium 3.8 mmol/L (3.5-5.1); Sodium 133 mmol/L (135-145); eGFR > 60.00
[2025-11-03] MEDS: ROXICODONE 10 MG PO ×2 (08:48→17:02)
[2025-11-03 10:01] LABS: ALT (SGPT) 13 U/L (0-50); AST (SGOT) 21 U/L (17-59); Albumin 3.7 g/dl (3.5-5.0); Alkaline Phosphatase 56 U/L (38-126); Total Protein 5.9 g/dl (6.3-8.2)
--- NOTE | 2025-11-03 11:48 | W.PN.HOSP.TC ---
Today's Communication/Plan
-
Monitor vital signs see plan
Follow fever curve
Continue with antibiotic
Check 2 sets of blood culture
Check CT abdomen/pelvis
Assessment / Plan
Assessment / Plan
80 yo M with PMH significant for:
A-Fib,
hypertension
chronic back pain on chronic opioids;
p/w generalized weakness and unable to walk. He stated that he slumped to the floor, but denies any fall, significant injury, head trauma, etc. Patient was transported from [facility] to the ED for further evaluation. He was noted to be febrile on initial
evaluation at 101.5.
A/P:
CA-UTI
Complicated by Sepsis secondary to the above, end organ dysfunction in the form of hyperbilirubinemia.
Complicated by Chronic Bautista catheter
urine urine culture with Klebsiella and
Proteus. Will eventually transition to cephalosporin
Still having persistent fever, check CT abdomen/pelvis
History of cholelithiasis, per patient he does not member if he followed up with surgery from last admission.
Check new sets of blood culture due to persistent fever
Benign Hypertension, Stable.
Continue home regimen with holding parameters.
Med recc shows that patient on lisinopril and losartan?
Pt is unsure about his BP meds.
Will hold lisinopril for now- informed pt.
Currently on losartan
Paroxysmal Atrial Fibrillation, Stable.
Continue Coreg, Eliquis, etc.
Thrombocytopenia and Chronic Anemia
Hgb at / near usual baseline.
No reported blood loss.
Note prior episodes / periods of mild thrombocytopenia.
Monitor for any gross bleeding.
Follow cell counts for changes.
Chronic Urinary Retention with chronic bautista
Bautista exchanged on admission 10/30,
next bautista change in 4 weeks
Maintain Bautista for now.
Acute on Chronic Hyponatremia, Likely due to component of hypovolemia, improving
Monitor
Spinal Stenosis
With associated Chronic Back Pain
Complicated by Chronic Opioid Dependence
Stable. No new / increased back pain.
Decrease dose of oxycodone and try to minimize sedating meds in general.
Follow-up with Pain Management as an outpatient.
Anemia and low platelets - both improving.
Monitor as outpatient
DVT Prophylaxis: SCDs
Code Status: Full
General: Well Developed, Well Nourished, No Apparent Distress, Comfortable and Conversant
HEENT: Normocephalic, Nose Appears Normal and Ears Appear Normal
Respiratory: Clear to Auscultation
Cardiac: Regular Rhythm and S1/S2
GI: Soft, Nondistended, tender
Skin: Warm and Dry
Neuro: Awake and Alert
Psych: Calm
I spent a total of 52 minutes with the patient or on the floor. More than 50% of this time involved counseling and coordination of care.
Anticipated Discharge: Within 24 hours
Subjective/Interval History
-
Date of Service: November 03, 2025
Does have some abdominal discomfort
Objective Data
-
Labs:
Laboratory Results
11/03/25 11/03/25
07:36 09:01
WBC 4.3 L
Hgb 10.7 L
Hct 31.6 L
Plt Count 106 L
Sodium 133 L
Potassium 3.8
Chloride 98
Carbon Dioxide 31 H
BUN 11
Creatinine 0.8
Glucose 98
Calcium 8.9
Total Bilirubin 1.7 H D Cancelled
AST 21 Cancelled
ALT 13 Cancelled
Alkaline Phosphatase 56 Cancelled
Vital Signs:
Vital Signs
Temp Pulse Resp BP Pulse Ox
97.9 F 61 16 177/109 95
11/03/25 07:15 11/03/25 07:15 11/03/25 07:15 11/03/25 08:30 11/03/25 07:15
I&O
11/02/25 11/03/25 11/04/25
06:59 06:59 06:59
Intake Total 1580 / 1580 1105 / 1105
Output Total 2750 / 2750 2250 / 2250
Balance -1170 / -1170 -1145 / -1145
[2025-11-03] MEDS: OMNIPAQUE 50 ML PO (12:31)
[2025-11-03] MEDS: APRESOLINE 5 MG IV (13:24)
[2025-11-03] MEDS: DILAUDID 0.25 MG IV (13:40)
--- NOTE | 2025-11-03 14:04 | PTCARENOTE ---
pt hypertensive this morning for 0700 vitals. rechecked after medication administration for 177/113. manual of 174/110. MD made aware and prn hydralazine given.
pt states taking adelaida 15mg q8hr at home and that the 10mg we are giving here is not managing his pain. MD made aware and stat dose of pain medication was administered. pt to go for abd ct this afternoon. oral contrast prep began at 1230 this
afternoon.
[2025-11-03 14:50] VITALS: BP 155/102
--- NOTE | 2025-11-03 16:12 | CM ---
CT abdomen and pelvis today, IV/Levaquin. Discharge POC: Return to [facility] with for PT/OT. This CM spoke with Amanda in admissions. They do not have a preference of agencies for PT/OT. Referral placed for [facility].
[facility] Nurses station # [phone],
.
[2025-11-03] MEDS: MIRALAX 17 GRAMS PO (17:01)
[2025-11-03] MEDS: DESYREL 150 MG PO (21:55)
[2025-11-03] MEDS: COZAAR 50 MG PO (21:57)
[2025-11-03] MEDS: LIPITOR 20 MG PO (21:57)
[2025-11-03] MEDS: TYLENOL 1000 MG PO (23:53)
[2025-11-03] MEDS: LEVAQUIN 100 IV (23:57)
[2025-11-03 23:59] VITALS: BP 143/87
[2025-11-04 05:33] VITALS: BMI 25.4
[2025-11-04 06:00] VITALS: BMI 25.4
[2025-11-04] MEDS: ROXICODONE 10 MG PO (06:14)
[2025-11-04 07:32] VITALS: BP 151/108
[2025-11-04 08:43] LABS: Hematocrit 32.6 % (39.0-52.0); Hemoglobin 11.1 g/dL (13.0-18.0); Mean Corp Hgb Conc. 34.0 g/dL (33.0-37.0); Mean Corpuscular Volume 90.8 fL (80.0-94.0); Nucleated Red Blood Cells % 0 % (-); Platelet Count 124 10^3/uL (130-400); Red Cell Dist. Width 12.9 % (11.5-14.5)
[2025-11-04] MEDS: NEURONTIN 600 MG PO ×2 (08:52→15:09)
[2025-11-04] MEDS: COLACE 100 MG PO (08:52)
[2025-11-04] MEDS: MIRALAX 17 GRAMS PO (08:52)
[2025-11-04] MEDS: PEPCID 20 MG PO (08:52)
[2025-11-04] MEDS: ELIQUIS 5 MG PO (08:52)
[2025-11-04] MEDS: CYMBALTA DELAYED RELEASE 30 MG PO (08:52)
[2025-11-04] MEDS: COREG 6.25 MG PO (08:52)
[2025-11-04] MEDS: TYLENOL 650 MG PO (08:57)
[2025-11-04 09:18] LABS: ALT (SGPT) 14 U/L (0-50); AST (SGOT) 20 U/L (17-59); Albumin 3.8 g/dl (3.5-5.0); Alkaline Phosphatase 62 U/L (38-126); Blood Urea Nitrogen 10 mg/dl (9-20); Calcium 8.7 mg/dl (8.4-10.2); Carbon Dioxide 30 mmol/L (22-30); Chloride 94 mmol/L (98-107); Estimated Creatinine Clearance 72 ml/min; Glucose 102 mg/dl (70-99); Potassium 3.7 mmol/L (3.5-5.1); Sodium 129 mmol/L (135-145); Total Protein 6.0 g/dl (6.3-8.2); eGFR > 60.00
--- NOTE | 2025-11-04 10:45 | VNURNOTE ---
Home Health Liaison met with patient at bedside to discuss [facility] nurse/therapy, visits, schedule and homebound status. Patient is agreeable and understands that visits at home will be 2-3 x per week to assess and teach medical management. Patient
is aware that [facility] will contact them for start of care within a week after discharge from .
[facility] referral accepted in [facility].
--- NOTE | 2025-11-04 11:20 | W.PN.HOSP.TC ---
Addendum entered and electronically signed by Jose Alcantar MD 11/04/25 13:49:
Increase hydralazine to twice daily with holding parameter. Patient fairly responsive. Advised patient to follow-up with his PCP
Original Note:
Today's Communication/Plan
-
Monitor vital signs see plan
Discharge today
Switch antibiotics to oral cefdinir
Follow-up with urology outpatient
Laxatives
Time of discharge 38 minutes
Assessment / Plan
Assessment / Plan
80 yo M with PMH significant for:
A-Fib,
hypertension
chronic back pain on chronic opioids;
p/w generalized weakness and unable to walk. He stated that he slumped to the floor, but denies any fall, significant injury, head trauma, etc. Patient was transported from [facility] to the ED for further evaluation. He was noted to be febrile on initial
evaluation at 101.5.
A/P:
CA-UTI
Complicated by Sepsis secondary to the above, end organ dysfunction in the form of hyperbilirubinemia.
Complicated by Chronic Bautista catheter
urine urine culture with Klebsiella and Proteus. Transition to p.o. cefdinir to complete the course
No further fever, CT abdomen/pelvis with possible cystitis. Many tiny layering gallstones however stable. Appears constipation. Hypodense Paddock lesion likely a cyst or hemangioma which is stable.
History of cholelithiasis, per patient he does not member if he followed up with surgery from last admission.
Check new sets of blood culture due to persistent fever
Benign Hypertension, Stable.
Continue home regimen with holding parameters.
Med recc shows that patient on lisinopril and losartan?
Pt is unsure about his BP meds.
Will hold lisinopril for now- informed pt.
Currently on losartan
Paroxysmal Atrial Fibrillation, Stable.
Continue Coreg, Eliquis, etc.
Mild hyponatremia
Monitor
Repeat BMP outpatient
Denies any confusion, nausea
Asymptomatic
Thrombocytopenia and Chronic Anemia
Hgb at / near usual baseline.
No reported blood loss.
Note prior episodes / periods of mild thrombocytopenia.
Monitor for any gross bleeding.
Follow cell counts for changes.
Chronic Urinary Retention with chronic bautista
Bautista exchanged on admission 10/30,
next bautista change in 4 weeks
Maintain Bautista for now.
Follow-up with urology outpatient
Acute on Chronic Hyponatremia, Likely due to component of hypovolemia, improving
Monitor
Spinal Stenosis
With associated Chronic Back Pain
Complicated by Chronic Opioid Dependence
Stable. No new / increased back pain.
Decrease dose of oxycodone and try to minimize sedating meds in general.
Follow-up with Pain Management as an outpatient.
Anemia and low platelets - both improving.
Monitor as outpatient
DVT Prophylaxis: SCDs
Code Status: Full
General: Well Developed, Well Nourished, No Apparent Distress, Comfortable and Conversant
HEENT: Normocephalic, Nose Appears Normal and Ears Appear Normal
Respiratory: Clear to Auscultation
Cardiac: Regular Rhythm and S1/S2
GI: Soft, Nondistended, nontender
Skin: Warm and Dry
Neuro: Awake and Alert
Psych: Calm
I spent a total of 51 minutes with the patient or on the floor. More than 50% of this time involved counseling and coordination of care.
Anticipated Discharge: Today
Subjective/Interval History
-
Date of Service: November 04, 2025
feeling better
Objective Data
-
Labs:
Laboratory Results
11/04/25
07:48
WBC 4.0 L
Hgb 11.1 L
Hct 32.6 L
Plt Count 124 L
Sodium 129 L
Potassium 3.7
Chloride 94 L
Carbon Dioxide 30
BUN 10
Creatinine 0.8
Glucose 102 H
Calcium 8.7
Total Bilirubin 1.7 H
AST 20
ALT 14
Alkaline Phosphatase 62
Vital Signs:
Vital Signs
Temp Pulse Resp BP Pulse Ox
97.6 F 74 16 151/108 94
11/04/25 07:32 11/04/25 08:52 11/04/25 07:32 11/04/25 08:52 11/04/25 07:32
I&O
11/03/25 11/04/25 11/05/25
06:59 06:59 06:59
Intake Total 1105 / 1105 1800 / 1800 480 / 480
Output Total 2250 / 2250 2525 / 2525 600 / 600
Balance -1145 / -1145 -725 / -725 -120 / -120
[2025-11-04] MEDS: APRESOLINE 5 MG IV (11:49)
[2025-11-04 11:58] VITALS: BP 166/112
[2025-11-04 13:17] VITALS: BP 152/108
--- NOTE | 2025-11-04 13:19 | PTCARENOTE ---
Patient's automatic BP this AM 151/108, administered scheduled PO medications, recheck at 1145 170/116, manual 166/112 taken by this RN. PRN IV hydralazine administered by this RN. Repeat automatic BP at 1300 152/108 HR 79. Patient laying in bed
eating lunch, states no concerns at this time. MD made aware of BP results, no new orders.
--- NOTE | 2025-11-04 13:48 | W.DCSUMMARY ---
Discharge Summary
Discharge Data
Date of Admission: 10/31/25
Date of Discharge: 11/04/25
-
Pending Results: No
Hospital Course
80-year-old male with past medical history of A-fib, hypertension, chronic back pain on chronic opioids, chronic urinary retention with chronic Montalvo, spinal stenosis came to the hospital with catheter associated urinary tract infection. Patient
urine culture was positive with Klebsiella and Proteus. Patient continued to had abdominal discomfort so CT scan was done which showed possible cystitis. Patient blood pressure was also elevated so his hydralazine was increased to twice daily.
Once his symptoms continue to improve, he was then discharged home with instructions to follow-up with all his physicians outpatient.
Discharge Plan
-
Patient Disposition: Other
Discharge Diagnosis/Procedures: Catheter associated urinary tract infection
Cystitis
Thrombocytopenia
Hyponatremia
Condition: Fair
Diet: As tolerated
Activity: As tolerated
Driving Restrictions: As prior to admission
Bathing Restrictions: None
Blood Work: BMP next week with primary care provider
Referrals:
Black Artis MD [Family Provider, Family Practice] - in less than 1 week
Raffaele Arrieta MD [Active, Urology]
Prescriptions:
New
polyethylene glycol 3350 17 gram Powder In Packet
17 g PO DAILY Qty: 0 0RF
cefdinir 300 mg capsule
300 mg PO BID Qty: 14 0RF
Continued
Eliquis 5 MG tablet
5 mg PO BID
trazodone 150 mg Tablet
150 mg PO HS
atorvastatin [Lipitor] 20 MG tablet
20 mg PO HS
tamsulosin 0.4 mg capsule
0.4 mg PO HS
pantoprazole [Protonix] 40 mg Tablet,Delayed Release (Dr/Ec)
20 mg PO DAILY
terazosin 2 mg Capsule
2 mg PO HS
ondansetron HCl 4 mg Tablet
4 mg PO Q8HPRN PRN (Reason: nausea/vomiting)
acetaminophen [Tylenol Extra Strength] 500 mg Tablet
1,000 mg PO BID PRN (Reason: pain)
carvedilol 6.25 mg Tablet
6.25 mg PO BID Qty: 0 0RF
Rx Instructions:
HOLD for SBP<110
duloxetine 30 mg Capsule, Delayed Rel Sprinkle
30 mg PO DAILY
oxycodone 15 mg tablet
15 mg PO Q8HPRN PRN (Reason: breakthrough pain)
amoxicillin 500 mg Capsule
2,000 mg PO DAILY PRN (Reason: dental prophylactic administer 1 hr prior to appt)
nystatin 100,000 unit/gram Cream
1 applic TOPICAL DAILY
docusate sodium 100 mg Capsule
100 mg PO BID
famotidine 20 mg tablet
20 mg PO BID
gabapentin 300 mg capsule
600 mg PO TID
losartan 50 mg Tablet
50 mg PO HS Qty: 30 0RF
Rx Instructions:
HOLD for SBP<110
Changed
hydralazine 25 mg tablet
25 mg PO BID Qty: 0 0RF
Discontinued
lisinopril 10 mg Tablet
10 mg PO DAILY
Rx Instructions:
HOLD for SBP<110
Discharge Orders:
Discharge Patient (As Directed); Ordered 11/04/25
Ordered By: Jose Alcantar
Discharge Date and Time
Discharge Date/Time: 11/04/25 16:57
Print Language: ESTONIAN
--- NOTE | 2025-11-04 13:58 | CM ---
Addendum entered by Crys Hough 11/04/25 15:11:
Contacted son, Black, via phone; he reported that he will provide transport back to home @ [facility]
IMM benefit explained; form completed @ 1500
Addendum entered by Crys Hough 11/04/25 14:33:
Patient will contact son to provide transport back to [facility]
Original Note:
Plan: discharge to home today with [facility] home health services
[facility] Nurses station # [phone],
.
[2025-11-04 15:05] VITALS: BP 144/83
[2025-11-04] MEDS: ROXICODONE PO (15:07)
--- NOTE | 2025-11-04 15:59 | PTCARENOTE ---
Addendum entered by Dionne Chopra RN 11/04/25 16:57:
Belongings gathered in room, patient taken down to son's car at main [facility] via staff escort and wheelchair.
Original Note:
Patient being DCed back to [facility], transported by son. R FA and R hand IVs removed by this RN, vitals taken by tech stable. Montalvo bag switched to leg bag per patient request. Report given to nurse Oscar at facility by this RN.
Patient assisted in dressing in home clothes by this RN and tech.
== END 2025-11-04 16:57 | disposition home health service (06) | DRG 698 ==
LOC: 2 NORTH 02:05
PROVIDERS: Internal Medicine; Student in an Organized Health Care Education/Training Program; ADMITTING PHYSICIAN Hospitalist; ATTENDING PHYSICIAN Internal Medicine; EMERGENCY PHYSICIAN Emergency Medicine; FAMILY PHYSICIAN Family Medicine
DX: T83.518A Infection and inflammatory reaction due to other urinary catheter, initial encounter (principal); A41.9 Sepsis, unspecified organism; I50.32 Chronic diastolic (congestive) heart failure; I13.0 Hypertensive heart and chronic kidney disease with heart failure and stage 1 through stage 4 chronic kidney disease, or unspecified chronic kidney disease; E87.1 Hypo-osmolality and hyponatremia; F11.20 Opioid dependence, uncomplicated; Z11.52 Encounter for screening for COVID-19; N30.90 Cystitis, unspecified without hematuria; Y84.6 Urinary catheterization as the cause of abnormal reaction of the patient, or of later complication, without mention of misadventure at the time of the procedure; N18.9 Chronic kidney disease, unspecified; I48.0 Paroxysmal atrial fibrillation; D64.9 Anemia, unspecified; D69.6 Thrombocytopenia, unspecified; E86.1 Hypovolemia; G89.29 Other chronic pain; M54.9 Dorsalgia, unspecified; M48.00 Spinal stenosis, site unspecified; Z79.01 Long term (current) use of anticoagulants
CPT/HCPCS: 70450; 71046; 74177; 80048; 80053; 81003; 81015; 82248; 83605; 85025; 85027; 87040; 87077; 87086; 87186; 87502; 87811; 93005; 96361; 96365; 97163; 97167; 99285; Q9967